=== PATIENT | female | born 1965 | race Caucasian/White ===

== ENCOUNTER 2022-04-20 16:40 | Outpatient (CLI) | payer OTHER, SELFPAY ==
--- OUTSIDE RECORDS SUMMARY | 2022-04-20 11:13 | XMS_ITS | Clinical Summary ---
:1965 Author Organization [facility] Address [address] [place] [address] Care Team Providers Name Role Phone Unavailable Primary Care Provider Unavailable Source Comments Patient records contain information from all sites at [facility]. For routine questions regarding patient records, call [phone] during business hours, M-F 8:00 AM - 5:00 PM Central Time. Record requests for emergency care only can be directed to [phone] at any time.[facility] Allergies Active Allergy Reactions Severity Noted Date Comments House Dust Mite Hives 09/06/2003 Medications Medication Sig Dispensed Refills Start Date End Date Status venlafaxine XR Take 1 capsule by 0 05/18/2019 Active (EFFEXOR-XR) 150 mg mouth daily. 24 hr capsule armodafinil Take 1 tablet by 0 05/30/2019 Active (NUVIGIL) 250 mg mouth daily. tablet cholecalciferol, Take 1,000 Units by 0 Active vitamin D3, (VITAMIN mouth daily. D3 ORAL) albuterol 90 Inhale 1-2 puffs. 0 09/10/2021 Active mcg/actuation inhaler benzonatate Take 200 mg by 0 09/14/2021 Ac tive (TESSALON) 200 mg mouth. capsule multivitamin tablet Take 1 tablet by 0 08/13/2021 Active mouth daily. gabapentin Take 1 tablet (600 90 tablet 2 02/10/2022 Active (NEURONTIN) 600 mg mg total) by mouth tablet 3 (three) times a day. Take with 300mg capsulesTID for a total of dose of 900mg TID gabapentin Take 1 capsule (300 90 capsule 2 02/10/2022 Active (NEURONTIN) 300 mg mg total) by mouth capsule 3 (three) times a day. 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 (Primary Dx ) 02/10/2022 Refill Neurological Surgery Dionte Garcia [place] d Change Request P.A.-C. 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 from Last 3 Months Immunizations Name Administration Dates Next Due DT, Pediatric 06/19/1987 H1N1 Inj 04/28/2009 Influenza TIV (IM) 03/27/2013, 05/04/2007 Influenza, Seasonal, Injectable 03/27/2013, 03/07/2009, 04/20 Td, (Adult) Unspecified 12/30/1997 Tdap 12/25/2010 influenza vaccine quad (FLUZONE/FLUARIX) 06/16/2016 (6 months and older)(PF) Family History Medical History Relation Name Comments Diabetes Father Heart attack Father Bone cancer Maternal Grandfather Prostate cancer Maternal Grandfather Diabetes Maternal Grandmother Diabetes Mother Heart disease Paternal Grandfather Breast cancer Paternal Grandmother Diabetes Sister Relation Name Status Comments Father Maternal Grandfather Maternal Grandmother Mother Paternal Grandfather Paternal Grandmother Sister Social History Tobacco Use Types Packs/Day Years Used Date Smoking Tobacco: Never Smokeless Tobacco: Never Alcohol Use Standard Drinks/Week Comments Not Currently 0 (1 standard drink = 0.6 oz pure alcoho l) Alcohol Habits Answer Date Recorded How often do you have a drink containing alcohol? Monthly or less 10/25/2021 How many drinks containing alcohol do you have on a 1 or 2 10/25/2021 typical day when you are drinking? How often do you have six or more drinks on one Never 10/25/2021 occasion? Social Isolation Answer Date Recorded In a typical week, how many times do you More than three rosy es a week 10/25/2021 talk on the phone with family, friends, or neighbors? How often do you get together with friends More than three t imes a week 10/25/2021 or relatives? How often do you attend rastafari or Never 2021 adventist services? Do you belong to any clubs or Yes 10/25/2021 organizations such as rastafari groups, unions, fraternal or athletic groups, or school groups? How often do you attend meetings of the More than 4 times pe r year 10/25/2021 clubs or organizations you belong to? Are you now , , , 10/25/2021 , never or living with a partner? Physical Activity Answer Date Recorded On average, how many days per week do you engage in moderate to 2 days 10/25/2021 strenuous exercise (like walking fast, running, jogging, dancing, swimming, biking, or other activities that cause a light or heavy sweat)? On average, how many minutes do you engage in exercise at th is 60 min 10/25/2021 level? Stress Answer Date Recorded Do you feel stress - tense, restless, nervous, or anxious, N ot at all 10/25/2021 or unable to sleep at night because your mind is troubled all the time - these days? Financial Resource Strain Answer Date Recorded How hard is it for you to pay for the very basics like Not h jessee at all 10/25/2021 food, housing, medical care, and heating? Intimate Partner Violence Answer Date Recorded Within the last year, have you been afraid of your partner o r No 10/25/2021 ex-partner? Within the last year, have you been humiliated or emotionall y No 10/25/2021 abused in other ways by your partner or ex-partner? Within the last year, have you been kicked, hit, slapped, or No 10/25/2021 otherwise physically hurt by your partner or ex-partner? Within the last year, have you been raped or forced to have any No 10/25/2021 kind of sexual activity by your partner or ex-partner? Food Insecurity Answer Date Recorded Within the past 12 months, you worried that your food would Never true 10/25/2021 run out before you got money to buy more. Within the past 12 months, the food you bought just didn't N ever true 10/25/2021 last and you didn't have money to get more. Transportation Needs Answer Date Recorded In the past 12 months, has lack of transportation kept you f rom No 10/25/2021 medical appointments or from getting medications? In the past 12 months, has lack of transportation kept you f rom No 10/25/2021 meetings, work, or getting things needed for daily living? Housing Stability Answer Date Recorded In the last 12 months, was there a time when you were not ab le No 10/25/2021 to pay the mortgage or rent on time? In the last 12 months, how many places have you lived? 1 10/25/2021 In the last 12 months, was there a time when you did not hav e a No 10/25/[address] or slept in a longterm (including now)? Education Answer Date Recorded What is the highest level of school Associate degree: academ [employer] program 10/25/2021 you have completed or the highest degree you have received? 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 [address] [place], [place] [address] (Wo rk) 05/12/2022 Appointment Radiology Jammie Roca P.A.-C., M.S. [address] [place], [place] [address] (Wo rk) 05/12/2022 Office Visit Neurological Surgery Sheila Gamble M.D. [address] [place], [place] [phone] (Wo rk) Health Maintenance Due Date Last Done Comments CT Colonography 1965 Cologuard 1965 Colonoscopy 1965 Colorectal Cancer Screening 1965 FIT 1965 HIV Screening 1965 Hepatitis B Vaccines (1 of 1965 3 - 3-dose series) Hepatitis C Screening 1965 Lipid (Cholesterol) 1965 Screening Mammogram 1965 COVID-19 Vaccine (#1) 02/27/1966 Zoster Vaccines (1 of 2) 08/28/2015 DTaP,Tdap,and Td Vaccines 12/25/2020 12/25/2010, 12/30/1997 , (4 - Td or Tdap) 06/19/1987 Depression Screening 06/20/2021 (Annual PHQ-2) Influenza Vaccine (#1) 2022 04/22/2020, 06/16/2016, 03/27/2013, Additional history exists Office Visit for Blood 05/19/2022 02/16/2022 Pressure Check / Re-check Fasting Glucose for 07/10/2022 07/10/2019 Diabetes Screening Pneumococcal vaccine (0-64 Aged Out No lo nger eligible years) based on patient 's age to complete this topic Medical Devices Implanted Type Area Forest Practices Field Coordinator Device Shelf Model / Identifier Expiration Serial / Lot Date Liz Meza Crn [id number] - [id number] - [id number] Bone or Anterior: Medtronic 02/15/2022 [id number] / Implanted: Qty: 1 on 08/10/2019 by Loulou Mariano M.D. at [facility] Tissue Spine [id number] / Cervical [id number] Description: C5/C6 Medtronic Zevo 3.5mm Variable Self-Tapping Screw Blue Hardware e .g. N/A: Spine Medtronic [id number] / Implanted: Qty: 6 on 08/10/2019 by Loulou Mariano M.D. at [facility] pins/screws/rods Cervical N/A / N/A Insurance Payer Benefit Plan / Subscriber ID Effective Dates Phone Addre ss Type Group MEDICA MEDICA [id number] 2018-Present [phone] [address] [id number] [place] [address] Advance Directives For more information, please contact: [phone] Latest Code Status on File Code Status Date Activated Date Inactivated Comments Full Code 08/10/2019 9:51 AM 08/11/2019 1:00 PM Question Answer Comments Full Code: Not Discussed Due to: Not medically appropriate
--- OUTSIDE RECORDS SUMMARY | 2022-04-20 11:13 | XMS_ITS | Encounter Summary ---
:1965 Author Organization [facility] Address [address] [place] [address] Care Team Providers Name Role Phone Unavailable Primary Care Provider Unavailable Reason for Visit Reason Comments Med Refill Encounter Details Date Type Department Care Team Description 02/08/2022 Refill Department of Neurological Marissa, Zacarias Gonzalez APRN, Med Refill Surgery in [place], [place] C.N.P., D.N.P. [address] [phone] [place] [address] (Wo rk) Social History Tobacco Use Types Packs/Day Years [...] or relatives? How often do you attend jehovah's witness or Never 2021 mandaen services? Do you belong to any clubs or Yes 10/25/2021 organizations such as jehovah's witness groups, unions, fraternal or athletic groups, or [...] minutes do you engage in exercise at is 60 min 10/25/2021 level? Stress Answer [...] place to sleep or slept in a residential (including now)? Education Answer Date Recorded What is the highest level of school Associate degree: academ [employer] program 10/25/2021 you have completed or the highest degree you have received? 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 - 02/08/2022 3:40 PM CDT Patient confirms taking 900mg TID. She is currently taking 1, 600mg tablet along with 1, 300mg capsule TID. She is in need of both the 600mg tabs and 300mg caps. Last refill 11/30 #90, 0 refills Last visit 10/27, next visit 02/16 documented in this encounter Plan of Treatment Upcoming Encounters Date Type Specialty Care Team Description 05/12/2022 Appointment Radiology Jammie Roca P.A.-C., M.S. [address] [place], [place] [address] (Wo marleni) 05/12/2022 Appointment Radiology Jammie Roca P.A.-C., M.S. [address] [place], [place] [address] (Wo marleni) 05/12/2022 Office Visit Neurological Surgery Sheila Gamble M.D. [address] [place] [phone] (Wo rk) documented as of this encounter Visit Diagnoses Not on filedocumented in this encounter
--- OUTSIDE RECORDS SUMMARY | 2022-04-20 11:13 | XMS_ITS | Encounter Summary ---
:1965 Author Organization [facility] Address [address] [place] [address] Care Team Providers Name Role Phone Unavailable Primary Care Provider Unavailable Reason for Referral Physical Therapy (Routine) - Authorized Specialty Diagnoses / Procedures Referred By Contact Refer red To Contact Diagnoses Radiculopathy Lumbar Jammie Roca P.A.-C., M.S. [address] [place] [phone] Referral ID Status Reason Start Expiration Visits Visits Date Date Requested Authorized [id number] Authorized Patient 02/16/2022 02/16/2023 1 1 Preference utpatient (Routine) - Authorized Specialty Diagnoses / Procedures Referred By Contact Refer red To Contact Neurological Surgery Jammie Roca [facility], M.S. [address] [place] [phone] Referral ID Status Reason Start Date Expiration Date Visits V isits Requested Authorized [id number] Authorized 02/16/2022 02/15/2025 [address] Gamble after mri and xrays utpatient (Routine) - Authorized Specialty Diagnoses / Procedures Referred By Contact Refer red To Contact Diagnoses Radiculopathy Lumbar Jammie Roca [facility] Region Procedures DX Lumbar Spine 4+ Views Almas, M.S. [address] [place] [phone] Referral ID Status Reason Start Date Expiration Date Visits V isits Requested Authorized [id number] Authorized 02/16/2022 02/16/2023 1 1 RI/CAT/PET Scan (Routine) - Authorized Specialty Diagnoses / Procedures Referred By Contact Refer red To Contact Radiology Diagnoses Radiculopathy Lumbar Jammie Roca [facility] Region Procedures MR Lumbar Spine without IV Contrast Almas, M.S. [address] [place] [phone] Referral ID Status Reason Start Date Expiration Date Visits V isits Requested Authorized [id number] Authorized 02/16/2022 02/16/2023 1 1 Reason for Visit Reason Comments Follow-up 3 month follow up, pain in l eft hip to foot and then moved to right leg. Outpatient (Routine) - Closed Specialty Diagnoses / Procedures Referred By Contact Refer red To Contact Neurological Surgery Loulou Gamble [facility] M.D. [address] [place] [phone] Referral ID Status Reason Start Date Expiration Date Visits Requ ested Visits Authorized [id number] Closed 10/27/2021 10/27/2022 1 1 Encounter Details Date Type Department Care Team Description 02/16/2022 Office Visit Department of Jammie Roca Radikika matteo Lumbar Neurological Surgery Almas Lanza, M.S. (Primary Dx) in [facility] [address] [facility] [address] [place] [address] [place], [place] [phone] (Work) [phone] Social History Tobacco Use Types Packs/Day Years [...] or relatives? How often do you attend yarsanism or Never 2021 mandaen services? Do you belong to any clubs or Yes 10/25/2021 organizations such as yarsanism groups, unions, fraternal or athletic groups, or [...] place to sleep or slept in a retirement (including now)? Education Answer Date Recorded What is the highest level of school Associate degree: [employer] program 10/25/2021 you have completed or the highest degree you have received? 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 - 02/16/2022 3:00 PM CDT Should you experience new or worsening pain, numbness, tingling, or weakness of the extremities, saddle anesthesia, or bowel/bladder incontinence, you are advised to seek emergency medical attention. Spine and Neurological Surgery Department Phone Numbers: During office hours of 8am to 5pm - Tuesday-Tuesday: [phone]. After hours /weekends: [phone]. documented in this encounter Progress Notes Jammie Roca P.A.-C., M.S. - 02/16/2022 3:00 PM CDT SUBJECTIVE CHIEF COMPLAINT / REASON FOR VISIT Minerva Ramesh is a 56 y.o. female who presents for evaluation of Follow-up (3 month follow up, pain in left hip to foot and then moved to right leg. ). HISTORY OF PRESENT ILLNESS Patient returns for follow up of lumbar radiculopathy. Recall she is status post an anterior cervical diskectomy and fusion for cervical myelopathy in 2019. She has more recently been followed by Dr. Gamble for lumbar radiculopathy for which she has undergone non operative measures with several targeted injections at the left L4 foramen as well as neuropathic pain medication. At their last visit in October, she had found some relief with gabapentin and they discussed titration to 900 mg TID. Upon return today, patient reports the increase in gabapentin has helped somewhat, however she continues to experience significant pain. 2-3/10 at its best, 10/10 at its worst. Remains in the same distribution most consistent with L3 vs L4 radiculopathy spreading down to the ankle. It is most significant in the anteromedial thigh. Pain is functionally limiting as she cannot spread her legs to sit on a bicycle, etc. She does state that she has found herself having to actively lift her left leg with her arms which is new for her. No new or worsening paresthesias. Denies bowel/bladder disturbances or saddle anesthesia. No significant right lower extremity issues. No neck or upper extremity concerns. She does have a chiropractor whom she has seen for many years and wonders if this may be an appropriate intervention. She remains hesitant to pursue major surgery at this time. The following portions of the patient's history were reviewed and updated as appropriate: allergies,current medications, family history, medical history, social history, surgical history, and problem list. Past Surgical History: Procedure Laterality Date SECTION DIAGNOSTIC LAPAROSCOPY FOOT SURGERY Right FUSION SPINE ANTERIOR CERVICAL AND DISCECTOMY N/A 08/10/2019 Procedure: FUSION SPINE ANTERIOR CERVICAL AND DISCECTOMY - C5-7; Surgeon: Loulou Gamble M.D.; Location: [facility] OR MOUTH BIOPSY N/A 04/02/2008 >Buccal mucosal biopsy. TONSILLECTOMY AND ADENOIDECTOMY VAGINAL HYSTERECTOMY with left oophorectomy. with laparoscopy too per pt REVIEW OF SYSTEMS: Neurological: Positive for numbness or shooting pain in hands, arms, legs, or feet. OBJECTIVE PHYSICAL EXAM GENERAL: Well-developed female in no acute distress. RESPIRATORY: Breathing unlabored. No respiratory distress. VASCULAR: All extremities warm to touch. No lower extremity edema. MUSCULOSKELETAL: + SLR on the left, - on the right. Negative MILAN/FADIR on the L NEURO: Mental Status: Alert and appropriately interactive to conversation. Motor/Sensory: Slight 4+/5 weakness L hip flexion/extension (pain limited) Very slight weakness 4+/5 L EHL Otherwise full and symmetric strength throughout all major muscle groups of the lower extremities Sensation intact throughout all lower extremity dermatomes Cerebellar: Ambulates well. No significant antalgia, weakness, imbalance. Performs heel walk, toe walk, tandem gait with minimal difficulty. Negative Romberg testing is negative. Reflexes, Clonus: Brisk UE reflexes at bilateral biceps, brachioradialis. 2+ bilateral triceps. 2+ and symmetric patella and achilles. Plantar response is mute. No abnormal ankle clonus or increased tone. DIAGNOSTIC Recall hip/pelvis xrays from March 2021 revealed no acute bilateral hip or pelvic osseous abnormality Recall EMG from October 2021 revealed no electrodiagnostic evidence of a left lumbosacral radiculopathy. This does not exclude the possibility of intermittent nerve root compression. We again reviewed prior lumbar MRI and xrays from January 2021. [address]. Gamble's prior report: MRI reveals no drastic difference compared to the 2020 MRI. There is some lateral recess stenosis and narrowing at the foramen at L4-5 but no major disc herniation. Lumbar x-ray show good alignment and no listhesis. ASSESSMENT / PLAN #1 Radiculopathy Lumbar Minerva Ramesh is a 56 y.o. female who presents for evaluation of Follow-up (3 month follow up, pain in left hip to foot and then moved to right leg). Patient has found some relief with uptitration of gabapentin although her pain continues to be quitebothersome and functionally limiting. Remains in the same distribution; most consistent with L3 vs L4 radiculopathy. No drastic focal deficits upon exam, although I do note slight weakness in the L LE - there may certainly be a pain-limitation component. We had a thorough discussion regarding options. In the setting of continued pain despite various conservative measures along with perhaps new onset weakness in the L LE, we made a collaborative decision to obtain updated lumbar MRI and xrays. Will review updated imaging with Dr. Gamble. In the meantime, patient remains hesitant to make any increases to her gabapentin. She would also like to hold off on an injection. We discussed setting her up with phsycial therapy; external referral sent. Patient will contact us should she need a new referral elsewhere. She will also plan to discuss with her chiropractor. I advised no significant manipulations or straining of the spine. We will see her back once the above is accomplished. Alarm signs and symptoms concerning for neurologic compromise warranting emergent medical evaluationwere reviewed in detail with the patient. Patient is encouraged to contact the Neurosurgery Department with any questions or concerns should they arise. Patients questions and concerns were addressed to their satisfaction and the patient voices comprehension of the current plan which was discussed in layman's terms at all points in conversation. Spine and Neurological Surgery Department Phone Numbers: During office hours of 8am to 5pm - Tuesday-Tuesday: [phone]. After hours /weekends: [phone]. Jammie Roca PA-C documented in this encounter Plan of Treatment Upcoming Encounters Date Type Specialty Care Team Description 05/12/2022 Appointment Radiology Jammie Roca P.A.-C., M.S. [address] [place], [place] [address] (Wo rk) 05/12/2022 Appointment Radiology Jammie Roca P.A.-C., M.S. [address] [place], [place] [address] (Wo rk) 05/12/2022 Office Visit Neurological Surgery Sheila Gamble M.D. [address] [place], [place] [phone] (Wo rk) Scheduled Orders Name Type Priority Associated Diagnoses Order S chedule MR Lumbar Spine Imaging RAD - Routine (most Radiculopathy Lumb ar Expected: without IV inpatients and all 2 Contrast outpatients) (Approximate), Expires: 05/19/2023 DX Lumbar Spine 4+ Imaging RAD - Routine (most Radiculopathy L umbar Expected: Views inpatients and all 2 outpatients) (Approximate), Expires: 05/19/2023 Scheduled Referrals Name Type Priority Associated Order Schedule Diagnoses Neurological Surgery Outpatient Referral Routine Expected: office visit (clinic) 2021, Expires: 05/19/2023 documented as of this encounter Visit Diagnoses Diagnosis Radiculopathy Lumbar - Primary documented in this encounter
--- OUTSIDE RECORDS SUMMARY | 2022-04-20 11:13 | XMS_ITS | Encounter Summary ---
:1965 Author Organization [facility] Address [address] [place] [address] Care Team Providers Name Role Phone Unavailable Primary Care Provider Unavailable Reason for Visit Reason Comments Med Change Request Encounter Details Date Type Department Care Team Description 02/10/2022 Refill Department of Neurological Dionte Garcia, Med Change Request Surgery in [place] [id number] [place] [address] [place] [address] [phone] Social History Tobacco Use Types Packs/Day Years [...] or relatives? How often do you attend zoroastrianism or Never 2021 church services? Do you belong to any clubs or Yes 10/25/2021 organizations such as zoroastrianism groups, unions, fraternal or athletic groups, or [...] place to sleep or slept in a fci (including now)? Education Answer Date Recorded What is the highest level of school Associate degree: academ program 10/25/2021 you have completed or the highest degree you have received? 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 [address] [place], [place] [address] (Karlie yepez) 05/12/2022 Appointment Radiology Jammie Roca, P.A.-C., M.S. [address] [place], [place] [address] (Karlie yepez) 05/12/2022 Office Visit Neurological Surgery Sheila Gamble M.D. [address] [place] [phone] (Karlie yepez) documented as of this encounter Visit Diagnoses Not on filedocumented in this encounter
--- OUTSIDE RECORDS SUMMARY | 2022-04-20 11:14 | XMS_ITS | Encounter Summary ---
:1965 Author Organization [facility] Address [address] [place] [address] Care Team Providers Name Role Phone Unavailable Primary Care Provider Unavailable Encounter Details Date Type Department Care Team Description 10/14/2021 Orders Only Department of Neurological Randi Richards, Surgery in [place], [place] P.A.-C. [address] [address] [place], [place] [phone] (Wo rk) Social History Tobacco Use Types [...] or relatives? How often do you attend muslim or Never 2021 zoroastrian services? Do you belong to any clubs or Yes 10/25/2021 organizations such as muslim groups, unions, fraternal or athletic groups, or [...] place to sleep or slept in a group home (including now)? Education Answer Date Recorded What is the highest level of school Associate degree: yehuda patterson, 01/29/2021 you have completed or the highest technical, or vocational p leonides degree you have received? 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 [facility] [place], [place] [address] (Karlie yepez) 05/12/2022 Appointment Radiology Jammie Roca, Ria.A.-C., M.S. [address] [place], [place] [address] (Karlei yepez) 05/12/2022 Office Visit Neurological Surgery Sheila Gamble M.D. [address] [place] [phone] (Karlie yepez) documented as of this encounter Visit Diagnoses Not on filedocumented in this encounter
--- OUTSIDE RECORDS SUMMARY | 2022-04-20 11:14 | XMS_ITS | Encounter Summary ---
:1965 Author Organization [facility] Address [address] [place] [id number] Care Team Providers Name Role Phone Unavailable Primary Care Provider Unavailable Reason for Visit Reason Comments Pre-visit Intake Encounter Details Date Type Department Care Team Description 10/05/2021 Clinical Communication Visit Review in Pr e-visit Intake [address] [address] Social History Tobacco Use Types Packs/Day Years [...] or relatives? How often do you attend episcopalian or Never 2021 restorationism services? Do you belong to any clubs or Yes 10/25/2021 organizations such as episcopalian groups, unions, fraternal or athletic groups, or [...] completed or the highest technical, or vocational mariza coyle degree you have received? 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 [address] [place] [address] (Wo rk) 05/12/2022 Appointment Radiology Jammie Roca, P.A.-C., M.S. [address] [place] [phone] (Wo rk) 05/12/2022 Office Visit Neurological Surgery Sheila Gamble M.D. [address] [place] [phone] (Wo rk) documented as of this encounter Visit Diagnoses Not on filedocumented in this encounter
--- OUTSIDE RECORDS SUMMARY | 2022-04-20 11:14 | XMS_ITS | Encounter Summary ---
:1965 Author Organization [facility] Address [address] [place] [address] Care Team Providers Name Role Phone Unavailable Primary Care Provider Unavailable Reason for Referral Outpatient (Routine) - Closed Specialty Diagnoses / Procedures Referred By Contact Refer red To Contact Radiology Diagnoses Radiculopathy Lumbar Randi Richards P.A.-C. [address] [place] [phone] Referral ID Status Reason Start Date Expiration Date Visits Requ ested Visits Authorized [id number] Closed 11/13/2019 11/12/2020 1 1 Reason for Visit Reason Comments Post Hospital Follow-up Outpatient (Routine) - Closed Specialty Diagnoses / Procedures Referred By Contact Refer red To Contact Neurological Surgery [facility] Z[facility], C.N.P., D.N.P., M.S.N. [address] [address] Referral ID Status Reason Start Date Expiration Date Visits Requ ested Visits Authorized [id number] Closed 08/11/2019 08/10/2020 1 1 Encounter Details Date Type Department Care Team Description 11/13/2019 Office Visit Department of Melissa Murrell P.A.-C., M.S. [address] [place] [phone] Radiculopathy Lumbar (Primary Dx); Neurological Surgery Randi Richards P.A.-C. [address] [place] [address] Fusion Cervical Spine Status Post; [place] Stenosis Spinal Cervical [address] [place] [phone] Social History Tobacco Use Types Packs/Day Years Used Date Smoking Tobacco: Never Smokeless Tobacco: Never Alcohol Use Standard Drinks/Week Comments Not Currently 1 (1 standard drink = 0.6 oz pure [...] or relatives? How often do you attend holiness or Never 2021 muslim services? Do you belong to any clubs or Yes 10/25/2021 organizations such as holiness groups, unions, fraternal or athletic groups, or [...] place to sleep or slept in a care home (including now)? Education Answer Date Recorded What is the highest level of school Associate degree: [employer] program 06/26/2019 you have completed or the highest degree you have received? 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 - 11/13/2019 9:45 AM CDT SUBJECTIVE CHIEF COMPLAINT / REASON FOR VISIT Minerva Ramesh is a 54 y.o. female who returns to clinic as a 13 week follow up status post ACDF at C5-C7 HISTORY OF PRESENT ILLNESS Minerva Ramesh is a 54 y.o. female who underwent the above described procedure as performed by Dr. Gamble on August 10, 2019. At this time, the patient tells me that their symptoms have improved. She has experienced resolution of nocturnal paresthesias. She describes improvement of strength. She did not experience any problems with wound healing. She is pleased with her progress. She has developed worsening issues of her lower extremities. She states that she had some right thigh issues when she first saw Dr. Gamble, but these have progressed to left>right thigh, daily throbbing pain. This wraps around her from her hip and goes across her thigh and into her groin. It has never gone below the knee. No loss of bowel or bladder habits. There was no significant event at the start of the pain. It has worsened since June. No falls or problems walking. Ice and Tylenol do not help it. The following portions of the patient's history were reviewed and updated as appropriate: allergies,current medications, medical history, social history, surgical history and problem list. Past Surgical History: Procedure Laterality Date ??? SECTION ??? DIAGNOSTIC LAPAROSCOPY ??? FOOT SURGERY Right ??? FUSION SPINE ANTERIOR CERVICAL AND DISCECTOMY N/A 08/10/2019 Procedure: FUSION SPINE ANTERIOR CERVICAL AND DISCECTOMY - C5-7; Surgeon: Loulou Gamble M.D.; Location: [facility] OR ??? MOUTH BIOPSY N/A 04/02/2008 >Buccal mucosal biopsy. ??? TONSILLECTOMY AND ADENOIDECTOMY ??? VAGINAL HYSTERECTOMY with left oophorectomy. with laparoscopy too per pt REVIEW OF SYSTEMS: Constitutional: Negative for fatigue, fever and loss of appetite. Genitourinary: Negative for incontinence. Musculoskeletal: Negative for back pain. Neurological: Positive for numbness or shooting pain in hands, arms, legs, or feet. Negative for loss of balance or tendency to fall easily and weakness in arms or legs. OBJECTIVE Blood pressure 110/62, pulse 68, temperature 36.9 ??C, temperature source Temporal, resp. rate 16. PHYSICAL EXAM GENERAL: The patient is a well-nourished, well-developed, female in no acute distress. SKIN: There is a well-healed surgical incision over the anterior neck that is without any signs of infection or drainage. VASCULAR: No swelling in the fingers or hands bilaterally. Radial and pedal pulses are symmetricallybilaterally. MUSCULOSKELETAL: Mild tenderness to palpation over the incision itself. NEURO: Cranial nerves II-XII are grossly intact. Sensation to light touch is grossly intact throughout the upper extremities. Strength is full throughout upper extremities. Gait, tandem, heel and toe walking are all within normal limits. DIAGNOSTICS EXAM: DX CERVICAL SPINE 2-3 VIEWS ?? COMPARISON: 08/11/2019. ?? FINDINGS: Previous soft tissue drain has been removed. Prevertebral soft tissues are unremarkable. The 7 cervical vertebrae are reasonably well visualized. Again noted is a anterior spinal fusion and discectomy from C5 to C7 in essentially anatomic alignment. There appears to be some interval narrowing of the fused disc spaces with sclerosis and healing. Remaining vertebrae are unremarkable and remaining disc levels are preserved. ?? IMPRESSION: Healing anterior spinal fusion and discectomy from C5 to C7. 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 I am pleased to report that the patient's symptoms have improved since the surgery and she is happy with this. She has continued to have progressive dysethesias in her legs. I will obtain an MRI of her lumbar spine at this time. She wishes to have it done at an outside facility. Once images are available, I cancall her with results and next steps. I have advised the patient to follow up 6 months from the date of surgery with updated x-rays of hercervical spine. I will hold off on ordering x-rays and follow up until a clear plan for her lumbar spine is arranged. I reviewed concerning signs and symptoms of severe spinal impingent and reasons to seek emergency treatment. She also had concerns about her bill and there is a code listed for tissue implant that her insurance claims is experimental and will not cover it. She will contact our office with the billing code to see if it is appropriate for the surgery that she had. We will assist with our billing department to resolve this concern. Spine and Neurological Surgery Department Phone Numbers: During office hours of 8am to 5pm - Tuesday-Tuesday: [phone]. After hours /weekends: [phone]. documented in this encounter Plan of Treatment Upcoming Encounters Date Type Specialty Care Team Description 05/12/2022 Appointment Radiology Jammie Roca P.A.-C., M.S. [address] [place] [address] (Karlie yepez) 05/12/2022 Appointment Radiology Jammie Roca P.A.-C., M.S. [address] [place] [address] (Karlie yepez) 05/12/2022 Office Visit Neurological Surgery Sheila Gamble M.D. [facility] [place], [place] [phone] (Wo marleni) documented as of this encounter Visit Diagnoses Diagnosis Radiculopathy Lumbar - Primary Fusion Cervical Spine Status Post Stenosis Spinal Cervical documented in this encounter
--- OUTSIDE RECORDS SUMMARY | 2022-04-20 11:14 | XMS_ITS | Encounter Summary ---
:1965 Author Organization [facility] Address [address] [place] [address] Care Team Providers Name Role Phone Unavailable Primary Care Provider Unavailable Reason for Referral Outpatient (Routine) - Closed Specialty Diagnoses / Procedures Referred By Contact Refer red To Contact Neurological Surgery [facility] [address] [place] [phone] Referral ID Status Reason Start Date Expiration Date Visits Requ ested Visits Authorized [id number] Closed 10/27/2021 10/27/2022 1 1 Reason for Visit Reason Comments Follow-up 04/09/21 [place] Lumbar Spine Tra nsforaminal Epidural Injection Left10/26/21 [facility] Outpatient (Routine) - Closed Specialty Diagnoses / Procedures Referred By Contact Refer red To Contact Neurological Surgery [facility] [address] [place] [phone] Referral ID Status Reason Start Date Expiration Date Visits Requ ested Visits Authorized [id number] Closed 04/01/2021 04/01/2022 1 1 Encounter Details Date Type Department Care Team Description 10/27/2021 Office Visit Department of Loulou Gamble Radiculopath y Lumbar Neurological Surgery Ngoc Jeff (Primary Dx) in [address] [phone] Social History Tobacco Use Types Packs/Day Years [...] or relatives? How often do you attend sikh or Never 2021 zoroastrianism services? Do you belong to any clubs or Yes 10/25/2021 organizations such as sikh groups, unions, fraternal or athletic groups, or [...] place to sleep or slept in a [place] (including now)? Education Answer Date Recorded What is the highest level of school Associate degree: academ [employer] program 10/25/2021 you have completed or the highest degree you have received? 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 Ramesh is status post an anterior cervical diskectomy and fusion for cervical myelopathy in 2020. She has no significant issues with her neck at this time. She has had lumbar radiculopathy for which she has undergone non operative measures with several targeted injections at the left L4 foramen aswell as neuropathic pain medication. She recently went from 900 mg the morning to 300 mg 3 times a day. She reports that she had significant relief with the 900 mg in the morning. We discussed a titration to 900 mg 3 times daily over the course of the next 2 weeks and we reviewed possible side effects. We also reviewed that she would need updated prescription earlier than her current prescription seco ndary to the titration. She denies any weakness and reports a continued L4 distribution of numbness and pain on the left-hand side and only anterior thigh on the right-hand side. At this time she would like to pursue with the gabapentin titration and hold on any injection which I agree with. We will see her back in 3 months. A total of 25 minutes was spent on this clinical visit, 20 minutes was spent in counseling and coordinating of cares. documented in this encounter Plan of Treatment Upcoming Encounters Date Type Specialty Care Team Description 05/12/2022 Appointment Radiology Jammie Roca P.A.-C., M.S. [address] [place] [phone] (Wo ) 05/12/2022 Appointment Radiology Jammie Roca P.A.-C., M.S. [address] [place], [place] [address] (Wo rk) 05/12/2022 Office Visit Neurological Surgery Sheila Gamble M.D. [address] [place] [phone] (Wo rk) Scheduled Referrals Name Type Priority Associated Order Schedule Diagnoses Neurological Surgery Outpatient Referral Routine Expected: office visit (clinic) 2021 (Approximate), Expires: 01/27/2023 documented as of this encounter Visit Diagnoses Diagnosis Radiculopathy Lumbar - Primary documented in this encounter
--- OUTSIDE RECORDS SUMMARY | 2022-04-20 11:14 | XMS_ITS | Encounter Summary ---
:1965 Author Organization [facility] Address [address] [place] [address] Care Team Providers Name Role Phone Unavailable Primary Care Provider Unavailable Reason for Referral Outpatient (Routine) - Closed Specialty Diagnoses / Procedures Referred By Contact Refer red To Contact Diagnoses Pain Back Zacarias Ann APRN, [facility] Region Procedures FL Lumbar Spine Transforaminal Epidural Injection Left MT INJ ANES FORAMEN EPI LUMB SNGL C.N.P., D.N.P. [address] [place] [address] Referral ID Status Reason Start Date Expiration Date Visits Requ ested Visits Authorized [id number] Closed 06/06/2020 06/06/2021 1 1 K SHAPER Reason for Visit Outpatient (Routine) - Closed Specialty Diagnoses / Procedures Referred By Contact Refer red To Contact Diagnoses Pain Back Zacarias Ann APRN, [facility] Region Procedures FL Lumbar Spine Transforaminal Epidural Injection Left MT INJ ANES FORAMEN EPI LUMB SNGL C.N.P., D.N.P. [address] [place] [address] Referral ID Status Reason Start Date Expiration Date Visits Requ ested Visits Authorized [id number] Closed 06/06/2020 06/06/2021 1 1 Encounter Details Date Type Department Care Team Description 06/17/2020 Hospital Encounter Department of Radiology, Zacarias Yo APRN, C.N.P., D.N.P. [address] [place] [address] Pain Back [facility], in Igor Mason M.D. [address] [place] [address] [place], [place] [address] [place] [address] Social History Tobacco Use Types Packs/Day Years [...] or relatives? How often do you attend buddhist or Never 2021 tenriism services? Do you belong to any clubs or Yes 10/25/2021 organizations such as buddhist groups, unions, fraternal or athletic groups, or [...] place to sleep or slept in a halfway (including now)? Education Answer Date Recorded What is the highest level of school Associate degree: [employer] program 06/26/2019 you have completed or the highest degree you have received? 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 venlafaxine XR Take 1 capsule by 0 05/18/2019 (EFFEXOR-XR) 150 mg 24 hr mouth daily. capsule acetaminophen (TYLENOL) Take 2 tablets 100 tablet 0 08/11/19 20 01/30/2021 500 mg tablet (1,000 mg total) by mouth every 8 (eight) hours. alendronate (FOSAMAX) 70 Take 70 mg by mouth 0 01/30/2021 mg tablet once a week. ALPRAZolam (XANAX) 0.5 mg 0 10/11/2019 01/30/2021 tablet ALPRAZolam (XANAX) 1 mg Take 1 mg by mouth 0 08/201901/30/2021 tablet at bedtime as needed. fluticasone propionate SPRAY 2 SPRAYS INTO 0 03/2101/30/2021 (FLONASE) 50 EACH NOSTRIL EVERY mcg/actuation nasal spray DAY DIRECTED loratadine (Claritin) 10 Take by mouth. 0 01/30/2021 mg tablet sertraline (ZOLOFT) 50 mg Take by mouth. 0 200601/30/2021 tablet topiramate (TOPAMAX) 50 Take 2 tablets by 0 06/1210/05/2021 mg tablet mouth 2 (two) times a day. venlafaxine XR Take 75 mg by mouth 0 05/03/2020 0 01/30/2021 (EFFEXOR-XR) 75 mg 24 hr daily. capsule documented as of this encounter Plan of Treatment Upcoming Encounters Date Type Specialty Care Team Description 05/12/2022 Appointment Jammie Richey, P.A.-C., M.S. [address] [place] [address] (Wo rk) 05/12/2022 Appointment Radiology Jammie Roca P.A.-C., M.S. [address] [place], [place] [address] (Karlie yepez) 05/12/2022 Office Visit Neurological Surgery Sheila Gamble M.D. [address] [place], [place] [phone] (Karlie yepez) documented as of this encounter Procedures Procedure Name Priority Date/Time Associated Comments Diagnosis FL LUMBAR SPINE RAD - Routine 06/17/2020 12:43 Pain Back Results for TRANSFORAMINAL (most inpatients PM STOCK SHAPER this proc edure EPIDURAL INJECTION and all are in th e LEFT outpatients) results section. documented in this encounter Results FL Lumbar Spine Transforaminal Epidural Injection Left (06/17/2020 12:43 PM STOCK SHAPER) Specimen (Source) Anatomical Collection Method Collection Time Re ceived Time Location / / Volume Laterality 06/17/2020 12:52 PM STOCK SHAPER Impressions [id number] - 06/17/2020 12:52 PM STOCK SHAPER Successful fluoroscopic guided left L4-5 transforaminal epidural steroid injection. Narrative [id number] - 06/17/2020 12:52 PM STOCK SHAPER EXAM: FL LUMBAR SPINE TRANSFORAMINAL EPIDURAL INJECTION LEFT PROCEDURE: Sterile; 1% lidocaine for loc al anesthesia. Location: Left L4-5 approached under flu oroscopic guidance Needle size: 20G Medication: ??Epidural, extravascular po sition was confirmed by an injection of a small amount of Omnipaque 300. Following this, injection of a mix of 10 mg of Dexamethasone and 1-3 mL of 2% Lidocaine was performed, and the needle then removed. Pain rating: Pre-procedure patient rated their pain as 7 out of 10 and post procedure patient rated their pain as 0 out of 10 Other: None Complications: None PREPROCEDURE: Patient seen, evaluated, a nd history reviewed. Discussed risks, benefits, and alternatives for procedure , and obtained informed consent. Risks including but not limited to bleeding, i nfection, neurovascular or structural injury, and headache including prolonged headaches possibly necessitating blood patch procedure were discussed. ??Patien t understands information and questions answered. Immediately prior to starting the procedure, in the presence of the assisting personnel, procedural pause wa s conducted to verify correct patient identity and verification of procedure t o be ??performed, and as applicable, correct side and site, correct patient p osition, availability of implants, special equipment, or special requiremen ts, and all image and specimen identification data. The roles and respo nsibilities of the care team members, resident, and fellows were discussed. Th e medication list was reviewed and there are no changes to current medications. P atient education provided by the care coding team lead. Ready to learn, no apparent learning barriers were identified. Post-procedure care explained; patient e xpressed understanding of the content. Procedure Note Igor Mason M.D. - 06/17/2020Form atting of this note might be different from the original. EXAM: FL LUMBAR SPINE TRANSFORAMINAL EPI DURAL INJECTION LEFT PROCEDURE: Sterile; 1% lidocaine for loc al anesthesia. Location: Left L4-5 approached under flu oroscopic guidance Needle size: 20G Medication: Epidural, extravascular posi tion was confirmed by an injection of a small amount of Omnipaque 300. Following this, injection of a mix of 10 mg of Dexamethasone and 1-3 mL of 2% Lidocaine was performed, and the needle then removed. Pain rating: Pre-procedure patient rated their pain as 7 out of 10 and post procedure patient rated their pain as 0 out of 10 Other: None Complications: None PREPROCEDURE: Patient seen, evaluated, a nd history reviewed. Discussed risks, benefits, and alternatives for procedure , and obtained informed consent. Risks including but not limited to bleeding, i nfection, neurovascular or structural injury, and headache including prolonged headaches possibly necessitating blood patch procedure were discussed. Patient understands information and questions answered. Immediately prior to starting the procedure, in the presence of the assisting personnel, procedural pause wa s conducted to verify correct patient identity and verification of procedure t o be performed, and as applicable, correct side and site, correct patient p osition, availability of implants, special equipment, or special requiremen ts, and all image and specimen identification data. The roles and respo nsibilities of the care team members, resident, and fellows were discussed. Th e medication list was reviewed and there are no changes to current medications. P atient education provided by the care coding team lead. Ready to learn, no apparent learning barriers were identified. Post-procedure care explained; patient e xpressed understanding of the content. IMPRESSION: Successful fluoroscopic guided left L4-5 transforaminal epidural steroid injection. Joe Zarate APRNNLoganPLogan, D.N.P. IMG FLUOROSCOPY MT OCEDURES Performing Organization Address City/State/ZIP Code Phon e Number [id number] NA documented in this encounter Visit Diagnoses Diagnosis Pain Back documented in this encounter Administered Medications Inactive Administered Medications - up to 3 most recent administrations Medication Order MAR Action Action Date Dose Rate Site dexAMETHasone injection 10 mg Given 06/17/2020 12:36 PM STOCK SHAPER 10 m g (DECADRON) 10 mg, injection, Once, On Tue06/17/20 at 1245, For 1 dose iohexoL 300 mg iodine/mL solution 10 mL Given 06/17/2020 12:35 P M STOCK SHAPER 3 mL (OMNIPAQUE) 10 mL, injection, Once in imaging, contrast, Starting on Tue06/17/20 at 1232, For 1 dose, If administered oral then dilute in 900 mL water lidocaine 10 mg/mL (1 %) injection 5 mL Given 06/17/2020 12:34 P M STOCK SHAPER 3 mL (XYLOCAINE) 5 mL, injection, Once, On Tue06/17/20 at 1245, For 1 dose documented in this encounter
--- OUTSIDE RECORDS SUMMARY | 2022-04-20 11:14 | XMS_ITS | Encounter Summary ---
:1965 Author Organization [facility] Address [address] [place] [address] Care Team Providers Name Role Phone Unavailable Primary Care Provider Unavailable Reason for Referral Outpatient (Routine) - Closed Specialty Diagnoses / Procedures Referred By Contact Refer red To Contact Diagnoses Radiculopathy Lumbar Loulou Gamble M.D. [facility] Procedures EMG [address] [place] [address] Referral ID Status Reason Start Date Expiration Date Visits Requ ested Visits Authorized [id number] Closed 04/01/2021 04/01/2022 1 1 Reason for Visit Outpatient (Routine) - Closed Specialty Diagnoses / Procedures Referred By Contact Refer red To Contact Diagnoses Radiculopathy Lumbar Loulou Gamble M.D. [facility] Procedures EMG [address] [place] [address] Referral ID Status Reason Start Date Expiration Date Visits Requ ested Visits Authorized [id number] Closed 04/01/2021 04/01/2022 1 1 Encounter Details Date Type Department Care Team Description 10/26/2021 Hospital Encounter Department of Loulou Gamble Radianila lopathstephania Lumbar Neurology in [place] [address] [facility] [address] [place], [place] [phone] (Work) [phone] Social History Tobacco Use Types Packs/Day Years [...] or relatives? How often do you attend rastafarian or Never 2021 samaritan services? Do you belong to any clubs or Yes 10/25/2021 organizations such as rastafarian groups, unions, fraternal or athletic groups, or [...] place to sleep or slept in a skilled nursing (including now)? Education Answer Date Recorded What is the highest level of school Associate degree: [employer] program 10/25/2021 you have completed or the highest degree you have received? 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 0 09/10/2021 mcg/actuation inhaler armodafinil (NUVIGIL) 250 Take 1 tablet by 0 05/20 mg tablet mouth daily. benzonatate (TESSALON) Take 200 mg by 0 2 200 mg capsule mouth. cholecalciferol, vitamin Take 1,000 Units by 0 D3, (VITAMIN D3 ORAL) mouth daily. multivitamin tablet Take 1 tablet by 0 08/13/2021 mouth daily. venlafaxine XR Take 1 capsule by 0 05/18/2019 (EFFEXOR-XR) 150 mg 24 hr mouth daily. capsule codeine-guaiFENesin Take 5 mL by mouth. 0 10/12/ 022 11/26/2021 (ROBITUSSIN-AC) 10-100 mg/5 mL liquid gabapentin (NEURONTIN) TAKE 1 CAPSULE BY 90 capsule 1 202111/26/2021 300 mg capsule MOUTH THREE TIMES A DAY documented as of this encounter Plan of Treatment Upcoming Encounters Date Type Specialty Care Team Description 05/12/2022 Appointment Radiology Jammie Roca P.A.-C., M.S. [address] [place], [place] [address] (Wo rk) 05/12/2022 Appointment Radiology Jammie Roca P.A.-C., M.S. [address] [place], [place] [address] (Wo rk) 05/12/2022 Office Visit Neurological Surgery Sheila Gamble M.D. [facility] [place], [place] [phone] (Wo rk) documented as of this encounter Procedures Procedure Name Priority Date/Time Associated Diagnosis Comme nts EMG Routine 10/26/2021 1:08 PM Radiculopathy Lumbar R esults for this CDT procedure are i n the results section . documented in this encounter Results EMG (10/26/2021 1:08 PM CDT) Specimen (Source) Anatomical Collection Method Collection Time Re ceived Time Location / / Volume Laterality 10/26/2021 1:15 PM CDT Narrative [facility] - 10/26/2021 2:48 PM CDT 26-Oct-2021 ? Electromyography ? Final Report Study Number: 1 EMG Marketing Analytics Manager: Domi Meneses 127 or [phone] Referred by: LOULOU GAMBLE () Referred for: LLE lumbar radic. Referral Code: ?022 RX: 001 SUMMARY: Prior to starting the procedure , the patient's identity was verified, pertinent available records were reviewed, the nature of the procedure was explained, the appropriate sites of the exam were confirmed directly with the pa tient, and a pre-procedure pause was performed for final verification of all of the above. ?? Left lower limb nerve conduction studies and needle EMG were normal. Incidentally noted was a left lateral accessory peroneal nerve (normal anatomic variant). ?? CLINICAL INTERPRETATION: Normal study. T here is no electrodiagnostic evidence of a left lumbosacral radiculopathy. This does not exclude the possibility of intermittent nerve root compression. ?? Hari Meneses (127 or [phone]) /[facility] NERVE CONDUCTIONS ??Record Rep ?? Normal ??Normal Distal Normal F-Wave F-Wave Temp Nerve Type Site Stim Side Amp Amp CV CV Lat Lat Lat Est (??C) Fibular Motor EDB ??L 3.0 (> 2.0) 49 (> 41) 5.6 (< 6.6) ?? 29.9 Tibial Motor AH ??L 17.3 (> 4.0) 48 (> 4 0) 5.8 (< 6.1) ?? 29.9 Sural Sensory Ankle ??L 14 (> 6.0) ??(> 40) 3.9 (< 4.5) ?? 29.8 NEEDLE EMG ??Ins Spont ??MUP ??Recruitment ??Durat ion ??Amplitude ??Phases ?? Muscle Side Act Fib Fasc Normal Activ Re duced Rapid Long Short High Low % Turns Tensor fasciae latae L NL 0 0 NL ? Vastus lateralis L NL 0 0 NL ? Vastus medialis L NL 0 0 NL ? Gastrocnemius (medial head) L NL 0 0 NL ? Tibialis anterior L NL 0 0 NL ? Adductor longus L NL 0 0 NL ? This interpretation has been electron ically signed: Denise Meneses MD at 10/26/2021 3:18:07 PM CDT Procedure Note Denise Meneses M.D. - 26-Oct-2021 Electromyography Final Repor t Study Number: 1 EMG Marketing Analytics Manager: Domi Meneses 127 or [phone] Referred by: LOULOU GAMBLE () Referred for: LLE lumbar radic. Referral Code: 022 RX: 001 SUMMARY: Prior to starting the procedure , the patient's identity was verified, pertinent available records were reviewed, the nature of the procedure was explained, the appropriate sites of the exam were confirmed directly with the pa tient, and a pre-procedure pause was performed for final verification of all of the above. Left lower limb nerve conduction studies and needle EMG were normal. Incidentally noted was a left lateral accessory peroneal nerve (normal anatomic variant). CLINICAL INTERPRETATION: Normal study. T here is no electrodiagnostic evidence of a left lumbosacral radiculopathy. This does not exclude the possibility of intermittent nerve root compression. Hari Mensees (127 or [phone]) /[facility] NERVE CONDUCTIONS Record Rep Normal Normal Distal Normal F-Wave F-Wave Temp Nerve Type Site Stim Side Amp Amp CV CV Lat Lat Lat Est (??C) Fibular Motor EDB L 3.0 (> 2.0) 49 (> 41 ) 5.6 (< 6.6) 29.9 Tibial Motor AH L 17.3 (> 4.0) 48 (> 40) 5.8 (< 6.1) 29.9 Sural Sensory Ankle L 14 (> 6.0) (> 40) 3.9 (< 4.5) 29.8 NEEDLE EMG Ins Spont MUP Recruitment Duration Ampl itude Phases Muscle Side Act Fib Fasc Normal Activ Re duced Rapid Long Short High Low % Turns Tensor fasciae latae L NL 0 0 NL Vastus lateralis L NL 0 0 NL Vastus medialis L NL 0 0 NL Gastrocnemius (medial head) L NL 0 0 NL Tibialis anterior L NL 0 0 NL Adductor longus L NL 0 0 NL This interpretation has been electron ically signed: Denise Meneses MD at 10/26/2021 3:18:07 PM CDT Loulou Gamble M.D. NEUROLOGY ORDERABLES Performing Organization Address City/State/ZIP Code Phon e Number [facility] documented in this encounter Visit Diagnoses Diagnosis Radiculopathy Lumbar documented in this encounter
--- OUTSIDE RECORDS SUMMARY | 2022-04-20 11:14 | XMS_ITS | Encounter Summary ---
:1965 Author Organization [facility] Address [address] [place] [address] Care Team Providers Name Role Phone Unavailable Primary Care Provider Unavailable Encounter Details Date Type Department Care Team Description 12/13/2019 Clinical Communication Department of Randi Richards Neurological Surgery in , [place] [address] [phone] Social History Tobacco Use Types Packs/Day Years [...] or relatives? How often do you attend shinto or Never 2021 druze services? Do you belong to any clubs or Yes 10/25/2021 organizations such as shinto groups, unions, fraternal or athletic groups, or [...] place to sleep or slept in a long term (including now)? Education Answer Date Recorded What is the highest level of school Associate degree: [employer] program 06/26/2019 you have completed or the highest degree you have received? 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 - 12/13/2019 7:18 PM CDT The patient was contacted and her lumbar MRI was reviewed. It was very reassuring that there is no significant central spinal cord stenosis. The L4-5 level off to the right is a little bit more pinchedthan the left. She continues to have low back pain daily. No symptoms of cauda equina. She went to 1 physical therapy session and felt that it made her more sore for 3 days following therapy. I recommended that she begin Aleve for 7 days prior to her physical therapy session next week. She may need to decreased the number of reps per exercise until she can better tolerate them. She will continue daily icing and using topical pain relievers as well. I will schedule an appointment to see her back at the end of December or beginning of January to monitor progress. Spine and Neurological Surgery Department Phone Numbers: During office hours of 8am to 5pm - Tuesday-Tuesday: [phone]. After hours /weekends: [phone]. documented in this encounter Plan of Treatment Upcoming Encounters Date Type Specialty Care Team Description 05/12/2022 Appointment Radiology Jammie Roca P.A.-C., M.S. [address] [place] [address] (Wo rk) 05/12/2022 Appointment Radiology Jammie Roca P.A.-C., M.S. [address] [place] [address] (Wo rk) 05/12/2022 Office Visit Neurological Surgery Sheila Gamble M.D. [address] [place] [phone] (Wo rk) documented as of this encounter Visit Diagnoses Not on filedocumented in this encounter
--- OUTSIDE RECORDS SUMMARY | 2022-04-20 11:14 | XMS_ITS | Encounter Summary ---
:1965 Author Organization [facility] Address [address] [place] [address] Care Team Providers Name Role Phone Unavailable Primary Care Provider Unavailable Reason for Visit Reason Comments Med Refill Gabapentin Encounter Details Date Type Department Care Team Description 08/28/2021 Clinical Department of Loulou Gamble Med Refill Communication Neurological Surgery [place] (Gabapentin) in [address] [place] [address] [phone] [address] (Work) [phone] Social History Tobacco Use Types Packs/Day Years [...] or relatives? How often do you attend bahai or Never 2021 uatsdin services? 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 Telephone Encounter - Edith Mast R.N. - 08/28/2021 9:52 AM STRUCTURAL RIGGER Spoke to patient this morning- She verified her dose as 300 mg 3 pills one time daily. Last visit was Dr. Gamble: 04/01 Injection: 04/09 Follow up to be scheduled for 08/2021. Scheduling: Please contact patient to schedule appointments. Refill has been provided. CTURAL RIGGER documented in this encounter Plan of Treatment Upcoming Encounters Date Type Specialty Care Team Description 05/12/2022 Appointment Radiology Jammie Roca P.A.-C., M.S. [address] [place], [place] [address] (Wo rk) 05/12/2022 Appointment Radiology Jammie Roca P.A.-C., M.S. [address] [place], [place] [address] (Wo rk) 05/12/2022 Office Visit Neurological Surgery Sheila Gamble M.D. [address] [place], [place] [phone] (Wo rk) documented as of this encounter Visit Diagnoses Not on filedocumented in this encounter
--- OUTSIDE RECORDS SUMMARY | 2022-04-20 11:14 | XMS_ITS | Encounter Summary ---
:1965 Author Organization [facility] Address [address] [place] [address] Care Team Providers Name Role Phone Unavailable Primary Care Provider Unavailable Reason for Visit Reason Comments Med Change Request Encounter Details Date Type Department Care Team Description 11/30/2021 Refill Department of Neurological Melissa Murrell , Med Change Request Surgery in [place], [place], M.S . [address] [phone] [phone] (Wo rk) Social History Tobacco Use Types [...] or relatives? How often do you attend amish or Never 2021 rastafari services? Do you belong to any clubs or Yes 10/25/2021 organizations such as amish groups, unions, fraternal or athletic groups, or [...] the highest level of school Associate degree: [employer] program 10/25/2021 you have completed or the highest degree you have received? 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 - 11/30/2021 3:22 PM CDT Received a refill request for gabapentin. Patient reports she is currently taking 900mg of gabapentinTID. Per the patient and her pharmacy, her insurances will only cover up to 3 tablets of gabapentin per day. I have provided the patient with a prescription of gabapentin 600mg TID and gabapentin 300mgTID. Patient will take both of the prescriptions for a total of 900mg of gabapentin TID. I have again reviewed the medication regimen and discussed the side effects with the patient. If these would occur, he will stop taking the medication and seek prompt medical attention.The patient verbalizes understanding and feels comfortable with this plan moving forward. All of his questions and concerns have been answered to his satisfaction. Zacarias Ann APRN, Katarina.N.Ria., D.N.P. documented in this encounter Plan of Treatment Upcoming Encounters Date Type Specialty Care Team Description 05/12/2022 Appointment Radiology Jammie Roca P.Eli.-Katarina., M.S. [facility] [place], [place] [address] (Wo rk) 05/12/2022 Appointment Radiology Jammie Roca P.A.-C., M.S. [address] [place] [address] (Wo rk) 05/12/2022 Office Visit Neurological Surgery Sheila Gamble M.D. [address] [place] [phone] (Wo rk) documented as of this encounter Visit Diagnoses Not on filedocumented in this encounter
--- OUTSIDE RECORDS SUMMARY | 2022-04-20 11:14 | XMS_ITS | Encounter Summary ---
:1965 Author Organization [facility] Address [address] [place] [address] Care Team Providers Name Role Phone Unavailable Primary Care Provider Unavailable Reason for Referral Outpatient (Routine) - Closed Specialty Diagnoses / Procedures Referred By Contact Refer red To Contact Diagnoses Radiculopathy Lumbar Loulou Gamble M.D. [place] [facility] Procedures [facility] [address] [place] [address] Referral ID Status Reason Start Date Expiration Date Visits Requ ested Visits Authorized [id number] Closed 04/01/2021 04/01/2022 1 1 Outpatient (Routine) - Closed Specialty Diagnoses / Procedures Referred By Contact Refer red To Contact Neurological Surgery Loulou Gamble [facility] M.D. [address] [place] [address] Referral ID Status Reason Start Date Expiration Date Visits Requ ested Visits Authorized [id number] Closed 04/01/2021 04/01/2022 1 1 Outpatient (Routine) - Closed Specialty Diagnoses / Procedures Referred By Contact Refer red To Contact Diagnoses Radiculopathy Lumbar Loulou Gamble M.D. [facility] Procedures [place] Lumbar Spine Transforaminal Epidural Injection Left NE INJ ANES FORAMEN EPI LUMB [facility] [address] [place] [address] Referral ID Status Reason Start Date Expiration Date Visits Requ ested Visits Authorized [id number] Closed 04/01/2021 06/19/2021 1 1 Reason for Visit Reason Comments Follow-up Discuss updated MRI and plan moving forward, Hx 08/10/2019 ACDF Outpatient (Routine) - Closed Specialty Diagnoses / Procedures Referred By Contact Refer red To Contact Neurological Surgery Loulou Gamble [facility] M.D. [address] [place] [phone] Referral ID Status Reason Start Date Expiration Date Visits Requ ested Visits Authorized [id number] Closed 01/30/2021 01/30/2022 1 1 Encounter Details Date Type Department Care Team Description 04/01/2021 Office Visit Department of Loulou Gamble Radiculopath y Lumbar Neurological Surgery [place] (Primary Dx) in [address] [phone] Social History Tobacco Use Types Packs/Day Years [...] do you attend rastafari or Never 2021 baptism services? 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 - 04/01/2021 1:00 PM CDT CHIEF COMPLAINT / REASON FOR VISIT Minerva Ramesh is a 55 y.o. female who presents for evaluation of Follow-up (Discuss updated MRI and plan moving forward, Hx 08/10/2019 ACDF). HISTORY OF PRESENT ILLNESS Ms. Ramesh returns for follow-up she reports that she has had some progression of her left leg pain that interferes with day-to-day life. Recall she is status post anterior cervical diskectomy and fusion performed in July and has had no active neck issues at this time. She reports the pain wraps around the buttock and lateral thigh to her medial thigh and can go down to her knee. She reports whenit is very severe it can go to the anterior medial rios. She reports back today after updating an MRI. Past Surgical History: Procedure Laterality Date ??? SECTION ??? DIAGNOSTIC LAPAROSCOPY ??? FOOT SURGERY Right ??? FUSION SPINE ANTERIOR CERVICAL AND DISCECTOMY N/A 08/10/2019 Procedure: FUSION SPINE ANTERIOR CERVICAL AND DISCECTOMY - C5-7; Surgeon: Loulou Gamble M.D.; Location: [facility] OR ??? MOUTH BIOPSY N/A 04/02/2008 >Buccal mucosal biopsy. ??? TONSILLECTOMY AND ADENOIDECTOMY ??? VAGINAL HYSTERECTOMY with left oophorectomy. with laparoscopy too per pt REVIEW OF SYSTEMS: Skin: Positive for change in mole or skin spot. Musculoskeletal: Positive for back pain. Neurological: Positive for numbness or shooting pain in hands, arms, legs, or feet and headaches. The following systems were negative: Constitutional, Eyes, ENT, CV, Respiratory, GI, , Hematologic, Psych OBJECTIVE PHYSICAL EXAM Neurological Exam Patient is awake alert appropriately conversant, positive left-sided straight leg raise, negative MILAN maneuver. Good lower extremity myotome strength grossly. DIAGNOSTICS I reviewed the lumbar MRI thus performed recently. There is no drastic difference compared to the 2020 MRI. There is some lateral recess stenosis and narrowing at the foramen at L4-5 but no major disc herniation. Lumbar x-ray show good alignment and no listhesis. 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 Unfortunately the lumbar MRI does not show us any new disc herniation that I could correlate directly with her likely L4 radiculopathy. At this time without a definitive surgical target I would recommend an EMG to assess for an acute L4 radiculopathy as well as proceeding with a targeted transforaminal epidural steroid injection at the left-sided L4-5. Recall she underwent an injection in May of 2020 which she had transient relief with. I would like to see her back after the EMG and injection to further assess and discuss need for a focused foraminotomy approach. Questions and concerns addressed. A total of 20 minutes was spent on this clinical visit, 15 minutes was spent in counseling and coordinating of cares. documented in this encounter Plan of Treatment Upcoming Encounters Date Type Specialty Care Team Description 05/12/2022 Appointment Radiology Jammie Roca P.A.-C., M.S. [facility] [place], [place] [address] (Wo rk) 05/12/2022 Appointment Radiology Jammie Roca P.A.-C., M.S. [facility] [place], [place] [address] (Wo rk) 05/12/2022 Office Visit Neurological Surgery Sheila Gamble M.D. [address] [place] [phone] (Wo rk) Scheduled Referrals Name Type Priority Associated Order Schedule Diagnoses Neurological Surgery Outpatient Referral Routine Expected: office visit (clinic) 2021 (Approximate), Expires: 04/01/2024 documented as of this encounter Results EMG (10/26/2021 1:08 PM CDT) Specimen (Source) Anatomical Collection Method Collection Time Re ceived Time Location / / Volume Laterality 10/26/2021 1:15 PM CDT Narrative [facility] - 10/26/2021 2:48 PM CDT 26-Oct-2021 ? Electromyography ? Final Report Study Number: 1 EMG Vocational Rehabilitation Counselor: Domi Meneses 127 or [phone] Referred by: LOULOU GAMBLE () Referred for: [...] root compression. ?? Hari Meneses (127 or [phone]) /G NERVE CONDUCTIONS ??Record Rep ?? Normal ??Normal [...] Final Repor t Study Number: 1 EMG Vocational Rehabilitation Counselor: Domi Meneses 127 or [phone] Referred by: LOULOU GAMBLE () Referred for: [...] possibility of intermittent nerve root compression. Hari Meneses (127 or [phone]) /[facility] NERVE CONDUCTIONS Record Rep Normal Normal [...] City/State/ZIP Code Phon e Number [facility] [place] LUMBAR SPINE TRANSFORAMINAL EPIDURAL INJECTION LEFT (04/09/2021 1:12 PM CDT) Specimen (Source) Anatomical Location Collection Method / Collectio n Time Received Time / Laterality Volume Narrative Gildardo Banegas D.O. - 04/09/2021 1:12 PM CDT Gildardo Banegas D.O. ? 04/09/2021 ??1:13 PM [place] Lumbar Spine Transforaminal Epidural Injection Left Date/Time: 04/09/2021 1:12 PM Performed by: Gildardo Banegas D.O. Authorized by: Loulou Gamble M.D. PROCEDURE SUMMARY Site: lumbar Lumbar: transforaminal epidural injectio n Transforaminal epidural injection: Left L4 Needle or RF cannula: Spinal Needle size: 22 G Needle length: 5 in Flow: peripheral and central Patient position: prone IMAGING Fluoroscopic guidance: Yes (Images Saved to patient Chart) ?? INJECTED MEDICATIONS Total volume of injectate (mL): 2 Total steroid in injectate (mg): Dexamet hasone 10 mg 4 mL lidocaine 10 mg/mL (1 %) 1 mL lidocaine 20 mg/mL 10 mg dexAMETHasone 10 mg/mL 1 mL iohexoL 300 mg iodine/mL PROCEDURE DETAILS ?? Transforaminal epidural injection - lumb ar: After identifying the appropriate pedicle fluoroscopically wit h an oblique view. A spinal needle was then advanced under fluoroscopic vince dance to the posterior aspect of the neural foramen. Appropriate foramina l depth was determined with a lateral fluoroscopic view, and AP visual ization confirmed needle positioning at approximately the 6 o'santiago ck position relative to the pedicle. After negative aspiration, cont rast was injected using live fluoroscopy and digital subtraction jonathan ography, confirming appropriate transforaminal spread without evidence o f intravascular or intrathecal uptake. A local anesthetic test dose con sisting of 1 mL of 2% lidocaine was injected through the needle. ??After an appropriate period of observation, a directed neurological exa m was performed which revealed no new neurologic deficits. Next, the injec thomas was injected slowly and incrementally into the epidural space. ? ?Following the injection the needle was withdrawn flushed with lidocaine as it was fully extracted. The patient tolerated the procedure well and there were no apparent complications. After appropriate observa tion, the patient was dismissed in good condition under their own power. ? CONSENT Consent obtained: written UNIVERSAL PROTOCOL All relevant documentation and testing w ere reviewed and available. All required blood products, implants, devic es and or special equipment were made available as applicable. Pre-proced ure verification was conducted and the correct site was marked if required. A fire risk assessment was done as applicable. The procedural time-out w as conducted prior to performing the procedure and confirmed in a procedu ral pause. PRE-PROCEDURE DETAILS Procedure purpose: ??Therapeutic Appropriate hand hygiene, gown, cap, mas k, protective eyewear, sterile gloves, skin preparation, sterile drape, and strict aseptic technique were utilized as applicable for the procedure : yes ?? Site preparation: ??Chlorhexidine SEDATION / ANESTHESIA Anesthesia method: local infiltration an d moderate sedation Local infiltrate type: see MAR for dose, lidocaine I completed the presedation assessment f orm and supervised the sedation. Planned sedation level achieved: yes ?? Present during sedation (intra-service t rayna). A trained independent observer (e.g. RN) assisted with monitor ing the patient's level of consciousness and physiological status t hroughout the procedure (see nursing documentation). ATTESTATION STATEMENT The teaching physician rule is not appli cable. OPERATIVE NOTE INFORMATION Estimated blood loss: 0 ml Loulou OJEDA FLUOROSCOPY PROCEDURES documented in this encounter Visit Diagnoses Diagnosis Radiculopathy Lumbar - Primary Radiculopathy Lumbar Radiculopathy Lumbar documented in this encounter
--- OUTSIDE RECORDS SUMMARY | 2022-04-20 11:14 | XMS_ITS | Encounter Summary ---
:1965 Author Organization [facility] Address [address] [place] [address] Care Team Providers Name Role Phone Unavailable Primary Care Provider Unavailable Reason for Visit Reason Comments Med Refill Encounter Details Date Type Department Care Team Description 10/12/2021 Refill Department of Neurological Dionte Garcia P.A.-C. Med Refill Surgery in [place], [place] [address] [facility] [address] [place] [address] [place] [address] [phone] Social History Tobacco Use Types Packs/Day Years [...] or relatives? How often do you attend christianity or Never 2021 jain services? Do you belong to any clubs or Yes 10/25/2021 organizations such as christianity groups, unions, fraternal or athletic groups, or [...] place to sleep or slept in a correction (including now)? Education Answer Date Recorded What is the highest level of school Associate degree: yehuda patterson, 01/29/2021 you have completed or the highest technical, or vocational p leonides degree you have received? 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 - 10/15/2021 4:36 PM CDT Contacted patient regarding her gabapentin prescription. Patient reports she is taking three 300mg tablets of gabapentin in the morning without and side effects or difficulty. I have discussed in detail with the patient and reviewed her gabapentin prescription and advised patient to take 300mg of gabapentin three times daily. I have reviewed the medication regimen in detail and discussed the side effects with the patient. If these would occur, she will stop taking the medication and seek prompt medical attention.The patient verbalizes understanding and feels comfortable with this plan moving forward. All of her questions and concerns have been answered to her satisfaction. Zacarias Ann APRN, Katarina.N.Minerva, D.N.P. Telephone Encounter - Edith Mast R.N. - 10/12/2021 11:24 AM CDT Spoke to patient today. She verified that she does use Gabapentin 100 mg three tabs every am. She last saw visit Dr. Gamble on 04/19/2021. She will return to clinic on 10/27/2021 with Tye. documented in this encounter Plan of Treatment Upcoming Encounters Date Type Specialty Care Team Description 05/12/2022 Appointment Radiology Jammie Roca P.A.-C., M.S. [address] [place] [address] (Karlie yepez) 05/12/2022 Appointment Radiology Jammie Roca P.A.-C., M.S. [facility] [place], [place] [address] (Karlie yepez) 05/12/2022 Office Visit Neurological Surgery Sheila Gamble M.D. [address] [place] [phone] (Karlie yepez) documented as of this encounter Visit Diagnoses Not on filedocumented in this encounter
--- OUTSIDE RECORDS SUMMARY | 2022-04-20 11:14 | XMS_ITS | Encounter Summary ---
:1965 Author Organization [facility] Address [address] [place] [address] Care Team Providers Name Role Phone Unavailable Primary Care Provider Unavailable Encounter Details Date Type Department Care Team Description 12/19/2020 Clinical Communication Department of Loulou Gamble Neurological Surgery in [place] [address] [phone] Social History Tobacco Use Types Packs/Day Years [...] or relatives? How often do you attend lutheran or Never 2021 orthodoxy services? Do you belong to any clubs or Yes 10/25/2021 organizations such as lutheran groups, unions, fraternal or athletic groups, or [...] place to sleep or slept in a fdc (including now)? Education Answer Date Recorded What is the highest level of school Associate degree: [employer] program 06/26/2019 you have completed or the highest degree you have received? 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 - 12/19/2020 1:11 PM CDT Sounds good- I added some lumbar xrays- thank you! Telephone Encounter - Griffin Heredia - 12/19/2020 10:03 AM CDT Patient called and was looking for an appointment with Dr. Gamble to discuss some pain she has been experiencing. Patient previously had a C5-7 ACDF on 08/10/[address] Gamble. The last time the patient was seenwas 07/08/2020 with Zacarias Ann and an FL injection was completed by the patient on 06/17/2020. Patient was set up on January 30, for an hour long appointment with Dr. Gamble, cervical x-rays prior. Is there any other imaging needed prior to the appointment? Please let scheduling know with anythingelse. Thank you. documented in this encounter Plan of Treatment Upcoming Encounters Date Type Specialty Care Team Description 05/12/2022 Appointment Radiology Jammie Roca P.A.-Katarina., M.S. [address] [place] [address] (Wo rk) 05/12/2022 Appointment Radiology Jammie Roca P.A.-C., M.S. [address] [place], [place] [address] (Karlie yepez) 05/12/2022 Office Visit Neurological Surgery Sheila Gamble M.D. [address] [place], [place] [phone] (Karlie yepez) documented as of this encounter Results DX Lumbar Spine 4+ Views (01/30/2021 9:40 AM CDT) Anatomical Region Laterality Modality Lumbar Spine, Musculoskeletal RST LOS, Neuroradiology N/A Digital Radiography ARZ LOS, Muskuloskeletal FLA LOS Specimen (Source) Anatomical Collection Method Collection Time Re ceived Time Location / / Volume Laterality 01/30/2021 9:48 AM CDT Impressions 01/30/2021 9:49 AM CDT Mild facet joint degeneration only, L4-5 and L5-S1 levels as above. Narrative 01/30/2021 9:49 AM CDT EXAM: DX LUMBAR SPINE 4+ VIEWS COMPARISON: None FINDINGS: There are no acute fractures. The vertebral bodies and intervertebral disc spaces are well-maintained. There a re mild sclerotic degenerative changes of the facet joints at the L4-5 and L5-S 1 levels. There is no instability on flexion and extension lateral views. The pedicles are normal. There is a mild dextroscoliosis of the mid lumbar spine. There are no abnormal paraspinal soft tissue masses. Procedure Note Ishan Walter M.D. - 01/30/2021Format ting of this note might be different from the original. EXAM: DX LUMBAR SPINE 4+ VIEWS COMPARISON: None FINDINGS: There are no acute fractures. The vertebral bodies and intervertebral disc spaces are well-maintained. There a re mild sclerotic degenerative changes of the facet joints at the L4-5 and L5-S 1 levels. There is no instability on flexion and extension lateral views. The pedicles are normal. There is a mild dextroscoliosis of the mid lumbar spine. There are no abnormal paraspinal soft tissue masses. IMPRESSION: Mild facet joint degeneration only, L4-5 and L5-S1 levels as above. Loulou Gamble M.D. IMG DIAGNOSTIC IMAGING PROCE DURES documented in this encounter Visit Diagnoses Diagnosis Pain Back - Primary Fusion Cervical Spine Status Post Pain Back documented in this encounter
--- OUTSIDE RECORDS SUMMARY | 2022-04-20 11:14 | XMS_ITS | Encounter Summary ---
:1965 Author Organization [facility] Address [address] [place] [address] Care Team Providers Name Role Phone Unavailable Primary Care Provider Unavailable Encounter Details Date Type Department Care Team Description 12/01/2021 Orders Only Pharmacy Prior Auth Melissa Franz [phone] Social History Tobacco Use Types Packs/Day Years [...] or relatives? How often do you attend advent or Never 2021 presybeterian services? Do you belong to any clubs or Yes 10/25/2021 organizations such as advent groups, unions, fraternal or athletic groups, or [...] place to sleep or slept in a snf (including now)? Education Answer Date Recorded What is the highest level of school Associate degree: [employer] program 10/25/2021 you have completed or the highest degree you have received? 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 [facility] [place], [place] [address] (Karlie yepez) 05/12/2022 Appointment Radiology Jammie Roca P.A.-Katarina., M.S. [address] [place] [phone] (Karlie yepez) 05/12/2022 Office Visit Neurological Surgery Sheila Gamble M.D. [address] [place], [place] [phone] (Karlie yepez) documented as of this encounter Visit Diagnoses Not on filedocumented in this encounter
--- OUTSIDE RECORDS SUMMARY | 2022-04-20 11:14 | XMS_ITS | Encounter Summary ---
:1965 Author Organization [facility] Address [address] [place] [address] Care Team Providers Name Role Phone Unavailable Primary Care Provider Unavailable Reason for Referral Outpatient (Routine) - Closed Specialty Diagnoses / Procedures Referred By Contact Refer red To Contact Neurological [facility] ZURDO C.N.PLogan, D.N.P. [facility] [place] [address] Referral ID Status Reason Start Date Expiration Date Visits Requ ested Visits Authorized [id number] Closed 07/16/2020 07/16/2021 1 1 ICAL STAFF EDUCATOR Reason for Visit Outpatient (Routine) - Closed Specialty Diagnoses / Procedures Referred By Contact Refer red To Contact Zacarias Ann APRN, C.NPantera, [facility] D.N.P. [address] [place] [phone] Referral ID Status Reason Start Date Expiration Date Visits Requ ested Visits Authorized [id number] Closed 06/06/2020 06/06/2021 1 1 Encounter Details Date Type Department Care Team Description 07/08/2020 Virtual Visit Department of Zacarias Ann, [place] rvical Spine Neurological Surgery in [place] RENNER.N.[place], [facility] ([place], [place] D.N.P. Dx) [address] [facility] [address] [place] [address] [place], [place] [phone] Social History Tobacco Use Types Packs/Day Years [...] or relatives? How often do you attend adventism or Never 2021 quaker services? Do you belong to any clubs or Yes 10/25/2021 organizations such as adventism groups, unions, fraternal or athletic groups, or [...] place to sleep or slept in a [facility] (including now)? Education Answer Date Recorded What is the highest level of school Associate degree: [employer] program 06/26/2019 you have completed or the highest degree you have received? Sex Assigned at Date Recorded Female 07/14/2019 9:59 AM CLINICAL STAFF EDUCATOR documented as of this encounter Progress Notes Zacarias Ann, ZURDO, C.N.P., D.N.P. - 07/08/2020 8:45 AM CST SUBJECTIVE THIS IS A NON F2F TELEPHONE VISIT DUE TO COVID-19 PRECAUTIONS. PATIENT VERBALLY AGREES WITH REMOTE COMMUNICATION AT THIS TIME. CHIEF COMPLAINT / REASON FOR VISIT Follow-up for back and left leg pain after injection. Patient is also status post C-5-6 Anterior Cervical Discectomy and Fusion by Dr. Gamble on 08/10/2019 HISTORY OF PRESENT ILLNESS Minerva Ramesh is a 54 y.o. female who presents to the neurosurgery clinic via telephone visit for follow up of back and leg pain. Patient reports she had a left transforaminal epidural injection on06/17/2020. Since the injection, she has noticed an improvement in her left leg pain. Prior to the injection she reports she had daily low back pain that radiates to her left leg and wraps around the inner aspect of the thigh. The pain seems to be worse in the afternoon as the day progresses. Since the injection on 06/17/2020 the severity of the pain has decreased significantly and the left leg pain now occurs about 2-3 times weekly. She is not currently taking any pain medications. Denies any feveror chills.??Denies any numbness, tingling, or weakness.??Denies any problems with bowel or bladder habits or saddle anesthesia. Denies any recent trauma or falls. The following portions of the patient's history [...] - C5-7; Surgeon: Loulou Gamble M.D.; Location: [facility] OR ??? MOUTH BIOPSY N/A 04/02/2008 >Buccal mucosal biopsy. ??? TONSILLECTOMY AND ADENOIDECTOMY ??? VAGINAL HYSTERECTOMY with left oophorectomy. with laparoscopy too per pt OBJECTIVE There were no vitals taken for this visit. PHYSICAL EXAM There were no vitals taken for this visit. No vitals available as this is a telephone visit. Unable to perform physical examination. General: The patient converses without difficulty and asks several pertinent questions in regards toher plan of care. She is pleasant, calm, and cooperative during conversation. Speech is appropriate and fund of knowledge is adequate. ASSESSMENT / PLAN Plan: #1 Radiculopathy Lumbar #2 Fusion Cervical Spine Status Post Ms. Ramesh is a pleasant 54 year old female. Patient presents to the neurosurgery clinic for follow up of back and leg pain. Patient had a left transforaminal epidural injection on 06/17/2020. Since the injection, she has noticed a significant improvement in her left leg pain. In addition, patient is status post C-5-6 Anterior Cervical Discectomy and Fusion by Dr. Gamble on 08/10/2019. I have ordered a follow up appointment with Dr Gamble in 4 weeks to continue to monitor the patients progress. In addition, at this time we will obtain cervical xray's prior to the visit to evaluate the stability of the hardware. I have advised the patient to go to the emergency room should??she??develop any??alarming symptoms which I have reviewed with her that include but are not limited to??pain, paresthesias or weakness in the extremities, or any disturbance of normal bowel or bladder habits. Patient advised to follow up at any time via telephone or secure patient portal with any concerns or questions in the interim.??Thepatient verbalizes understanding and feels comfortable with this plan moving forward.??All of her??questions and concerns have been answered to her??satisfaction.? Zacarias Ann APRN, C.N.P., D.N.P. ?? Spine and Neurological Surgery Department Phone Numbers: During office hours of 8am to 5pm - Tuesday-Tuesday: [phone]. After hours /weekends: [phone]. ? A total of 14??minutes was spent on the telephone ICAL STAFF EDUCATOR documented in this encounter Plan of Treatment Upcoming Encounters Date Type Specialty Care Team Description 05/12/2022 Appointment Radiology Jammie Roca PAnalisa-Katarina., M.S. [address] [place] [address] (Wo ) 05/12/2022 Appointment Radiology Jammie Roca P.A.-C., M.S. [address] [place], [place] [address] (Wo rk) 05/12/2022 Office Visit Neurological Surgery Sheila Gamble M.D. [address] [place], [place] [phone] (Wo rk) Scheduled Referrals Name Type Priority Associated Order Schedule Diagnoses Neurological Surgery Outpatient Referral Routine Expected: office visit (clinic) 2020 (Approximate), Expires: 07/08/2023 documented as of this encounter Results DX Cervical Spine 2-3 Views (01/30/2021 9:40 AM CDT) Anatomical Region Laterality Modality Cervical Spine, Musculoskeletal RST LOS, N/A Digital Radiography Neuroradiology ARZ LOS, Muskuloskeletal FLA LOS Specimen (Source) Anatomical Collection Method Collection Time Re ceived Time Location / / Volume Laterality 01/30/2021 9:52 AM CDT Impressions 01/30/2021 9:55 AM CDT Stable ACDF changes from C5-C7. Hardware is intact without evidence of failure. Narrative 01/30/2021 9:55 AM CDT EXAM: DX CERVICAL SPINE 2-3 VIEWS COMPARISON: Radiograph 11/13/2019 FINDINGS: AP and lateral views of the ce rvical spine. Stable ACDF changes C5-C7. Hardware appears intact without evidence of complications. No acute osseous abnormality. Straightening of the normal lumbar lordosis. No prevertebral soft tissue swelling. Minimal disc space narr owing in the proximal cervical spine. Visualized lung apices are clear. Procedure Note Arnoldo Garcia D.O. - 01/30/2021 EXAM: DX CERVICAL SPINE 2-3 VIEWS COMPARISON: Radiograph 11/13/2019 FINDINGS: AP and lateral views of the ce rvical spine. Stable ACDF changes C5-C7. Hardware appears intact without evidence of complications. No acute osseous abnormality. Straightening of the normal lumbar lordosis. No prevertebral soft tissue swelling. Minimal disc space narr owing in the proximal cervical spine. Visualized lung apices are clear. IMPRESSION: Stable ACDF changes from C5-C7. Hardware is intact without evidence of failure. Zacarias Ann APRN, C.N.P., D.N.P. IMG DIAGNOSTIC JERRELL GING PROCEDURES documented in this encounter Visit Diagnoses Diagnosis Fusion Cervical Spine Status Post - Prim salinas Fusion Cervical Spine Status Post Pain Back documented in this encounter
--- OUTSIDE RECORDS SUMMARY | 2022-04-20 11:14 | XMS_ITS | Encounter Summary ---
:1965 Author Organization [facility] Address [address] [place] [address] Care Team Providers Name Role Phone Unavailable Primary Care Provider Unavailable Reason for Referral Outpatient (Routine) - Closed Specialty Diagnoses / Procedures Referred By Contact Refer red To Contact Neurological Surgery Loulou Gamble [facility] M.D. [address] [place] [address] Referral ID Status Reason Start Date Expiration Date Visits Requ ested Visits Authorized [id number] Closed 01/30/2021 01/30/2022 1 1 Outpatient (Routine) - Closed Specialty Diagnoses / Procedures Referred By Contact Refer red To Contact Diagnoses Radiculopathy Lumbar Loulou Gamble M.D. [address] [place] [phone] Referral ID Status Reason Start Date Expiration Visits Visits Date Requested Authorized [id number] Closed Patient 01/30/2021 01/30/2022 1 1 Preference Reason for Visit Reason Comments Follow-up C5-7 ACDF 08/10/2019 - f/u to discuss pain Outpatient (Routine) - Closed Specialty Diagnoses / Procedures Referred By Contact Refer red To Contact Neurological Surgery [facility]arias [facility] Lacy CARDIOLOGY NURSE PRACTITIONER, C.N.P., D.N.P. [address] [place] [address] Referral ID Status Reason Start Date Expiration Date Visits Requ ested Visits Authorized [id number] Closed 07/16/2020 07/16/2021 1 1 Encounter Details Date Type Department Care Team Description 01/30/2021 Office Visit Department of Loulou Gamble Radiculopath y Lumbar Neurological Surgery [place] Jeff (Primary Dx) in [place] [id number] [place] [address] [place] [phone] Social History Tobacco Use Types Packs/Day Years [...] or relatives? How often do you attend mandaeism or Never 2021 hinduism services? Do you belong to any clubs or Yes 10/25/2021 organizations such as mandaeism groups, unions, fraternal or athletic groups, or [...] place to sleep or slept in a custodial (including now)? Education Answer Date Recorded What is the highest level of school Associate degree: [employer], 01/29/2021 you have completed or the highest technical, or vocational p leonides degree you have received? Sex Assigned at Date Recorded Female 07/14/2019 9:59 AM AP OPERATOR documented as of this encounter Last Filed Vital Signs Vital Sign Reading Time Taken Comments Blood Pressure 127/83 01/30/2021 10:03 AM CDT Pulse 80 01/30/2021 10:03 AM CDT Temperature - - Respiratory Rate - - Oxygen Saturation - - Inhaled Oxygen Concentration - - Weight 72 kg (158 lb 11.7 oz) 01/30/2021 10:03 AM CDT Height 160 cm (5' 2.99) 01/30/2021 10:03 AM CDT Body Mass Index 28.13 01/30/2021 10:03 AM CDT documented in this encounter Progress Notes Loulou Gamble M.D. - 01/30/2021 10:30 AM CDT CHIEF COMPLAINT / REASON FOR VISIT Minerva Ramesh is a 55 y.o. female who presents for evaluation of Follow-up (C5-7 ACDF 08/10/2019 - f/u to discuss pain ). HISTORY OF PRESENT ILLNESS Ms. Ramesh returns today for evaluation of severe leg pain. She has significant radiculopathy that is progressive and reports that had some improvement with gabapentin but has ran out of pressure prescription. She returns today for further consideration. The pain is in the left L5 distribution. Past Surgical History: Procedure Laterality Date ??? SECTION ??? DIAGNOSTIC LAPAROSCOPY ??? FOOT SURGERY Right ??? FUSION SPINE ANTERIOR CERVICAL AND DISCECTOMY N/A 08/10/2019 Procedure: FUSION SPINE ANTERIOR CERVICAL AND DISCECTOMY - C5-7; Surgeon: Loulou Gamble M.D.; Location: [facility] OR ??? MOUTH BIOPSY N/A 04/02/2008 >Buccal mucosal biopsy. ??? TONSILLECTOMY AND ADENOIDECTOMY ??? VAGINAL HYSTERECTOMY with left oophorectomy. with laparoscopy too per pt REVIEW OF SYSTEMS: Musculoskeletal: Positive for back pain. Neurological: Positive for numbness or shooting pain in hands, arms, legs, or feet. The following systems were negative: Constitutional, Skin, Eyes, ENT, CV, Respiratory, GI, , Hematologic, Psych OBJECTIVE PHYSICAL EXAM Neurological Exam Patient has no cornelius weakness with dorsiflexion and plantar flexion as an antalgic gait favoring theleft leg. DIAGNOSTICS MRI shows minimal foraminal stenosis L4-5 and L5-S1, this lumbar MRI from November 2019 Lumbar x-ray show some degenerative disc disease that listhesis Cervical x-rays show stable alignment with healing of anterior fusion. 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 We also issued a Medrol Dosepak and gabapentin in regards to temporizing her pain. Once in MRIs available she will have it sent for my review and we will discuss the next steps. Questions concerns addressed. A total of 25 minutes was spent on this clinical visit, 20 minutes was spent in counseling and coordinating of cares. documented in this encounter Plan of Treatment Upcoming Encounters Date Type Specialty Care Team Description 05/12/2022 Appointment Radiology Jammie Roca P.A.-C., M.S. [facility] [place], [place] [address] (Karlie yepez) 05/12/2022 Appointment Radiology Jammie Roca P.A.-C., M.S. [address] [place], [place] [address] (Karlie yepez) 05/12/2022 Office Visit Neurological Surgery Sheila Gamble M.D. [address] [place], [place] [phone] (Karlie yepez) Scheduled Referrals Name Type Priority Associated Order Schedule Diagnoses Neurological Surgery Outpatient Referral Routine Expected: office visit (clinic) 2020 (Approximate), Expires: 01/31/2024 documented as of this encounter Visit Diagnoses Diagnosis Radiculopathy Lumbar - Primary documented in this encounter
--- OUTSIDE RECORDS SUMMARY | 2022-04-20 11:14 | XMS_ITS | Encounter Summary ---
:1965 Author Organization [facility] Address [address] [place] [address] Care Team Providers Name Role Phone Unavailable Primary Care Provider Unavailable Reason for Referral Outpatient (Routine) - Closed Specialty Diagnoses / Procedures Referred By Contact Refer red To Contact Zacarias Ann APRN, C.N.PLogan, [facility] D.N.P. [address] [place] [address] Referral ID Status Reason Start Date Expiration Date Visits Requ ested Visits Authorized [id number] Closed 06/06/2020 06/06/2021 1 1 utpatient (Routine) - Closed Specialty Diagnoses / Procedures Referred By Contact Refer red To Contact Diagnoses Pain Back Zacarias Ann APRN, [facility] Region Procedures [place] Lumbar Spine Transforaminal Epidural Injection Left [place] INJ ANES FORAMEN EPI LUMB SNGL C.N.P., D.N.P. [address] [place] [address] Referral ID Status Reason Start Date Expiration Date Visits Requ ested Visits Authorized [id number] Closed 06/06/2020 06/06/2021 1 1 DAMAGE TRAINEE Reason for Visit Reason Comments Back Pain low back Outpatient (Routine) - Closed Specialty Diagnoses / Procedures Referred By Contact Refer red To Contact Neurological Surgery Denise Bates, [facility] Joe RENNERNPantera, Andrae.N.P. [address] [place] [address] Referral ID Status Reason Start Date Expiration Date Visits Requ ested Visits Authorized [id number] Closed 05/31/2020 05/31/2021 1 1 Encounter Details Date Type Department Care Team Description 06/06/2020 Office Visit Department of Zacarias Ann, Pain Back (Primary Dx) Neurological Surgery [place] D.N.P. [address] [address] [place], [place] [phone] Social History Tobacco Use Types Packs/Day [...] or relatives? How often do you attend oriental orthodox or Never 2021 shinto services? Do you belong to any clubs or Yes 10/25/2021 organizations such as oriental orthodox groups, unions, fraternal or athletic groups, or [...] place to sleep or slept in a half-way (including now)? Education Answer Date Recorded What is the highest level of school Associate degree: academ [employer] program 06/26/2019 you have completed or the highest degree you have received? Sex Assigned at Date Recorded Female 07/14/2019 9:59 AM AUTO DAMAGE TRAINEE documented as of this encounter Last Filed Vital Signs Vital Sign Reading Time Taken Comments Blood Pressure 138/70 06/06/2020 10:13 AM AUTO DAMAGE TRAINEE Pulse 78 06/06/2020 10:13 AM AUTO DAMAGE TRAINEE Temperature 36.7 ??C (98 ??F) 06/06/2020 10:13 AM AUTO DAMAGE TRAINEE Respiratory Rate - - Oxygen Saturation - - Inhaled Oxygen Concentration - - Weight 68 kg (150 lb) 06/06/2020 10:13 AM AUTO DAMAGE TRAINEE Height 160 cm (5' 3) 06/06/2020 10:13 AM AUTO DAMAGE TRAINEE Body Mass Index 26.57 06/06/2020 10:13 AM AUTO DAMAGE TRAINEE documented in this encounter Progress Notes Zacarias Ann, ZURDO, C.N.P., D.N.P. - 06/06/2020 10:15 AM CST SUBJECTIVE CHIEF COMPLAINT / REASON FOR VISIT Follow-up for back and leg pain. Patient is also status post C-5-6 Anterior Cervical Discectomy and Fusion by Dr. Gamble on 08/10/2019 HISTORY OF PRESENT ILLNESS Minerva Ramesh is a 54 y.o. female who presents to the neurosurgery clinic for back and leg pain.Patient reports the pain starts in her lower back and radiates to her left leg and wraps around the thigh and extends down to the knee. The pain seems to be worse in the afternoon as the day progresses. No alleviating factors identified. She has tried chiropractic therapy with minimal relief. Is currently taking tylenol and ibuprofen with minimal relief. Applying heat to the back and left leg helps alleviate the pain. Denies any fever, chills, weakness in the extremities. Denies any numbness or tingling. Denies any problems with bowel or bladder habits or saddle anesthesia. Denies any recent traumaor falls. Did not experience any problems with wound healing. Overall, the patient is very pleased with the results of the surgery at this point. The following portions of the patient's history were reviewed and updated as appropriate: allergies,current medications, and problem list. Past Surgical History: Procedure Laterality Date ??? SECTION ??? DIAGNOSTIC LAPAROSCOPY ??? FOOT SURGERY Right ??? FUSION SPINE ANTERIOR CERVICAL AND DISCECTOMY N/A 08/10/2019 Procedure: FUSION SPINE ANTERIOR CERVICAL AND DISCECTOMY - C5-7; Surgeon: Loulou Gamble M.D.; Location: [facility] OR ??? MOUTH BIOPSY N/A 04/02/2008 >Buccal mucosal biopsy. ??? TONSILLECTOMY AND ADENOIDECTOMY ??? VAGINAL HYSTERECTOMY with left oophorectomy. with laparoscopy too per pt OBJECTIVE There were no vitals taken for this visit. PHYSICAL EXAM GENERAL: The patient is well-nourished, well-developed, and in no acute distress. RESPIRATORY: Breathing Unlabored VASCULAR: Radial and pedal pulses are palpable and symmetric bilaterally. Capillary refill is brisk in the fingertips bilaterally. SKIN: There is a well-healed surgical incision at the anterior neck that is without any signs of infection or drainage. MUSCULOSKELETAL: Neck has good range of motion without any pain to provocation. Negative Lhermitte sign. Negative Spurling sign. Good passive and active range of motion of the upper and lower extremities. No significant tenderness to palpation of the lumbar spine. Lumbar range of motion is acceptable and without any significant pain. Straight leg raise is negative bilaterally. The left sacroiliac joint slightly tender to palpitation. Right sacroiliac joint and greater trochanters were nontender to palpitation. MENTAL STATUS: The patient is alert and oriented to person, place, time, and situation. Patient is appropriately interactive with a normal and appropriate affect. NEURO: Shoulder shrug is strong and symmetrical bilaterally. Full strength throughout all major muscle groups of the upper and lower extremities. Sensation to light touch is intact throughout the upperand lower extremities. Proprioception is intact in the large toe bilaterally. Reflexes are symmetric bilaterally at the biceps, brachioradialis, patella, and Achilles. Gonzalez's sign negative. No abnormal ankle clonus. Plantar response is downgoing bilaterally. Gait is normal, non-antalgic and non-spastic. Able to walk on toes and heels without difficulty. Able to tandem walk. ASSESSMENT / PLAN Plan: #1 Radiculopathy Lumbar #2 Fusion Cervical Spine Status Post Ms. Ramesh is a pleasant 54 year old female. Patient presents to the neurosurgery clinic for back and leg pain. Patient is also status post C-5-6 Anterior Cervical Discectomy and Fusion by Dr. Gamble on 08/10/2019 and she has progressed well from the procedure and is very happy with the results of her s urgery. Patient reports the pain starts in her lower back and radiates to her left leg and wraps around the thigh and extends down to the knee. The pain seems to be worse in the afternoon as the day progresses. I have encouraged back, core, and lower extremity strengthening exercises and stretches. Patient has been provided several home exercises to do and I have encouraged Physical Therapy if she does not see results from these. I have advised that she practice healthy lifting habits and good body mechanics. I have ordered a left L4/5 transforaminal epidural injection to help alleviate the pain. I have advised the patient to go to the emergency room should she develop any alarming symptoms which I have reviewed with her that include but are not limited to pain, paresthesias or weakness in theextremities, or any disturbance of normal bowel or bladder habits. I have advised the patient to follow up and have ordered a phone visit after she has the left L4/5 transforaminal epidural injection to continue to monitor her progress. Patient advised to follow up at any time via telephone or secure patient portal with any concerns or questions in the interim. The patient verbalizes understanding and feels comfortable with this plan moving forward. All of her questions and concerns have been answered to her satisfaction. Zacarias Ann APRN, C.N.P., D.N.P. Spine and Neurological Surgery Department Phone Numbers: During office hours of 8am to 5pm - Tuesday-Tuesday: [phone]. After hours /weekends: [phone]. DAMAGE TRAINEE documented in this encounter Plan of Treatment Upcoming Encounters Date Type Specialty Care Team Description 05/12/2022 Appointment Radiology Jammie Roca P.A.-C., M.S. [address] [place], [place] [address] (Wo rk) 05/12/2022 Appointment Radiology Jammie Roca P.A.-C., M.S. [address] [place], [place] [address] (Wo rk) 05/12/2022 Office Visit Neurological Surgery Sheila Gamble M.D. [address] [place], [place] [phone] (Karlie rk) Scheduled Referrals Name Type Priority Associated Diagnoses Order S chedule NonF2F phone Outpatient Referral Routine 1 Occurr ences visit starting 2019 until 3 documented as of this encounter Results FL Lumbar Spine Transforaminal Epidural Injection Left (06/17/2020 12:43 PM AUTO DAMAGE TRAINEE) Specimen (Source) Anatomical Collection Method Collection Time Re ceived Time Location / / Volume Laterality 06/17/2020 12:52 PM AUTO DAMAGE TRAINEE Impressions [id number] - 06/17/2020 12:52 PM AUTO DAMAGE TRAINEE Successful fluoroscopic guided left L4-5 transforaminal epidural steroid injection. Narrative [id number] - 06/17/2020 12:52 PM AUTO DAMAGE TRAINEE EXAM: FL LUMBAR SPINE TRANSFORAMINAL EPIDURAL INJECTION [...] P atient education provided by the care steam tank operator. Ready to learn, no apparent learning barriers [...] P atient education provided by the care steam tank operator. Ready to learn, no apparent learning barriers were identified. Post-procedure care explained; patient e xpressed understanding of the content. IMPRESSION: Successful fluoroscopic guided left L4-5 transforaminal epidural steroid injection. Zacarias Ann APRN, C.N.P., D.N.P. IMG FLUOROSCOPY [place] OCEDURES Performing Organization Address City/State/ZIP Code Phon e Number [id number] NA documented in this encounter Visit Diagnoses Diagnosis Pain Back - Primary Pain Back documented in this encounter
--- OUTSIDE RECORDS SUMMARY | 2022-04-20 11:14 | XMS_ITS | Encounter Summary ---
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 , D.N.P. [address] [phone] (Wo rk) Social History Tobacco Use Types [...] or relatives? How often do you attend restorationist or Never 2021 adventist services? Do you belong to any clubs or Yes 10/25/2021 organizations such as restorationist groups, unions, fraternal or athletic groups, or [...] place to sleep or slept in a alf (including now)? Education Answer Date Recorded What is the highest level of school Associate degree: academ [employer] program 10/25/2021 you have completed or the highest degree you have received? 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 [address] [place] [address] (Karlie yepez) 05/12/2022 Appointment Radiology Jammie Roca, Ria.A.-C., M.S. [address] [place] [address] (Karlie yepez) 05/12/2022 Office Visit Neurological Surgery Sheila Gamble M.D. [address] [place] [phone] (Karlie yepez) documented as of this encounter Visit Diagnoses Not on filedocumented in this encounter
--- OUTSIDE RECORDS SUMMARY | 2022-04-20 11:14 | XMS_ITS | Encounter Summary ---
:1965 Author Organization [facility] Address [address] [place] [address] Care Team Providers Name Role Phone Unavailable Primary Care Provider Unavailable Reason for Visit Reason Comments injection teaching Encounter Details Date Type Department Care Team Description 04/01/2021 Clinical Department of Loulou Gamble Neurological Surgery [place] in [address] [phone] (Work) [phone] Social History Tobacco Use Types Packs/Day Years [...] do you attend advent or Never 2021 hindu services? 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 documented as of this encounter Miscellaneous Notes Telephone Encounter - Leela Harden - 04/01/2021 2:49 PM CDT Date and Time: 04/01/21 2:50 PM CDT Patient interaction was: in person Education Materials were: printed and given to patient Injection type: Transforaminal lumbar injection Patient on blood thinners: no Patient taking anti-inflammatory meds: no Patient needs to hold the above meds: No INR before procedure: No Patient advised of need for boat driver after procedure: Yes documented in this encounter Plan of Treatment Upcoming Encounters Date Type Specialty Care Team Description 05/12/2022 Appointment Radiology Jammie Roca P.A.-C., M.S. [address] [place], [place] [address] (Wo rk) 05/12/2022 Appointment Radiology Jammie Roca P.A.-C., M.S. [address] [place], [place] [address] (Wo rk) 05/12/2022 Office Visit Neurological Surgery Sheila Gamble M.D. [address] [place] [phone] (Wo rk) documented as of this encounter Visit Diagnoses Not on filedocumented in this encounter
--- OUTSIDE RECORDS SUMMARY | 2022-04-20 11:14 | XMS_ITS | Encounter Summary ---
:1965 Author Organization [facility] Address [address] [place] [address] Care Team Providers Name Role Phone Unavailable Primary Care Provider Unavailable Encounter Details Date Type Department Care Team Description 04/01/2021 Hospital Encounter Department of Loulou Gamblecu lopathy Lum[facility], in [address] [place], [place] [address] [place], [place] [phone] [address] (Work) [phone] Social History Tobacco Use Types Packs/Day Years [...] or relatives? How often do you attend druze or Never 2021 judaism services? Do you belong to any clubs or Yes 10/25/2021 organizations such as druze groups, unions, fraternal or athletic groups, or [...] place to sleep or slept in a nursing home (including now)? Education Answer Date Recorded What is the highest level of school Associate degree: yehuda patterson, 01/29/2021 you have completed or the highest technical, or vocational p leonides degree you have received? 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 cholecalciferol, vitamin Take 1,000 Units by 0 D3, (VITAMIN D3 ORAL) mouth daily. venlafaxine XR Take 1 capsule by 0 05/18/2019 (EFFEXOR-XR) 150 mg 24 mouth daily. hr capsule gabapentin (NEURONTIN) Take 1 capsule (300 90 capsule 5 01/1808/28/2021 300 mg capsule mg total) by mouth 3 (three) times a day. topiramate (TOPAMAX) 50 Take 2 tablets by 0 06/1210/05/2021 mg tablet mouth 2 (two) times a day. documented as of this encounter Plan of Treatment Upcoming Encounters Date Type Specialty Care Team Description 05/12/2022 Appointment Radiology Jammie Roca P.A.-C., M.S. [address] [place], [place] [address] (Karlie yepez) 05/12/2022 Appointment Radiology Jammie Roca P.A.-C., M.S. [address] [place], [place] [address] (Karlie yepez) 05/12/2022 Office Visit Neurological Surgery Sheila Gamble M.D. [address] [place], [place] [phone] (Wo ) documented as of this encounter Procedures Procedure Name Priority Date/Time Associated Diagnosis Comme nts DX HIPS AND RAD - Routine 04/01/2021 2:07 Radiculopathy Lumbar Res ults for this PELVIS BILATERAL (most inpatients PM CDT procedu re are in MINIMUM 5 VIEWS and all the results outpatients) section. documented in this encounter Results DX Hips and Pelvis Bilateral 5+ Views (04/01/2021 2:07 PM CDT) Anatomical Region Laterality Modality Lower Extremity, Pelvis, Hip, Musculoskeletal RST LOS, Bilat eral Digital Radiography Musculoskeletal ARZ LOS, Muskuloskeletal FLA LOS Specimen (Source) Anatomical Collection Method Collection Time Re ceived Time Location / / Volume Laterality 04/01/2021 2:09 PM CDT Impressions 04/01/2021 2:09 PM CDT No acute bilateral hip or pelvic osseous abnormality Narrative 04/01/2021 2:09 PM CDT EXAM: DX HIPS AND PELVIS BILATERAL 5+ VIEWS COMPARISON: None FINDINGS: There is no acute bilateral hi p or pelvic osseous abnormality. Bone mineralization is within normal limits. The visualized joint spaces are preserved. Procedure Note Igor Mason M.D. - 04/01/2021Form atting of this note might be different from the original. EXAM: DX HIPS AND PELVIS BILATERAL 5+ EWS COMPARISON: None FINDINGS: There is no acute bilateral hi p or pelvic osseous abnormality. Bone mineralization is within normal limits. The visualized joint spaces are preserved. IMPRESSION: No acute bilateral hip or pelvic osseous abnormality Loulou Gamble M.D. IMG DIAGNOSTIC IMAGING [place] documented in this encounter Visit Diagnoses Diagnosis Radiculopathy Lumbar documented in this encounter
--- OUTSIDE RECORDS SUMMARY | 2022-04-20 11:14 | XMS_ITS | Encounter Summary ---
:1965 Author Organization [facility] Address [address] [place] [address] Care Team Providers Name Role Phone Unavailable Primary Care Provider Unavailable Reason for Referral Outpatient (Routine) - Closed Specialty Diagnoses / Procedures Referred By Contact Refer red To Contact Diagnoses Radiculopathy Lumbar Loulou Gamble M.D. [facility] Region Procedures FL Lumbar Spine Transforaminal Epidural Injection Left SC INJ ANES FORAMEN EPI LUMB SNGL [address] [place] [address] Referral ID Status Reason Start Date Expiration Date Visits Requ ested Visits Authorized [id number] Closed 04/01/2021 06/19/2021 1 1 Reason for Visit Outpatient (Routine) - Closed Specialty Diagnoses / Procedures Referred By Contact Refer red To Contact Diagnoses Radiculopathy Lumbar Loulou Gamble M.D. [facility] Region Procedures FL Lumbar Spine Transforaminal Epidural Injection Left SC INJ ANES FORAMEN EPI LUMB SNGL [address] [place] [address] Referral ID Status Reason Start Date Expiration Date Visits Requ ested Visits Authorized [id number] Closed 04/01/2021 06/19/2021 1 1 Encounter Details Date Type Department Care Team Description 04/09/2021 Hospital Encounter Department of Pain Me pham Gamble M.D. [address] [place] [address] Radiculopathy Lumbar Medicine in Gildardo Banegas D.O. [address] [place] [address] [place], [place] [address] [place] [address] Social History Tobacco Use Types Packs/Day Years [...] do you attend shinto or Never 2021 temple services? Do you belong to any clubs [...] or the highest technical, or vocational p peterram degree you have received? 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 - 04/09/2021 1:30 PM CDT Images from the original note were not included. Patient Education Spinal Injections: Epidural, Facet Joint, Sacroiliac Joint, and Nerve Root If you have questions after reading this information, call the health care provider who ordered yourinjections. What Is the Spinal Cord? Your spinal cord is a long bundle of nerves that runs through a tunnel in your spine. The tunnel is called the spinal canal. Your spinal canal runs from the bottom of your skull to your tailbone. The spinal cord ends just below the level of your lowest rib. Below that, the spinal canal holds a collection of individual nerves. Those nerves hang off of your spinal cord like strings of spaghetti. Your spinal cord and the nerves that come off it have three outer layers to protect them. The layersare called membranes. The tough, outside layer is called the dura mater or dura membrane. Sitting just outside the spinal cord, but still inside the spinal canal, is the epidural space. In addition to ???space,?? that areaholds a thin layer of fat. See Figure 1. The epidural space gives your cord room to move as you move. Parts of your spine Your spine is made up of 33 bones called vertebrae. Nine vertebrae are fused together to form your tailbone, in your lower back. Twenty-four vertebrae can move on their own. They are hinged together by three joints: the disc in front of the spinal canal and the two pairs of joints behind the canal. One pair of joints faces upward, and the other pair faces downward. See Figure 2. Together, these joints act a lot like the hinges on a door. They allow your vertebrae to move when you move -- while they keep your spinal column lined up, or aligned, as it should be. Why Get a Spinal Injection? Injections are done to identify areas in your back that cause you pain, to relieve pain or for both reasons. Your health care provider decides where to do the injections. This decision is based in part on yourreport of your pain. X-rays are used to guide the injections. Common injection sites Facet joints Because these joints rub together when you move, the lower back and buttocks are common sites for pain. See Figure 3. Epidural space This space is just outside your spinal cord. This injection is commonly done for pain in the arms and legs, as well as the back. It also is done during childbirth. See Figure 3. Nerve roots Nerve roots are bundles of nerve fibers that come out from your spinal cord. They join to form nerves. Your brain and body use nerves to carry messages back and forth, including pain messages. A problem with a nerve root often causes pain in the arms or legs. Nerve root blocks, also called selective nerve root blocks, are commonly done to find the location of the pain. See Figure 3. Sacroiliac joint The sacroiliac joint is a large joint in your lower back and buttocks area. The lower back and buttocks are common sites for pain. See Figure 4. What Should You Do Before the Procedure? ?? Plan to have someone drive you home. You should not drive for the rest of the day. If you do not have a taxi truck driver, your appointment may need to be rescheduled. ?? Plan to have someone else care for any children or adults who rely on you for care. You may not be able to move around as well as you normally would for the rest of the day after the procedure. ?? Eat and drink as usual on the appointment day, unless you have been told otherwise. ?? Tell your health care provider whether you: ? Have had problems with cortisone or corticosteroid injections in the past. ? Have had an injection done somewhere other than here. If yes, tell your care provider when that happened. ? Are or think you may be . ? Have diabetes. ? Take blood-thinning medications. (See blood-thinning medication information.) ? Are allergic to iodine, latex or local anesthetics. ? Are taking an antibiotic for an infection. ? Have had a temperature of 100.4 degrees Fahrenheit (38 degrees Celsius) or higher in the last two weeks. ? Have an infection. You cannot have the injection if you have signs of infection or if you are taking antibiotics. Signs of infection may include: ?? Temperature of 100.4 degrees Fahrenheit (38 degrees Celsius) or higher. ?? Chills and aches. ?? New or worsening cough. ?? A burning sensation when urinating. If you have signs of infection, contact the health care provider who ordered the injection. Ask to schedule your appointment on another date. If you take blood-thinning medication Before your procedure, your blood-thinning medication routine may need to be changed. Talk with yourhealth care provider who manages these medications as soon as you can. Because blood-thinning medications affect clotting and bleeding, both the health care provider who manages these medications and the provider doing your procedure will need to decide if your medications need to change. If you are not sure whether you take medications that affect blood- thinning, contact your health care provider orpharmacist. What Usually Happens During the Appointment? Several health care providers are in the room during this procedure. If you have any questions during the procedure, feel free to ask. You first change into a gown and use the restroom. Next, a member of your health care team helps youlie on your stomach. Monitors may be placed on you to record your blood pressure, heart rate and theamount of oxygen in your blood. You stay awake during the procedure. The area to be injected is cleaned with alcohol or an iodine solution. Next, your health care provider gives you the injections. The injected fluid is a mix of two medications. 1. The first medication numbs the injection area. This medication is called a local anesthetic. It is given to lower the amount of pain you feel during the procedure and right after it. This medicationusually wears off within two to eight hours. 2. The second medication is the reason for your spinal injection. This medication is called a corticosteroid. It reduces swelling, also called inflammation, in the area. Note: This corticosteroid is not the kind of steroid that builds muscles. You may feel some discomfort or pain during the injections. If you feel a lot of pain, tell your health care provider. He or she may give you more local anesthetic. The injection procedure itself usually takes about 15 minutes. However, you should allow up to two hours for your appointment. It takes time to get you ready for the procedure. And you need to wait in the area for a while until you feel ready to leave. What Do You Need to Know After the Procedure? You may stay in the area and rest quietly until you feel well enough to leave. For some people, thisis 10 minutes. For other people, it may be longer. Every person responds in a different way to this procedure. You may have the following conditions, which may begin within an hour of the injection and last up to four hours: ?? Numbness, tingling or weakness in your arms, legs or both. ?? Difficulty urinating or leaking urine. ?? Dizziness or light-headedness caused by a drop in blood pressure. If these conditions persist longer than four hours, contact your health care team. Your risk for falling is high In addition to your usual leg numbness or weakness, the medications injected today may make you unsteady on your feet. It can be easy to fall and hurt yourself when your legs feel numb, weak or unsteady. You may feel this way for a few hours after the injections. A fall could cause you to break a boneor cause serious injury to your back. Do what you can to avoid falling. ?? After the injection, do not try to change your clothes without the help of a nurse. ?? Be careful when you step on and off curbs, climb stairs and walk. Have someone help you until youfeel better able to do these actions alone. ?? Have someone remove any clutter and rugs from your floors, especially in the walkways. ?? Wear shoes with low heels until you can walk steady again. Discomfort or pain After the local anesthetic wears off, your usual pain may return for a few days until you feel the anti-inflammatory effect of the corticosteroid. It may be about two weeks after the injection before you feel the greatest pain relief. You may have pain relief for a short period of time, a few weeks, a few months, or longer. For some people, these injections do not lower pain. Spine pain often is hard to sort out. Some people need more than one injection to find the source of the pain or to get relief from the pain. For the first 24 hours: ?? You may have a mild headache. ?? The injected area may be numb and the site may be sore. ? Use covered ice packs to help with any discomfort or pain you feel. Do not leave an ice pack on for more than 20 minutes at a time. ? Do not put heat on the injected area. Heat may make you feel worse and may reduce the relief you could get from the injection. During the first three to seven days: ?? The corticosteroid medication should begin to lower your pain. It is possible for the pain to feel worse before it begins to feel better. ?? Rest the injection area and use pain medication as needed. Note: Some common pain relievers can thin your blood. This may not be good for some people. Ask your health care provider what you should take for pain. ?? You may get a bruise at the injection site. Activity You must limit your activities for a while after this injection. For the rest of the day: ?? Do not drive. ?? Do not do any difficult or strenuous physical activities. ?? Do not provide care for anyone who depends on your help. For the first 7 to 10 days: ?? You may do mild activities. Ask your health care provider what you may try to do. If you feel like your pain may be returning: ?? Reduce your activity and do less for a few days. Slowly work back to doing more activity again. Bathing For the first 48 hours: ?? You may shower. But do not soak the injection site in water for a long time. This means do not swim, take a bath or use hot tubs. Common side effects For a few days after your injection you may: ?? Have ???hot flashes?? and a red, flushed look on your face. ?? Feel very alert or ???revved up?? and sleep less. ?? Have both positive and negative moods (mood swings). If you have diabetes Your blood glucose may rise for a few days after your injection. Check your blood glucose more often to make sure it does not stay high. If your blood glucose does not return to your usual range after a few days, tell your primary health care provider. If you have questions about your blood glucose, call the health care provider who manages your diabetes. Illness not related to injection If you become ill, have an injury or need surgery after your injections, tell your health care provider you had an injection of corticosteroid. When Should You Get Medical Care? Problems related to injections do not happen very often. Call your health care provider if you have: ?? Dizziness. ?? A lot more back pain. ?? Increased pain that goes down your leg or arm. ?? Headache. ?? Signs of an infection: ? A temperature of 100.4 degrees Fahrenheit (38 degrees Celsius) or higher. ? An injection site that becomes red, swollen, tender, or warm. ? Fluid that drains from the injection site. ? An odor from the injection site. Go to the nearest emergency room if you have: ?? A lot of bleeding. This is bleeding that won???t stop: ? After you try to stop it with a tissue or gauze. ? After you put ice on the area for 10 minutes. ?? Weakness or numbness. This is weakness or numbness that is constant and worse than you had right after the injection. This is not the same as the weakness or numbness you had for a few hours after the injection. ?? Severe headache. This is a headache that you feel only when you stand or sit upright, not when you lie down. ?? Allergic reaction. Signs of allergic reaction include: ? Rash. ? Swelling in your throat. ? Difficulty with swallowing. ? Difficulty with breathing. This material is for your education and information only. This content does not replace medical advice, diagnosis or treatment. New medical research may change this information. If you have questions about a medical condition, always talk with your health care provider. ? 2017 [facility] ([facility]). All rights reserved. [id number] documented in this encounter Medications at Time of Discharge [...] a day. documented as of this encounter Procedure Notes Gildardo Banegas D.O. - 04/09/2021 1:30 PM CDTAssociated Order(s): FL Lumbar Spine Transforaminal Epidural Injection Left Pre-Procedure Diagnose(s): Radiculopathy Lumbar Post-Procedure Diagnose(s): Radiculopathy Lumbar FL Lumbar Spine Transforaminal Epidural Injection Left Date/Time: 04/09/2021 1:12 PM Performed by: Gildardo Banegas D.O. Authorized by: Loulou Gamble M.D. PROCEDURE SUMMARY Site: lumbar Lumbar: transforaminal epidural injection Transforaminal epidural injection: Left L4 Needle or RF cannula: Spinal Needle size: 22 G Needle length: 5 in Flow: peripheral and central Patient position: prone IMAGING Fluoroscopic guidance: Yes (Images Saved to patient Chart) INJECTED MEDICATIONS Total volume of injectate (mL): 2 Total steroid in injectate (mg): Dexamethasone 10 mg 4 mL lidocaine 10 mg/mL (1 %) 1 mL lidocaine 20 mg/mL 10 mg dexAMETHasone 10 mg/mL 1 mL iohexoL 300 mg iodine/mL PROCEDURE DETAILS Transforaminal epidural injection - lumbar: After identifying the appropriate pedicle fluoroscopically with an oblique view. A spinal needle was then advanced under fluoroscopic guidance to the posterior aspect of the neural foramen. Appropriate foraminal depth was determined with a lateral fluoroscopic view, and AP visualization confirmed needle positioning at approximately the 6 o'clock position relative to the pedicle. After negative aspiration, contrast was injected using live fluoroscopy and digital subtraction angiography, confirming appropriate transforaminal spread without evidence of intravascular or intrathecal uptake. A local anesthetic test dose consisting of 1 mL of 2% lidocaine was injected through the needle. After an appropriate period of observation, a directed neurological exam was performed which revealed no new neurologic deficits. Next, the injectate was injected slowly and incrementally into the epidural space. Following the injection the needle was withdrawn flushed with lidocaine as it was fully extracted. The patient tolerated the procedure well and there were no apparent complications. After appropriate observation, the patient was dismissed in good condition under their own power. CONSENT Consent obtained: written UNIVERSAL PROTOCOL All relevant documentation and testing were reviewed and available. All required blood products, implants, devices and or special equipment were made available as applicable. Pre-procedure verificationwas conducted and the correct site was marked if required. A fire risk assessment was done as applicable. The procedural time-out was conducted prior to performing the procedure and confirmed in a procedural pause. PRE-PROCEDURE DETAILS Procedure purpose: Therapeutic Appropriate hand hygiene, gown, cap, mask, protective eyewear, sterile gloves, skin preparation, sterile drape, and strict aseptic technique were utilized as applicable for the procedure: yes Site preparation: Chlorhexidine SEDATION / ANESTHESIA Anesthesia method: local infiltration and moderate sedation Local infiltrate type: see MAR for dose, lidocaine I completed the presedation assessment form and supervised the sedation. Planned sedation level achieved: yes Present during sedation (intra-service time). A trained independent observer (e.g. RN) assisted withmonitoring the patient's level of consciousness and physiological status throughout the procedure (see nursing documentation). ATTESTATION STATEMENT The teaching physician rule is not applicable. OPERATIVE NOTE INFORMATION Estimated blood loss: 0 ml documented in this encounter Plan of Treatment Upcoming Encounters Date Type Specialty Care Team Description 05/12/2022 Appointment Radiology Jammie Roca P.A.-C., M.S. [address] [place] [address] (Karlie yepez) 05/12/2022 Appointment Radiology Jammie Roca P.A.-C., M.S. [address] [place], [place] [address] (Karlie yepez) 05/12/2022 Office Visit Neurological Surgery Sheila Gamble M.D. [address] [place] [phone] (Wo rk) documented as of this encounter Procedures Procedure Name Priority Date/Time Associated Comments Diagnosis FL LUMBAR SPINE RAD - Routine 04/09/2021 1:12 Radiculopathy Results for TRANSFORAMINAL (most inpatients PM CDT Lumbar this proc edure EPIDURAL INJECTION and all are in th e LEFT outpatients) results section. documented in this encounter Results FL LUMBAR SPINE TRANSFORAMINAL EPIDURAL INJECTION LEFT [...] Diagnosis Radiculopathy Lumbar documented in this encounter Administered Medications Inactive Administered Medications - up to 3 most recent administrations Medication Order MAR Action Action Date Dose Rate Site dexAMETHasone injection 10 mg Given 04/09/2021 1:12 PM CDT 10 mg (DECADRON) 10 mg, injection, One-Time Injection, Starting on Kimmy 04/09/21 at 1312, For 1 dose iohexoL 300 mg iodine/mL solution 1 mL Given 04/09/2021 1:12 PM CDT 1 mL (OMNIPAQUE) 1 mL, injection, One-Time Injection, Starting on Kimmy 04/09/21 at 1312, For 1 dose lidocaine 10 mg/mL (1 %) injection 4 mL Given 04/09/2021 1:12 PM CDT 4 mL (XYLOCAINE) 4 mL, injection, One-Time Injection, Starting on Kimmy 04/09/21 at 1312, For 1 dose lidocaine 20 mg/mL injection 1 mL (XYLOC LISHA) Given 04/09/2021 1:12 PM CDT 1 mL 1 mL, injection, One-Time Injection, Starting on Kimmy 04/09/21 at 1312, For 1 dose documented in this encounter
--- OUTSIDE RECORDS SUMMARY | 2022-04-20 11:14 | XMS_ITS | Encounter Summary ---
:1965 Author Organization [facility] Address [address] [place] [address] Care Team Providers Name Role Phone Unavailable Primary Care Provider Unavailable Encounter Details Date Type Department Care Team Description 04/11/2021 Orders Only Department of Neurological Loulou Mariano M.D. Surgery in [address] [address] [place] [address] [place] [address] [phone] Social History Tobacco Use Types Packs/Day Years [...] or relatives? How often do you attend zoroastrian or Never 2021 catholic services? 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 [address] [place], [place] [address] (Karlie yepez) 05/12/2022 Appointment Radiology Jammie Roca, P.A.-C., M.S. [address] [place], [place] [address] (Karlie yepez) 05/12/2022 Office Visit Neurological Surgery Sheila Gamble M.D. [address] [place] [phone] (Karlie yepez) documented as of this encounter Visit Diagnoses Not on filedocumented in this encounter
--- OUTSIDE RECORDS SUMMARY | 2022-04-20 11:14 | XMS_ITS | Encounter Summary ---
:1965 Author Organization [facility] Address [address] [place] [address] Care Team Providers Name Role Phone Unavailable Primary Care Provider Unavailable Reason for Visit Physical Therapy (Routine) - Closed Specialty Diagnoses / Procedures Referred By Contact Refer red To Contact Diagnoses Stenosis Spinal Cervical Fusion Cervical Spine Status Post Loulou Gamble M.[facility] Procedures PT Evaluate and treat [address] [place] [address] Referral ID Status Reason Start Date Expiration Date Visits Requ ested Visits Authorized [id number] Closed 09/12/2019 09/11/2020 1 1 Encounter Details Date Type Department Care Team Description 11/26/2019 Comprehensive Visit Department of Physical Loulou Mariano M.D. [address] [place] [phone] Stenosis Spinal Cervical; Medicine and Jessica Finley, PGregoria, D.P.T. [address] [place] [phone] Fusion Cervical Spine Status Post Rehabilitation in [place], [place] [address] [place] [phone] Social History Tobacco Use Types Packs/Day Years [...] do you attend buddhist or Never 2021 worship services? Do you belong to any clubs [...] place to sleep or slept in a prison (including now)? Education Answer Date Recorded What is the highest level of school Associate degree: [employer] program 06/26/2019 you have completed or the highest degree you have received? 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 - 11/26/2019 2:00 PM CDT Consults [facility] Cervical Initial Evaluation Patient Name: Minerva Ramesh Date of Evaluation: 11/26/2019 Referring Provider: Loulou Gamble M.D. [address] [place] [address] Rehab Diagnosis: 1. Stenosis Spinal Cervical 2. Fusion Cervical Spine Status Post Reason for Referral: Onset Date: 09/12/19 Insurance: Payor: MEDICA / Plan: MEDICA / Product Type: PPO / Total Visit Count: 1 Visit Count since last G-Codes: 1 PERTINENT MEDICAL / SURGICAL HISTORY: Past Medical History: Diagnosis Date ??? Apnea Sleep Obstructive 11/09/2017 ??? Coronary Artery Disease (Unspecified) 04/30/2016 Detected on screening test performed by insurance [facility], stress test performed 2015 negative ??? 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 Dysphonia 03/19/2009 potentially related to vocal cord damage, scheduled for ENT evaluation on 07/10/2019 ??? Edema 05/24/2013 ??? Headache 09/08/2017 ??? 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 SECTION ??? DIAGNOSTIC LAPAROSCOPY ??? FOOT SURGERY Right ??? FUSION SPINE ANTERIOR CERVICAL AND DISCECTOMY N/A 08/10/2019 Procedure: FUSION SPINE ANTERIOR CERVICAL AND DISCECTOMY - C5-7; Surgeon: Loulou Gamble M.D.; Location: [facility] OR ??? MOUTH BIOPSY N/A 04/02/2008 >Buccal mucosal biopsy. ??? TONSILLECTOMY AND ADENOIDECTOMY ??? VAGINAL HYSTERECTOMY with left oophorectomy. with laparoscopy too per pt Precautions/Restrictions: S/p ACDF 08/10/2019 Contact monitoring: PPE used during therapy: Therapist was wearing the following PPE throughout entire session: surgicalmask and eye protection Patient was wearing a mask during therapy session: yes Additional Staff Present During Session: None SUBJECTIVE: Patient is a pleasant 54 y.o. female presenting to Physical Therapy for decreased cervical strength.Patient is s/p ACDF completed 08/10/2019. Patient states she is doing well following surgery. She is very happy with her results and has not had any UE symptoms since. She is hoping to learn different ex ercises to maximize her outcome following surgery. She states she had a lot of headaches prior to surgery. They resolved immediately following but unfortunately have started back the last 3-4 weeks. She describes the symptoms like a ring around her head. She states they occur daily. Denies phonophobia or photophobia. She is also wondering if there are exercises she could do for her low back since she has been havingmore pain. She notices discomfort on the anterior aspect of her L thigh into her medial knee (possibly L3-5 dermatome distribution). She states she thinks activity makes it worse, is unable to determine what specifically helps. I feel like I need a girdle. Overall she reports her status is improving. Pt wakes up 0x/night due to pain. Currently not taking any medication pain relief. Patient has required no assist with ADLs and IADLs. 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 Patient is limited in participation of recreational activities of motorcycling, yardwork, riding bike, walking. Pain: Location: Low back - belt line bilaterally (no pain in cervical spine - 0/10) Pain at best: 2/10 Pain at worst: 5/10 Aggravating Factors: Motorcycling Relieving Factors: Unknown - does not have much pain in neck at this time. Previous Treatments: Surgery Prior Level of Function: Independent with functional, occupational, recreational activities - is limited recreationally at this time due to decreased cervical strength Patient's goal for Physical Therapy: Decrease pain, increase strength Falls Risk: No falls in past 12 months, no fear of falling Red Flags: (???+?? indicates positive finding, ???-???indicates negative finding) Red Flag +/- Comments Trauma - Hx of cancer - Fevers/chills/night sweats - Unexplained weight loss - Recent infection - Immunosuppression - Rest/night pain - Dizziness - Diplopia - Drop attacks - Dysphagia - Dysarthria - Nystagmus - Nausea - OBJECTIVE: Posture: Forward head, rounded shoulders Gross shoulder ROM: WFL bilaterally Cervical AROM: Movement Loss (norms) ROM (WFL or degree measurement) Comments (deviations, pain, centralization, peripheralization) Flexion (45) 36 Extension (45) 49 Right Side Bend (45) 45 Left Side Bend (45) 38 Stiff Right Rotation (60) 54 Left Rotation (60) 63 Standard testing positions unless otherwise noted. Allison: ranges are reported in active range of motion unless noted as AA = active assisted or P = passive range of motion, * denotes pain. If left blank,assume not tested. Cervical Strength: Motion Pain Deep Neck Flexor Endurance (time in sec) 6 seconds Flexion 5/5 Extension 5/5 Right Pain Left Pain Side Bend 5/5 5/5 Rotation 5/5 5/5 Shoulder Girdle Elevation 5/5 5/5 Middle Trapezius 5/5 5/5 Rhomboids 5/5 5/5 Lower Trapezius 5/5 5/5 Standard testing positions unless otherwise noted, * denotes pain. If left blank, assume not tested Upper Extremity Strength (0-5 scale) Motion Right Left Comments: Abduction (C5) 5/5 5/5 Elbow Flexion (C5,6) 5/5 5/5 Elbow Extension (C7) 5/5 5/5 Wrist Extension (C6) 5/5 5/5 Wrist Flexion (C7) 5/5 5/5 Thumb Extension (C8) 5/5 5/5 Little Finger Adduction (T1) 5/5 5/5 Fluid Dynamicist Strength Symmetrical Symmetrical Standard testing positions unless otherwise noted, * denotes pain. If left blank, assume not tested Sensation: (indicate Bilaterally (B); Left (L); Right ?? in table) Location Normal Decreased Absent Hyper Deltoid(C5) B Distal Thumb (C6) B Distal Middle Finger (C7) B Distal 5th Finger (C8) B Medial Forearm (T1) B Special Tests: (???+?? indicates positive finding, ???-??? indicates negative finding) +/- Test Comments: - Upper Limb Tension Test (Median nn bias) - Foraminal Compression Test (Spurling) - Alar Ligament - Transverse Ligament - Vertebrobasilar Testing - Cervical Distraction Segmental Mobility Testing: Hyper Hypo Pain? Description/Location: Involved Segment(s) Upper Cervical Spine Mobility (C0-2) NA Segmental Mobility Testing (C2-T4) Prone NA Segmental Mobility Testing (T5-T12) Prone NA Palpation: Moderate hypertonicity throughout bilateral upper traps, levator scaps, SCMs, and suboccipitals with several active trigger points in SCM and suboccipitals Outcome Measures: Not obtained this session Interventions Provided 11/26/2019: - Evaluation completed. The patient was educated regarding evaluative findings, diagnosis, prognosis, potential risks and benefits of rehabilitation interventions. A collaborative effort was used to establish goals and plan of care, which was agreed upon by patient. The patient was informed of the right to make decisions regarding their care, including refusal of examination, treatment, or selection of therapy services from another provider if desired. The treatment plan may be progressed or modified based upon the patient's response to treatment. - Initiation of therapeutic exercise, self care/home management, and manual therapy. - Time spent on education regarding importance of posture for improved cervical mechanics and function with patient acknowledging. Demonstration regarding postural improvement was provided. Facilitation of improvement in upright posture with verbal and tactile cues with patient able to achieve midline position without any increase in pain and improvement in reports of tension. - Discussed benefits of heat to decrease tension - pt to trial and continue if beneficial - Discussed performing shoulder checks throughout the day as pt tends to resort to shoulder hike compensation - Discussed and practiced different sleeping positions to decrease strain on low back as pt has experienced increased low back pain lately. - Initiation of HEP below Manual therapy: - Seated and supine STM to B upper traps, levator scaps, and SCM to decrease pain and hypertonicity - Supine suboccipital release 2x30 seconds to decrease pain Home Exercise Program: 11/26/2019: Access Code: [email or web address] URL: [email or web address] Date: 11/26/2019 Prepared by: Jessica Finley Program Notes - Focus on posture! - Perform shoulder checks throughout the day - Avoid compensating with shoulder shrugs Exercises Supine Chin Tuck - 15 reps - 2 sets - 5 seconds hold - 5x weekly Seated Scapular Retraction - 15 reps - 2 sets - 3 seconds hold - 5x weekly Standing Row with Anchored Resistance - 15 reps - 2 sets - 5x weekly Sternocleidomastoid Stretch - 30 seconds hold Supine Suboccipital Release with Tennis Balls Supine Bridge - 15 reps - 2 sets - 5x weekly Supine Transversus Abdominis Bracing - Hands on Stomach - 15 reps - 2 sets - 3 seconds hold - 5x weekly Supine Lower Trunk Rotation Treatment Response: Patient tolerated evaluation well. She did require min-mod verbal and tactile cues to avoid upper trap compensation, especially during scapular retraction exercises. Her headache was relieved with STM to suboccipitals and SCMs, did educate on self massage and suboccipital release - encouraged pt to utilize to decrease tension. Discussed appropriate progressions for all exercises, encouraged patient to focus on quality versus quantity and to ensure she does not utilize shoulder hike compensation which she was agreeable to. Did also incorporate low back/core exercises as pt has had increased low back pain lately and was curious how she could decrease this with exercise. Patient very motivated which will likely contribute to her progress. No adverse response to evaluation. Answered all of her questions to the best of my ability and to her satisfaction. Plan for Next Session: Progress HEP for both cervical and low back - s/p ACDF 07/2019, would like exercises to maximize outcome ASSESSMENT: Minerva Ramesh is a 54 y.o. female referred to Physical Therapy for decreased cervical strength. Currently, patient presents with impairments including moderate hypertonicity throughout bilateral upper traps, levator scaps, SCMs, and suboccipitals with several active trigger points in SCM and suboccipitals, forward head posture, impaired strength and coordination of deep neck flexors, and decreased core strength resulting in the following functional deficits: decreased activity tolerance and difficulties performing recreational activities due to limited strength. Comorbidities: See PMH above Personal Factors: None Patient currently displays a stable clinical presentation. Due to these factors, clinical decision making is considered of low complexity. These functional limitations and problem list require the specialized knowledge and skill of a therapist to meet expected outcomes. Patient has good potential to meet the expected outcomes in a reasonable period of time. Therapeutic interventions will include therapeutic exercise, therapeutic activities, neuro reeducation, manual therapy, self care/home management, aquatic therapy, electrical stimulation, vasopneumatic pump and ice/heat. Patient is in agreement with plan of care. Thank you for this referral. GOALS: 1. Patient will demonstrate improvement in posture with no verbal cues required to correct forward/rounded shoulder or forward head positioning in order to improve cervical joint mechanics and decreaserisk of pain at rest and with activity within 12 weeks. 2. Patient will be able achieve 20 seconds during deep neck flexor endurance test to demonstrate improved strength and coordination of the deep neck flexors within 12 weeks. 3. Patient will demonstrate the ability to complete home exercise program independently and without cues for technique in order to promote improvement in functional and recreational mobility in 12 weeks. PLAN: Frequency/Duration: 1x/week every other week for 12 weeks - 6 visits Plan of Care End Date: PT Next Certification Date: 02/18/20 Skilled training and instruction for the following interventions: Manual therapy to improve motion and reduce pain. Therapeutic exercise to improve strength and rangeof motion. Therapeutic Activity to improve functional performance with dynamic tasks. Neuromuscular re-education to address balance, posture, proprioception, and motor control. Modalities as needed. By co-signing this note, the provider certifies the therapy being provided to this patient is reasonable and necessary for the diagnosis or treatment of this patient. Time Spent with Patient PT Evaluation (min): 20 min Therapeutic Exercise (min): 15 min Manual Therapy (min): 10 min Home Management Training (min): 5 min Time Calculation Total Timed Units (min): 30 min Total Treatment Time (min): 50 min Electronically signed by: Jessica Finley P.T., [email or web address] 11/26/19 3:28 PM CDT documented in this encounter Plan of Treatment Upcoming Encounters Date Type Specialty Care Team Description 05/12/2022 Appointment Radiology Jammie Roca P.A.-C., M.S. [address] [place] [address] (Wo rk) 05/12/2022 Appointment Radiology Jammie Roca P.A.-Katarina., M.S. [address] [place] [address] (Wo rk) 05/12/2022 Office Visit Neurological Surgery Sheila Gamble M.D. [address] [place] [phone] (Wo rk) documented as of this encounter Visit Diagnoses Diagnosis Stenosis Spinal Cervical Fusion Cervical Spine Status Post documented in this encounter
--- OUTSIDE RECORDS SUMMARY | 2022-04-20 11:14 | XMS_ITS | Encounter Summary ---
:1965 Author Organization [facility] Address [address] [place] [address] Care Team Providers Name Role Phone Unavailable Primary Care Provider Unavailable Encounter Details Date Type Department Care Team Description 01/30/2021 Hospital Encounter Department of Reigel, Zacarias Fusion Cervical Spine Status Post; Radiology, [facility] Back [facility] in C.N.P., D.N.P. [address] [phone] Social History Tobacco Use Types Packs/Day Years [...] or relatives? How often do you attend gnosticism or Never 2021 christianity services? Do you belong to any clubs or Yes 10/25/2021 organizations such as gnosticism groups, unions, fraternal or athletic groups, or school groups? 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 venlafaxine XR (EFFEXOR-XR) Take 1 capsule 0 04/21 150 mg 24 hr capsule by mouth daily. gabapentin (NEURONTIN) 300 Take 1 capsule 90 capsule 5 01/3008/28/2021 mg capsule (300 mg total) by mouth 3 (three) times a day. methylPREDNISolone (MEDROL Follow package 21 tablet 0 01/3004/01/2021 DOSEPAK) 4 mg tablet directions. topiramate (TOPAMAX) 50 mg Take 2 tablets 0 06/1210/05/2021 tablet by mouth 2 (two) times a day. documented as of this encounter Plan of Treatment Upcoming Encounters Date Type Specialty Care Team Description 05/12/2022 Appointment Radiology Jammie Roca, Ishaan., M.S. [address] [place], [place] [address] (Wo rk) 05/12/2022 Appointment Radiology Jammie Roca P.A.-C., M.S. [address] [place], [place] [address] (Wo rk) 05/12/2022 Office Visit Neurological Surgery Sheila Gamble M.D. [address] [place], [place] [phone] (Wo rk) documented as of this encounter Procedures Procedure Name Priority Date/Time Associated Comments Diagnosis DX LUMBAR SPINE RAD - Routine 01/30/2021 9:40 Pain Back Results for this 4+ VIEWS (most inpatients AM CDT procedure a re in and all the results outpatients) section. DX CERVICAL SPINE RAD - Routine 01/30/2021 9:40 Fusion Cervical Res ults for this 2-3 VIEWS (most inpatients AM CDT Spine Status Post proced ure are in and all the results outpatients) section. documented in this encounter Results DX Lumbar Spine 4+ [...] Loulou Gamble M.D. IMG DIAGNOSTIC IMAGING PROCE MAE DX Cervical Spine 2-3 Views (01/30/2021 9:40 [...] lung apices are clear. Procedure Note Arnoldo aGrcia D.Zac - 01/30/2021 EXAM: DX CERVICAL SPINE 2-3 [...] Diagnoses Diagnosis Fusion Cervical Spine Status Post Pain Back documented in this encounter
--- OUTSIDE RECORDS SUMMARY | 2022-04-20 11:14 | XMS_ITS | Encounter Summary ---
:1965 Author Organization [facility] Address [address] [place] [address] Care Team Providers Name Role Phone Unavailable Primary Care Provider Unavailable Reason for Visit Reason Comments Med Refill Encounter Details Date Type Department Care Team Description 2021 Refill Department of Neurological Loulou Mariano M.D. Med Refill Surgery in [place], [place] [facility] [facility] [address] [place] [address] [place] [address] [phone] Social History Tobacco Use Types Packs/Day Years [...] or relatives? How often do you attend jainism or Never 2021 restorationism services? 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 - 08/28/2021 2:57 PM TRAFFIC OPERATIONS MANAGER We have refilled the request with a different refill quantity. Momo Garcia P.A.-C. FIC OPERATIONS MANAGER documented in this encounter Plan of Treatment Upcoming Encounters Date Type Specialty Care Team Description 05/12/2022 Appointment Radiology Jammie Roca P.A.-C., M.S. [address] [place], [place] [address] (Karlie yepez) 05/12/2022 Appointment Radiology Jammie Roca P.A.-C., M.S. [address] [place], [place] [address] (Karlie yepez) 05/12/2022 Office Visit Neurological Surgery Sheila Gamble M.D. [address] [place], [place] [phone] (Karlie yepez) documented as of this encounter Visit Diagnoses Not on filedocumented in this encounter
--- OUTSIDE RECORDS SUMMARY | 2022-04-20 11:15 | XMS_ITS | Encounter Summary ---
:1965 Author Organization [facility] Address [address] [place] [address] Care Team Providers Name Role Phone Unavailable Primary Care Provider Unavailable Reason for Referral Physical Therapy (Routine) - Closed Specialty Diagnoses / Procedures Referred By Contact Refer red To Contact Diagnoses Stenosis Spinal Cervical Fusion Cervical Spine Status Post Loulou Gamble M.D. [facility] Procedures PT Evaluate and treat [address] [place] [address] Referral ID Status Reason Start Date Expiration Date Visits Requ ested Visits Authorized [id number] Closed 09/12/2019 09/11/2020 1 1 Encounter Details Date Type Department Care Team Description 09/12/2019 Clinical Communication Department of Loulou Gamble Neurological Surgery in [place] [id number] [facility] [address] [place] [phone] Social History Tobacco Use Types Packs/Day Years [...] do you attend zoroastrianism or Never 2021 spiritism services? Do you belong to any clubs or Yes 10/25/2021 organizations such as zoroastrianism groups, unions, fraIdibon or athletic groups, or school groups? How [...] the highest level of school Associate degree: [employer] program 06/26/2019 you have completed or the highest degree you have received? 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 - 09/12/2019 10:01 AM CDT In the setting of the COVID-19 pandemic and the recent decision by the [facility] to defer all elective outpatient visits for eight weeks, I gave the patient a call to discuss delaying their appointment that is currently scheduled for September 18. Mrs. Ramesh is status post C5-7 ACDF performed on 08/10/19. Mrs. Ramesh expressed her understanding. She reports that her incision is healed well, her shoulder pain has completely resolved, and her hand function and sensation are improved compared to before surgery. She is overall very pleased with her result and has no significant concerns at this time. She is interested in pursuing physical therapy to work on posture and other exercises she can continue at home. She understands this will likely be delayed until Clinics open up again for elective therapies. We reviewed signs and symptoms that would merit reporting back to the office via phone or patient portal verses emergent evaluation. I reviewed that we would contact the patient regarding new visit dates when these become available. I also discussed that I will be on maternity leave and I would have them follow up with a member of my team for reassessment. The patient expressed their understanding, questions and concerns were addressed. I reiterated that in the event of new concerns, signs or symptoms, I would encourage them to contact our office and we can discuss at that time. documented in this encounter Plan of Treatment Upcoming Encounters Date Type Specialty Care Team Description 05/12/2022 Appointment Radiology Jammie Roca P.A.-C., M.S. [address] [place] [address] (Wo rk) 05/12/2022 Appointment Radiology Jammie Roca P.A.-C., M.S. [address] [place] [address] (Wo rk) 05/12/2022 Office Visit Neurological Surgery Sheila Gamble M.D. [address] [place] [phone] (Wo rk) documented as of this encounter Visit Diagnoses Diagnosis Stenosis Spinal Cervical - Primary Fusion Cervical Spine Status Post documented in this encounter
--- OUTSIDE RECORDS SUMMARY | 2022-04-20 11:15 | XMS_ITS | Encounter Summary ---
:1965 Author Organization [facility] Address [address] [place] [address] Care Team Providers Name Role Phone Unavailable Primary Care Provider Unavailable Encounter Details Date Type Department Care Team Description 07/05/2008 Ancillary Procedure Department of Dermatology Social History Tobacco Use Types Packs/Day Years Used Date Smoking Tobacco: Never Assessed Alcohol Habits Answer Date Recorded How often [...] do you attend zoroastrianism or Never 2021 anabaptist services? Do you belong to any clubs [...] or slept in a correction (including now)? 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 [address] [place], [place] [address] (Wo rk) 05/12/2022 Appointment Radiology Jammie Roca P.A.-C., M.S. [address] [place], [place] [address] (Wo rk) 05/12/2022 Office Visit Neurological Surgery Sheila Gamble M.D. [address] [place], [place] [phone] (Wo rk) documented as of this encounter Procedures Procedure Name Priority Date/Time Associated Comments Diagnosis DERMATOLOGY IMAGE Routine 07/05/2008 12:00 Result s for this EXAM AM VISUAL MERCHANDISING MANAGER procedure are i n the results section. documented in this encounter Results 513 Mouth-Dermatology Image Exam (07/05/2008 12:00 AM VISUAL MERCHANDISING MANAGER) Specimen (Source) Anatomical Location Collection Method / Collectio n Time Received Time / Laterality Volume Narrative [facility] - 08/23/2019 10:30 PM VISUAL MERCHANDISING MANAGER This order has been created and auto-finalized to support the import of images acquired without order. The clini nellie documentation to support these images can be found on the encounter rebekah t produced images. Provider Not In System IMG NON RAD IMAGING PROCEDUR ES Performing Organization Address City/State/ZIP Code Phon e Number IIMS IIMS NA documented in this encounter Visit Diagnoses Not on filedocumented in this encounter
--- OUTSIDE RECORDS SUMMARY | 2022-04-20 11:15 | XMS_ITS | Encounter Summary ---
:1965 Author Organization [facility] Address [address] [place] [address] Care Team Providers Name Role Phone Unavailable Primary Care Provider Unavailable Encounter Details Date Type Department Care Team Description 07/10/2019 Ancillary Procedure Department of Otorhinolaryngology Social History Tobacco Use Types Packs/Day Years [...] or relatives? How often do you attend taoism or Never 2021 cheondoism services? Do you belong to any clubs or Yes 10/25/2021 organizations such as taoism groups, unions, fraternal or athletic groups, or [...] place to sleep or slept in a chcf (including now)? Education Answer Date Recorded What is the highest level of school Associate degree: academ [employer] program 06/26/2019 you have completed or the highest degree you have received? 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 [address] [place], [place] [address] (Wo rk) 05/12/2022 Appointment Radiology Jammie Roca P.A.-C., M.S. [address] [place], [place] [address] (Wo rk) 05/12/2022 Office Visit Neurological Surgery Sheila Gamble M.D. [address] [place], [place] [phone] (Wo rk) documented as of this encounter Procedures Procedure Name Priority Date/Time Associated Comments Diagnosis OTORHINOLARYNGOLOGY IMAGE Routine 07/10/2019 10:25 Results for this EXAM AM SUPERVISING EDITOR NEWS REEL procedure are i n the results section. documented in this encounter Results Non-Radiology Image-Otorhinolaryngology Image Exam (07/10/2019 10:25 AM SUPERVISING EDITOR NEWS REEL) Specimen (Source) Anatomical Collection Method Collection Time Re ceived Time Location / / Volume Laterality 07/10/2019 10:21 AM SUPERVISING EDITOR NEWS REEL Narrative [facility] - 07/10/2019 10:54 AM SUPERVISING EDITOR NEWS REEL This order has been created and auto-finalized [...]
--- OUTSIDE RECORDS SUMMARY | 2022-04-20 11:15 | XMS_ITS | Encounter Summary ---
:1965 Author Organization [facility] Address [address] [place] [address] Care Team Providers Name Role Phone Unavailable Primary Care Provider Unavailable Reason for Referral Outpatient (Routine) - Closed Specialty Diagnoses / Procedures Referred By Contact Refer red To Contact Neurological Surgery Shi Mijares [facility] ZURDO C.N.P., D.N.P., M.S.N. [address] [place] [address] Referral ID Status Reason Start Date Expiration Date Visits Requ ested Visits Authorized [id number] Closed 08/11/2019 08/10/2020 1 1 CONTROL MECHANIC Outpatient (Routine) - Closed Specialty Diagnoses / Procedures Referred By Contact Refer red To Contact Neurological Surgery Shi Mijares [facility] ZURDO, C.N.P., D.N.P., M.S.N. 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 Fusion Cervical Spine Status Post; Hospital, Second [facility] [facility] Cyst Pituitary (HCC) Floor [place], [place] [address] [facility] [address] [place], [place] [phone] [address] (Work) [phone] Social History Tobacco Use Types Packs/Day Years [...] or relatives? How often do you attend anabaptism or Never 2021 tenriism services? Do you belong to any clubs or Yes 10/25/2021 organizations such as anabaptism groups, unions, fraternal or athletic groups, or [...] the highest level of school Associate degree: [employer] program 06/26/2019 you have completed or the highest degree you have received? Sex Assigned at Date Recorded Female 07/14/2019 9:59 AM FIRE CONTROL MECHANIC documented as of this encounter Last Filed Vital Signs Vital Sign Reading Time Taken Comments Blood Pressure 148/89 08/11/2019 6:15 AM FIRE CONTROL MECHANIC Pulse 86 08/11/2019 6:15 AM FIRE CONTROL MECHANIC Temperature 36.9 ??C (98.4 ??F) 08/11/2019 6:15 AM FIRE CONTROL MECHANIC Respiratory Rate 15 08/11/2019 6:15 AM FIRE CONTROL MECHANIC Oxygen Saturation 97% 08/11/2019 6:15 AM FIRE CONTROL MECHANIC Inhaled Oxygen Concentration - - Weight 68.9 kg (151 lb 14.4 oz) 08/10/2019 9:20 AM FIRE CONTROL MECHANIC Height 157.5 cm (5' 2) 08/10/2019 9:20 AM FIRE CONTROL MECHANIC Body Mass Index 27.78 08/10/2019 9:20 AM FIRE CONTROL MECHANIC documented in this encounter Medications at Time of Discharge Medication Sig Dispensed Refills Start Date End Date armodafinil (NUVIGIL) Take 1 tablet by 0 05/30/20 19 250 mg tablet mouth daily. venlafaxine XR Take 1 capsule by 0 05/18/2019 (EFFEXOR-XR) 150 mg 24 mouth daily. hr capsule topiramate (TOPAMAX) 50 Take 2 tablets by 0 06/1210/05/2021 mg tablet mouth 2 (two) times a day. acetaminophen (TYLENOL) Take 2 tablets 100 tablet 0 08/11/19 20 01/30/2021 500 mg tablet (1,000 mg total) by mouth every 8 (eight) hours. alendronate (FOSAMAX) 70 Take 70 mg by mouth 0 01/30/2021 mg tablet once a week. methocarbamoL (ROBAXIN) Take 1 tablet (750 90 tablet 0 07/2208/27/2019 750 mg tablet mg total) by mouth 4 (four) times a day as needed for muscle spasms. modafiniL (Provigil) 200 Take by mouth. 0 006 11/13/2019 mg tablet oxyCODONE (ROXICODONE) 5 Take 1-2 tablets 84 tablet 0 08/1108/27/2019 mg immediate release (5-10 mg total) by tabletIndications: mouth every 4 (four) Prolonged Acute hours as needed for Pain/Traumatic Injury mild pain or score 1-3 of 10 Indication: Prolonged Acute Pain/Traumatic Injury. polyethylene glycol Take 1 packet (17 g 527 g 0 020 11/13/2019 (MIRALAX) 17 gram powder total) by mouth packet daily as needed for constipation. Dissolve each 17 g dose in 240 mLs (8 ounces) of beverage. sertraline (ZOLOFT) 50 Take by mouth. 0 7 01/30/2021 mg tablet documented as of this encounter Nursing Notes Nahomy Jarvis R.N. - 08/11/2019 10:54 AM CST INPATIENT DISCHARGE SUMMARY Discharge Provider: No att. providers found Admission Date: 08/10/2019 Discharge Date: 08/11/2019 DISCHARGE DISPOSITION Home/Self Care CONDITION AT DISCHARGE stable TREATMENTS Wound care DEVICES/EQUIPMENT [facility] PROFESSIONAL SKILLED SERVICES None MODE OF DISCHARGE Wheelchair TRANSPORTATION Private Vehicle ACCOMPANIED BY MANAGER PARTY, daughter All belongings sent home with patient. Tabatha Sinclair RReece - 08/11/2019 6:51 AM CST Shift Goals: Clinical Goals for the Shift: Pain control, rest, neuros Identify possible barriers to meeting goals/advancing plan of care: pain End of Shift Summary: Patient rested well throughout night. Reported pain that's being tolerated with scheduled and PRN medications. Neuros remain intact. Continuous IVFs. X-rays obtained this am. Daughter remains at bedside. Heather Khalil RReece - 08/10/2019 9:31 PM CST Shift Goals: Pain control. Identify possible barriers to meeting goals/advancing plan of care: None End of Shift Summary: Pt reports pain at 3-5/10; pain control this shift with PRN oxycodone 10 mg. Pt rested well in bed through the shift. Ambulates to the bathroom with 1-2 G/W. Dressing remains clean, dry and intact. No new complaints. CONTROL MECHANIC Oumou Bedolla R.N. - 08/10/2019 6:57 PM CST Shift Goals: Pain management. Stable vitals. Tolerate diet. Identify possible barriers to meeting goals/advancing plan of care: none End of Shift Summary: Patient returned from PACU this evening. She states little incisional pain, but moderate bilateral shoulder pain. She states that this is not new for her. Scheduled tylenol administered and discussed different PRN pain medications. VSS, however BP slightly elevated. Will continueto monitor. She tolerated her clear liquid well. Fluids infusing. Ambulating with 1-2 and gaitbelt with some slight unsteadiness. She has voided since coats removal. CONTROL MECHANIC documented in this encounter OR Notes Op Note - Loulou Gamble M.D. - 08/10/2019 1:45 PM CST FULL OP NOTE Procedure: ?? 1. C5-6 and C6-7 diskectomy 2. C5-6 and C6-7 insertion of interbody allograft to with Cornerstone 3. Anterior instrumentation C5, C6, C7 with Medtronic Zevo 4. Use of the intraoperative microscope 5. Electrophysiologic monitoring 6. Fluoroscopy use Surgeon(s) and Role: * Loulou Gamble M.D. - Primary * Denise Bates APRN, C.N.P., D.N.P. - [place] Anesthesia Type General Pre-operative Diagnosis Stenosis Spinal Cervical Post-operative Diagnosis Stenosis Spinal Cervical Findings As expected. Complications None Description of Procedure The patient is a 53-year-old who presented with upper extremity complaints and balance complaints who was found on cervical MRI to have to significant levels of disc degeneration with cord compression.Reviewed with the patient given her progressive radiculopathy, and lb concerns and recommend surgical intervention. We discussed a 2 level anterior cervical diskectomy and fusion. She consented to proceed. Patient was brought back to the operating room and placed under general endotracheal anesthesia. Celis-Wells tongs were placed and she was positioned supine on the [facility] table with care to padall pressure points. The Celis-Wells tongs were connected to 15 lb of traction and a couple of towels were placed between her scapula to optimize extension for disc exposure. The area was prepped anddraped in usual sterile fashion. A localizing film confirmed the skin crease chosen for the incisionwas approximately C5. Local anesthetic was injected after procedural pause. The skin was incised sharply and monopolar cautery was used to dissect through the subcutaneous fat in the platysma. The medial border sternocleidomastoid was identified and a sub platysmal plane was created superior to inferior. The omohyoid was identified and the handheld Cloward retractors were then used to expose down to the pre vertebral fascia. Another x-ray confirmed the 5-6 disc space and [place] pins were placed in C5 and C6. The distractor was put in place and distraction was introduced. We then brought in the intraoperative microscope after exposing the C5-6 body disc space and C6 body to begin the diskectomy. The disc space was incised with 15 blade scalpel. A pituitary punch was used to remove large disc fragments and then the Codman curettes were used to complete the diskectomy. Match stick bur was used to drill down the endplates and the posterior osteophytes to expose the underlying disc. The diskectomy was complete and the PLL severed. Underlying dura appeared decompressed into the lateral recesses. Then sized a 7 mm graft and inserted this. The C5 [place] pin was then removed and placed in C7. The distractor was then put in place and distraction introduced. The C6-7 disc was removed in a similar fashion. The posterior osteophytes at the superior endplate of C7 in the inferior endplate of C5 were more significant than the level above. This was reflective of the MRI findings. With adequate drillingI was able to resect these osteophytes and complete the diskectomy using the Codman curettes. The PLL was successfully divided, decompressing the dura. The venous blush was seen bilaterally indicating a dequate lateral decompression. I then sized a 7 mm graft placed in the 6-7 space. The intraoperativemicroscope was removed. A 39 mm plate was then secured with 3.5 x 13 mm self-tapping screws at C5, C6, and C7. Copious irrigation was used and final x-rays were obtained and were satisfactory. Hemostasis was satisfactory no spinal fluid was seen and the wound was inspected. I had no concerns. A drain was tunneled to a distal exit site and Surgicel was placed bilaterally on the longus coli. I then closed in estephania omic layers with tools for the move platysma, 3 0 for the subcutaneous layer and 4 Monocryl for the skin followed by a Prineo dressing with dermabond. A Macon J hard cervical collar was put in place secondary to concerns for bone density. The instrumentation was secure, though her cancellous bone was slightly soft by tactile interpretation. The patient awoke in good condition and was transferred successfully to the postanesthesia care unit. Specimens None Drains Closed/Suction Drain 1 Right;Anterior Neck Accordion 10 Fr. (Active) 08/10/19 1525 Neck Placed by External Staff?: Placed by: DR. GAMBLE Tube Number: 1 Orientation: Right;Anterior Drain Tube Type: Accordion Size (Fr): 10 Fr. Size (mm): Size (In): Drain [place] Size (mL): 400 mL Number of Sutures Placed: 1 Removal Reason: Indwelling Urinary Catheter Double-lumen;Non-latex 16 Fr. (Active) 08/10/19 1319 Placed by: Franny Hagen RN Placed by External Staff?: Hand Hygiene Performed Prior to Insertion: Yes Sterile technique followed?: Yes Catheter Type: Double-lumen;Non-latex Tube Size (Fr.): 16 Fr. Catheter Balloon Size: 5 mL Urine Returned: Yes Removal Reason: Estimated Blood Loss None Implants Implant Name Type Inv. Item Serial No. Lead Injection Mold Technician Lot No. LRB No. Used Action WAX BN NBLBL 2.5GR - [facility] - [id number] Hardware e.g. pins/screws/rods WAX BN NBLBL 2.5GR NA Surgical Specialties [id number] Anterior 1 Implanted GRFT ANCELMO CANC CRN [id number] - [id number] - [id number] Bone or Tissue GRFT ANCELMO CANC CRN [id number] ACE*COMMtronic NA Anterior 1 Implanted GRFT ANCELMO CANC CRN [id number] - [id number] - [id number] Bone or Tissue [facility] [id number] Medtronic [id number] Anterior 1 Implanted 39MM 2 LEVEL PLATE, MEDTRONIC ZEVO Hardware e.g. pins/screws/rods N/A Medtronic N/A N/A 1 Implanted MEDTRONIC ZEVO 3.5MM VARIABLE SELF-TAPPING SCREW BLUE Hardware e.g. pins/screws/rods N/A Medtronic N/A N/A 6 Implanted Intra-op Medications Date/Time Order Dose Route Action Action by 08/10/2019 1331 ceFAZolin in dextrose (iso-os) IVPB 2 g (ANCEF) 2 g intravenous Given Andrae Caballero 08/10/2019 1351 bacitracin zinc 500 unit/gram ointment packet 2 packet topical Given Chantel Gamble 08/10/2019 1334 lidocaine-EPINEPHrine 1 %-1:100,000 injection (XYLOCAINE W/EPI) 10 mL Given Chantel Gamble 08/10/2019 1351 thrombin (bovine) topical solution (THROMBIN-JMI) 1 vial topical Given Chantel Gamble 08/10/2019 1352 NaCl 0.9% bacteriostatic 0.9 % injection 10 mL Given Chantel Gamble 08/10/2019 1353 bacitracin 50,000 Units in NaCl 0.9 % 1,000 mL irrigation 1,000 mL irrigation GivenMuChantel patino M.D. CONTROL MECHANIC Brief Op Note - Loulou Gamble M.D. - 08/10/2019 1:45 PM CST BRIEF OP NOTE Procedure(s): FUSION SPINE ANTERIOR CERVICAL AND DISCECTOMY - C5-7 Surgeon(s) and Role: * Loulou Gamble M.D. - Primary * Denise Bates APRN, C.N.P., D.N.P. - [place] An advanced practice provider assisted me during the procedure to enhance efficiency in order to optimize patient outcome; primarily via minimizing operative time and blood loss. Anesthesia Type General Pre-operative Diagnosis Stenosis Spinal Cervical Post-operative Diagnosis Stenosis Spinal Cervical Findings As expected. Complications None Specimens None Drains Closed/Suction Drain 1 Right;Anterior Neck Accordion 10 Fr. (Active) 08/10/19 1525 Neck Placed by External Staff?: Placed by: DR. GAMBLE Tube Number: 1 Orientation: Right;Anterior Drain Tube Type: Accordion Size (Fr): 10 Fr. Size (mm): Size (In): Drain [place] Size (mL): 400 mL Number of Sutures Placed: 1 Removal Reason: Indwelling Urinary Catheter Double-lumen;Non-latex 16 Fr. (Active) 08/10/19 1319 Placed by: Franny Hagen RN Placed by External Staff?: Hand Hygiene Performed Prior to Insertion: Yes Sterile technique followed?: Yes Catheter Type: Double-lumen;Non-latex Tube Size (Fr.): 16 Fr. Catheter Balloon Size: 5 mL Urine Returned: Yes Removal Reason: Estimated Blood Loss None Implants Implant Name Type Inv. Item Serial No. Lead Injection Mold Technician Lot No. LRB No. Used Action WAX BN NBLBL 2.5GR - SNA - [id number] Hardware e.g. pins/screws/rods WAX BN NBLBL 2.5GR NA Surgical Specialties [id number] Anterior 1 Implanted GRFT ANCELMO CANC CRN [id number] - [id number] - [id number] Bone or Tissue GRFT ANCELMO CANC CRN [id number] Medtronic NA Anterior 1 Implanted GRFT ANCELMO CANC CRN [id number] - [id number] - [id number] Bone or Tissue GRFT ANCELMO CANC CRN [id number] Medtronic [id number] Anterior 1 Implanted 39MM 2 LEVEL PLATE, MEDTRONIC ZEVO Hardware e.g. pins/screws/rods N/A Medtronic N/A N/A 1 Implanted MEDTRONIC ZEVO 3.5MM VARIABLE SELF-TAPPING SCREW BLUE Hardware e.g. pins/screws/rods N/A Medtronic N/A N/A 6 Implanted Loulou Gamble M.D. CONTROL MECHANIC documented in this encounter Miscellaneous Notes Hospital Course - Shi Mijares APRN, C.N.P. - 08/11/2019 8:56 AM FIRE CONTROL MECHANIC The patient underwent Fusion Cervical Spine Status Post for cervical stenosis and cord compression on the date of admission. She tolerated the procedure(s) well. She returned to the PACU then to the neurosurgical floor postoperatively. She was awake alert and moving all extremities, and complained of incisional discomfort. Her complete hospital course was uneventful. On the date of discharge she was ambulating without assistance. She was tolerating an oral diet with no nausea or vomiting, and her pain was well controlledwith oral pain medications. She was moving all extremities with strong and equal strength no new numbness tingling or weakness was noted. Her incision was clean dry and intact open to air and sealed with glue. There were no signs and symptoms of infection. She was voiding without difficulty and had flatus. Her vital signs remained stable. Postoperative x-ray showed normal postoperative changes from the above-described procedure(s). She thus met criteria to discharge Home No current facility-administered medications on file prior to encounter. Current Outpatient Medications on File Prior to Encounter Medication Sig Dispense Refill ??? armodafinil (NUVIGIL) 250 mg tablet Take 1 tablet by mouth daily. ??? topiramate (TOPAMAX) 50 mg tablet Take 2 tablets by mouth 2 (two) times a day. ??? venlafaxine XR (EFFEXOR-XR) 150 mg 24 hr capsule Take 1 capsule by mouth daily. ??? alendronate (FOSAMAX) 70 mg tablet Take 70 mg by mouth once a week. No Known Allergies PDMP reviewed, prescription (or refill) is appropriate at this time. I have reviewed any potential high risk features and have no concerns. I have furthermore reviewed and completed physical exam performed within the past 90 days in deemed the patient an appropriate candidate for opiate therapy. The brad lei has been educated on the risks and benefits of opioid therapy and been given opportunity to ask questions. CONTROL MECHANIC documented in this encounter Plan of Treatment Upcoming Encounters Date Type Specialty Care Team Description 05/12/2022 Appointment Jammie Richey P.A.-C., M.S. [address] [place] [address] (Wo rk) 05/12/2022 Appointment Radiology Jammie Roca P.A.-C., M.S. [address] [place], [place] [address] (Wo rk) 05/12/2022 Office Visit Neurological Surgery Sheila Gamble M.D. [address] [place], [place] [phone] (Wo rk) Scheduled Referrals Name Type Priority Associated Order Schedule Diagnoses Neurological Surgery Outpatient Referral Routine Expected: office visit (clinic) 2019, Expires: 08/11/2022 Neurological Surgery Outpatient Referral Routine Expected: office visit (clinic) 2019 (Approximate), Expires: 08/11/2022 documented as of this encounter Procedures Procedure Name Priority Date/Time Associated Comments Diagnosis DX CERVICAL SPINE RAD - Routine 08/11/2019 6:37 Result s for this 2-3 VIEWS (most inpatients AM FIRE CONTROL MECHANIC procedure a re in and all the results outpatients) section. ADULT OXYGEN Routine 08/10/2019 5:29 THERAPY PM FIRE CONTROL MECHANIC ADULT OXYGEN Routine 08/10/2019 5:29 THERAPY PM FIRE CONTROL MECHANIC FL FLUORO LESS RAD - Routine 08/10/2019 3:32 Results f or this THAN 1 HOUR (most inpatients PM FIRE CONTROL MECHANIC procedure a re in and all the results outpatients) section. FUSION SPINE 08/10/2019 1:03 Stenosis Spinal ANTERIOR CERVICAL PM FIRE CONTROL MECHANIC Cervical AND DISCECTOMY Case Notes HUMBERTO (11'S) / DONIS (#4 CA LL) Special Needs R/S update sent 07/03/2019 VINH Raman updated on time change 07/13/2001 CJKR/s 1.27.20 [employer] notified OCTAVIO documented in this encounter Results DX Cervical Spine 2-3 Views (11/13/2019 8:40 AM CDT) Anatomical Region Laterality Modality Cervical Spine, Musculoskeletal RST LOS, N/A Digital Radiography Neuroradiology ARZ LOS, Muskuloskeletal FLA LOS Specimen (Source) Anatomical Collection Method Collection Time Re ceived Time Location / / Volume Laterality 11/13/2019 9:18 AM CDT Impressions 11/13/2019 9:20 AM CDT Healing anterior spinal fusion and disce ctomy from C5 to C7. Narrative 11/13/2019 9:20 AM CDT EXAM: DX CERVICAL SPINE 2-3 VIEWS COMPARISON: 08/11/2019. FINDINGS: Previous soft tissue drain has been removed. Prevertebral soft tissues are unremarkable. The 7 cervical vertebr ae are reasonably well visualized. Again noted is a anterior spinal fusion and di scectomy from C5 to C7 in essentially anatomic alignment. There appears to be some interval narrowing of the fused disc spaces with sclerosis and healing. Remaining vertebrae are unremarkable and remaining disc levels are preserved. Procedure Note John Oviedo Jr., M.D. - 2019 EXAM: DX CERVICAL SPINE 2-3 VIEWS COMPARISON: 08/11/2019. FINDINGS: Previous soft tissue drain has been removed. Prevertebral soft tissues are unremarkable. The 7 cervical vertebr ae are reasonably well visualized. Again noted is a anterior spinal fusion and di scectomy from C5 to C7 in essentially anatomic alignment. There appears to be some interval narrowing of the fused disc spaces with sclerosis and healing. Remaining vertebrae are unremarkable and remaining disc levels are preserved. IMPRESSION: Healing anterior spinal fusion and disce ctomy from C5 to C7. Shi Mijares APRN, C.N.P., D.N.P., M.S.N. IMG DIAGN OSTIC IMAGING PROCEDURES DX Cervical Spine 2-3 Views (08/11/2019 6:37 AM FIRE CONTROL MECHANIC) Anatomical Region Laterality Modality Cervical Spine, Musculoskeletal RST LOS, N/A Digital Radiography Neuroradiology ARZ LOS, Muskuloskeletal FLA LOS Specimen (Source) Anatomical Collection Method Collection Time Re ceived Time Location / / Volume Laterality 08/11/2019 7:41 AM FIRE CONTROL MECHANIC Impressions 08/11/2019 7:42 AM FIRE CONTROL MECHANIC Status post anterior fixation/discectomy/intervertebral fusion, C5-C7 vertebra. Narrative 08/11/2019 7:42 AM FIRE CONTROL MECHANIC EXAM: DX CERVICAL SPINE 2-3 VIEWS COMPARISON: 06/26/2019 FINDINGS: Newly identified is an anterio r fixation plate and screws as well as discectomy/intervertebral fixation, C5-C 7 vertebra. There are no fractures and there is no evidence of hardware failure . There is a soft tissue drain in the surrounding region and mild edema within the prevertebral soft tissues, felt to be postoperative in nature. Procedure Note Ishan Walter M.D. - 08/11/2019Format ting of this note might be different from the original. EXAM: DX CERVICAL SPINE 2-3 VIEWS COMPARISON: 06/26/2019 FINDINGS: Newly identified is an anterio r fixation plate and screws as well as discectomy/intervertebral fixation, C5-C 7 vertebra. There are no fractures and there is no evidence of hardware failure . There is a soft tissue drain in the surrounding region and mild edema within the prevertebral soft tissues, felt to be postoperative in nature. IMPRESSION: Status post anterior fixation/discectomy /intervertebral fusion, C5-C7 vertebra. Denies Bates APRN C.N.P., D.N.P. IMG DIAGNOSTIC I MAGING PROCEDURES FL Fluoro Less Than 1 Hour (08/10/2019 3:32 PM FIRE CONTROL MECHANIC) Specimen (Source) Anatomical Location Collection Method / Collectio n Time Received Time / Laterality Volume Narrative [id number] [facility] - 08/10/2019 3:33 PM FIRE CONTROL MECHANIC This exam does not require a radiologist review or interpretation. Please refer to the patient's medical record on this date for clinical details. Loulou OJEDA FLUOROSCOPY PROCEDURES Performing Organization Address City/State/ZIP Code Phon e Number [phone] [facility] documented in this encounter Visit Diagnoses Diagnosis Fusion Cervical Spine Status Post - [place] Stenosis Spinal Cervical Fusion Cervical Spine Status Post Cyst Pituitary (HCC) Stenosis Spinal Cervical Stenosis Spinal Cervical Fusion Cervical Spine Status Post Cyst Pituitary (HCC) documented in this encounter Admitting Diagnoses Diagnosis Stenosis Spinal Cervical documented in this encounter Administered Medications Inactive Administered Medications - up to 3 most recent administrations Medication Order MAR Action Action Date Dose Rate Site acetaminophen tablet 1,000 mg Given 08/10/2019 10:44 AM FIRE CONTROL MECHANIC 1,00 0 mg (TYLENOL) 1,000 mg, oral, Once, On Tue08/10/19 at 1030, For 1 dose, Pre-Op acetaminophen tablet 1,000 mg (TYLENOL) Given 08/11/2019 5:50 AM FIRE CONTROL MECHANIC 1,000 mg 1,000 mg, oral, Every 8 hours scheduled, First dose on Tue08/10/19 at 1900 Given 08/10/2019 7:09 PM FIRE CONTROL MECHANIC 1,000 mg benzocaine-menthoL 15-3.6 mg per lozenge 1 Given 08/11 5:51 AM FIRE CONTROL MECHANIC 1 lozenge lozenge (CEPACOL) 1 lozenge, oral, As needed, sore throat, throat irritation, Starting on Tue08/10/19 at 1728 Given 08/11/2019 12:24 AM FIRE CONTROL MECHANIC 1 lozenge ceFAZolin in dextrose (iso-os) IVPB 2 New Bag 08/11/2019 5:51 AM FIRE CONTROL MECHANIC 2 g 200 mL/hr g (ANCEF) 2 g, intravenous, at 200 mL/hr, Administer over 30 Minutes, Every 8 hours scheduled, First dose on Tue08/10/19 at 2100, Start within 8 hours of last IV dose, continue while drain is in. premix bag, Drug Monitoring Program: Pharmacist to adjust medication dosing based on indication and drug clearance factors., Indications: Prophylaxis, surgical New Bag 08/10/2019 8:34 PM FIRE CONTROL MECHANIC 2 g 200 mL/hr celecoxib capsule 400 mg (CeleBREX) Given 08/10/2019 10:44 AM FIRE CONTROL MECHANIC 400 mg 400 mg, oral, Once, On Tue08/10/19 at 1030, For 1 dose, Pre-Op lactated ringers Rate/Dose Change 08/10/2019 3:44 PM FIRE CONTROL MECHANIC 700 mL/hr 100 mL/hr, intravenous, Continuous, Starting on Tue08/10/19 at 1030, Pre-Op Rate/Dose Verify 08/10/2019 1:03 PM FIRE CONTROL MECHANIC 100 mL/hr New Bag 08/10/2019 10:44 AM FIRE CONTROL MECHANIC 100 mL/hr 100 mL/hr NaCl 0.9% infusion Rate/Dose Verify 08/10/2019 9:57 PM FIRE CONTROL MECHANIC 80 mL/hr 80 mL/hr 80 mL/hr, intravenous, Continuous, Starting on Tue08/10/19 at 1730, Discontinue IV fluids once patient is tolerating oral intake of greater than 500 mL New Bag 08/10/2019 6:33 PM FIRE CONTROL MECHANIC 80 mL/hr 80 mL/hr oxyCODONE IR tablet 10 mg (ROXICODONE) Given 08/11/2019 9:03 AM FIRE CONTROL MECHANIC 10 mg 10 mg, oral, Every 4 hours PRN, moderate pain or score 4-6 of 10, severe pain or score 7-10 of 10, or for pain greater than comfort goal, Starting on Tue08/10/19 at 1728 Given 08/11/2019 4:30 AM FIRE CONTROL MECHANIC 10 mg Given 08/11/2019 12:23 AM FIRE CONTROL MECHANIC [address] tablet 40 mg (PROTONIX) Given 08/11/2019 5:51 AM FIRE CONTROL MECHANIC 40 mg 40 mg, oral, Daily before breakfast, First dose on 08/11/19 at 0700, Swallow whole. Do NOT crush, chew, or split tablet. sennosides-docusate sodium 8.6-50 mg per Given 08/10/2019 8:34 P M FIRE CONTROL MECHANIC 1 tablet tablet 1 tablet (SENOKOT-S) 1 tablet, oral, Daily at bedtime, First dose on Tue08/10/19 at 2100, For constipation. Hold for diarrhea. topiramate tablet 100 mg (TOPAMAX) Given 08/11/2019 9:02 AM FIRE CONTROL MECHANIC 100 mg 100 mg, oral, 2 times daily, First dose on Tue08/10/19 at 2100 Given 08/10/2019 8:34 PM FIRE CONTROL MECHANIC 100 mg venlafaxine XR 24 hr capsule 150 mg Given 08/11/2019 9:02 AM FIRE CONTROL MECHANIC 150 mg (EFFEXOR-XR) 150 mg, oral, Daily, First dose on 08/11/19 at 0900, Swallow whole. Do NOT crush, chew or open capsule. documented in this encounter Active and Recently Administered Medications Times are shown in FIRE CONTROL MECHANIC. Scheduled Medication Order 08/09/2019 08/10/2019 08/11/2019 acetaminophen tablet 1,000 mg (TYLENOL) (COMPLETED) 1044 (Given - Provider: Sheldon Ly RReece) 1,000 mg, oral, Once, On Tue08/10/19 at 1030, For 1 dose, Pre-Op acetaminophen tablet 1,000 mg (TYLENOL) 1909 (Given - Provider: Oumou Bedolla R.N.) 0550 (Given - Provider: Tabatha Sorensen RLoganNLogan) 1,000 mg, oral, Every 8 hours scheduled, First dose on Tue at 1900 armodafiniL tablet 250 mg (NUVIGIL) 0900 (Due) 250 mg, oral, Daily, First dose on 08/11/19 at 0900 ceFAZolin in dextrose (iso-os) IVPB 2 g (ANCEF) (COMPLETED) 1331 (Given - Provider: Frankie Caballero APRN, SLOT FLOOR SUPERVISOR) 2 g (rounded from 1.7375 g = 25 mg/kg ? 69.5 kg), intravenous, at 200 mL/hr, Administer over 30 Minutes, Once, On Tue08/10/19 at 1000, For 1 dose, Intra-Op, Preoperatively within 1 hour prior to surgic al incision premix bag, Drug Monitoring Program: Pharmacist to adjust medication dosing based on indication and drug clearance factors., Indications: Prophylaxis, surgical ceFAZolin in dextrose (iso-os) IVPB 2 g (ANCEF) (CANCELED) 2033 (New Bag - Provider: Heather Graham RLoganN.) 550 (New Bag - Provider: Tabatha drummond, R.N.) 2 g, intravenous, at 200 mL/hr, Administ er over 30 Minutes, Every 8 hours scheduled, First dose on Tue08/10/19 at 2100, Start within 8 hours of last IV dose, continue while drain is in. premix bag, Drug Monitoring Program: Pharmacist to adjus t medication dosing based on indication and drug clearance factors., Indications: Prophylaxis, surgical celecoxib capsule 400 mg (CeleBREX) (COMPLETED) 1043 (Given - Provider: Sheldon Ly RLoganN.) 400 mg, oral, Once, On Tue08/10/19 at 1030, For 1 dose, Pre-Op pantoprazole DR tablet 40 mg (PROTONIX) 550 (Given - Provider: Tabatha Sorensen R.NLogan) 40 mg, oral, Daily before breakfast, Fir st dose on Tue08/11/19 at 0700, Swallow whole. Do NOT crush, chew, or split tablet. sennosides-docusate sodium 8.6-50 mg per tablet 1 tablet (SE NOKOT-S) 2033 (Given - Provider: Heather Graham R.N.) 1 tablet, oral, Daily at bedtime, First dose on Tue08/10/19 at 2100, For constipation. Hold for diarrhea. topiramate tablet 100 mg (TOPAMAX) 2033 (Given - Provider: Heather Graham R.N.) 901 (Given - Provider: Nahomy Jarvis R LoganN.) 100 mg, oral, 2 times daily, First dose on Tue08/10/19 at 2100 venlafaxine XR 24 hr capsule 150 mg (EFFEXOR-XR) 02 (Given - Provider: Nahomy Jarvis, R.N.) 150 mg, oral, Daily, First dose on Tue at 0900, Swallow whole. Do NOT crush, chew or open capsule. Continuous Medication Order 08/09/2019 08/10/2019 08/11/2019 lactated ringers (CANCELED) 1044 (New Ba g - Provider: Sheldon Ly RLoganN.)1303 (Rate/Dose Verify - Provider: Frankie Caballero, SIX SIGMA PROJECT MANAGER, SLOT FLOOR SUPERVISOR)1544 (Rate/Dose Change - Provider: Belia Browning SIX SIGMA PROJECT MANAGER, SLOT FLOOR SUPERVISOR) 100 mL/hr, intravenous, Continuous, Starting on Tue08/10/19 at 1 030, Pre-Op NaCl 0.9% infusion 1833 (New Bag - Prov ider: Oumou Bedolla R.NLogan)2157 (Rate/Dose Verify - Provider: Heather Graham RReece) 0653 (Stopped - Provider: Tabatha Sorensen R.N.) 80 mL/hr, intravenous, Continuous, Start ing on Tue08/10/19 at 1730, Discontinue IV fluids once patient is tolerating oral intake of greater than 500 mL PRN Medication Order 08/09/2019 08/10/2019 08/11/2019 bacitracin 50,000 Units in NaCl 0.9 % 1,000 mL irrigation (C ANCELED) 1353 (Given - Provider: Loulou Gamble M.D.) As needed, Starting on Tue08/10/19 at 1353, Intra-Op bacitracin zinc 500 unit/gram ointment packet (CANCELED) 1351 (Given - Provider: Loulou Gamble M.D. - Comment: applied to Vimal madsen prior to insertion) As needed, Starting on Tue08/10/19 at 1351, Intra-Op benzocaine-menthoL 15-3.6 mg per lozenge 1 lozenge (CEPACOL) 0024 (Given - Provider: Tabatha Sorensen, R.N.)0551 (Given - Provider: Tabatha Sorensen, R.N.) 1 lozenge, oral, As needed, sore throat, throat irritation, Starting on Tue08/10/19 at 1728 bisacodyL suppository 10 mg (DULCOLAX) 10 mg, rectal, Daily PRN, constipation, Starting Tue08/10/19 at 1728, Ordered sequence of administration: polyethylene glycol, then bisacodyl until BM achieved. calcium carbonate chewable tablet 400 mg of calcium (TUMS) 400 mg of calcium, oral, Every 4 hours P RN, heartburn, indigestion, Starting Tue08/10/19 at 1728, Doses listed are in mg of elemental calcium. Take with food. 500 mg calcium carbonate contains 200 mg of elemental calcium. HYDROmorphone injection 0.2 mg (DILAUDID) 0.2 mg, intravenous, Every 2 hour PRN, s evere pain or score 7-10 of 10, Starting Tue08/10/19 at 1728, For breakthrough pain unrelieved 30 minutes after PRN pain medication is used. May administer IV kesha n medication concurrently with PRN oral medication if pain is greater than or equal to 7 in order to provide immediate relief. lidocaine-EPINEPHrine 1 %-1:100,000 injection (XYLOCAINE W/E PI) (CANCELED) 1334 (Given - Provider: Loulou Gamble M.D.) As needed, Starting on Tue08/10/19 at 1334, Intra-Op methocarbamoL tablet 750 mg (ROBAXIN) 750 mg, oral, 4 times daily PRN, muscle spasms, Starting 07/22 at 1728 NaCl 0.9% bacteriostatic 0.9 % injection (CANCELED) 1352 (Given - Provider: Loulou Gamble M.D. - Comment: used to reconstitute Bacitracin 50,000 units for antibiotic irrigation) As needed, Starting on Tue08/10/19 at 1352, Intra-Op naloxone injection 0.2 mg (NARCAN) 0.2 mg, intravenous, As needed, respirat ory depression, Starting Tue08/10/19 at 1728, For respiratory rate less than 8 breaths per minute or RASS score of -3, - 4, -5. Apply oxygen to keep oxygen saturations greater than 90% and notify service. ondansetron (PF) injection 4 mg (ZOFRAN) 4 mg, intravenous, Every 6 hours PRN, na usea, vomiting, Starting Tue08/10/19 at 1728, For 48 hours, Reassess for nausea or vomiting after at least 10 minutes. If nausea or vomiting persists administer n ext ordered antiemetic medications (orde r for antiemetic medication administration ondansetron then haloperidol then promethazine). oxyCODONE IR tablet 10 mg (ROXICODONE) 2 034 (Given - Provider: Heather Graham R.N.) 0023 (Given - Provider: Tabatha Sorensen, R.N.)0430 (Given - Provider: Tabatha Sorensen, R.N.)0903 (Given - Provider: Nahomy Jarvis R.N.) 10 mg, oral, Every 4 hours PRN, moderate pain or score 4-6 of 10, severe pain or score 7-10 of 10, or for pain greater than comfort goal, Starting on Tue08/10/19 at 1728 oxyCODONE IR tablet 5 mg (ROXICODONE) 5 mg, oral, Every 4 hours PRN, mild pain or score 1-3 of 10, Starting Tue08/10/19 at 1728 polyethylene glycol powder packet 17 g (MIRALAX) 17 g, oral, Daily PRN, constipation, Sta rting Tue08/10/19 at 1728, Ordered sequence of administration: polyethylene glycol, then bisacodyl until BM achieved. Avoid mixing with starch-based thickened liquids. promethazine injection 6.25 mg (PHENERGAN) 6.25 mg, intravenous, Every 6 hours PRN, nausea, vomiting, Starting Tue08/10/19 at 1728, For 48 hours, RASS must be -2 or higher to administer. Reassess for nausea/vomiting after at least 10 minutes. If nausea or vomiting persists administer next ordered antiemetic medications (order for antiemetic medication administration ondansetron then haloperidol then promethazine). thrombin (bovine) topical solution (THROMBIN-I) (CANCELED) 1351 (Given - Provider: Loulou Gamble M.D.) As needed, Starting on Tue08/10/19 at 1351, Intra-Op documented in this encounter
--- OUTSIDE RECORDS SUMMARY | 2022-04-20 11:15 | XMS_ITS | Encounter Summary ---
:1965 Author Organization [facility] Address [address] [place] [address] Care Team Providers Name Role Phone Unavailable Primary Care Provider Unavailable Encounter Details Date Type Department Care Team Description 07/03/2019 Clinical Communication Department of Loulou Gamble Neurological Surgery in [place] [address] [phone] Social History Tobacco Use Types Packs/Day Years Used Date Smoking Tobacco: Never Smokeless Tobacco: Never Alcohol Use Standard Drinks/Week Comments Yes 1 (1 standard drink = 0.6 oz [...] or relatives? How often do you attend pentecostalism or Never 2021 baptism services? Do you belong to any clubs or Yes 10/25/2021 organizations such as pentecostalism groups, unions, fraternal or athletic groups, or [...] the highest level of school Associate degree: [employer] program 06/26/2019 you have completed or the highest degree you have received? Sex Assigned at Date Recorded Female 07/14/2019 9:59 AM SHIFT SUPERVISOR FILM PROCESSING documented as of this encounter Miscellaneous Notes Telephone Encounter - Heather Armenta L.P.N. - 07/03/2019 9:06 AM CST Patient left message wondering if she could possibly move her surgery up to sooner than, 08/09/19? T SUPERVISOR FILM PROCESSING documented in this encounter Plan of Treatment Upcoming Encounters Date Type Specialty Care Team Description 05/12/2022 Appointment Radiology Jammie Roca, Ria.A.-C., M.S. [address] [place] [address] (Karlie yepez) 05/12/2022 Appointment Radiology Jammie Roca P.A.-C., M.S. [address] [place], [place] [address] (Karlie yepez) 05/12/2022 Office Visit Neurological Surgery Sheila Gamble M.D. [address] [place], [place] [phone] (Wo marleni) documented as of this encounter Visit Diagnoses Not on filedocumented in this encounter
--- OUTSIDE RECORDS SUMMARY | 2022-04-20 11:15 | XMS_ITS | Encounter Summary ---
:1965 Author Organization [facility] Address [address] [place] [address] Care Team Providers Name Role Phone Unavailable Primary Care Provider Unavailable Encounter Details Date Type Department Care Team Description 07/15/2019 Clinical Communication Department of Bi Alamo Neurological Surgery [place] [facility] a [address] [facility] [address] [place] [address] [place] [address] [phone] Social History Tobacco Use Types Packs/Day Years [...] or relatives? How often do you attend sabianism or Never 2021 faith services? Do you belong to any clubs or Yes 10/25/2021 organizations such as sabianism groups, unions, fraternal or athletic groups, or [...] place to sleep or slept in a usp (including now)? Education Answer Date Recorded What is the highest level of school Associate degree: [employer] program 06/26/2019 you have completed or the highest degree you have received? Sex Assigned at Date Recorded Female 07/14/2019 9:59 AM CAR TRACER documented as of this encounter Miscellaneous Notes Telephone Encounter - Bi Alamo M.D. - 07/15/2019 11:18 AM CAR TRACER Telephone call to Mrs. Ramesh. Unfortunately Dr. Gamble will be unable to perform surgery tomorrow. I discussed with the patient that we will try and reschedule within the next 1-2 weeks based on her availability as well as Dr. Gamble's recovery. All questions were answered TRACER documented in this encounter Plan of Treatment Upcoming Encounters Date Type Specialty Care Team Description 05/12/2022 Appointment Radiology Jammie Roca P.A.-Katarina., M.S. [address] [place], [place] [address] (Karlie yepez) 05/12/2022 Appointment Radiology Jammie Roca P.A.-C., M.S. [address] [place], [place] [address] (Karlie yepez) 05/12/2022 Office Visit Neurological Surgery Sheila Gamble M.D. [address] [place], [place] [phone] (Karlie yepez) documented as of this encounter Visit Diagnoses Not on filedocumented in this encounter
--- OUTSIDE RECORDS SUMMARY | 2022-04-20 11:15 | XMS_ITS | Encounter Summary ---
:1965 Author Organization [facility] Address [address] [place] [address] Care Team Providers Name Role Phone Unavailable Primary Care Provider Unavailable Encounter Details Date Type Department Care Team Description 05/08/2019 Clinical Communication Department of Loulou Gamble Neurological Surgery in [place] [address] [phone] Social History Tobacco Use Types Packs/Day Years [...] or relatives? How often do you attend yarsani or Never 2021 mandaen services? Do you belong to any clubs or Yes 10/25/2021 organizations such as yarsani groups, unions, fraternal or athletic groups, or [...] or slept in a fci (including now)? Sex Assigned at Date Recorded Female 07/14/2019 9:59 AM BIOMEDICAL SPECIALIST documented as of this encounter Miscellaneous Notes Addendum Note - Loulou Gamble M.D. - 05/26/2019 2:37 PM BIOMEDICAL SPECIALIST Addended by: LOULOU GAMBLE on: 05/26/2019 02:37 PM Modules accepted: Orders EDICAL SPECIALIST Telephone Encounter - Loulou Gamble M.D. - 05/26/2019 2:35 PM CST Cat 2- with me as requested- cervical myelopathy, xrays ordered- 0800 or noon okay or call day ok EDICAL SPECIALIST Telephone Encounter - Heather Armenta L.P.N. - 05/18/2019 9:[address] Gamble, patient is self referral for neck pain. MRI cervical online from 05/05/19 available for viewing. Please review and advise. Thank you. EDICAL SPECIALIST Telephone Encounter - Heather Armenta L.P.N. - 05/08/2019 9:55 AM CST Patient called office requesting appointment with Dr Gamble. Asked her to have MRI and records sent to us. Will watch for. EDICAL SPECIALIST documented in this encounter Plan of Treatment Upcoming Encounters Date Type Specialty Care Team Description 05/12/2022 Appointment Radiology Jammie Roca P.A.-C., M.S. [address] [place] [address] (Wo rk) 05/12/2022 Appointment Radiology Jammie Roca P.A.-C., M.S. [facility] [place], [place] [address] (Wo rk) 05/12/2022 Office Visit Neurological Surgery Sheila Gamble M.D. [address] [place] [phone] (Wo rk) documented as of this encounter Visit Diagnoses Diagnosis Stenosis Spinal Cervical - Primary documented in this encounter
--- OUTSIDE RECORDS SUMMARY | 2022-04-20 11:15 | XMS_ITS | Encounter Summary ---
:1965 Author Organization [facility] Address [address] [place] [address] Care Team Providers Name Role Phone Unavailable Primary Care Provider Unavailable Encounter Details Date Type Department Care Team Description 11/13/2019 Hospital Encounter Department of Shi Mijares is Spinal Cervical; Radiology, [facility], ZURDO, C.N.P., Vannessa drummond Cervical Spine Status Post; Hospital, in D.N.P., M.S.N. Cyst Pituitary (HCC) [address] [place], [place] [phone] Social History Tobacco Use Types Packs/Day [...] do you attend restorationist or Never 2021 gnosticist services? Do you belong to any clubs or Yes 10/25/2021 organizations such as restorationist groups, unions, fraternal or athletic groups, or school groups? How often do you attend meetings of the More than 4 times r year 10/25/2021 clubs or organizations you [...] the highest level of school Associate degree: [employer] program 06/26/2019 you have completed or the highest degree you have received? 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 0 01/30/2021 mg tablet sertraline (ZOLOFT) 50 mg Take by mouth. 0 200601/30/2021 tablet topiramate (TOPAMAX) 50 Take 2 tablets by 0 06/1210/05/2021 mg tablet mouth 2 (two) times a day. documented as of this encounter Plan of Treatment Upcoming Encounters Date Type Specialty Care Team Description 05/12/2022 Appointment Radiology Jammie Roac P.A.-C., M.S. [address] [place], [place] [address] (Wo rk) 05/12/2022 Appointment Radiology Jammie Roca P.A.-C., M.S. [address] [place], [place] [address] (Wo rk) 05/12/2022 Office Visit Neurological Surgery Sheila Gamble M.D. [address] [place], [place] [phone] (Wo rk) documented as of this encounter Procedures Procedure Name Priority Date/Time Associated Comments Diagnosis DX CERVICAL SPINE RAD - Routine 11/13/2019 8:40 Stenosis Spinal Res ults for this 2-3 VIEWS (most inpatients AM CDT Cervical procedure are in and all Fusion Cervical the results outpatients) Spine Status Pos t section. Cyst Pituitary (HCC) documented in this encounter Results DX Cervical [...] D.N.P., M.S.N. IMG DIAGN OSTIC IMAGING PROCEDURES documented in this encounter Visit Diagnoses Diagnosis Stenosis Spinal Cervical Fusion Cervical Spine Status Post Cyst Pituitary (HCC) documented in this encounter
--- OUTSIDE RECORDS SUMMARY | 2022-04-20 11:15 | XMS_ITS | Encounter Summary ---
:1965 Author Organization [facility] Address [address] [place] [address] Care Team Providers Name Role Phone Unavailable Primary Care Provider Unavailable Reason for Visit Reason Comments Post-op incision check Outpatient (Routine) - Closed Specialty Diagnoses / Procedures Referred By Contact Refer red To Contact [facility], C.N.P., D.N.P., M.S.N. [address] [address] Referral ID Status Reason Start Date Expiration Date Visits Requ ested Visits Authorized [id number] Closed 08/11/2019 08/10/2020 1 1 Encounter Details Date Type Department Care Team Description 08/23/2019 Nurse Only Department of Shi Mijares APRN C.N.P., D.N.P., M.S.N. [address] [phone] Post-op (incision Neurological Surgery in [place] Malcolm RReece [address] [place] [phone] check) [address] [phone] Social History Tobacco Use Types Packs/Day [...] or relatives? How often do you attend methodist or Never 2021 rastafarian services? Do you belong to any clubs or Yes 10/25/2021 organizations such as methodist groups, unions, fraternal or athletic groups, or [...] the highest level of school Associate degree: [employer] program 06/26/2019 you have completed or the highest degree you have received? 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 - 08/23/2019 2:30 PM CST Minerva Ramesh is seen today, 08/23/2019, under the direction of Dr. Alvarez. SUBJECTIVE: Minerva is a 53 y.o. female who underwent a ACDF C5-[address] Hayward. Please refer to this Op Note for further specifics. She presents today for a postoperative RN visit, incision check and staple/suture removal. Minerva denies any swelling, redness, or drainage at or from the incision site since surgery. She also denies temperature, chills, headaches, or problems with her bowels or bladder. Minerva reports continued pain at today???s visit she rates 10/10. She denies any numbness of her upper extremities. She reports noting a 0% improvement in her preoperative symptoms, due to constant right arm/shoulder pain, since having surgery. She describes as constant aching pain from posterior shoulder to wrist. Conferred with DONI and recommended that she applies heat and can have a massage from her therapist, as long as she is aware of recent surgery. Instructed her to call the neurosurgery nurse if no improvement by next week. Minerva reports that she is walking. She has not returned to driving at this time. She denies any problems with her sleep or appetite. She is employed and plans to remain off work until she is cleared by Neurosurgery. OBJECTIVE: Incision: The Cervical incision is clean, dry, and intact with Prineo dressing intact, which was removed. Wound edges are well approximated. There is no odor or drainage noted, redness from dressing irritation noted. There is minimal swelling noted with no tenderness upon palpation. The incision is left open to air. Minerva instructed to observe incision for any signs of infection or swelling; she verbalized understanding. Examination: There were no vitals taken for this visit. PLAN: 1. Continue a 8-pound lifting restriction with no pushing, pulling, bending, twisting, jarring or repetitive-type activities. 2. No soaking in hot tubs, whirlpools, swimming pools, or bathtubs for 4-8 more weeks. 3. May shower normally. 4. Call with fever, chills, increased pain, incisional redness, swelling, tenderness, or if drainagewould be present. 5. Do not put any lotions, creams, or ointments on the incision. 6. Continue walking daily. Slowly increase your distance as able and alternate positions every 30 to60 minutes, and as needed. 7. No driving while continuing to take pain medication. 8. Follow up in 4 weeks. 9. Advised to contact the Neurosurgery Department with any further questions or concerns. PROJECT MANAGER documented in this encounter Plan of Treatment Upcoming Encounters Date Type Specialty Care Team Description 05/12/2022 Appointment Radiology Jammie Roca, Debra.-Katarina., M.S. [address] [place], [place] [address] (Wo rk) 05/12/2022 Appointment Radiology Jammie Roca P.A.-C., M.S. [address] [place] [address] (Wo rk) 05/12/2022 Office Visit Neurological Surgery Sheila Gamble M.D. [address] [place] [phone] (Wo rk) documented as of this encounter Visit Diagnoses Not on filedocumented in this encounter
--- OUTSIDE RECORDS SUMMARY | 2022-04-20 11:15 | XMS_ITS | Encounter Summary ---
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 [place] [address] [address] [facility] [address] [place] [address] (Wo rk) Social History Tobacco Use [...] or relatives? How often do you attend yazidi or Never 2021 roman catholic services? Do you belong to any clubs or Yes 10/25/2021 organizations such as yazidi groups, unions, fraternal or athletic groups, or [...] place to sleep or slept in a senior care (including now)? Education Answer Date Recorded What is the highest level of school Associate degree: [employer] program 06/26/2019 you have completed or the highest degree you have received? Sex Assigned at Date Recorded Female 07/14/2019 9:59 AM ALUMINUM BOAT ASSEMBLY SUPERVISOR documented as of this encounter Last Filed Vital Signs Vital Sign Reading Time Taken Comments Blood Pressure 123/80 08/10/2019 9:20 AM ALUMINUM BOAT ASSEMBLY SUPERVISOR Pulse 81 08/10/2019 9:20 AM ALUMINUM BOAT ASSEMBLY SUPERVISOR Temperature 36.7 ??C (98.1 ??F) 08/10/2019 9:20 AM ALUMINUM BOAT ASSEMBLY SUPERVISOR Respiratory Rate 16 08/10/2019 9:20 AM ALUMINUM BOAT ASSEMBLY SUPERVISOR Oxygen Saturation 99% 08/10/2019 9:20 AM ALUMINUM BOAT ASSEMBLY SUPERVISOR Inhaled Oxygen Concentration - - Weight 68.9 kg (151 lb 14.4 oz) 08/10/2019 9:20 AM ALUMINUM BOAT ASSEMBLY SUPERVISOR Height 157.5 cm (5' 2) 08/10/2019 9:20 AM ALUMINUM BOAT ASSEMBLY SUPERVISOR Body Mass Index 27.78 08/10/2019 9:20 AM ALUMINUM BOAT ASSEMBLY SUPERVISOR documented in this encounter Medications at Time [...] AT DISCHARGE stable TREATMENTS Wound care DEVICES/EQUIPMENT Ho-Chunk J collar PROFESSIONAL SKILLED SERVICES None MODE OF DISCHARGE Wheelchair TRANSPORTATION Private Vehicle ACCOMPANIED BY OIL HEAT TECHNICIAN, daughter All belongings sent home with patient. INUM BOAT ASSEMBLY SUPERVISOR Tabatha Sorensen R.N. - 08/11/2019 6:51 AM CST Shift Goals: Clinical Goals for the Shift: Pain control, rest, neuros Identify possible barriers to meeting goals/advancing plan of care: pain End of Shift Summary: Patient rested well throughout night. Reported pain that's being tolerated with scheduled and PRN medications. Neuros remain intact. Continuous IVFs. X-rays obtained this am. Daughter remains at bedside. INUM BOAT ASSEMBLY SUPERVISOR Heather Graham R.N. - 08/10/2019 9:31 PM CST Shift Goals: Pain control. Identify possible barriers to meeting goals/advancing plan of care: None End of Shift Summary: Pt reports pain at 3-5/10; pain control this shift with PRN oxycodone 10 mg. Pt rested well in bed through the shift. Ambulates to the bathroom with 1-2 G/W. Dressing remains clean, dry and intact. No new complaints. INUM BOAT ASSEMBLY SUPERVISOR Oumou Bedolla R.N. - 08/10/2019 6:57 PM [...] unsteadiness. She has voided since coats removal. INUM BOAT ASSEMBLY SUPERVISOR documented in this encounter OR Notes Op [...] * Denise Bates APRN, C.N.P., D.N.P. - Road Hogger Operator Anesthesia Type General Pre-operative Diagnosis Stenosis Spinal [...] and she was positioned supine on the [facility] table with care to padall pressure points. [...] x-ray confirmed the 5-6 disc space and Winston pins were placed in C5 and C6. [...] mm graft and inserted this. The C5 Winston pin was then removed and placed in [...] by a Prineo dressing with dermabond. A Ho-Chunk J hard cervical collar was put in [...] 10 Fr. Size (mm): Size (In): Drain Gunbarrel Size (mL): 400 mL Number of Sutures [...] Implant Name Type Inv. Item Serial No. Interior Block Wirer Lot No. LRB No. Used Action WAX BN NBLBL 2.5GR - SNA - [id number] Hardware e.g. pins/screws/rods WAX BN NBLBL 2.5GR NA Surgical Specialties [id number] Anterior 1 Implanted GRFT ANCELMO CANC CRN [id number] - [id number] - [id number] Bone or Tissue GRFT ANCELMO CANC CRN [id number] Medtronic NA Anterior 1 Implanted GRFT ANCELMO CANC CRN [id number] - [id number] - [id number] Bone or Tissue GRFT ANCELMO CANC CRN [id number] Medtronic [id number] Anterior 1 Implanted 39MM 2 LEVEL PLATE, [...] unit/gram ointment packet 2 packet topical Given Chatnel Gamble 08/10/2019 1334 lidocaine-EPINEPHrine 1 %-1:100,000 injection (XYLOCAINE W/EPI) 10 mL Given Chantel Gamble 08/10/2019 1351 thrombin (bovine) topical solution (THROMBIN-JMI) 1 vial topical Given Chantel Gamble 08/10/2019 1352 NaCl 0.9% bacteriostatic 0.9 % injection 10 mL Given Chantel Gamble 08/10/2019 1353 bacitracin 50,000 Units in NaCl 0.9 % 1,000 mL irrigation 1,000 mL irrigation GivenMurphy, M Loulou Gamble, M.D. INUM BOAT ASSEMBLY SUPERVISOR Brief Op Note - Loulou Gamble M.D. - 08/10/2019 1:45 PM CST BRIEF OP NOTE Procedure(s): FUSION SPINE ANTERIOR CERVICAL AND DISCECTOMY - C5-7 Surgeon(s) and Role: * Loulou Gamble M.D. - Primary * Denise Bates APRN, C.N.P., D.N.P. - Road Hogger Operator An advanced practice provider assisted me during [...] 10 Fr. Size (mm): Size (In): Drain Gunbarrel Size (mL): 400 mL Number of Sutures [...] Implant Name Type Inv. Item Serial No. Interior Block Wirer Lot No. LRB No. Used Action WAX BN NBLBL 2.5GR - [facility] - [id number] Hardware e.g. pins/screws/rods WAX BN NBLBL 2.5GR NA Surgical Specialties [id number] Anterior 1 Implanted GRFT ANCELMO CANC CRN [id number] - [id number] - [id number] Bone or Tissue GRFT ANCELMO CANC CRN [id number] Medtronic NA Anterior 1 Implanted GRFT ANCELMO CANC CRN [id number] - [id number] - [id number] Bone or Tissue GRFT ANCELMO [facility] CRN [id number] Medtronic [id number] Anterior 1 Implanted 39MM 2 LEVEL PLATE, MEDTRONIC ZEVO Hardware e.g. pins/screws/rods N/A Medtronic N/A N/A 1 Implanted MEDTRONIC ZEVO 3.5MM VARIABLE SELF-TAPPING SCREW BLUE Hardware e.g. pins/screws/rods N/A Medtronic N/A N/A 6 Implanted Loulou Gamble M.D. INUM BOAT ASSEMBLY SUPERVISOR documented in this encounter Miscellaneous Notes Hospital Course - Dyllan Shi C, ZURDO, C.N.P. - 08/11/2019 8:56 AM ALUMINUM BOAT ASSEMBLY SUPERVISOR The patient underwent Fusion Cervical Spine Status [...] an appropriate candidate for opiate therapy. The pa do has been educated on the risks and benefits of opioid therapy and been given opportunity to ask questions. INUM BOAT ASSEMBLY SUPERVISOR documented in this encounter Plan of Treatment Upcoming Encounters Date Type Specialty Care Team Description 05/12/2022 Appointment Radiology Jammie Roca P.A.-C., M.S. [address] [place] [address] [phone] (Wo rk) 05/12/2022 Appointment Radiology Jammie Roca P.A.-Katarina., M.S. [address] [place] [address] [phone] (Wo rk) 05/12/2022 Office Visit Neurological Surgery Sheila Gamble M.D. [address] [place], [place] [phone] (Wo rk) Scheduled Referrals [...] for this 2-3 VIEWS (most inpatients AM ALUMINUM BOAT ASSEMBLY SUPERVISOR procedure a re in and all the results outpatients) section. ADULT OXYGEN Routine 08/10/2019 5:29 THERAPY PM ALUMINUM BOAT ASSEMBLY SUPERVISOR ADULT OXYGEN Routine 08/10/2019 5:29 THERAPY PM ALUMINUM BOAT ASSEMBLY SUPERVISOR FL FLUORO LESS RAD - Routine 08/10/2019 3:32 Results f or this THAN 1 HOUR (most inpatients PM ALUMINUM BOAT ASSEMBLY SUPERVISOR procedure a re in and all the results outpatients) section. FUSION SPINE 08/10/2019 1:03 Stenosis Spinal ANTERIOR CERVICAL PM ALUMINUM BOAT ASSEMBLY SUPERVISOR Cervical AND DISCECTOMY Case Notes HUMBERTO (11'S) / DONIS (#4 CA LL) Special Needs R/S update sent 07/03/2019 VINH Raman updated on time change 07/13/2001 CJKR/s 1.27.20 medtronic notified CJK documented in this encounter Results DX Cervical [...] Cervical Spine 2-3 Views (08/11/2019 6:37 AM ALUMINUM BOAT ASSEMBLY SUPERVISOR) Anatomical Region Laterality Modality Cervical Spine, Musculoskeletal RST LOS, N/A Digital Radiography Neuroradiology ARZ LOS, Muskuloskeletal FLA LOS Specimen (Source) Anatomical Collection Method Collection Time Re ceived Time Location / / Volume Laterality 08/11/2019 7:41 AM ALUMINUM BOAT ASSEMBLY SUPERVISOR Impressions 08/11/2019 7:42 AM ALUMINUM BOAT ASSEMBLY SUPERVISOR Status post anterior fixation/discectomy/intervertebral fusion, C5-C7 vertebra. Narrative 08/11/2019 7:42 AM ALUMINUM BOAT ASSEMBLY SUPERVISOR EXAM: DX CERVICAL SPINE 2-3 VIEWS COMPARISON: [...] post anterior fixation/discectomy /intervertebral fusion, C5-C7 vertebra. Denise Bates APRN, C.N.P., D.N.P. IMG DIAGNOSTIC I MAGING PROCEDURES FL Fluoro Less Than 1 Hour (08/10/2019 3:32 PM ALUMINUM BOAT ASSEMBLY SUPERVISOR) Specimen (Source) Anatomical Location Collection Method / Collectio n Time Received Time / Laterality Volume Narrative 9000 LOS SWMN - 08/10/2019 3:33 PM ALUMINUM BOAT ASSEMBLY SUPERVISOR This exam does not require a radiologist review or interpretation. Please refer to the patient's medical record on this date for clinical details. Loulou OJEDA FLUOROSCOPY PROCEDURES Performing Organization Address City/State/ZIP Code Phon e Number 9000 LOS SWMN documented in this encounter Visit Diagnoses Diagnosis Fusion Cervical Spine Status Post - Prim [place] Stenosis Spinal Cervical Cyst Pituitary (HCC) Stenosis Spinal Cervical Stenosis Spinal Cervical Stenosis Spinal Cervical Fusion Cervical Spine Status Post Cyst Pituitary (HCC) documented in this encounter Admitting Diagnoses Diagnosis Stenosis Spinal Cervical documented in this encounter Administered Medications Inactive Administered Medications - up to 3 most recent administrations Medication Order MAR Action Action Date Dose Rate Site acetaminophen tablet 1,000 mg Given 08/10/2019 10:44 AM ALUMINUM BOAT ASSEMBLY SUPERVISOR 1,00 0 mg (TYLENOL) 1,000 mg, oral, Once, On Tue08/10/19 at 1030, For 1 dose, Pre-Op acetaminophen tablet 1,000 mg (TYLENOL) Given 08/11/2019 5:50 AM ALUMINUM BOAT ASSEMBLY SUPERVISOR 1,000 mg 1,000 mg, oral, Every 8 hours scheduled, First dose on Tue08/10/19 at 1900 Given 08/10/2019 7:09 PM ALUMINUM BOAT ASSEMBLY SUPERVISOR 1,000 mg bacitracin 50,000 Units in NaCl 0.9 % 1,000 Given 07/22 1:53 PM ALUMINUM BOAT ASSEMBLY SUPERVISOR 1,000 mL mL irrigation As needed, Starting on Tue08/10/19 at 1353, Intra-Op bacitracin zinc 500 unit/gram ointment Given 08/10/2019 1:51 PM ALUMINUM BOAT ASSEMBLY SUPERVISOR 2 packets Scalp packet As needed, Starting on Tue08/10/19 at 1351, Intra-Op benzocaine-menthoL 15-3.6 mg per lozenge 1 Given 08/11 5:51 AM ALUMINUM BOAT ASSEMBLY SUPERVISOR 1 lozenge lozenge (CEPACOL) 1 lozenge, oral, As needed, sore throat, throat irritation, Starting on Tue08/10/19 at 1728 Given 08/11/2019 12:24 AM ALUMINUM BOAT ASSEMBLY SUPERVISOR 1 lozenge ceFAZolin in dextrose (iso-os) IVPB 2 New Bag 08/11/2019 5:51 AM ALUMINUM BOAT ASSEMBLY SUPERVISOR 2 g 200 mL/hr g (ANCEF) 2 [...] Prophylaxis, surgical New Bag 08/10/2019 8:34 PM ALUMINUM BOAT ASSEMBLY SUPERVISOR 2 g 200 mL/hr celecoxib capsule 400 mg (CeleBREX) Given 08/10/2019 10:44 AM ALUMINUM BOAT ASSEMBLY SUPERVISOR 400 mg 400 mg, oral, Once, On Tue08/10/19 at 1030, For 1 dose, Pre-Op lactated ringers Rate/Dose Change 08/10/2019 3:44 PM ALUMINUM BOAT ASSEMBLY SUPERVISOR 700 mL/hr 100 mL/hr, intravenous, Continuous, Starting on Tue08/10/19 at 1030, Pre-Op Rate/Dose Verify 08/10/2019 1:03 PM ALUMINUM BOAT ASSEMBLY SUPERVISOR 100 mL/hr New Bag 08/10/2019 10:44 AM ALUMINUM BOAT ASSEMBLY SUPERVISOR 100 mL/hr 100 mL/hr lidocaine-EPINEPHrine 1 %-1:100,000 injection Given 1:34 PM ALUMINUM BOAT ASSEMBLY SUPERVISOR 10 mL (XYLOCAINE W/EPI) As needed, Starting on Tue08/10/19 at 1334, Intra-Op NaCl 0.9% bacteriostatic 0.9 % injection Given 08/10/2019 1:52 PM ALUMINUM BOAT ASSEMBLY SUPERVISOR 10 mL As needed, Starting on Tue08/10/19 at 1352, Intra-Op NaCl 0.9% infusion Rate/Dose Verify 08/10/2019 9:57 PM ALUMINUM BOAT ASSEMBLY SUPERVISOR 80 mL/hr 80 mL/hr 80 mL/hr, intravenous, Continuous, Starting on Tue08/10/19 at 1730, Discontinue IV fluids once patient is tolerating oral intake of greater than 500 mL New Bag 08/10/2019 6:33 PM ALUMINUM BOAT ASSEMBLY SUPERVISOR 80 mL/hr 80 mL/hr oxyCODONE IR tablet 10 mg (ROXICODONE) Given 08/11/2019 9:03 AM ALUMINUM BOAT ASSEMBLY SUPERVISOR 10 mg 10 mg, oral, Every 4 hours PRN, moderate pain or score 4-6 of 10, severe pain or score 7-10 of 10, or for pain greater than comfort goal, Starting on Tue08/10/19 at 1728 Given 08/11/2019 4:30 AM ALUMINUM BOAT ASSEMBLY SUPERVISOR 10 mg Given 08/11/2019 12:23 AM ALUMINUM BOAT ASSEMBLY SUPERVISOR [address] tablet 40 mg (PROTONIX) Given 08/11/2019 5:51 AM ALUMINUM BOAT ASSEMBLY SUPERVISOR 40 mg 40 mg, oral, Daily before breakfast, First dose on Tue08/11/19 at 0700, Swallow whole. Do NOT crush, chew, or split tablet. sennosides-docusate sodium 8.6-50 mg per Given 08/10/2019 8:34 P M ALUMINUM BOAT ASSEMBLY SUPERVISOR 1 tablet tablet 1 tablet (SENOKOT-S) 1 tablet, oral, Daily at bedtime, First dose on Tue08/10/19 at 2100, For constipation. Hold for diarrhea. thrombin (bovine) topical solution Given 08/10/2019 1:51 PM ALUMINUM BOAT ASSEMBLY SUPERVISOR 1 vial (THROMBIN-JMI) As needed, Starting on Tue08/10/19 at 1351, Intra-Op topiramate tablet 100 mg (TOPAMAX) Given 08/11/2019 9:02 AM ALUMINUM BOAT ASSEMBLY SUPERVISOR 100 mg 100 mg, oral, 2 times daily, First dose on Tue08/10/19 at 2100 Given 08/10/2019 8:34 PM ALUMINUM BOAT ASSEMBLY SUPERVISOR 100 mg venlafaxine XR 24 hr capsule 150 mg Given 08/11/2019 9:02 AM ALUMINUM BOAT ASSEMBLY SUPERVISOR 150 mg (EFFEXOR-XR) 150 mg, oral, Daily, First dose on 08/11/19 at 0900, Swallow whole. Do NOT crush, chew or open capsule. documented in this encounter Active and Recently Administered Medications Times are shown in ALUMINUM BOAT ASSEMBLY SUPERVISOR. Scheduled Medication Order 08/09/2019 08/10/2019 08/11/2019 acetaminophen tablet 1,000 mg (TYLENOL) (COMPLETED) 1044 (Given - Provider: Sheldon Ly RLoganN.) 1,000 mg, oral, Once, On Tue08/10/19 at 1030, For 1 dose, Pre-Op acetaminophen tablet 1,000 mg (TYLENOL) 1909 (Given - Provider: Oumou Bedolla R.N.) 0550 (Given - Provider: Tabatha Sorensen RLoganN.) 1,000 mg, oral, Every 8 hours scheduled, First dose on Tue at 1900 armodafiniL tablet 250 mg (NUVIGIL) 0900 (Due) 250 mg, oral, Daily, First dose on 08/11/19 at 0900 ceFAZolin in dextrose (iso-os) IVPB 2 g (ANCEF) (COMPLETED) 1331 (Given - Provider: Frankie Caballero APRN, LAMP SHADE ASSEMBLER) 2 g (rounded from 1.7375 g = [...] 2033 (New Bag - Provider: Heather Graham R.N.) 05 (New Bag - Provider: Tabatha drummond, R.N.) [...] (COMPLETED) 1043 (Given - Provider: Sheldon Ly RLoganNLogan) 400 mg, oral, Once, On Tue08/10/19 at 1030, For 1 dose, Pre-Op pantoprazole DR tablet 40 mg (PROTONIX) 550 (Given - Provider: Tabatha Sorensen R.NLogan) 40 mg, oral, Daily before breakfast, Fir st dose on 08/11/19 at 0700, Swallow whole. Do NOT crush, chew, or split tablet. sennosides-docusate sodium 8.6-50 mg per tablet 1 tablet (SE NOKOT-S) 2033 (Given - Provider: Heather Graham RLoganN.) 1 tablet, oral, Daily at bedtime, First dose on Tue08/10/19 at 2100, For constipation. Hold for diarrhea. topiramate tablet 100 mg (TOPAMAX) 2033 (Given - Provider: Heather Graham R.N.) 901 (Given - Provider: Nahomy Jarvis R .NLogan) 100 mg, oral, 2 times daily, First dose on Tue08/10/19 at 2100 venlafaxine XR 24 hr capsule 150 mg (EFFEXOR-XR) 901 (Given - Provider: Nahomy Jarvis R.N.) 150 mg, oral, Daily, First dose on Sat at 0900, Swallow whole. Do NOT crush, chew or open capsule. Continuous Medication Order 08/09/2019 08/10/2019 08/11/2019 lactated ringers (CANCELED) 1044 (New Ba g - Provider: Sheldon Ly RLoganNLogan)1303 (Rate/Dose Verify - Provider: Frankie Caballero APRN, LAMP SHADE ASSEMBLER)1544 (Rate/Dose Change - Provider: Belia Browning APRN, LAMP SHADE ASSEMBLER) 100 mL/hr, intravenous, Continuous, Starting on Tue08/10/19 at 1 030, Pre-Op NaCl 0.9% infusion 1833 (New Bag - Prov ider: Oumou Bedolla R.N.)2157 (Rate/Dose Verify - Provider: Heather Graham RLoganNLogan) 0653 (Stopped - Provider: Tabatha Sorensen R.N.) [...] Loulou Gamble M.D. - Comment: [facility] prior to insertion) As needed, Starting on [...] (ROXICODONE) 2 034 (Given - Provider: Heather Graham, R.N.) 0023 (Given - Provider: Tabatha Sorensen, [...] haloperidol then promethazine). thrombin (bovine) topical solution (THROMBIN-JMI) (CANCELED) 1351 (Given - Provider: Loulou Gamble M.D.) As needed, Starting on Tue08/10/19 at 1351, Intra-Op documented in this encounter
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
--- OUTSIDE RECORDS SUMMARY | 2022-04-20 11:15 | XMS_ITS | Encounter Summary ---
:1965 Author Organization [facility] Address [address] [place] [address] Care Team Providers Name Role Phone Unavailable Primary Care Provider Unavailable Encounter Details Date Type Department Care Team Description 07/16/2019 Clinical Communication Department of Loulou Gamble Neurological Surgery in [place] [address] [phone] Social History Tobacco Use Types Packs/Day Years [...] or relatives? How often do you attend mormonism or Never 2021 orthodox services? Do you belong to any clubs or Yes 10/25/2021 organizations such as mormonism groups, unions, fraternal or athletic groups, or [...] place to sleep or slept in a detention (including now)? Education Answer Date Recorded What is the highest level of school Associate degree: [employer] program 06/26/2019 you have completed or the highest degree you have received? Sex Assigned at Date Recorded Female 07/14/2019 9:59 AM TREATMENT PLANT OPERATOR documented as of this encounter Miscellaneous Notes Telephone Encounter - Leela Harden - 07/16/2019 1:26 PM CST Spoke with Jennifer Martini, and gave her all the information. TMENT PLANT OPERATOR Telephone Encounter - Leela Harden - 07/16/2019 9:49 AM CST ----- Message from Jennifer Martini sent at 07/13/2019 4:59 PM TREATMENT PLANT OPERATOR ----- Regarding: surgery scheduled on 07/16/19 Contact: This patients case is still not approved or denied it is pending medical review. The following pieces of information are still missing and cant the prior auth team does not have access to this information. Per [facility] they need the following information which can be called in and must be called in before noon. They need very specific information as to the type of allograft.Noting they consider BMP investigational. Stating donor allograft is not acceptable. They also require the ADRIANNA/NDI score. Documentation of either Neck Disability Index (NDI) scores or Oswestry Disability Index (ADRIANNA) scoresdemonstrating one of the followin. Completion of a minimum of six weeks conservative management documenting one of the following: a. An increase on the disability index (DI) scores documenting progression of pain/disability indicating a DI score of at least moderate disability (i.e., NDI score of at least 15; ADRIANNA score of at least 40%). b. Continued DI score indicating at least moderate disability (i.e., NDI score of at least 15; ADRIANNA score of at least 40%). 2. For individuals unable to complete a minimum of six weeks conservative management, documentation of all of the following is required: a. Continued DI score indicating at least moderate disability (i.e., NDI score of at least 15; ADRIANNA score of at least 40%) following course of conservative management b. Inability to perform routine activities of daily living, as defined in G, above. 3. If an individual has not had conservative medical management, documentation within one month of prior authorization request all the following is required: a. DI score indicating at least moderate disability (i.e., NDI score of at least 15; ADRIANNA score of atleast 40%). b. Inability to perform routine activities of daily living, as defined in H, above. NOTE: An NDI and ADRIANNA questionnaire with scoring and interpretation directions are found in Appendix 2 and 3, below. J. Documentation indicates an FDA approved bone graft or fusion material is being used, as applicable. NOTE: [employer] considers any of the following to be standard graft material: (1) autograft (i.e., bonefrom individual) or cadaver-derived bone allograft or (2) demineralized bone matrices (DBMs). See Appendix 4, Demineralized Bone Matrix (DBM) Products, following, for available DBMs and FDA approved uses. NOTE: [employer] considers (1) recombinant human bone morphogenic protein-2 (rhBMP- 2)/InFUSE??? Bone Graft/LT-CAGE??? for cervical spine indications, (2) OsteoAmp??? allogenic morphgenic protein (3) autologous blood-derive biologics (e.g., platelet-rich plasma, autologous conditioned serum, autologous whole blood), (4) stem cell therapy (e.g. AlloStem??, Cellentra??? VCBM, Osteocel?? Plus, Lucia?? Evolution???), and (5) synthetic ceramic-based and bioactive glass bone substitutes/fillers investigativeand therefore not covered. Please call with this information to the noted phone# [phone] and provide this needed information. I have called the patient and she is aware of the current situation. TMENT PLANT OPERATOR documented in this encounter Plan of Treatment Upcoming Encounters Date Type Specialty Care Team Description 05/12/2022 Appointment Radiology Jammie Roca P.A.-C., M.S. [address] [place] [address] (Karlie yepez) 05/12/2022 Appointment Radiology Jammie Roca P.A.-C., M.S. [address] [place] [address] (Karlie yepez) 05/12/2022 Office Visit Neurological Surgery Sheila Gamble M.D. [address] [place] [phone] (Karlie yepez) documented as of this encounter Visit Diagnoses Not on filedocumented in this encounter
--- OUTSIDE RECORDS SUMMARY | 2022-04-20 11:15 | XMS_ITS | Encounter Summary ---
:1965 Author Organization [facility] Address [address] [place] [address] Care Team Providers Name Role Phone Unavailable Primary Care Provider Unavailable Reason for Referral Outpatient (Routine) - Closed Specialty Diagnoses / Procedures Referred By Contact Refer red To Contact Otorhinolaryngology Diagnoses Stenosis Spinal Cervical Loulou Gamble [facility] BHUPENDRA House M.D. [address] [place] [phone] Referral ID Status Reason Start Date Expiration Date Visits V isits Requested Authorized [id number] Closed Specialty 06/26/2019 06/25/2020 1 1 Services Required Scheduling Instructions Prior to surgery on Aug 09 2019 HOME SALES CONSULTANT Reason for Visit Reason Comments Consult Ref self, cervical myelopath y, right arm numbness and tingling and pain. Appointment Request (Routine) - Closed Specialty Diagnoses / Procedures Referred By Contact Refer red To Contact Neurological Surgery Referral ID Status Reason Start Date Expiration Date Visits Requ ested Visits Authorized [id number] Closed 05/28/2019 05/27/2020 1 1 Encounter Details Date Type Department Care Team Description 06/26/2019 Comprehensive Visit Department of Loulou Gamble Spinal Neurological Surgery [facility]ervical ([place] in [place] [address] [place] [address]) [address] [place] [phone] Social History Tobacco Use Types Packs/Day [...] or relatives? How often do you attend jew or Never 2021 oriental orthodox services? Do you belong to any clubs or Yes 10/25/2021 organizations such as jew groups, unions, fraternal or athletic groups, or [...] the highest level of school Associate degree: [employer] program 06/26/2019 you have completed or the highest degree you have received? Sex Assigned at Date Recorded Female 07/14/2019 9:59 AM IN HOME SALES CONSULTANT documented as of this encounter Last Filed Vital Signs Vital Sign Reading Time Taken Comments Blood Pressure 108/64 06/26/2019 9:02 AM IN HOME SALES CONSULTANT Pulse 72 06/26/2019 9:02 AM IN HOME SALES CONSULTANT Temperature - - Respiratory Rate - - Oxygen Saturation - - Inhaled Oxygen Concentration - - Weight 69.5 kg (153 lb 3.5 oz) 06/26/2019 9:02 AM IN HOME SALES CONSULTANT Height 161 cm (5' 3.39) 06/26/2019 9:02 AM IN HOME SALES CONSULTANT Body Mass Index 26.81 06/26/2019 9:02 AM IN HOME SALES CONSULTANT documented in this encounter Consult Notes Loulou Gamble M.D. - 06/26/2019 9:00 AM CST SUBJECTIVE Ms. Ramesh is a 53-year-old patient has a self-referral for concerns of cervical disc disease. She is the mother of a previous patient of mine. She reports that in the summer of 2018 she began to have some right shoulder discomfort. This progressed and she sought evaluation and treatment with a chiropractor. She noted progression of the pain with time and was recommended to undergo massage. The massage therapy actually made the pain worse with left paraspinal massage eliciting right arm spasms. She has trialed gabapentin up to 1800 mg per day without significant relief. She reports there is numbness in aching in the right shoulder down the right arm into the hand, including all digits. She reportsthat it is a constant numb feeling with an intermittent painful feeling. She also has noted numbnessin aching in the right shoulder into the right arm, but nothing inferior to the elbow. This started approximately a couple weeks ago. She also has noted some right thigh pain. She denies any difficultywith balance or falls denies any arm weakness. Her daughter reports that she has noted she has typing differently recently. She also has noted increase in headache since the MRI. These are different than her prior headaches. CHIEF COMPLAINT / REASON FOR VISIT Minerva Ramesh is a 53 y.o. female who presents for evaluation of Consult (Ref self, cervical myelopathy, right arm numbness and tingling and pain. ). HISTORY OF PRESENT ILLNESS Ms. Ramesh is a 53-year-old with past medical history significant for traumatic brain injury suffered in 2016 from a fall and headaches who reports for further evaluation of cervical disc disease. As detailed above, her chiropractor recommended some imaging after she had persistent symptoms concerning for radiculopathy. With results of the MRI the patient self referred to our clinic for further evaluation and management. In regards to the TBI, she had undergone therapy for significant amount oftime and has not had any active treatment. She is on Topamax for headaches but reports that the headache she has recently are different than her usual headaches. She is interested in surgical evaluation and treatment. Past Surgical History: Procedure Laterality Date ??? OTHER CONVERTED SHX (SEE COMMENT) N/A 04/02/2008 >Buccal mucosal biopsy. REVIEW OF SYSTEMS: Musculoskeletal: Positive for back pain. Neurological: Positive for numbness or shooting pain in hands, arms, legs, or feet. Negative for loss of balance or tendency to fall easily. OBJECTIVE PHYSICAL EXAM Neurological Exam Patient is awake and alert appropriately conversant, she has a normal gait and can toe-walk and heel-walk and tandem walk without difficulty. She is hyperreflexic with patellars Achilles positive crossed adductors bilaterally, biceps, triceps. She has a positive finger jerk on the right more than the left. She has good focal upper extremity myotome strength. With axial loading she does have reproducepain in the right side. No clonus, mute toes to plantar stimulation. DIAGNOSTICS X-rays of the cervical spine showed degenerative disease at C5-6 and 6-7. Normal alignment no spondylolisthesis in flexion and extension. MRI shows significant disc disease at C5-6 with cord flattening and C6-7. C4-5 has a centrally protrusion but there's still CSF signal circumferentially. No T2 signal seen within the cord. ASSESSMENT / PLAN #1 Stenosis Spinal Cervical #2 Coronary Artery Disease (Unspecified) Plan: I reviewed with the patient and her daughter the imaging and correlation with her examination and clinical presentation. She has cervical radiculopathy with early signs of myelopathy secondary to cervical stenosis from degenerative disc disease. I discussed with her the conservative and surgical options for cervical stenosis. We reviewed that given her presentation and progression of symptoms as wellas the imaging findings, I think consideration of a C5 through 7 anterior cervical diskectomy and fusion is reasonable. I reviewed with the patient the risks, benefits, and alternatives to surgery. We then reviewed the informed consent, detailing the anticipated 1 day hospital stay and the major risks. Risks reviewed included the following: infection, bleeding, cerebrospinal fluid leak, neurologic injury, pseudoarthrosis, need for revision surgery, and perioperative morbidity. We also discussed swallowing difficultiesas well as hoarse voice. We discussed that in the absence of surgery progression of symptoms could be expected. We also discussed that with the early disc changes at C4-5 is possible in next decade or 2 that she would need a further intervention if this disc further degenerate. We discussed the reasoning for priortizing in the symptomatic and diseased levels. We discussed some possible surgical dates and the patient will call back when she would like to proceed. Questions and concerns were addressed. A total of 45 minutes was spent on this clinical visit, 40 minutes was spent in counseling and coordinating of cares. HOME SALES CONSULTANT documented in this encounter Miscellaneous Notes Addendum Note - Dipti Dunlap - 06/26/2019 9:00 AM IN HOME SALES CONSULTANT Addended by: DIPTI DUNLAP on: 06/26/2019 10:38 AM Modules accepted: Orders HOME SALES CONSULTANT Addendum Note - Dipti Dunlap - 06/26/2019 9:00 AM IN HOME SALES CONSULTANT Addended by: DIPTI DUNLAP on: 06/26/2019 10:51 AM Modules accepted: Orders HOME SALES CONSULTANT documented in this encounter Plan of Treatment Upcoming Encounters Date Type Specialty Care Team Description 05/12/2022 Appointment Radiology Jammie Roca P.A.-C., M.S. [address] [place] [phone] (Karlie yepez) 05/12/2022 Appointment Radiology Jammie Roca P.A.-C., M.S. [address] [place] [phone] (Karlie yepez) 05/12/2022 Office Visit Neurological Surgery Sheila Gamble M.D. [address] [place] [phone] (Karlie yepez) Scheduled Referrals Name Type Priority Associated Order Schedule Diagnoses [facility] Otorhinolaryngology - Outpatient Routine Stenosis Spina l Expected: General consult (clinic) Referral Cervical 12/2019 (Approximate), Expires: 06/26/2022 documented as of this encounter Procedures Procedure Name Priority Date/Time Associated Diagnosis Comme nts MRSA/STAPHYLOCOCCUS Routine 06/26/2019 10:41 AM Stenosis Spina l Results for this AUREUS, NASAL, BY IN HOME SALES CONSULTANT Cervical procedure are in PCR the results section. documented in this encounter Results MRSA/Staphylococcus aureus, Nasal, by PCR (06/26/2019 10:41 AM IN HOME SALES CONSULTANT) [facility] Method Time Signature MRSA, PCR Negative Negative 06/26/2019 MKTO 12:11 PM IN HOME SALES CONSULTANT Staphylococcus Negative Negative 06/26/2019 [facility] aureus, PCR 12:11 PM IN HOME SALES CONSULTANT Specimen Anatomical Collection Method Collection Time Receive d Time (Source) Location / / Volume Laterality Swab (Nares) 06/26/2019 10:41 06/26/2019 AM IN HOME SALES CONSULTANT 10:57 AM IN HOME SALES CONSULTANT Loulou Gamble M.D. LAB MICROBIOLOGY - GENERAL O RDERABLES Performing Organization Address City/State/ZIP Code Phon e Number [facility]- [address] [place] [id number] [place] [address] [address] documented in this encounter Visit Diagnoses Diagnosis Stenosis Spinal Cervical - Primary documented in this encounter
--- OUTSIDE RECORDS SUMMARY | 2022-04-20 11:15 | XMS_ITS | Encounter Summary ---
:1965 Author Organization [facility] Address [address] [place] [address] Care Team Providers Name Role Phone Unavailable Primary Care Provider Unavailable Reason for Referral Outpatient (Routine) - Closed Specialty Diagnoses / Procedures Referred By Contact Refer red To Contact Diagnoses Stenosis Spinal Cervical Dysphonia Anand Mcfadden M.D. [facility] Procedures Laryngoscopy [address] [place] [address] Referral ID Status Reason Start Date Expiration Date Visits Requ ested Visits Authorized [id number] Closed 07/12/2019 07/11/2020 1 1 CRUSHER Reason for Visit Reason Comments New Patient vocal cord check, prior to s urgery. she has noticed when she is talking she loss or her voice cuts o ut a little bit. it happens often she thinks, she states they will move he r vocal cords over. [place] they told her that she had vocal cord damage. no issues swallowing or choking. Outpatient (Routine) - Closed Specialty Diagnoses / Procedures Referred By Contact Refer red To Contact Otorhinolaryngology Diagnoses Stenosis Spinal Cervical Loulou Gamble [facility] Lacy Grossman [address] [place] [phone] Referral ID Status Reason Start Date Expiration Date Visits V isits Requested Authorized [id number] Closed Specialty 06/26/2019 06/25/2020 1 1 Services Required Encounter Details Date Type Department Care Team Description 07/10/2019 Comprehensive Visit Department of Aidan Mcfadden (Primary Dx); Otorhinolaryngology in [place] Stenosis Spinal Cervical [place], [place] [address] [place] [address] [facility] [phone] [place] [address] Social History Tobacco Use Types Packs/Day Years [...] do you attend yazidi or Never 2021 voodoo services? Do you belong to any clubs [...] place to sleep or slept in a long-term (including now)? Education Answer Date Recorded What is the highest level of school Associate degree: [employer] program 06/26/2019 you have completed or the highest degree you have received? Sex Assigned at Date Recorded Female 07/14/2019 9:59 AM BONE CRUSHER documented as of this encounter Last Filed Vital Signs Vital Sign Reading Time Taken Comments Blood Pressure 128/78 07/10/2019 10:30 AM BONE CRUSHER Pulse 84 07/10/2019 10:30 AM BONE CRUSHER Temperature 36.9 ??C (98.4 ??F) 07/10/2019 10:30 AM BONE CRUSHER Respiratory Rate - - Oxygen Saturation - - Inhaled Oxygen Concentration - - Weight 69.1 kg (152 lb 5.4 oz) 07/10/2019 10:30 AM BONE CRUSHER Height - - Body Mass Index 27.33 07/10/2019 9:06 AM BONE CRUSHER documented in this encounter Consult Notes Anand Mcfadden M.D. - 07/10/2019 11:00 AM CSTAssociated Order(s): Laryngoscopy SUBJECTIVE CHIEF COMPLAINT / REASON FOR VISIT Vocal cord check HISTORY OF PRESENT ILLNESS Minerva Ramesh is a 53 y.o. female who presents for the above at the request of Loulou Gamble M.D.. Neuro surgery is planning an anterior approach spinal surgery. They've requested that we check her vocal cords. Specifically she has a history of some vocal cord abnormalities in the past. A review of her chart reveals that in 2007 in 2008 she was seen by ENT in [place]. At that time she had multiple episodes of fungal laryngitis for which he underwent treatment. She states that this was a result of antibiotic overuse for dental infections. During her repeated flexible laryngoscopy, ENT also noted some false vocal cord tension. None of the previous notes indicate any kind of vocal cord immobility. She denies any hoarseness. She does report that on occasion her voice will strangulated but this is not bothersome to her. MEDICAL HISTORY Patient Active Problem List Diagnosis ??? Coronary Artery Disease (Unspecified) ??? Stenosis Spinal Cervical ??? Apnea Sleep Obstructive ??? Cyst Pituitary (HCC) ??? Dysphonia ??? Headache ??? Narcolepsy Without Cataplexy FAMILY HISTORY Family History Problem Relation Age of Onset ??? Diabetes Mother ??? Diabetes Father ??? Heart attack Father ??? Diabetes Sister ??? Diabetes Maternal Grandmother ??? Prostate cancer Maternal Grandfather ??? Bone cancer Maternal Grandfather ??? Breast cancer Paternal Grandmother ??? Heart disease Paternal Grandfather SOCIAL HISTORY Social History Tobacco Use ??? Smoking status: Never Smoker ??? Smokeless tobacco: Never Used Substance Use Topics ??? Alcohol use: Not Currently Alcohol/week: 1.0 standard drinks Types: 1 Shots of liquor per week ??? Drug use: Never CURRENT MEDICATIONS Current Outpatient Medications: ??? armodafinil (NUVIGIL) 250 mg tablet, Take 1 tablet by mouth daily., Disp: , Rfl: ??? topiramate (TOPAMAX) 50 mg tablet, Take 2 tablets by mouth 2 (two) times a day., Disp: , Rfl: ??? venlafaxine XR (EFFEXOR-XR) 150 mg 24 hr capsule, Take 1 capsule by mouth daily., Disp: , Rfl: ALLERGIES/CONTRAINDICATIONS No Known Allergies REVIEW OF SYSTEMS As per HPI, all other systems were negative. OBJECTIVE VITAL SIGNS Vitals: 07/10/19 1030 BP: 128/78 BP Location: Right arm Patient Position: Sitting Cuff Size: Regular Pulse: 84 Temp: 36.9 ??C TempSrc: Temporal Weight: 69.1 kg PHYSICAL EXAMINATION General: Alert and oriented. No acute distress. Appearance: Well-nourished. Behavior: Appropriate, communicative. HEENT: A comprehensive head and neck examination is performed, the findings were as follows: Head and Face: Normocephalic, atraumatic with no diagnostic facies. Face symmetrical. No weakness. Skin: No scars, lesions on the scalp, face, or neck. Eyes: EOMI. Conjunctivae are clear without injection. Ears: External ears normal. Canals patent. TMs with normal landmarks. Nose: External nose normal. Anterior rhinoscopy shows normal mucosa, septum and inferior turbinates. Neck: Symmetrically soft and supple. No masses, adenopathy. Trachea midline. Thyroid: No thyromegaly. Oral Cavity/Oropharynx: No lesions or masses of the lips, gingiva, buccal mucosa, hard and soft palate, uvula, floor of mouth or oral tongue, tongue base, tonsillar fossae. Neuro/Psychiatric: Alert and oriented x 3. Affect normal. Good voice quality. CN II-XII grossly intact. DIAGNOSTICS IMAGING: N/A Laryngoscopy Date/Time: 07/10/2019 10:17 AM Performed by: Anand Mcfadden M.D. Authorized by: Anand Mcfadden M.D. PROCEDURE DETAILS Instrument: flexible fiberoptic laryngoscope Oropharynx Posterior pharyngeal wall: normal Vallecula: normal Base of tongue: normal Epiglottis: normal Hypopharynx Right hypopharynx: normal Left hypopharynx: normal Larynx Right false vocal cords: normal Left false vocal cords: normal Right true vocal cords: normal Left true vocal cords: normal Posterior glottis: normal Subglottis: normal CONSENT Consent obtained: verbal PRE-PROCEDURE DETAILS Indications: sino-nasal symptoms Appropriate hand hygiene, gown, cap, mask, protective eyewear, sterile gloves, skin preparation, sterile drape, and strict aseptic technique were utilized as applicable for the procedure.: yes SEDATION / ANESTHESIA Anesthesia method: none ASSESSMENT / PLAN Minerva Ramesh is a 53 y.o. female female who is scheduled for an upcoming anterior approach spine surgery. Flexible laryngoscopy was performed today to evaluate her vocal cords. Both vocal cords have good mobility bilaterally on abduction and adduction. There is no evidence of any lesions or infections. 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 The natural course of this was reviewed with her and I discussed referral to speech therapy. Given the in frequency of her symptoms she is not interested in pursuing this. From an ENT standpoint there are no contraindications to her upcoming spine surgery given the full movement of her vocal cords. She will follow-up with ENT as needed. CRUSHER documented in this encounter Plan of Treatment Upcoming Encounters Date Type Specialty Care Team Description 05/12/2022 Appointment Radiology Jammie Roca P.A.-C., M.S. [address] [place], [place] [address] (Karlie yepez) 05/12/2022 Appointment Radiology Jammie Roca P.A.-C., M.S. [address] [place], [place] [address] (Karlie yepez) 05/12/2022 Office Visit Neurological Surgery Sheila Gamble M.D. [address] [place], [place] [phone] (Wo rk) documented as of this encounter Procedures Procedure Name Priority Date/Time Associated Diagnosis Comme nts LARYNGOSCOPY Routine 07/10/2019 11:00 AM Stenosis Spinal Resul ts for this BONE CRUSHER Cervical procedure are in the Dysphonia results section . documented in this encounter Results Laryngoscopy (07/10/2019 11:00 AM BONE CRUSHER) Narrative Anand Mcfadden M.D. - 07/10/2019 11: 00 AM BONE CRUSHER Anand Mcfadden M.D. ? 07/12/2019 10:25 AM Laryngoscopy Date/Time: 07/10/2019 10:17 AM Performed by: Anand Mcfadden M.D. Authorized by: Anand Mcfadden M.D. PROCEDURE DETAILS Instrument: flexible fiberoptic laryngos cope ?? Oropharynx Posterior pharyngeal wall: normal ?? Vallecula: normal Base of tongue: normal Epiglottis: normal Hypopharynx Right hypopharynx: normal Left hypopharynx: normal Larynx Right false vocal cords: normal Left false vocal cords: normal Right true vocal cords: normal Left true vocal cords: normal Posterior glottis: normal Subglottis: normal CONSENT Consent obtained: verbal PRE-PROCEDURE DETAILS Indications: sino-nasal symptoms ?? Appropriate hand hygiene, gown, cap, mas k, protective eyewear, sterile gloves, skin preparation, sterile drape, and strict aseptic technique were utilized as applicable for the procedure .: yes ?? SEDATION / ANESTHESIA Anesthesia method: none Anand Mcfadden M.D. ENT ORDERABLES documented in this encounter Visit Diagnoses Diagnosis Dysphonia - Primary Stenosis Spinal Cervical documented in this encounter
--- OUTSIDE RECORDS SUMMARY | 2022-04-20 11:15 | XMS_ITS | Encounter Summary ---
:1965 Author Organization [facility] Address [address] [place] [address] Care Team Providers Name Role Phone Unavailable Primary Care Provider Unavailable Reason for Referral Outpatient (Routine) - Closed Specialty Diagnoses / Procedures Referred By Contact Refer red To Contact Diagnoses [facility] 12 Lead BRICK WHEELER, C.N.P. [address] [place] [address] Referral ID Status Reason Start Date Expiration Date Visits Requ ested Visits Authorized [id number] Closed 07/10/2019 07/09/2020 1 1 EMS SOFTWARE MANAGER Reason for Visit Outpatient (Routine) - Closed Specialty Diagnoses / Procedures Referred By Contact Refer red To Contact Diagnoses Preanesthetic Medical Exam Francine Hughes [facility] Procedures ECG 12 Lead BRICK WHEELER, C.N.P. [address] [place] [address] Referral ID Status Reason Start Date Expiration Date Visits Requ ested Visits Authorized [id number] Closed 07/10/2019 07/09/2020 1 1 Encounter Details Date Type Department Care Team Description 07/10/2019 Hospital Encounter Department of Loulou Gamble is Spinal Cervical; Laboratory Alejandra Jeff. Preanesthetic Medical Exam Medicine, Specialty [address] [facility], in [facility] [phone] [place] [address] [place], [place] (Work) [phone] Social History Tobacco Use Types Packs/Day [...] or relatives? How often do you attend sabianist or Never 2021 islam services? Do you belong to any clubs or Yes 10/25/2021 organizations such as sabianist groups, unions, fraternal or athletic groups, or [...] the highest level of school Associate degree: [employer] program 06/26/2019 you have completed or the highest degree you have received? Sex Assigned at Date Recorded Female 07/14/2019 9:59 AM SYSTEMS SOFTWARE MANAGER documented as of this encounter Medications at Time of Discharge Medication Sig Dispensed Refills Start Date End Date armodafinil (NUVIGIL) Take 1 tablet by 0 05/30/20 19 250 mg tablet mouth daily. venlafaxine XR Take 1 capsule by 0 05/18/2019 (EFFEXOR-XR) 150 mg 24 mouth daily. hr capsule acetaminophen (TYLENOL) Take 2 tablets 100 [...] by mouth. 0 7 01/30/2021 mg tablet topiramate (TOPAMAX) 50 Take 2 tablets by 0 06/1210/05/2021 mg tablet mouth 2 (two) times a day. documented as of this encounter Plan of Treatment Upcoming Encounters Date Type Specialty Care Team Description 05/12/2022 Appointment Radiology Jammie Roca P.A.-C., M.S. [address] [place], [place] [address] (Karlie yepez) 05/12/2022 Appointment Radiology Jammie Roca P.A.-C., M.S. [address] [place], [place] [address] (Wo rk) 05/12/2022 Office Visit Neurological Surgery Sheila Gamble M.D. [facility] [place] [phone] (Wo rk) documented as of this encounter Procedures Procedure Name Priority Date/Time Associated Diagnosis Comme nts ECG Routine 07/10/2019 10:00 Preanesthetic Medical Re sults for this AM SYSTEMS SOFTWARE MANAGER Exam procedure are i n the results section. TESTING LOCATION Routine 07/10/2019 9:51 AM Resul ts for this SYSTEMS SOFTWARE MANAGER procedure are i n the results section. HEMOGLOBIN, B Routine 07/10/2019 9:51 AM Preanesthetic Medical Results for this SYSTEMS SOFTWARE MANAGER Exam procedure are i n the results section. TYPE AND SCREEN Routine 07/10/2019 9:51 AM Stenosis Spinal Res ults for this SYSTEMS SOFTWARE MANAGER Cervical procedure are i n the results section. BASIC METABOLIC Routine 07/10/2019 9:51 AM Preanesthetic Medic al Results for this PANEL, S/P SYSTEMS SOFTWARE MANAGER Exam procedure are i n the results section. documented in this encounter Results ECG 12 Lead (07/10/2019 10:00 AM SYSTEMS SOFTWARE MANAGER) P athologist Signature Ventricular Rate 74 BPM MUSE ECG/Min PA Interval 158 ms MUSE QRSD Interval 82 ms MUSE QT Interval 384 ms MUSE QTC Interval 426 ms MUSE P Eastman -8 degrees MUSE R Eastman 39 degrees MUSE T Wave Eastman 36 degrees MUSE Specimen Anatomical Collection Method Collection Time Receive d Time (Source) Location / / Volume Laterality 07/10/2019 10:00 07/10/2019 AM SYSTEMS SOFTWARE MANAGER 10:02 AM SYSTEMS SOFTWARE MANAGER Impressions MUSE - 07/10/2019 10:02 AM SYSTEMS SOFTWARE MANAGER Normal sinus rhythm Normal ECG No previous ECGs available Reviewed by HARRY Zhu Narrative This result has an attachment that is no t available. Procedure Note Elias Woods M.B.B.S. - 020 IMPRESSION: Normal sinus rhythm Normal ECG No previous ECGs available Reviewed by HARRY Zhu Francine Hughes APRN, C.N.P. ECG ORDERABLES Performing Organization Address City/State/ZIP Code Phon e Number MUSE MUSE NA Testing Location (07/10/2019 9:51 AM SYSTEMS SOFTWARE MANAGER) athologist Signature Testing [facility] DEFAULT 07/10/2019 [facility] Location 10:06 AM SYSTEMS SOFTWARE MANAGER Specimen Anatomical Collection Method Collection Time Receive d Time (Source) Location / / Volume Laterality Blood 07/10/2019 9:51 AM 0 SYSTEMS SOFTWARE MANAGER 10:06 AM SYSTEMS SOFTWARE MANAGER Loulou Gamble M.D. LAB BLOOD BANK TEST ORDERABL ES Performing Organization Address City/State/ZIP Code Phon e Number [facility]- [address] [place] [address] [facility] [place] [address] System in [place] [address] [place] [address] Hemoglobin (07/10/2019 9:51 AM SYSTEMS SOFTWARE MANAGER) athologist Signature Hemoglobin 13.2 11.6 - 15.0 07/10/2019 [facility] g/dL 10:10 AM SYSTEMS SOFTWARE MANAGER Specimen Anatomical Collection Method Collection Time Receive d Time (Source) Location / / Volume Laterality Blood (Blood, 07/10/2019 9:51 AM 07/10/19 20 Venous) SYSTEMS SOFTWARE MANAGER 10:06 AM SYSTEMS SOFTWARE MANAGER Katarina Momin APRN.[facility] LAB BLOOD ADD-ON Performing Organization Address City/State/ZIP Code Phon e Number [facility]- [address] [place] [phone] [place] [address] [address] Basic Metabolic Panel (07/10/2019 9:51 AM SYSTEMS SOFTWARE MANAGER) athologist Signature Potassium, S 4.1 3.6 - 5.2 07/10/2019 [facility] mmol/L 10:43 AM SYSTEMS SOFTWARE MANAGER Sodium, S 140 135 - 145 07/10/2019 [facility] mmol/L 10:43 AM SYSTEMS SOFTWARE MANAGER Chloride, S 105 98 - 107 07/10/2019 [facility] mmol/L 10:43 AM SYSTEMS SOFTWARE MANAGER Bicarbonate, S 25 22 - 29 07/10/2019 [facility] mmol/L 10:43 AM SYSTEMS SOFTWARE MANAGER Anion Gap 10 7 - 15 07/10/2019 [facility] 10:43 AM SYSTEMS SOFTWARE MANAGER BUN (Blood Urea 12 6 - 21 07/10/2019 [facility] Nitrogen), S mg/dL 10:43 AM SYSTEMS SOFTWARE MANAGER Creatinine 0.71 0.59 - 07/10/2019 [facility] 1.04 mg/dL 10:43 AM SYSTEMS SOFTWARE MANAGER eGFR-Non >90 >=60 07/10/2019 [facility] Black/ mL/min/BSA 10:43 AM SYSTEMS SOFTWARE MANAGER Stateless Comment: ----ADDITIONAL INFORMATION---- Estimated GFR calculated using the 2009 CKD_EPI creatinine equation. eGFR-Black/ >90 >=60 mL/min/BSA 2019 10:43 AM SYSTEMS SOFTWARE MANAGER [facility] Comment: ----ADDITIONAL INFORMATION---- Estimated GFR calculated using the 2009 CKD_EPI creatinine equation. Calcium, Total, S 9.7 8.6 - 10.0 mg/dL 07/10/2019 10:4 3 AM SYSTEMS SOFTWARE MANAGER [facility] Glucose, S 93 70 - 140 mg/dL 07/10/2019 10:43 AM SYSTEMS SOFTWARE MANAGER [facility] Specimen Anatomical Collection Method Collection Time Receive d Time (Source) Location / / Volume Laterality Blood (Blood, 07/10/2019 9:51 AM 07/10/19 Venous) SYSTEMS SOFTWARE MANAGER 10:06 AM SYSTEMS SOFTWARE MANAGER Joe Momin APRNNPantera LAB BLOOD ADD-ON Performing Organization Address City/State/ZIP Code Phon e Number [address] [address] System [address] Type and Screen (with reflex Antibody ID) (07/10/2019 9:51 AM SYSTEMS SOFTWARE MANAGER) [facility] gist Method Time Signature ABO Group O 07/10/2019 [facility] 11:25 AM SYSTEMS SOFTWARE MANAGER Rh Type POS 07/10/2019 [facility] 11:25 AM SYSTEMS SOFTWARE MANAGER Antibody Screen NEG 07/10/2019 [facility] 11:25 AM SYSTEMS SOFTWARE MANAGER Type & Screen 09/07/2019 07/10/2019 [facility] Expiration 23:59 11:25 AM SYSTEMS SOFTWARE MANAGER ELXM Eligible Y 07/10/2019 [facility] 11:25 AM SYSTEMS SOFTWARE MANAGER Specimen Anatomical Collection Method Collection Time Receive d Time (Source) Location / / Volume Laterality Blood (Blood, 07/10/2019 9:51 AM 07/10/19 Venous) SYSTEMS SOFTWARE MANAGER 10:06 AM SYSTEMS SOFTWARE MANAGER Narrative [facility] - 07/10/2019 11:25 AM SYSTEMS SOFTWARE MANAGER Specimen Information: Specimen ID: [id number] Specimen Type: Blood Specimen Collection Start Date: 07/10/19 ??9:51 AM Specimen Received Date: 07/10/2019 10:06 AM Specimen ID: [id number] Specimen Type: Blood Specimen Collection Start Date: 07/10/19 ??9:46 AM Specimen Received Date: 07/10/2019 ??9:4 6 AM Loulou Gamble M.D. LAB BLOOD BANK TEST ORDERABL ES Performing Organization Address City/State/ZIP Code Phon e Number [facility]- [address] [place] [address] [place] [address] [address] documented in this encounter Visit Diagnoses Diagnosis Stenosis Spinal Cervical Preanesthetic Medical Exam documented in this encounter
--- OUTSIDE RECORDS SUMMARY | 2022-04-20 11:15 | XMS_ITS | Encounter Summary ---
:1965 Author Organization [facility] Address [address] [place] [address] Care Team Providers Name Role Phone Unavailable Primary Care Provider Unavailable Reason for Visit Reason Onset Date Comments Communication 2019 Encounter Details Date Type Department Care Team Description 2019 Clinical Communication Department of Loulou Gamble mmunication Neurological Surgery Ngoc Jeff in [address] [phone] Social History Tobacco Use Types Packs/Day Years [...] do you attend zoroastrian or Never 2021 sabianist services? Do you belong to any clubs [...] the highest level of school Associate degree: [employer] program 06/26/2019 you have completed or the highest degree you have received? 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 Thank You. Telephone Encounter - Shannon Hahn - 2019 11:39 AM CDT Please do not reply to sender,emails are not monitored. Thank you. If you need a prescription refill please call your pharmacy. Please allow 3 business days for processing. Expert RN: N/A (Med Refill Only) Call Center Template: ??? May we leave a message for you on this phone? yes What can I help you with today? Patient sent message via portal a couple minutes ago, would like a call back today regarding the message. Thank you. ??? If Medication Refill: o What is the name and strength of the medication? o What do you use the medication for? o How many pills do you have left? o What pharmacy do you use (include location)? I will send this information to the appropriate staff member who will look into your concern. Is there anything else I can help you with today? Thank you for calling [facility]. documented in this encounter Plan of Treatment Upcoming Encounters Date Type Specialty Care Team Description 05/12/2022 Appointment Radiology Jammie Roca P.A.-C., M.S. [address] [place] [address] (Wo rk) 05/12/2022 Appointment Radiology Jammie Roca P.A.-C., M.S. [address] [place] [address] (Wo rk) 05/12/2022 Office Visit Neurological Surgery Sheila Gamble M.D. [address] [place] [phone] (Wo rk) documented as of this encounter Visit Diagnoses Not on filedocumented in this encounter
--- OUTSIDE RECORDS SUMMARY | 2022-04-20 11:15 | XMS_ITS | Encounter Summary ---
:1965 Author Organization [facility] Address [address] [place] [address] Care Team Providers Name Role Phone Unavailable Primary Care Provider Unavailable Encounter Details Date Type Department Care Team Description 06/26/2019 Hospital Encounter Department of Loulou Gamble is Spinal Radiology, [place] Ngoc Jeff [facility], in [address] [place], [place] [phone] [place], [place] [phone] [address] (Work) [phone] Social History Tobacco Use Types Packs/Day Years [...] or relatives? How often do you attend moravian or Never 2021 yazidism services? Do you belong to any clubs or Yes 10/25/2021 organizations such as moravian groups, unions, fraternal or athletic groups, or [...] the highest level of school Associate degree: [employer] program 06/26/2019 you have completed or the highest degree you have received? Sex Assigned at Date Recorded Female 07/14/2019 9:59 AM COLUMNIST/COMMENTATOR documented as of this encounter Medications at [...] Appointment Radiology Jammie Roca P.A.-C., M.S. [address] [place], [place] [address] (Wo rk) 05/12/2022 Appointment Radiology Jammie Roca P.A.-C., M.S. [address] [place], [place] [address] (Karlie rk) 05/12/2022 Office Visit Neurological Surgery Sheila Gamble M.D. [address] [place], [place] [phone] (Karlie rk) documented as of this encounter Procedures Procedure Name Priority Date/Time Associated Comments Diagnosis DX CERVICAL SPINE RAD - Routine 06/26/2019 8:08 Stenosis Spinal Res ults for this 4-5 VIEWS (most inpatients AM COLUMNIST/COMMENTATOR Cervical procedure a re in and all the results outpatients) section. documented in this encounter Results DX Cervical Spine 4-5 Views (06/26/2019 8:08 AM COLUMNIST/COMMENTATOR) Anatomical Region Laterality Modality Cervical Spine, Musculoskeletal RST LOS, N/A Digital Radiography Neuroradiology ARZ LOS, Muskuloskeletal FLA LOS Specimen (Source) Anatomical Collection Method Collection Time Re ceived Time Location / / Volume Laterality 06/26/2019 8:54 AM COLUMNIST/COMMENTATOR Impressions 06/26/2019 8:55 AM COLUMNIST/COMMENTATOR Moderate degenerative disc disease, C6-7 level, with no acute findings. Narrative 06/26/2019 8:55 AM COLUMNIST/COMMENTATOR EXAM: DX CERVICAL SPINE 4-5 VIEWS COMPARISON: None FINDINGS: There is straightening of the normal cervical lordosis. Moderate degenerative disc changes at the C6-7 le shruti include narrowing of the intervertebral disc space and minimal os teophyte formation. There is no instability on flexion and extension lat eral views. The prevertebral soft tissues are normal. Procedure Note Ishan Walter M.D. - 06/26/2019Format ting of this note might be different from the original. EXAM: DX CERVICAL SPINE 4-5 VIEWS COMPARISON: None FINDINGS: There is straightening of the normal cervical lordosis. Moderate degenerative disc changes at the C6-7 le shruti include narrowing of the intervertebral disc space and minimal os teophyte formation. There is no instability on flexion and extension lat eral views. The prevertebral soft tissues are normal. IMPRESSION: Moderate degenerative disc disease, C6-7 level, with no acute findings. Loulou Gamble M.D. IMG DIAGNOSTIC IMAGING PROCE MAE documented in this encounter Visit Diagnoses Diagnosis Stenosis Spinal Cervical documented in this encounter
--- OUTSIDE RECORDS SUMMARY | 2022-04-20 11:15 | XMS_ITS | Encounter Summary ---
:1965 Author Organization [facility] Address [address] [place] [address] Care Team Providers Name Role Phone Unavailable Primary Care Provider Unavailable Reason for Visit Auth/Cert Specialty Diagnoses / Procedures Referred By Contact Refer red To Contact Diagnoses Stenosis Spinal Cervical Stenosis Spinal Cervical [M48.02] Procedures [place] ARTHRDSIS ANTR BOD CRV BEL C2 [place] ARTHRDSIS ANTR CRV BEL C2 ADD [place] INSTRUM ANTR 2-3 VERT SEGMS FUSION SPINE ANTERIOR CERVICAL AND DISCECTOMY - C5-7 and all indicated levels Referral ID Status Reason Start Date Expiration Date Visits Requ ested Visits Authorized [id number] 1 1 Encounter Details Date Type Department Care Team Description 08/10/2019 Anesthesia Event [facility] OR Eddie Christine M.D. [address] [facility] Krystian Esposito, D.OLogan [address] [place] [address] [place] [phone] Anesthesia Record Procedure Summary Procedure Name Responsible Anesthesia Start Anesthesia Stop Anesthesiologist Time Time FUSION SPINE Eddie Christine M.D. 08/10/19 1303 08/10/19 16 08 ANTERIOR CERVICAL AND DISCECTOMY - C5-7 (Spine Cervical) Events Date Time Event Comment 08/10/2019 1020 1303 In Room 1303 An Start Machine/Equipmen t Checked Infection Precautions Foll owed Procedure/Site Verified NPO Sta tus Verified Supine Standard ASA Mon itors Applied 1308 An Induction 1311 An Intubation 1313 Turnover to Proceduralist 1345 Proc Start 1557 Turnover to ANE Staff 1557 Proc Fin 1559 Airway Removal Criteria Met 1559 Extubation/Airway Removed Extuba roro without diff, maint adeq airway / SaO2 > 90%, MA Ex4, NAD, VSS, suctioned, 6L SM 1602 an stop data 1603 Out of Room 1608 An End I completed my h andoff to the receiving staff during [facility] we 1. Identified the patient 2. Ident ified the responsible provider 3. Revi ewed the pertinent medical history 4. Discussed the surgical course 5. Review ed intra-op anesthesia management and i ssues during anesthesia 6. Set expectati ons for post-procedure period 7. Allowe d opportunity for questions and ac knowledgement of understanding. Name Total midazolam 1 mg/mL injection 2 mg fentanyl injection 50 mcg/mL 250 mcg lidocaine 2% (mg) injection 30 mg propofol 10 mg/mL 130 mg rocuronium 10 mg/mL injection 50 mg ePHEDrine PF 5 mg/mL syringe injection 10 mg ondansetron 4 mg/2 mL injection 4 mg ceFAZolin in dextrose (iso-os) IVPB 2 g (ANCEF) 2 g dexamethasone 10 mg/mL injection 10 mg ketamine 10 mg/mL injection 40 mg propofol 10 mg/mL infusion 473.69 mg HYDROmorphone 1 mg/mL injection 0.4 mg Lactated Ringers Free Drip 300 mL lactated ringers 0 mL Agents No agents on file. Blood No blood administrations on file. Lines, Drains, and Airways Type Details Placement Removal Closed/Suction 08/10/19; 1525; 1; Right, 08/10/19 1525 by Drain Anterior; Neck; Accordion; 10 Fr.; Everett, 1 Stephenie Jovel R.N. Peripheral IV Placement Date: 08/10/19; Catheter 08/10/19 0000 by 08/11/19 1045 by Size: 20 G; Orientation: Anterior, Simona Tony Leah M, Lower, Right; Location: Forearm; Chaim Mercado R.N. Removal Date: 08/11/19; Removal Time: 104; Removal Reason: Patient discharged Peripheral IV Placement Date: 08/10/19; 08/10/19 0959 by 08/11 1045 by Placement Time: 958; Catheter Koth, Sheldon W, D ushaw, Nahomy M, Size: 18 G; Orientation: Right; R.N. R.N. Location: Wrist; Site Prep: Chlorhexidine (Preferred); Technique: Anatomical landmarks; Removal Date: 08/11/19; Removal Time: 1045; Removal Reason: Patient discharged ETT Placement Date: 08/10/19; 08/10/19 1311 by 08/10 1559 by Placement Time: 1311 (created via Miguel A Caballero Cari procedure documentation); Mask M, DAIRY CHEMIST, SENIOR DATA WAREHOUSE ARCHITECT J , DAIRY CHEMIST, SENIOR DATA WAREHOUSE ARCHITECT Ventilation: Easy mask; Type: Standard ETT; Single Lumen Tube Size: 7 mm; Cuffed: Yes; Blade Size: Traore 2; Location: Oral; Removal Date: 08/10/19; Removal Time: 1559 Indwelling Urinary Placement Date: 08/10/19; 08/10/19 1319 by 1557 by Catheter Placement Time: 1319; Inserted by: Franny Hagen Christensen, Lisa Iverson RN; Type: Dmitry Jovel R.N. Double-lumen, Non-latex; Size: 16 Fr.; Balloon Size: 5 mL; Urine Returned: Yes; Removal Date: 08/10/19; Removal Time: 1557; Removal Reason: Per order (RETIRED) Incision 08/10/19; 1551; Neck; Anterior; 08/10/19 1551 by 03/10/21 1418 by PRESLEY Everett [facility] CERVICAL COLLAR; 03/10/21 Dmitry Lyons, Scheduling (Removed by background completion Automated Batch utility); 1418 (Removed by Job background completion utility) documented in this encounter Social History Tobacco Use Types Packs/Day Years [...] or relatives? How often do you attend congregational or Never 2021 restorationism services? Do you belong to any clubs or Yes 10/25/2021 organizations such as congregational groups, unions, fraternal or athletic groups, or [...] the highest level of school Associate degree: [employer] program 06/26/2019 you have completed or the highest degree you have received? Sex Assigned at Date Recorded Female 07/14/2019 9:59 AM LOADING DOCK HELPER documented as of this encounter OR Notes Anesthesia Postprocedure Evaluation - Eddie Christine M.D. - 08/10/2019 4:24 PM CST Patient: Minerva Ramesh Procedure Summary Date: 08/10/19 Room / Location: [address] Anesthesia Start: 1303 Anesthesia Stop: 1608 Procedure: FUSION SPINE ANTERIOR CERVICAL AND DISCECTOMY - C5-7 (N/A Spine Cervical) Diagnosis: Stenosis Spinal Cervical (Stenosis Spinal Cervical [M48.02]) Provider: Loulou Gamble M.D. Responsible Provider: Eddie Christine M.D. Anesthesia Type: general ASA Status: 2 Anesthesia Type: general Last vitals Vitals Value Taken Time BP 162/81 08/10/2019 4:20 PM Temp Pulse 89 08/10/2019 4:24 PM Resp 18 08/10/2019 4:05 PM SpO2 99 % 08/10/2019 4:24 PM Vitals shown include unvalidated device data. Please reference Vitals flowsheet for most recent vital signs. Anesthesia Post Evaluation Patient Disposition: general care unit Cardiovascular status: hemodynamics (HR & BP) acceptable Respiratory status: patent airway with spontaneous effort Temperature: normothermic Oxygen requirements: room air Level of consciousness: awake Pain score: pain adequately controlled and/or at baseline Post Op nausea/vomiting: none Hydration status: euvolemic ING DOCK HELPER Anesthesia Procedure Notes - Frankie Caballero APRN, CRNA - 08/10/2019 1:38 PM CSTAssociated Order(s): Airway Airway Date/Time: 08/10/2019 1:11 PM Performed by: Frankie Caballero APRN, CRNA Authorized by: Edide Christine M.D. Patient location during procedure: OR / Procedure Area PROCEDURE DETAILS: Mask difficulty assessment: easy mask Final airway type: direct laryngoscopy, intubation Laryngeal Manipulation: no Final airway difficulty of direct laryngoscopy (DL): 0-easy Final best view of glottic structures - Cormack/Lehane Score: grade 2A ETT location: oral Adult blade type: Traore 2 Adult tube size: 7 Adult ETT distance at teeth/gum: 22 Oral tube type: standard ETT Cuffed: yes Number of attempt to successful placement: 1 Airway confirmation: bilateral breath sounds, positive ETCO2 and bilateral chest rise Other previous techniques attempted: none PRE PROCEDURE DETAILS: Pre evaluation for airway management: procedure Urgency: elective Preop assessment of probable difficulty: no difficulty anticipated Preoxygenation: bag valve mask SEDATION / ANESTHESIA Anesthesia method: anesthesia POST PROCEDURE DETAILS: Procedure outcome: successful ING DOCK HELPER Anesthesia Preprocedure Evaluation - Eddie Christine M.D. - 08/10/2019 10:18 AM CST Preprocedure Anesthesia & H&P Assessment Procedure Summary Date/Time: 08/10/19 1100 Procedure: FUSION SPINE ANTERIOR CERVICAL AND DISCECTOMY - C5-7 and all indicated levels (N/A SpineCervical) Diagnosis: Stenosis Spinal Cervical [M48.02] Pre-op diagnosis: Stenosis Spinal Cervical [M48.02] Location: [address] Provider: Loulou Gamble M.D. Pertinent components of the patient's history including current problem list, medical history, surgical history, family history, social history, medications and allergies were reviewed. Present illnessand pre-op diagnosis were confirmed. The planned surgery / procedure was verified with the patient /legal guardian. 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 Questions answered. She agrees. Patient seen and allergies reviewed, anesthesia plan and risks discussed directly with patient /legal guardian or through an fabrication specialist. The use of blood products not discussed Approval to Proceed: approved for anesthesia ING DOCK HELPER documented in this encounter Plan of Treatment Upcoming Encounters Date Type Specialty Care Team Description 05/12/2022 Appointment Radiology Jammie Roca P.A.-C., M.S. [address] [place] [address] (Karlie yepez) 05/12/2022 Appointment Radiology Jammie Roca P.A.-C., M.S. [address] [place], [place] [address] (Karlie yepez) 05/12/2022 Office Visit Neurological Surgery Sheila Gamble M.D. [facility] [place], [place] [phone] (Karlie yepez) documented as of this encounter Procedures Procedure Name Priority Date/Time Associated Comments Diagnosis LDA ANE ENDOTRACHEAL Routine 08/10/2019 1:38 PM R esults for this AIRWAY LOADING DOCK HELPER procedure are i n the results section. documented in this encounter Results LDA ANE ENDOTRACHEAL AIRWAY (08/10/2019 1:38 PM LOADING DOCK HELPER) Narrative Frankie Caballero APRN, CRNA - 08/10/19 20 1:38 PM LOADING DOCK HELPER Frankie Caballero APRN, CRNA ? 08/10/2019 ??1:39 PM Airway Date/Time: 08/10/2019 1:11 PM Performed by: Frankie Caballero APRN, C RNA Authorized by: Eddie Christine M.D. Patient location during procedure: OR / Procedure Area PROCEDURE DETAILS: Mask difficulty assessment: easy mask Final airway type: direct laryngoscopy, intubation Laryngeal Manipulation: no ?? Final airway difficulty of direct laryng oscopy (DL): 0-easy Final best view of glottic structures - Cormack/Lehane Score: grade 2A ETT location: oral Adult blade type: Traore 2 Adult tube size: 7 Adult ETT distance at teeth/gum: 22 Oral tube type: standard ETT Cuffed: yes Number of attempt to successful placemen t: 1 Airway confirmation: bilateral breath so unds, positive ETCO2 and bilateral chest rise Other previous techniques attempted: non e PRE PROCEDURE DETAILS: Pre evaluation for airway management: pr ocedure Urgency: elective Preop assessment of probable difficulty: no difficulty anticipated Preoxygenation: bag valve mask SEDATION / ANESTHESIA Anesthesia method: anesthesia POST PROCEDURE DETAILS: ? Procedure outcome: successful ?? Eddie Christine M.D. ANESTHESIA ORDERABLES documented in this encounter Visit Diagnoses Not on filedocumented in this encounter Administered Medications Inactive Administered Medications - up to 3 most recent administrations Medication Order MAR Action Action Date Dose Rate Site ceFAZolin in dextrose (iso-os) IVPB Given 08/10/2019 1:31 PM LOADING DOCK HELPER 2 g 2 g (ANCEF) 2 g (rounded from 1.7375 g = 25 mg/kg ? 69.5 kg), intravenous, at 200 mL/hr, Administer over 30 Minutes, Once, On Tue08/10/19 at 1000, For 1 dose, Intra-Op, Preoperatively within 1 hour prior to surgical incision premix bag, Drug Monitoring Program: Pharmacist to adjust medication dosing based on indication and drug clearance factors., Indications: Prophylaxis, surgical dexamethasone injection (DECADRON) Given 08/10/2019 1:38 PM LOADING DOCK HELPER 10 mg As needed, Starting on Tue08/10/19 at 1338, Anesthesia Intra-op ePHEDrine (PF) injection Given 08/10/2019 2:40 PM LOADING DOCK HELPER 10 mg intravenous, As needed, Starting on Tue08/10/19 at 1440, Anesthesia Intra-op fentaNYL injection (SUBLIMAZE) Given 08/10/2019 1:49 PM LOADING DOCK HELPER 100 mcg intravenous, As needed, Starting on Tue08/10/19 at 1308, Anesthesia Intra-op Given 08/10/2019 1:42 PM LOADING DOCK HELPER 50 mcg Given 08/10/2019 1:08 PM LOADING DOCK HELPER 100 mcg HYDROmorphone injection (DILAUDID) Given 08/10/2019 2:58 PM LOADING DOCK HELPER 0.2 mg As needed, Starting on Tue08/10/19 at 1429, Anesthesia Intra-op Given 08/10/2019 2:29 PM LOADING DOCK HELPER 0.2 mg ketamine injection (KETALAR) Given 08/10/2019 2:51 PM LOADING DOCK HELPER 10 mg As needed, Starting on Tue08/10/19 at 1349, Anesthesia Intra-op Given 08/10/2019 1:49 PM LOADING DOCK HELPER 10 mg Given 08/10/2019 1:08 PM LOADING DOCK HELPER 20 mg lactated ringers Rate/Dose Change 08/10/2019 3:44 PM LOADING DOCK HELPER 700 mL/hr 100 mL/hr, intravenous, Continuous, Starting on Tue08/10/19 at 1030, Pre-Op Rate/Dose Verify 08/10/2019 1:03 PM LOADING DOCK HELPER 100 mL/hr New Bag 08/10/2019 10:44 AM LOADING DOCK HELPER 100 mL/hr 100 mL/hr lactated ringers New Bag 08/10/2019 1:17 PM LOADING DOCK HELPER intravenous, Continuous Infusion: Per Instructions PRN, Starting on Tue08/10/19 at 1317, Anesthesia Intra-op lidocaine (PF) (cardiac) injection Given 08/10/2019 1:08 PM LOADING DOCK HELPER 30 mg intravenous, As needed, Starting on Tue08/10/19 at 1308, Anesthesia Intra-op midazolam (PF) injection (VERSED) Given 08/10/2019 1:02 PM LOADING DOCK HELPER 2 mg intravenous, As needed, Starting on Tue08/10/19 at 1302, Anesthesia Intra-op ondansetron (PF) injection (ZOFRAN) Given 08/10/2019 3:50 PM LOADING DOCK HELPER 4 mg intravenous, As needed, Starting on Tue08/10/19 at 1550, Anesthesia Intra-op propofol 10 mg/mL infusion Rate/Dose 08/10/2019 3:25 25 mcg/kg/min 1 0.3 mL/hr (DIPRIVAN) Change PM LOADING DOCK HELPER Continuous Infusion: Per Instructions PRN, Starting on Tue08/10/19 at 1320, Anesthesia Intra-op New Bag 08/10/2019 1:20 PM LOADING DOCK HELPER 50 mcg/kg/min 20.7 mL/hr propofoL injection (DIPRIVAN) Given 08/10/2019 1:49 PM LOADING DOCK HELPER 50 mg intravenous, As needed, Starting on Tue08/10/19 at 1308, Anesthesia Intra-op Given 08/10/2019 1:08 PM LOADING DOCK HELPER 80 mg rocuronium injection (ZEMURON) Given 08/10/2019 1:08 PM LOADING DOCK HELPER 50 mg intravenous, As needed, Starting on Tue08/10/19 at 1308, Anesthesia Intra-op documented in this encounter
--- OUTSIDE RECORDS SUMMARY | 2022-04-20 11:16 | XMS_ITS | Clinical Summary ---
:1965 Author Organization [facility] [place] [address] Care Team Providers Name Role Phone Alysia Oneill Primary Care Provider Allergies Active Allergy Reactions Severity Noted Date Comments Dust Mites Hives 09/06/2003 Triamterene-Hydrochlorothiazid Hives 04/27/2013 Medications Medication Sig Dispensed Refills Start Date End Date Status Armodafinil (NUVIGIL) Take by mouth. 0 12/25/2010 Active 250 mg Tab venlafaxine (EFFEXOR Take 150 mg by 0 06/12/2021 Active XR) 150 mg mouth once daily Extended-Release with a meal. capsule gabapentin (NEURONTIN) Take 300 mg by 0 01/30/2021 Active 300 mg capsule mouth 3 times daily. cholecalciferol Take 1 Capsule 0 08/13/2021 Active (Vitamin D) 1,000 unit (1,000 units) by capsule mouth once daily. multivitamin (MVI) Take 1 Tablet by 0 08/13/2021 Active tablet mouth once daily. benzonatate (TESSALON) Take 1 Capsule 21 Capsule 0 09/14/2021 Active 200 mg (200 mg) by capsuleIndications: mouth 3 times Cough daily if needed for Cough. rx codeine-guaFENesin, Take 5 mL by 120 mL 0 10/12/2021 Active 10-100 mg/5 ml, mouth every 4 (ROBITUSSIN AC) liquid hours if needed (ED DC MED)Indications: (cough). Cough albuterol HFA (PRO-AIR; INHALE 1-2 PUFFS 18 g 1 2 Active VENTOLIN; PROVENTIL) 90 BY MOUTH EVERY 4 mcg/actuation HOURS IF NEEDED inhalerIndications: FOR SHORTNESS OF Cough BREATH OR WHEEZING 1ST CHOICE Active Problems Problem Noted Date Arthrodesis status 08/11/2019 Spinal stenosis of cervical region 06/26/2019 Overview: Formatting of this note might be differe nt from the original. Added automatically from request for ephraim gonzalez [id number] Primary snoring 03/05/2019 Primary narcolepsy without cataplexy 11/09/2017 TBI (traumatic brain injury) 09/28/2016 Arteriosclerosis of coronary artery 04/30/2016 Acute bronchitis 06/28/2015 Menopause present 05/24/2013 Fluid retention 05/24/2013 Cyst of pituitary gland 03/26/2008 Depressive disorder, not elsewhere classified 01/08/20 08 Excessive or frequent menstruation 05/31/2007 Other and unspecified ovarian cyst 05/31/2007 Dysmenorrhea 05/31/2007 Allergic rhinitis 11/07/2003 Overview: Formatting of this note might be differe nt from the original. Problem list name updated by automated p rocess. Provider to review Encounters Date Type Specialty Care Team Description 04/14/2022 Lab Requisition Etta Bruce PA-C from Last 3 Months Immunizations Name Administration Dates Next Due Influenza, IIV3 (Age >=3 years) 03/27/2013, 05/19/2007 Tdap 12/25/2010 Family History Medical History Relation Name Comments Other Daughter ITP Heart Disease Father Other Maternal Aunt x2 COPD Cancer-prostate Maternal Grandfather bone also Diabetes Maternal Grandmother Heart Disease Maternal Grandmother Hyperlipidemia Maternal Grandmother Diabetes Mother Heart Disease Mother Hyperlipidemia Mother Other Mother COPD Thyroid Disease Mother Heart Disease Paternal Grandfather Stroke Paternal Grandfather Cancer-breast Paternal Grandmother Diabetes Sister Hyperlipidemia Sister Hypertension Sister Cancer-ovarian No Family History Relation Name Status Comments Daughter Alive Father Alive Half-Brother 1 Alive Half-Brother 2 Alive Half-Brother 3 Alive Maternal Aunt x2 Maternal Grandfather Maternal Grandmother Mother Alive Paternal Grandfather Paternal Grandmother Sister Alive Son Alive Social History Tobacco Use Types Packs/Day Years Used Date Never Smoker Smokeless Tobacco: Never Used Tobacco Cessation: Counseling Given: Yes Alcohol Use Standard Drinks/Week Comments Yes 0 (1 standard drink = 0.6 oz pure alcoho l) rare-- 5 drinks per year Alcohol Habits Answer Date Recorded How often do you have a drink containing Not asked alcohol? How many drinks containing alcohol do you have Not asked on a typical day when you are drinking? How often do you have six or more drinks on Not asked one occasion? Comment: rare-- 5 drinks per year 01/06/2017 Sex Assigned at Date Recorded Not on file Obstetrics History Para Term AB IAB SAB Ectopic Multiple Living Live Births 5 2 2 0 1 0 1 0 0 2 2 Date Outcome GA Total Labor/2nd/3rd Weight Sex Delivery Anes PTL Veronika A 1 A5 Name Clin Labor SAB Term Term 09/22 40w F Vag Francheska 0d ng 08/21 40w M 0d ng Last Filed Vital Signs Vital Sign Reading Time Taken Comments Blood Pressure 120/84 10/12/2021 9:59 AM CDT Pulse 81 10/12/2021 9:59 AM CDT Temperature 36.7 ??C (98.1 ??F) 10/12/2021 9:59 AM CDT Respiratory Rate 16 06/28/2015 2:15 PM WAREHOUSE ORDER PICKER Oxygen Saturation 97% 10/12/2021 9:59 AM CDT Inhaled Oxygen Concentration - - Weight 73.8 kg (162 lb 11.2 oz) 10/12/2021 9:59 AM CDT Height 160 cm (5' 2.99) 09/14/2021 3:39 PM CDT Body Mass Index 28.83 09/14/2021 3:39 PM CDT Plan of Treatment Health Maintenance Due Date Last Done Comments COVID-19 vaccine series (#1) 02/27/1966 Hepatitis C screening for age 0308/28/1983 18-79 Colonoscopy through age 75 2010 Zoster (shingles) series for age 0308/28/2015 50+ (1 of 2) Mammogram for age 45-75 06/10/2017 06/10/2016 (Completed ou [facility]), 06/10/2015, 06/04/2014, Additional history exists Depression screening for age 12+ 01/06/2018 01/06/2017 Tetanus booster 12/25/2020 12/25/2010, 12/25/2010 Lipids for age 45-75 01/06/2022 01/06/2017 (Completed outsi de of [facility]), 01/01/2011, 12/25/2010 Influenza for age 50-64 02/18/2022 03/27/2013, 05/19/2007 BMI (ht and wt on same day) for 09/14/2022 09/14/2021, 07/22, age 18+ 01/06/2017, Additional history exists Tdap Completed 12/25/2010 Procedures Procedure Name Priority Date/Time Associated Diagnosis Comme nts LAB TRACKING EVENT Routine 04/13/2022 3:30 PM CDT HPV THIN PREP Routine 04/13/2022 3:30 PM Results for this CDT procedure are i n the results section. from Last 3 Months Results LAB TRACKING EVENT (04/13/2022 3:30 PM CDT) Specimen Anatomical Collection Method Collection Time Receive d Time (Source) Location / / Volume Laterality Other (Other) Client Collect / 04/13/2022 3:30 PM 03/21 6:51 Unknown CDT PM CDT September Janis [facility] LAB BILL ONLY Performing Organization Address City/State/ZIP Code Phon e Number [facility] [address] [place] [address] LAB[facility]ATORY[facility] 2000 LABORATORY HPV HIGH RISK (04/13/2022 3:30 PM CDT) Analysis Performed At Patho logist Time Signature TYPE 16 Negative Negative 04/16/2022 [facility] 1:56 PM CDT [facility] TYPE 18 Negative Negative 04/16/2022 [facility] 1:56 PM CDT [facility] OTHER HIGH Negative Negative 04/16/2022 [facility] RISK TYPES 1:56 PM CDT [facility] Specimen Anatomical Collection Method Collection Time Receive d Time (Source) Location / / Volume Laterality Other (Cervical) 04/13/2022 3:30 PM 04/15 9:33 CDT AM CDT Narrative [facility] - 04/16/2022 1:56 PM CDT HPV types 16, 18, 31, 33, 35, 39, 45, 51, 52, 56, 58, 59, 66 and 68 DNA were undetectable or below the pre-set threshold. Methodology: Nina Riley 4800 HPV Test September Janis [facility] Performing Organization Address City/State/ZIP Code Phon e Number [facility] [address] [place] [address] LAB[facility]ATORY[facility] 2000 LABORATORY from Last 3 Months Insurance Payer Benefit Plan / Subscriber ID Effective Dates Phone Addre ss Type Group MEDICA MEDICA CHOICE [id number] 2021-Present [address] [address] [place] [address] (Work) [id number] Care Teams Teacher Education Director Relationship Specialty Start Date End Date Alysia Oneill DO PCP - General Family Practice 10/12/21 [address] [place] [address]
[2022-04-20 13:49] LABS: Cholesterol* 224 mg/dL (90-199); Glucose* 93 mg/dL (60-115); HDL Cholesterol* 50 mg/dL (>=50); LDL Cholesterol Calculated 131 mg/dL (<100); Triglycerides* 215 mg/dL (40-149)
== END 2022-04-20 16:41 | disposition home or self-care (01) ==
PROVIDERS: Visit Provider Physician Assistant
DX: Z13.6 Encounter for screening for cardiovascular disorders (principal); Z13.1 Encounter for screening for diabetes mellitus
CPT/HCPCS: 80061; 82947

== ENCOUNTER 2022-04-22 15:14 | Outpatient (CLI) | payer OTHER, SELFPAY ==
--- OUTSIDE RECORDS SUMMARY | 2022-04-22 15:23 | XMS_ITS | Encounter Summary ---
:1965 Author Organization [facility] Address [address] [place] [address] Care Team Providers Name Role Phone Unavailable Primary Care Provider Unavailable Reason for Visit Reason Comments Med Refill Encounter Details Date Type Department Care Team Description 2021 Refill Department of Neurological Loulou Mariano M.D. Med Refill Surgery in [place], [place] [address] [facility] [address] [place] [address] [place] [address] [phone] Social History Tobacco Use Types Packs/Day Years [...] many times do you More than three roys es a week 10/25/2021 talk on the phone with family, friends, or neighbors? How often do you get together with friends More than three t imes a week 10/25/2021 or relatives? How often do you attend advent or Never 2021 worship services? Do you [...] at Date Recorded Female 07/14/2019 9:59 AM SEWAGE PLANT SUPERVISOR documented as of this encounter Miscellaneous Notes Telephone Encounter - Dionte Garcia P.A.-C. - 08/28/2021 2:57 PM SEWAGE PLANT SUPERVISOR We have refilled the request with a different refill quantity. Momo Garcia P.A.-C. GE PLANT SUPERVISOR documented in this encounter Plan of Treatment Upcoming Encounters Date Type Specialty Care Team Description 05/12/2022 Appointment Radiology Jammie Roca P.A.-C., M.S. [address] [place], [place] [address] (Karlie yepez) 05/12/2022 Appointment Radiology Jammie Roca P.A.-C., M.S. [address] [place], [place] [address] (Karlie yepez) 05/12/2022 Office Visit Neurological Surgery Sheila Gamble M.D. [address] [place], [place] [phone] (Karlie yepez) documented as of this encounter Visit Diagnoses Not on filedocumented in this encounter
--- OUTSIDE RECORDS SUMMARY | 2022-04-22 15:23 | XMS_ITS | Encounter Summary ---
:[address] [facility] Address [address] [place] [address] Care Team Providers Name Role Phone Unavailable Primary Care Provider Unavailable Reason for Visit Reason Comments injection teaching Encounter Details Date Type Department Care Team Description 04/01/2021 Clinical Department of Loulou Gamble Neurological Surgery Ngoc Jeff in [address] [phone] (Work) [phone] Social History Tobacco Use Types Packs/Day Years [...] or relatives? How often do you attend episcopal or Never 2021 sabianism services? 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 [address] [place], [place] [address] (Wo rk) 05/12/2022 Appointment Radiology Jammie Roca P.A.-C., M.S. [address] [place], [place] [address] (Wo rk) 05/12/2022 Office Visit Neurological Surgery Sheila Gamble M.D. [address] [place] [address] [phone] (Wo rk) documented as of this encounter Visit Diagnoses Not on filedocumented in this encounter
--- OUTSIDE RECORDS SUMMARY | 2022-04-22 15:23 | XMS_ITS | Encounter Summary ---
:1965 Author Organization [facility] Address [address] [place] [address] Care Team Providers Name Role Phone Unavailable Primary Care Provider Unavailable Reason for Visit Reason Comments Med Refill Gabapentin Encounter Details Date Type Department Care Team Description 08/28/2021 Clinical Department of Loulou Gamble Med Refill Communication Neurological Surgery Ngoc Jeff (Gabapentin) in [address] [place] [address] [phone] [address] (Work) [phone] Social History Tobacco Use Types Packs/Day Years [...] do you attend episcopal or Never 2021 pentecostalism services? 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 Telephone Encounter - Edith Mast R.N. - 08/28/2021 9:52 AM PLANISHING PRESS OPERATOR Spoke to patient this morning- She verified her dose as 300 mg 3 pills one time daily. Last visit was Dr. Gamble: 04/01 Injection: 04/09 Follow up to be scheduled for 08/2021. Scheduling: Please contact patient to schedule appointments. Refill has been provided. ISHING PRESS OPERATOR documented in this encounter Plan of Treatment Upcoming Encounters Date Type Specialty Care Team Description 05/12/2022 Appointment Radiology Jammie Roca P.A.-C., M.S. [address] [place], [place] [address] (Wo rk) 05/12/2022 Appointment Radiology Jammie Roca P.A.-C., M.S. [address] [place], [place] [address] (Wo rk) 05/12/2022 Office Visit Neurological Surgery Sheila Gamble M.D. [address] [place], [place] [phone] (Wo rk) documented as of this encounter Visit Diagnoses Not on filedocumented in this encounter
--- OUTSIDE RECORDS SUMMARY | 2022-04-22 15:23 | XMS_ITS | Encounter Summary ---
:[address] [facility] Address [address] [place] [address] Care Team Providers Name Role Phone Unavailable Primary Care Provider Unavailable Reason for Referral Outpatient (Routine) - Closed Specialty Diagnoses / Procedures Referred By Contact Refer red To Contact Diagnoses Radiculopathy Lumbar Loulou Gamble M.D. [facility] Procedures EMG [address] [place] [address] Referral ID Status Reason Start Date Expiration Date Visits Requ ested Visits Authorized [id number] Closed 04/01/2021 04/01/2022 1 1 Reason for Visit Outpatient (Routine) - Closed Specialty Diagnoses / Procedures Referred By Contact Refer red To Contact Diagnoses Radiculopathy Lumbar Loulou Gamble M.D. [facility] Procedures EMG [address] [place] [address] Referral ID Status Reason Start Date Expiration Date Visits Requ ested Visits Authorized [id number] Closed 04/01/2021 04/01/2022 1 1 Encounter Details Date Type Department Care Team Description 10/26/2021 Hospital Encounter Department of Loulou Gamble Radianila lopathstephania Lumbar Neurology in [place] [address] [facility] [address] [place], [place] [phone] [address] (Work) [phone] Social History Tobacco Use Types Packs/Day Years [...] or relatives? How often do you attend judaism or Never 2021 nondenominational services? Do you belong to any clubs or Yes 10/25/2021 organizations such as judaism groups, unions, fraternal or athletic groups, or [...] place to sleep or slept in a intermediate (including now)? Education Answer Date Recorded What is the highest level of school Associate degree: [employer] program 10/25/2021 you have completed or the highest degree you have received? 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 [address] [place], [place] [address] (Wo rk) 05/12/2022 Appointment Radiology Jammie Roca P.A.-C., M.S. [address] [place], [place] [address] (Wo rk) 05/12/2022 Office Visit Neurological Surgery Sheila Gamble M.D. [facility]5 [place], [place] [phone] (Wo rk) documented as [...] ? Final Report Study Number: 1 EMG Certified Low Vision Therapist: Domi Meneses 127 or [phone] Referred by: LOULOU GAMBLE () Referred for: [...] root compression. ?? Hari Meneses (127 or [phone]) /[facility] ??Record Rep ?? Normal [...] Final Repor t Study Number: 1 EMG Certified Low Vision Therapist: Domi Meneses 127 or [phone] Referred by: LOULOU GAMBLE () Referred for: [...] nerve root compression. Hari Meneses (127 or [phone]) /[facility] Record Rep Normal Normal [...]
--- OUTSIDE RECORDS SUMMARY | 2022-04-22 15:23 | XMS_ITS | Encounter Summary ---
:1965 Author Organization [facility] Address [address] [place] [address] Care Team Providers Name Role Phone Unavailable Primary Care Provider Unavailable Encounter Details Date Type Department Care Team Description 10/14/2021 Orders Only Department of Neurological Randi iRchards, Surgery in [place], [place] P.A.-C. [address] [address] [place], [place] [phone] (Wo rk) Social History Tobacco Use [...] or relatives? How often do you attend hindu or Never 2021 roman catholic services? 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 [facility]5 [place], [place] [address] (Karlie yepez) 05/12/2022 Appointment Radiology Jammie Roca, Ria.A.-C., M.S. [address] [place], [place] [address] (Karlie yepez) 05/12/2022 Office Visit Neurological Surgery Sheila Gamble M.D. [address] [place] [phone] (Karlie yepez) documented as of this encounter Visit Diagnoses Not on filedocumented in this encounter
--- OUTSIDE RECORDS SUMMARY | 2022-04-22 15:23 | XMS_ITS | Encounter Summary ---
:1965 Author Organization [facility] Address [address] [place] [address] Care Team Providers Name Role Phone Unavailable Primary Care Provider Unavailable Reason for Referral Outpatient (Routine) - Closed Specialty Diagnoses / Procedures Referred By Contact Refer red To Contact Diagnoses Radiculopathy Lumbar Loulou Gamble M.D. [facility] Region Procedures FL Lumbar Spine Transforaminal Epidural Injection Left [place] INJ ANES FORAMEN EPI LUMB SNGL [address] [place] [address] Referral ID Status Reason Start Date Expiration Date Visits Requ ested Visits Authorized [id number] Closed 04/01/2021 06/19/2021 1 1 Reason for Visit Outpatient (Routine) - Closed Specialty Diagnoses / Procedures Referred By Contact Refer red To Contact Diagnoses Radiculopathy Lumbar Loulou Gamble M.D. [facility] Region Procedures FL Lumbar Spine Transforaminal Epidural Injection Left [place] INJ ANES FORAMEN EPI LUMB SNGL [address] [place] [address] Referral ID Status Reason Start Date Expiration Date Visits Requ ested Visits Authorized [id number] Closed 04/01/2021 06/19/2021 1 1 Encounter Details Date Type Department Care Team Description 04/09/2021 Hospital Encounter Department of Pain Me pham Gamble M.D. [address] [place] [address] Radiculopathy Lumbar Medicine in Gildardo Banegas D.O. [address] [place] [address] [place], [place] [address] [place] [address] Social History Tobacco Use Types [...] do you attend mandaeism or Never 2021 druze services? 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 If you do not have a water truck driver, your appointment may need to [...] with your health care provider. ? 2017 [facility] ([facility]). All rights reserved. [id number] documented in this encounter Medications at Time [...] 05/12/2022 Appointment Radiology Jammie Roca P.A.-C., M.S. [address] [place] [address] (Karlie yepez) 05/12/2022 Appointment Radiology Jammie Roca P.A.-C., M.S. [address] [place], [place] [address] (Karlie yepez) 05/12/2022 Office Visit Neurological Surgery Sheila Gamble M.D. [address] [place] [phone] (Wo rk) documented as of [...]
--- OUTSIDE RECORDS SUMMARY | 2022-04-22 15:23 | XMS_ITS | Encounter Summary ---
:1965 Author Organization [facility] Address [address] [place] [address] Care Team Providers Name Role Phone Unavailable Primary Care Provider Unavailable Encounter Details Date Type Department Care Team Description 12/01/2021 Orders Only Pharmacy Prior Auth Melissa Franz [phone] Social History Tobacco Use Types Packs/Day Years [...] do you attend hindu or Never 2021 anabaptism services? 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 [facility]5 [place], [place] [address] (Karlie yepez) 05/12/2022 Appointment Radiology Jammie Roca P.A.-Katarina., M.S. [address] [place] [address] (Karlie yepez) 05/12/2022 Office Visit Neurological Surgery Sheila Gamble M.D. [address] [place], [place] [phone] (Karlie yepez) documented as of this encounter Visit Diagnoses Not on filedocumented in this encounter
--- OUTSIDE RECORDS SUMMARY | 2022-04-22 15:23 | XMS_ITS | Encounter Summary ---
:1965 Author Organization [facility] Address [address] [place] [address] Care Team Providers Name Role Phone Unavailable Primary Care Provider Unavailable Reason for Visit Reason Comments Med Refill Encounter Details Date Type Department Care Team Description 02/08/2022 Refill Department of Neurological Marissa, Zacarias Gonzalez APRN, Med Refill Surgery in [place], [place] C.N.P., D.N.P. [address] [address] [place] [address] (Wo rk) Social History Tobacco Use Types [...] or relatives? How often do you attend caodaism or Never 2021 shinto services? Do you belong to any clubs or Yes 10/25/2021 organizations such as caodaism groups, unions, fraternal or athletic groups, or [...] highest level of school Associate degree: academ [employer] program 10/25/2021 you have completed or the highest degree you have received? 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 [address] [place], [place] [address] (Wo marleni) 05/12/2022 Appointment Radiology Jammie Roca P.A.-C., M.S. [address] [place], [place] [address] (Wo marleni) 05/12/2022 Office Visit Neurological Surgery Sheila Gamble M.D. [address] [place] [phone] (Wo rk) documented as of this encounter Visit Diagnoses Not on filedocumented in this encounter
--- OUTSIDE RECORDS SUMMARY | 2022-04-22 15:23 | XMS_ITS | Encounter Summary ---
:[address] [facility] Address [address] [place] [address] Care Team Providers Name Role Phone Unavailable Primary Care Provider Unavailable Reason for Visit Reason Comments Pre-visit Intake Encounter Details Date Type Department Care Team Description 10/05/2021 Clinical Communication Visit Review in Pr e-visit Intake [address] [address] Social History Tobacco Use Types [...] do you attend rastafari or Never 2021 faith services? 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 [address] [place] [address] (Wo rk) 05/12/2022 Appointment Radiology Jammie Roca, P.A.-C., M.S. [address] [place] [address] (Wo rk) 05/12/2022 Office Visit Neurological Surgery Sheila Gamble M.D. [address] [place] [phone] (Wo rk) documented as of this encounter Visit Diagnoses Not on filedocumented in this encounter
--- OUTSIDE RECORDS SUMMARY | 2022-04-22 15:23 | XMS_ITS | Encounter Summary ---
:[address] [facility] Address [address] [place] [address] Care Team Providers Name Role Phone Unavailable Primary Care Provider Unavailable Reason for Referral Physical Therapy (Routine) - Authorized Specialty Diagnoses / Procedures Referred By Contact Refer red To Contact Diagnoses Radiculopathy Lumbar Jammie Roca P.A.-C., M.S. [address] [place] [address] Referral ID Status Reason Start Expiration Visits Visits Date Date Requested Authorized [id number] Authorized Patient 02/16/2022 02/16/2023 1 1 Preference utpatient (Routine) - Authorized Specialty Diagnoses / Procedures Referred By Contact Refer red To Contact Neurological Surgery Jammie Roca [facility] Almas, M.S. [address] [place] [address] Referral ID Status Reason Start Date Expiration Date Visits V isits Requested Authorized [id number] Authorized 02/16/2022 02/15/2025 [address] Gamble after mri and xrays utpatient (Routine) - Authorized Specialty Diagnoses / Procedures Referred By Contact Refer red To Contact Diagnoses Radiculopathy Lumbar Jammie Roca [facility] Region Procedures DX Lumbar Spine 4+ Views Almas, M.S. [address] [place] [address] Referral ID Status Reason Start Date Expiration Date Visits V isits Requested Authorized [id number] Authorized 02/16/2022 02/16/2023 1 1 RI/CAT/PET Scan (Routine) - Authorized Specialty Diagnoses / Procedures Referred By Contact Refer red To Contact Radiology Diagnoses Radiculopathy Lumbar Jammie Roca [facility] Region Procedures MR Lumbar Spine without IV Contrast Almas, M.S. [address] [place] [address] Referral ID Status Reason Start Date Expiration Date Visits V isits Requested Authorized [id number] Authorized 02/16/2022 02/16/2023 1 1 Reason for Visit Reason Comments Follow-up 3 month follow up, pain in l eft hip to foot and then moved to right leg. Outpatient (Routine) - Closed Specialty Diagnoses / Procedures Referred By Contact Refer red To Contact Neurological Surgery Loulou Gabmle [facility] Region M.D. [address] [place] [phone] Referral ID Status Reason Start Date Expiration Date Visits Requ ested Visits Authorized [id number] Closed 10/27/2021 10/27/2022 1 1 Encounter Details Date Type Department Care Team Description 02/16/2022 Office Visit Department of Jammie Roca Radikika matteo Lumbar Neurological Surgery Almas Lanza, M.S. (Primary Dx) in [facility] 1025 [facility] 1025 [place] [address] [place], [place] [phone] [address] (Work) [phone] Social History Tobacco Use Types Packs/Day Years [...] or relatives? How often do you attend orthodox or Never 2021 gnosticism services? Do you belong to any clubs or Yes 10/25/2021 organizations such as orthodox groups, unions, fraternal or athletic groups, [...] the highest level of school Associate degree: [employer] program 10/25/2021 you have completed or the highest degree you have received? 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 After hours /weekends: [phone]. documented in this encounter Progress Notes Jammie [...] - C5-7; Surgeon: Loulou Gamble M.D.; Location: [facility] OR MOUTH BIOPSY N/A 04/02/2008 >Buccal [...] hours of 8am to 5pm - Tuesday-Tuesday: [phone]. After hours /weekends: [phone]. Jammie Roca PA-C documented in this encounter Plan of Treatment Upcoming Encounters Date Type Specialty Care Team Description 05/12/2022 Appointment Radiology Jammie Roca P.A.-C., M.S. [address] [place], [place] [address] (Wo rk) 05/12/2022 Appointment Radiology Jammie Roca P.A.-C., M.S. [address] [place], [place] [address] (Wo rk) 05/12/2022 Office Visit Neurological Surgery Sheila Gamble M.D. [address] [place], [place] [phone] (Wo rk) Scheduled Orders Name Type Priority [...]
--- OUTSIDE RECORDS SUMMARY | 2022-04-22 15:23 | XMS_ITS | Encounter Summary ---
:1965 Author Organization [facility] Address [address] [place] [address] Care Team Providers Name Role Phone Unavailable Primary Care Provider Unavailable Reason for Visit Reason Comments Med Change Request Encounter Details Date Type Department Care Team Description 11/25/2021 Refill Department of Neurological Zacarias Ann, Med Change Request Surgery in [place], LOGISTICS AND PLANNING MANAGER, C.N.P. , D.N.P. [address] [phone] (Wo rk) Social History Tobacco Use Types [...] or relatives? How often do you attend samaritan or Never 2021 rastafarian services? 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 [address] [place] [address] (Karlie yepez) 05/12/2022 Appointment Radiology Jammie Roca, Ria.A.-C., M.S. [address] [place] [address] (Karlie yepez) 05/12/2022 Office Visit Neurological Surgery Sheila Gamble M.D. [address] [place] [phone] (Karlie yepez) documented as of this encounter Visit Diagnoses Not on filedocumented in this encounter
--- OUTSIDE RECORDS SUMMARY | 2022-04-22 15:23 | XMS_ITS | Encounter Summary ---
:1965 Author Organization [facility] Address [address] [place] [address] Care Team Providers Name Role Phone Unavailable Primary Care Provider Unavailable Reason for Referral Outpatient (Routine) - Closed Specialty Diagnoses / Procedures Referred By Contact Refer red To Contact Neurological [facility] [address] [place] [phone] Referral ID Status Reason Start Date Expiration Date Visits Requ ested Visits Authorized [id number] Closed 10/27/2021 10/27/2022 1 1 Reason for Visit Reason Comments Follow-up 04/09/21 [place] Lumbar Spine Tra nsforaminal Epidural Injection Left10/26/21 EMG Outpatient (Routine) - Closed Specialty Diagnoses / Procedures Referred By Contact Refer red To Contact Neurological Surgery [facility] [address] [place] [phone] Referral ID Status Reason Start Date Expiration Date Visits Requ ested Visits Authorized [id number] Closed 04/01/2021 04/01/2022 1 1 Encounter Details Date Type Department Care Team Description 10/27/2021 Office Visit Department of Loulou Gamble Radiculopath y Lumbar Neurological Surgery Ngoc Jeff (Primary Dx) in [address] [address] [phone] Social History Tobacco Use Types Packs/Day Years [...] or relatives? How often do you attend latter-day or Never 2021 worship services? Do you belong to any clubs or Yes 10/25/2021 organizations such as latter-day groups, unions, fraternal or athletic groups, or [...] highest level of school Associate degree: academ [employer] program 10/25/2021 you have completed or the highest degree you have received? 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 [address] [place] [address] (Wo ) 05/12/2022 Appointment Radiology Jammie Roca P.A.-C., M.S. [address] [place], [place] [address] (Wo rk) 05/12/2022 Office Visit Neurological Surgery Sheila Gamble M.D. [address] [place] [phone] (Wo rk) Scheduled Referrals Name Type Priority Associated Order Schedule Diagnoses Neurological Surgery Outpatient Referral Routine Expected: office visit (clinic) 2021 (Approximate), Expires: 01/27/2023 documented as of this encounter Visit Diagnoses Diagnosis Radiculopathy Lumbar - Primary documented in this encounter
--- OUTSIDE RECORDS SUMMARY | 2022-04-22 15:23 | XMS_ITS | Encounter Summary ---
:1965 Author Organization [facility] Address [address] [place] [address] Care Team Providers Name Role Phone Unavailable Primary Care Provider Unavailable Reason for Visit Reason Comments Med Change Request Encounter Details Date Type Department Care Team Description 02/10/2022 Refill Department of Neurological Dionte Garcia, Med Change Request Surgery in [place] [address] [place] [address] [place] [address] [phone] Social History Tobacco Use Types Packs/Day Years [...] or relatives? How often do you attend mormon or Never 2021 restorationism services? 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 [address] [place], [place] [address] (Karlie yepez) 05/12/2022 Appointment Radiology Jammie Roca, P.A.-C., M.S. [address] [place], [place] [address] (Karlie yepez) 05/12/2022 Office Visit Neurological Surgery Sheila Gamble M.D. [address] [place] [phone] (Karlie yepez) documented as of this encounter Visit Diagnoses Not on filedocumented in this encounter
--- OUTSIDE RECORDS SUMMARY | 2022-04-22 15:23 | XMS_ITS | Encounter Summary ---
:1965 Author Organization [facility] Address [address] [place] [address] Care Team Providers Name Role Phone Unavailable Primary Care Provider Unavailable Reason for Visit Reason Comments Med Change Request Encounter Details Date Type Department Care Team Description 11/30/2021 Refill Department of Neurological Melissa Murrell , Med Change Request Surgery in [place], [place], M.S . [address] [phone] (Wo rk) Social History Tobacco Use Types [...] or relatives? How often do you attend restoration or Never 2021 christian services? Do you belong to any clubs or Yes 10/25/2021 organizations such as restoration groups, unions, fraternal or athletic groups, or [...] the highest level of school Associate degree: [employer] program 10/25/2021 you have completed or the highest degree you have received? 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 [facility]5 [place], [place] 607 (Wo rk) 05/12/2022 Appointment Radiology Jammie Roca P.A.-C., M.S. [address] [place] [address] 56[address] (Wo rk) 05/12/2022 Office Visit Neurological Surgery Sheila Gamble M.D. [address] [place] [phone] (Wo rk) documented as of this encounter Visit Diagnoses Not on filedocumented in this encounter
--- OUTSIDE RECORDS SUMMARY | 2022-04-22 15:23 | XMS_ITS | Encounter Summary ---
:1965 Author Organization [facility] Address [address] [place] [address] Care Team Providers Name Role Phone Unavailable Primary Care Provider Unavailable Reason for Visit Reason Comments Med Refill Encounter Details Date Type Department Care Team Description 10/12/2021 Refill Department of Neurological Dionte Garcia P.A.-C. Med Refill Surgery in [place], [place] 1025 [facility] 1025 [place] [address] [place] [address] [phone] Social History Tobacco Use Types Packs/Day Years [...] or relatives? How often do you attend taoist or Never 2021 religion services? Do you belong to any clubs or Yes 10/25/2021 organizations such as taoist groups, unions, fraternal or athletic groups, or [...] to sleep or slept in a senior living (including now)? Education Answer Date Recorded What is the highest level of school Associate degree: yehuda patterson, 01/29/2021 you have completed or the highest technical, or vocational p leonides degree you have received? Sex Assigned at Date Recorded Female 07/14/2019 9:59 AM SUPERVISOR METAL CANS documented as of this encounter Miscellaneous Notes [...] 05/12/2022 Appointment Radiology Jammie Roca P.A.-C., M.S. [address] [place] [address] (Karlie yepez) 05/12/2022 Appointment Radiology Jammie Roca P.A.-C., M.S. [facility] [place], [place] 5[address] (Karlie yepez) 05/12/2022 Office Visit Neurological Surgery Sheila Gamble M.D. [address] [place] [phone] (Karlie yepez) documented as of this encounter Visit Diagnoses Not on filedocumented in this encounter
--- OUTSIDE RECORDS SUMMARY | 2022-04-22 15:23 | XMS_ITS | Clinical Summary ---
:1965 Author Organization [facility] Address [address] [place] [address] Care Team Providers Name Role Phone Unavailable Primary Care Provider Unavailable Source Comments Patient records contain information from all sites at [facility]. For routine questions regarding patient records, call [phone] during business hours, M-F 8:00 AM - 5:00 PM Central Time. Record requests for emergency care only can be directed to [phone] at any time.[facility] Allergies Active Allergy Reactions Severity Noted Date [...] Added automatically from request for ephraim gonzalez [id number] Apnea Sleep Obstructive 11/09/2017 Narcolepsy Without Cataplexy [...] ) 02/10/2022 Refill Neurological Surgery Dionte Garcia Md d Change Request P.A.-C. 02/08/2022 Refill Neurological Surgery Zacarias Ann, Med Refill DEPUTY CLERK, C.N.P., D.N.P. from Last 3 Months Immunizations [...] or relatives? How often do you attend hoahaoism or Never 2021 restorationism services? Do you belong to any clubs or Yes 10/25/2021 organizations such as hoahaoism groups, unions, fraternal or athletic groups, or [...] highest level of school Associate degree: academ [employer] program 10/25/2021 you have completed or the highest degree you have received? Sex Assigned at Date Recorded Female 07/14/2019 9:59 AM CONTACT LENS FLASHING PUNCHER Last Filed Vital Signs Vital Sign Reading [...] Appointment Radiology Jammie Roca P.A.-C., M.S. 1025 [place], [place] 5600 (Wo rk) 05/12/2022 Appointment Radiology Jammie Roca P.A.-C., M.S. 1025 [place], [place] 5600 (Wo rk) 05/12/2022 Office Visit Neurological Surgery Sheila Gamble M.D. 1025 [place], [place] [phone] (Wo rk) Health Maintenance Due Date [...] this topic Medical Devices Implanted Type Area Nitro Man Device Shelf Model / Identifier Expiration Serial / Lot Date Liz Meza Crn [id number] - [id number] - [id number] Bone or Anterior: Medtronic 02/15/2022 [id number] / Implanted: Qty: 1 on 08/10/2019 by Loulou Mariano M.D. at [facility] Tissue Spine [id number] / Cervical [id number] Description: C5/C6 Medtronic Zevo 3.5mm Variable Self-Tapping Screw Blue Hardware e .g. N/A: Spine Medtronic [id number] / Implanted: Qty: 6 on 08/10/2019 by Loulou Mariano M.D. at [facility] pins/screws/rods Cervical N/A / N/A Insurance Payer Benefit Plan / Subscriber ID Effective Dates Phone Addre ss Type Group MEDICA MEDICA [id number] 2018-Present [phone] [address] [address] [place] [address] Advance Directives For more information, please contact: [phone] Latest Code Status on File Code Status Date Activated Date Inactivated Comments Full Code 08/10/2019 9:51 AM 08/11/2019 1:00 PM Question Answer Comments Full Code: Not Discussed Due to: Not medically appropriate
--- OUTSIDE RECORDS SUMMARY | 2022-04-22 15:23 | XMS_ITS | Encounter Summary ---
:1965 Author Organization [facility] Address [address] [place] [address] Care Team Providers Name Role Phone Unavailable Primary Care Provider Unavailable Encounter Details Date Type Department Care Team Description 04/11/2021 Orders Only Department of Neurological Loulou Mariano M.D. Surgery in [address] [phone] [place] [address] [place] [address] [phone] Social History Tobacco Use Types Packs/Day Years [...] you attend jehovah's witness or Never 2021 anabaptist services? 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 1025 [place], [place] 5600 (Karlie yepez) 05/12/2022 Appointment Radiology Jammie Roca, P.A.-C., M.S. 1025 [place], [place] 3[address] (Karlie yepez) 05/12/2022 Office Visit Neurological Surgery Sheila Gamble M.D. [address] [place] [phone] (Karlie yepez) documented as of this encounter Visit Diagnoses Not on filedocumented in this encounter
--- OUTSIDE RECORDS SUMMARY | 2022-04-22 15:24 | XMS_ITS | Encounter Summary ---
:1965 Author Organization [facility] Address [address] [place] [address] Care Team Providers Name Role Phone Unavailable Primary Care Provider Unavailable Reason for Referral Outpatient (Routine) - Closed Specialty Diagnoses / Procedures Referred By Contact Refer red To Contact Radiology Diagnoses Radiculopathy Lumbar Randi Richards P.A.-C. [address] [place] [phone] Referral ID Status Reason Start Date Expiration Date Visits Requ ested Visits Authorized [id number] Closed 11/13/2019 11/12/2020 1 1 Reason for Visit Reason Comments Post Hospital Follow-up Outpatient (Routine) - Closed Specialty Diagnoses / Procedures Referred By Contact Refer red To Contact Neurological [facility] ZURDO, C.N.P., D.N.P., M.S.N. [address] [address] Referral ID Status Reason Start Date Expiration Date Visits Requ ested Visits Authorized [id number] Closed 08/11/2019 08/10/2020 1 1 Encounter Details Date Type Department Care Team Description 11/13/2019 Office Visit Department of Melissa Murrell P.A.-C., M.S. [address] [place] [phone] Radiculopathy Lumbar (Primary Dx); Neurological Surgery Randi Richards P.A.-C. 1025 [place] [address] Fusion Cervical Spine Status Post; [place] Stenosis Spinal Cervical 1025 [place] [address] Social History Tobacco Use Types Packs/Day [...] or relatives? How often do you attend roman catholic or Never 2021 denominational services? Do you belong to any clubs or Yes 10/25/2021 organizations such as roman catholic groups, unions, fraternal or athletic groups, or [...] the highest level of school Associate degree: [employer] program 06/26/2019 you have completed or the highest degree you have received? Sex Assigned at Date Recorded Female 07/14/2019 9:59 AM HOSPITAL NURSE LIAISON documented as of this encounter Last Filed [...] - C5-7; Surgeon: Loulou Gamble M.D.; Location: [facility] OR ??? MOUTH BIOPSY N/A [...] hours of 8am to 5pm - Tuesday-Tuesday: [phone]. After hours /weekends: [phone]. documented in this encounter Plan of Treatment Upcoming Encounters Date Type Specialty Care Team Description 05/12/2022 Appointment Radiology Jammie Roca P.A.-C., M.S. [address] [place] [address] (Karlie yepez) 05/12/2022 Appointment Radiology Jammie Roca P.A.-C., M.S. [address] [place] [address] (Karlie yepez) 05/12/2022 Office Visit Neurological Surgery Sheila Gamble M.D. 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
--- OUTSIDE RECORDS SUMMARY | 2022-04-22 15:24 | XMS_ITS | Encounter Summary ---
:1965 Author Organization [facility] Address [address] [place] [address] Care Team Providers Name Role Phone Unavailable Primary Care Provider Unavailable Reason for Referral Outpatient (Routine) - Closed Specialty Diagnoses / Procedures Referred By Contact Refer red To Contact Neurological Surgery [facility] ZURDO C.N.PLogan, D.N.P. [facility] [place] [address] Referral ID Status Reason Start Date Expiration Date Visits Requ ested Visits Authorized [id number] Closed 07/16/2020 07/16/2021 1 1 TH SYSTEMS ANALYST Reason for Visit Outpatient (Routine) - Closed Specialty Diagnoses / Procedures Referred By Contact Refer red To Contact Zacarias Ann APRN, C.NPantera, [facility] D.N.P. [address] [place] [phone] Referral ID Status Reason Start Date Expiration Date Visits Requ ested Visits Authorized [id number] Closed 06/06/2020 06/06/2021 1 1 Encounter Details Date Type Department Care Team Description 07/08/2020 Virtual Visit Department of Zacarias Ann, Little Ce rvical Spine Neurological Surgery in [place] RENNER.N.[place], [facility] ([place], [place] D.N.P. Dx) 1025 [facility] 1025 [place] [address] [place], [place] [phone] Social History Tobacco Use Types Packs/Day [...] do you attend yazidi or Never 2021 anabaptism services? Do you [...] the highest level of school Associate degree: [employer] program 06/26/2019 you have completed or the highest degree you have received? Sex Assigned at Date Recorded Female 07/14/2019 9:59 AM HEALTH SYSTEMS ANALYST documented as of this encounter Progress Notes [...] - C5-7; Surgeon: Loulou Gamble M.D.; Location: [facility] OR ??? MOUTH BIOPSY N/A 04/02/2008 >Buccal [...] hours of 8am to 5pm - Tuesday-Tuesday: [phone]. After hours /weekends: [phone]. ? A total of 14??minutes was spent on the telephone TH SYSTEMS ANALYST documented in this encounter Plan of Treatment Upcoming Encounters Date Type Specialty Care Team Description 05/12/2022 Appointment Radiology Jammie Roca PAnalisa-Katarina., M.S. [address] [place] [address] (Wo ) 05/12/2022 Appointment Radiology Jammie Roca P.A.-C., M.S. 1025 [place], [place] 5600 (Wo rk) 05/12/2022 Office Visit Neurological Surgery Sheila Gamble M.D. 1025 [place], [place] [phone] (Wo rk) Scheduled Referrals [...]
--- OUTSIDE RECORDS SUMMARY | 2022-04-22 15:24 | XMS_ITS | Encounter Summary ---
:1965 Author Organization [facility] Address [address] [place] [address] Care Team Providers Name Role Phone Unavailable Primary Care Provider Unavailable Reason for Referral Outpatient (Routine) - Closed Specialty Diagnoses / Procedures Referred By Contact Refer red To Contact Zacarias Ann APRN, C.N.PLogan, [facility] D.N.P. 1025 [place] [address] Referral ID Status Reason Start Date Expiration Date Visits Requ ested Visits Authorized [id number] Closed 06/06/2020 06/06/2021 1 1 utpatient (Routine) - Closed Specialty Diagnoses / Procedures Referred By Contact Refer red To Contact Diagnoses Pain Back Zacarias Ann APRN, [facility] Region Procedures FL Lumbar Spine Transforaminal Epidural Injection Left [place] INJ ANES FORAMEN EPI LUMB SNGL C.N.P., D.N.P. 1025 [place] [address] Referral ID Status Reason Start Date Expiration Date Visits Requ ested Visits Authorized [id number] Closed 06/06/2020 06/06/2021 1 1 NCIAL SYSTEMS DIRECTOR Reason for Visit Reason Comments Back Pain low back Outpatient (Routine) - Closed Specialty Diagnoses / Procedures Referred By Contact Refer red To Contact Neurological Surgery Denise Bates, [facility] Joe RENNERNPantera, Andrae.N.P. 10[address] [place] [address] Referral ID Status Reason Start Date Expiration Date Visits Requ ested Visits Authorized [id number] Closed 05/31/2020 05/31/2021 1 1 Encounter Details Date Type Department Care Team Description 06/06/2020 Office Visit Department of Zacarias Ann, Pain Back (Primary Dx) Neurological Surgery in [place] RADIOGRAP[place], [place] D.N.P. [address] [address] [place], [place] [phone] Social History Tobacco Use Types Packs/Day [...] or relatives? How often do you attend pentecostal or Never 2021 sikh services? Do you belong to any clubs or Yes 10/25/2021 organizations such as pentecostal groups, unions, fraternal or athletic groups, or [...] highest level of school Associate degree: academ [employer] program 06/26/2019 you have completed or the highest degree you have received? Sex Assigned at Date Recorded Female 07/14/2019 9:59 AM FINANCIAL SYSTEMS DIRECTOR documented as of this encounter Last Filed Vital Signs Vital Sign Reading Time Taken Comments Blood Pressure 138/70 06/06/2020 10:13 AM FINANCIAL SYSTEMS DIRECTOR Pulse 78 06/06/2020 10:13 AM FINANCIAL SYSTEMS DIRECTOR Temperature 36.7 ??C (98 ??F) 06/06/2020 10:13 AM FINANCIAL SYSTEMS DIRECTOR Respiratory Rate - - Oxygen Saturation - - Inhaled Oxygen Concentration - - Weight 68 kg (150 lb) 06/06/2020 10:13 AM FINANCIAL SYSTEMS DIRECTOR Height 160 cm (5' 3) 06/06/2020 10:13 AM FINANCIAL SYSTEMS DIRECTOR Body Mass Index 26.57 06/06/2020 10:13 AM FINANCIAL SYSTEMS DIRECTOR documented in this encounter Progress Notes Zacairas Ann, ZURDO, C.N.P., D.N.P. - 06/06/2020 10:15 [...] - C5-7; Surgeon: Loulou Gamble M.D.; Location: [facility] OR ??? MOUTH BIOPSY N/A 04/02/2008 [...] hours of 8am to 5pm - Tuesday-Tuesday: [phone]. After hours /weekends: [phone]. NCIAL SYSTEMS DIRECTOR documented in this encounter Plan of Treatment Upcoming Encounters Date Type Specialty Care Team Description 05/12/2022 Appointment Radiology Jammie Roca P.A.-C., M.S. 1025 [place], [place] [address] (Wo rk) 05/12/2022 Appointment Radiology Jammie Roca P.A.-C., M.S. 1025 [place], [place] 56[address] (Wo rk) 05/12/2022 Office Visit Neurological Surgery Sheila Gamble M.D. 10[address] [place], [place] [phone] (Karlie rk) Scheduled Referrals Name Type Priority Associated Diagnoses Order S chedule NonF2F phone Outpatient Referral Routine 1 Occurr ences visit starting 2019 until 3 documented as of this encounter Results FL Lumbar Spine Transforaminal Epidural Injection Left (06/17/2020 12:43 PM FINANCIAL SYSTEMS DIRECTOR) Specimen (Source) Anatomical Collection Method Collection Time Re ceived Time Location / / Volume Laterality 06/17/2020 12:52 PM FINANCIAL SYSTEMS DIRECTOR Impressions [id number] - 06/17/2020 12:52 PM FINANCIAL SYSTEMS DIRECTOR Successful fluoroscopic guided left L4-5 transforaminal epidural steroid injection. Narrative [id number] - 06/17/2020 12:52 PM FINANCIAL SYSTEMS DIRECTOR EXAM: FL LUMBAR SPINE TRANSFORAMINAL EPIDURAL INJECTION [...] P atient education provided by the care assembler steam and gas turbine. Ready to learn, no apparent learning barriers [...] P atient education provided by the care assembler steam and gas turbine. Ready to learn, no apparent learning barriers were identified. Post-procedure care explained; patient e xpressed understanding of the content. IMPRESSION: Successful fluoroscopic guided left L4-5 transforaminal epidural steroid injection. Zacarias Ann APRN, C.N.P., D.N.P. IMG FLUOROSCOPY W[place] OCEDURES Performing Organization Address City/State/ZIP Code Phon e Number [id number] NA documented in this encounter Visit Diagnoses Diagnosis Pain Back - Primary Pain Back documented in this encounter
--- OUTSIDE RECORDS SUMMARY | 2022-04-22 15:24 | XMS_ITS | Encounter Summary ---
:1965 Author Organization [facility] Address [address] [place] [address] Care Team Providers Name Role Phone Unavailable Primary Care Provider Unavailable Reason for Referral Outpatient (Routine) - Closed Specialty Diagnoses / Procedures Referred By Contact Refer red To Contact Diagnoses Radiculopathy Lumbar Loulou Gamble M.D. [place] [facility] Procedures [facility] 1025 [place] [address] Referral ID Status Reason Start Date Expiration Date Visits Requ ested Visits Authorized [id number] Closed 04/01/2021 04/01/2022 1 1 Outpatient (Routine) - Closed Specialty Diagnoses / Procedures Referred By Contact Refer red To Contact Neurological Surgery Loulou Gamble [facility] M.D. 10[address] [place] [address] Referral ID Status Reason Start Date Expiration Date Visits Requ ested Visits Authorized [id number] Closed 04/01/2021 04/01/2022 1 1 Outpatient (Routine) - Closed Specialty Diagnoses / Procedures Referred By Contact Refer red To Contact Diagnoses Radiculopathy Lumbar Loulou Gamble M.D. [facility] Region Procedures FL Lumbar Spine Transforaminal Epidural Injection Left [place] INJ ANES FORAMEN EPI LUMB SNGL 1025 [place] [address] Referral ID Status Reason Start Date Expiration Date Visits Requ ested Visits Authorized [id number] Closed 04/01/2021 06/19/2021 1 1 Reason for Visit Reason Comments Follow-up Discuss updated MRI and plan moving forward, Hx 08/10/2019 ACDF Outpatient (Routine) - Closed Specialty Diagnoses / Procedures Referred By Contact Refer red To Contact Neurological Surgery Loulou Gamble [facility] M.D. [address] [place] [phone] Referral ID Status Reason Start Date Expiration Date Visits Requ ested Visits Authorized [id number] Closed 01/30/2021 01/30/2022 1 1 Encounter Details Date Type Department Care Team Description 04/01/2021 Office Visit Department of Loulou Gamble Radiculopath y Lumbar Neurological Surgery Ngoc Jeff (Primary Dx) in [address] [phone] Social History Tobacco Use Types Packs/Day Years [...] or relatives? How often do you attend yazidism or Never 2021 yarsanism services? Do you belong to any clubs or Yes 10/25/2021 organizations such as yazidism groups, unions, fraternal or athletic groups, or [...] at Date Recorded Female 07/14/2019 9:59 AM DIRECTOR STUDENT UNION documented as of this encounter Last Filed [...] Surgeon: Loulou Gamble M.D.; Location: [facility] OR ??? MOUTH BIOPSY N/A 04/02/2008 [...] 05/12/2022 Appointment Radiology Jammie Roca P.A.-C., M.S. [facility]5 [place], [place] [address] (Wo rk) 05/12/2022 Appointment Radiology Jammie Roca P.A.-C., M.S. [facility]5 [place], [place] [address] (Wo rk) 05/12/2022 Office Visit Neurological Surgery Sheila Gamble M.D. [address] [place] [phone] (Wo rk) Scheduled Referrals Name [...] ? Final Report Study Number: 1 EMG Machine Sweeper Brush Maker: Domi Meneses [id number] or [id number] Referred by: LOULOU GAMBLE () Referred for: [...] root compression. ?? Hari Meneses (127 or [phone]) /G NERVE CONDUCTIONS ??Record Rep ?? Normal [...] Final Repor t Study Number: 1 EMG Machine Sweeper Brush Maker: Domi Meneses 127 or [id number] Referred by: LOULOU GAMBLE () Referred for: [...] nerve root compression. Hari Meneses (127 or [phone]) /[facility] NERVE CONDUCTIONS Record Rep Normal Normal [...]
--- OUTSIDE RECORDS SUMMARY | 2022-04-22 15:24 | XMS_ITS | Encounter Summary ---
:1965 Author Organization [facility] Address [address] [place] [address] Care Team Providers Name Role Phone Unavailable Primary Care Provider Unavailable Reason for Referral Outpatient (Routine) - Closed Specialty Diagnoses / Procedures Referred By Contact Refer red To Contact Neurological Surgery Loulou Gamble [facility] M.D. [address] [place] [address] Referral ID Status Reason Start Date Expiration Date Visits Requ ested Visits Authorized [id number] Closed 01/30/2021 01/30/2022 1 1 Outpatient (Routine) - Closed Specialty Diagnoses / Procedures Referred By Contact Refer red To Contact Diagnoses Radiculopathy Lumbar Loulou Gamble M.D. [address] [place] [address] Referral ID Status Reason Start Date Expiration Visits Visits Date Requested Authorized [id number] Closed Patient 01/30/2021 01/30/2022 1 1 Preference Reason for Visit Reason Comments Follow-up C5-7 ACDF 08/10/2019 - f/u to discuss pain Outpatient (Routine) - Closed Specialty Diagnoses / Procedures Referred By Contact Refer red To Contact Neurological Surgery [facility] Lacy HOME SERVICE TECHNICIAN, C.N.P., D.N.P. [address] [place] [address] Referral ID Status Reason Start Date Expiration Date Visits Requ ested Visits Authorized [id number] Closed 07/16/2020 07/16/2021 1 1 Encounter Details Date Type Department Care Team Description 01/30/2021 Office Visit Department of Loulou Gamble Radiculopath y Lumbar Neurological Surgery Ngoc Jeff (Primary Dx) in [place] [id number] [place] [address] [place] [phone] Social History Tobacco Use Types Packs/Day Years [...] do you attend taoist or Never 2021 mosque services? 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 MOUTH BIOPSY N/A 04/02/2008 [...] 05/12/2022 Appointment Radiology Jammie Roca P.A.-C., M.S. [facility]5 [place], [place] [address] (Karlie yepez) 05/12/2022 Appointment Radiology Jammie Roca P.A.-C., M.S. 10[address] [place], [place] [address] (Karlie yepez) 05/12/2022 Office Visit Neurological Surgery Sheila Gamble M.D. [address] [place], [place] [phone] (Karlie yepez) Scheduled Referrals Name Type Priority Associated Order Schedule Diagnoses Neurological Surgery Outpatient Referral Routine Expected: office visit (clinic) 2020 (Approximate), Expires: 01/31/2024 documented as of this encounter Visit Diagnoses Diagnosis Radiculopathy Lumbar - Primary documented in this encounter
--- OUTSIDE RECORDS SUMMARY | 2022-04-22 15:24 | XMS_ITS | Encounter Summary ---
:1965 Author Organization [facility] Address [address] [place] [address] Care Team Providers Name Role Phone Unavailable Primary Care Provider Unavailable Encounter Details Date Type Department Care Team Description 11/13/2019 Hospital Encounter Department of Shi Mijares is Spinal Cervical; Radiology, [facility], ZURDO, C.N.P., Vannessa drummond Cervical Spine Status Post; Hospital, in D.N.P., M.S.N. Cyst Pituitary (HCC) [address] [place], [place] [phone] Social History Tobacco Use Types Packs/Day [...] or relatives? How often do you attend anglican or Never 2021 baptism services? Do you belong to any clubs or Yes 10/25/2021 organizations such as anglican groups, unions, fraternal or athletic groups, or [...] the highest level of school Associate degree: [employer] program 06/26/2019 you have completed or the highest degree you have received? Sex Assigned at Date Recorded Female 07/14/2019 9:59 AM BI TRI OPERATOR documented as of this encounter Medications [...] Appointment Radiology Jammie Roca P.A.-C., M.S. [address] [place], [place] [address] (Wo rk) 05/12/2022 Appointment Radiology Jammie Roca P.A.-C., M.S. [address] [place], [place] [address] (Wo rk) 05/12/2022 Office Visit Neurological Surgery Sheila Gamble M.D. [address] [place], [place] [phone] (Wo rk) documented as [...]
--- OUTSIDE RECORDS SUMMARY | 2022-04-22 15:24 | XMS_ITS | Encounter Summary ---
:1965 Author Organization [facility] Address [address] [place] [address] Care Team Providers Name Role Phone Unavailable Primary Care Provider Unavailable Encounter Details Date Type Department Care Team Description 12/19/2020 Clinical Communication Department of Loulou Gamble Neurological Surgery in [place] [address] [phone] Social History Tobacco Use Types Packs/Day Years [...] do you attend zoroastrianism or Never 2021 christianity services? Do you [...] the highest level of school Associate degree: [employer] program 06/26/2019 you have completed or the highest degree you have received? Sex Assigned at Date Recorded Female 07/14/2019 9:59 AM REGIONAL MAINTENANCE MANAGER documented as of this encounter Miscellaneous [...] 05/12/2022 Appointment Radiology Jammie Roca P.A.-Katarina., M.S. [address] [place] [address] (Wo rk) 05/12/2022 Appointment Radiology Jammie Roca P.A.-C., M.S. [address] [place], [place] [address] (Karlie yepez) 05/12/2022 Office Visit Neurological Surgery Sheila Gamble M.D. [address] [place], [place] [phone] (Karlie yepez) documented as [...]
--- OUTSIDE RECORDS SUMMARY | 2022-04-22 15:24 | XMS_ITS | Encounter Summary ---
:1965 Author [facility] Address [address] [place] [address] Care Team Providers Name Role Phone Unavailable Primary Care Provider Unavailable Encounter Details Date Type Department Care Team Description 01/30/2021 Hospital Encounter Department of Reigel, Zacarias Fusion Cervical Spine Status Post; Radiology, [facility], in C.N.P., D.N.P. [address] [phone] Social History Tobacco Use Types Packs/Day Years [...] do you attend zoroastrian or Never 2021 samaritan services? Do you belong to any clubs or Yes 10/25/2021 organizations such as zoroastrian groups, unions, fraternal or athletic groups, or school groups? 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 [address] [place], [place] [address] (Wo rk) 05/12/2022 Appointment Radiology Jammie Roca P.A.-C., M.S. [address] [place], [place] [address] (Wo rk) 05/12/2022 Office Visit Neurological Surgery Sheila Gamble M.D. [address] [place], [place] [phone] (Wo rk) documented as [...] apices are clear. Procedure Note Arnoldo Garcia D.Zac - 01/30/2021 EXAM: DX CERVICAL SPINE [...]
--- OUTSIDE RECORDS SUMMARY | 2022-04-22 15:24 | XMS_ITS | Encounter Summary ---
:1965 Author Organization [facility] Address [address] [place] [address] Care Team Providers Name Role Phone Unavailable Primary Care Provider Unavailable Encounter Details Date Type Department Care Team Description 04/01/2021 Hospital Encounter Department of Loulou Gamblecu lopathy [facility], [facility], in [address] [place], [place] [address] [place], [place] [phone] [address] (Work) [phone] Social History Tobacco Use Types Packs/Day Years [...] do you attend jainism or Never 2021 orthodox services? 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 [address] [place], [place] [address] (Karlie yepez) 05/12/2022 Appointment Radiology Jammie Roca P.A.-C., M.S. [address] [place], [place] [address] (Karlie yepez) 05/12/2022 Office Visit Neurological Surgery Sheila Gamble M.D. [address] [place], [place] [phone] (Wo ) documented as [...]
--- OUTSIDE RECORDS SUMMARY | 2022-04-22 15:24 | XMS_ITS | Encounter Summary ---
:1965 Author Organization [facility] Address [address] [place] [address] Care Team Providers Name Role Phone Unavailable Primary Care Provider Unavailable Reason for Referral Outpatient (Routine) - Closed Specialty Diagnoses / Procedures Referred By Contact Refer red To Contact Diagnoses Pain Back Zacarias Ann APRN, [facility] Region Procedures FL Lumbar Spine Transforaminal Epidural Injection Left ND INJ ANES FORAMEN EPI LUMB SNGL C.N.P., D.N.P. [address] [place] [address] Referral ID Status Reason Start Date Expiration Date Visits Requ ested Visits Authorized [id number] Closed 06/06/2020 06/06/2021 1 1 L POURER Reason for Visit Outpatient (Routine) - Closed Specialty Diagnoses / Procedures Referred By Contact Refer red To Contact Diagnoses Pain Back Zacarias Ann APRN, [facility] Region Procedures FL Lumbar Spine Transforaminal Epidural Injection Left ND INJ ANES FORAMEN EPI LUMB SNGL C.N.P., D.N.P. [address] [place] [address] Referral ID Status Reason Start Date Expiration Date Visits Requ ested Visits Authorized [id number] Closed 06/06/2020 06/06/2021 1 1 Encounter Details Date Type Department Care Team Description 06/17/2020 Hospital Encounter Department of Radiology, Zacarias Yo APRN, C.N.P., D.N.P. [address] [place] [address] Pain Back [facility], in Igor Mason M.D. [address] [place] [address] [place], [place] [address] [place] [phone] Social History Tobacco Use Types Packs/Day [...] you attend roman catholic or Never 2021 hoahaoism services? Do you belong to any clubs [...] place to sleep or slept in a jail (including now)? Education Answer Date Recorded What is the highest level of school Associate degree: [employer] program 06/26/2019 you have completed or the highest degree you have received? 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 [address] [place] [address] (Wo rk) 05/12/2022 Appointment Radiology Jammie Roca P.A.-C., M.S. [address] [place], [place] [address] (Karlie yepez) 05/12/2022 Office Visit Neurological Surgery Sheila Gamble M.D. [address] [place], [place] [phone] (Karlie yepez) documented as of this encounter Procedures Procedure Name Priority Date/Time Associated Comments Diagnosis FL LUMBAR SPINE RAD - Routine 06/17/2020 12:43 Pain Back Results for TRANSFORAMINAL (most inpatients PM METAL POURER this proc edure EPIDURAL INJECTION and all are in th e LEFT outpatients) results section. documented in this encounter Results FL Lumbar Spine Transforaminal Epidural Injection Left (06/17/2020 12:43 PM METAL POURER) Specimen (Source) Anatomical Collection Method Collection Time Re ceived Time Location / / Volume Laterality 06/17/2020 12:52 PM METAL POURER Impressions [id number] - 06/17/2020 12:52 PM METAL POURER Successful fluoroscopic guided left L4-5 transforaminal epidural steroid injection. Narrative [id number] - 06/17/2020 12:52 PM METAL POURER EXAM: FL LUMBAR SPINE TRANSFORAMINAL EPIDURAL INJECTION [...] P atient education provided by the care engineering team supervisor. Ready to learn, no apparent learning barriers [...] P atient education provided by the care engineering team supervisor. Ready to learn, no apparent learning barriers were identified. Post-procedure care explained; patient e xpressed understanding of the content. IMPRESSION: Successful fluoroscopic guided left L4-5 transforaminal epidural steroid injection. Joe Zarate APRNNLoganPLogan, D.N.P. IMG FLUOROSCOPY ND OCEDURES Performing Organization Address City/State/ZIP Code Phon e Number [id number] NA documented in this encounter Visit Diagnoses Diagnosis Pain Back documented in this encounter Administered Medications Inactive Administered Medications - up to 3 most recent administrations Medication Order MAR Action Action Date Dose Rate Site dexAMETHasone injection 10 mg Given 06/17/2020 12:36 PM METAL POURER 10 m g (DECADRON) 10 mg, injection, Once, On Tue06/17/20 at 1245, For 1 dose iohexoL 300 mg iodine/mL solution 10 mL Given 06/17/2020 12:35 P M METAL POURER 3 mL (OMNIPAQUE) 10 mL, injection, Once in imaging, contrast, Starting on Tue06/17/20 at 1232, For 1 dose, If administered oral then dilute in 900 mL water lidocaine 10 mg/mL (1 %) injection 5 mL Given 06/17/2020 12:34 P M METAL POURER 3 mL (XYLOCAINE) 5 mL, injection, Once, On Tue06/17/20 at 1245, For 1 dose documented in this encounter
--- OUTSIDE RECORDS SUMMARY | 2022-04-22 15:24 | XMS_ITS | Encounter Summary ---
:1965 Author Organization [facility] Address [address] [place] [address] Care Team Providers Name Role Phone Unavailable Primary Care Provider Unavailable Encounter Details Date Type Department Care Team Description 12/13/2019 Clinical Communication Department of Randi Richards Neurological Surgery in , P.A.- [address] [address] [phone] Social History Tobacco Use Types Packs/Day Years [...] do you attend adventism or Never 2021 spiritism services? Do you [...] the highest level of school Associate degree: [employer] program 06/26/2019 you have completed or the highest degree you have received? 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 After hours /weekends: [phone]. documented in this encounter Plan of Treatment Upcoming Encounters Date Type Specialty Care Team Description 05/12/2022 Appointment Radiology Jammie Roca P.A.-C., M.S. [address] [place] [address] (Wo rk) 05/12/2022 Appointment Radiology Jammie Roca P.A.-C., M.S. [address] [place] [address] (Wo rk) 05/12/2022 Office Visit Neurological Surgery Sheila Gamble M.D. [address] [place] [phone] (Wo rk) documented as of this encounter Visit Diagnoses Not on filedocumented in this encounter
--- OUTSIDE RECORDS SUMMARY | 2022-04-22 15:24 | XMS_ITS | Encounter Summary ---
:1965 Author Organization [facility] Address [address] [place] [address] Care Team Providers Name Role Phone Unavailable Primary Care Provider Unavailable Reason for Visit Physical Therapy (Routine) - Closed Specialty Diagnoses / Procedures Referred By Contact Refer red To Contact Diagnoses Stenosis Spinal Cervical Fusion Cervical Spine Status Post Loulou Gamble [facility] Procedures PT Evaluate and treat [address] [place] [address] Referral ID Status Reason Start Date Expiration Date Visits Requ ested Visits Authorized [id number] Closed 09/12/2019 09/11/2020 1 1 Encounter Details Date Type Department Care Team Description 11/26/2019 Comprehensive Visit Department of Physical Loulou Mariano M.D. [address] [place] [phone] Stenosis Spinal Cervical; Medicine and Jessica Finley, PGregoria, D.P.T. [address] [place] [phone] Fusion Cervical Spine Status Post Rehabilitation in [place], [place] [address] [place] [address] Social History Tobacco Use Types Packs/Day [...] or relatives? How often do you attend scientology or Never 2021 jewish services? Do you belong to any clubs or Yes 10/25/2021 organizations such as scientology groups, unions, fraternal or athletic groups, or [...] place to sleep or slept in a assisted (including now)? Education Answer Date Recorded What is the highest level of school Associate degree: [employer] program 06/26/2019 you have completed or the highest degree you have received? 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 - 11/26/2019 2:00 PM CDT Consults [facility] Cervical Initial Evaluation Patient Name: Minerva Ramesh Date of Evaluation: 11/26/2019 Referring Provider: Loulou Gamble M.D. [address] [place] [address] Rehab Diagnosis: 1. Stenosis Spinal Cervical 2. [...] Detected on screening test performed by insurance [employer], stress test performed 2015 negative ??? Cyst [...] - C5-7; Surgeon: Loulou Gamble M.D.; Location: [facility] OR ??? 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 Patient is limited in participation of recreational [...] 5/5 Little Finger Adduction (T1) 5/5 5/5 Remedial Teacher Strength Symmetrical Symmetrical Standard testing positions unless [...] pain Home Exercise Program: 11/26/2019: Access Code: [email or web address] URL: [email or web address] Date: 11/26/2019 Prepared by: Jessica Finley Program [...] Appointment Radiology Jammie Roca P.A.-C., M.S. [address] [place] [address] (Wo rk) 05/12/2022 Appointment Radiology Jammie Roca P.A.-Katarina., M.S. [address] [place] [address] (Wo rk) 05/12/2022 Office Visit Neurological Surgery Sheila Gamble M.D. [address] [place] [phone] (Wo rk) documented as of this encounter Visit Diagnoses Diagnosis Stenosis Spinal Cervical Fusion Cervical Spine Status Post documented in this encounter
--- OUTSIDE RECORDS SUMMARY | 2022-04-22 15:25 | XMS_ITS | Encounter Summary ---
:1965 Author Organization [facility] Address [address] [place] [address] Care Team Providers Name Role Phone Unavailable Primary Care Provider Unavailable Encounter Details Date Type Department Care Team Description 07/15/2019 Clinical Communication Department of Bi Alamo Neurological Surgery [place] in [facility] a [address] [facility] [address] [place] [address] [place] [address] [phone] Social History Tobacco Use Types Packs/Day Years [...] do you attend yazidi or Never 2021 jew services? Do you belong to any clubs [...] the highest level of school Associate degree: [employer] program 06/26/2019 you have completed or the highest degree you have received? Sex Assigned at Date Recorded Female 07/14/2019 9:59 AM MANAGER GRANT documented as of this encounter Miscellaneous Notes Telephone Encounter - Bi Alamo M.D. - 07/15/2019 11:18 AM MANAGER GRANT Telephone call to Mrs. Ramesh. Unfortunately Dr. Gamble will be unable to perform surgery tomorrow. I discussed with the patient that we will try and reschedule within the next 1-2 weeks based on her availability as well as Dr. Gamble's recovery. All questions were answered GER GRANT documented in this encounter Plan of Treatment Upcoming Encounters Date Type Specialty Care Team Description 05/12/2022 Appointment Radiology Jammie Roca P.A.-Katarina., M.S. [address] [place], [place] [address] (Karlie yepez) 05/12/2022 Appointment Radiology Jammie Roca P.A.-C., M.S. [address] [place], [place] [address] (Karlie yepez) 05/12/2022 Office Visit Neurological Surgery Sheila Gamble M.D. [address] [place], [place] [phone] (Karlie yepez) documented as of this encounter Visit Diagnoses Not on filedocumented in this encounter
--- OUTSIDE RECORDS SUMMARY | 2022-04-22 15:25 | XMS_ITS | Encounter Summary ---
:1965 Author Organization [facility] Address [address] [place] [address] Care Team Providers Name Role Phone Unavailable Primary Care Provider Unavailable Reason for Referral Outpatient (Routine) - Closed Specialty Diagnoses / Procedures Referred By Contact Refer red To Contact Neurological Surgery Shi Mijares [facility] ZURDO C.N.P., D.N.P., M.S.N. [address] [place] [address] Referral ID Status Reason Start Date Expiration Date Visits Requ ested Visits Authorized [id number] Closed 08/11/2019 08/10/2020 1 1 ELIGIBILITY Outpatient (Routine) - Closed Specialty Diagnoses / Procedures Referred By Contact Refer red To Contact Neurological Surgery Shi Mijares [facility] ZURDO, C.N.P., D.N.P., M.S.N. 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 Fusion Cervical Spine Status Post; Hospital, Second [address] [facility] Cyst Pituitary (HCC) Floor [place], [place] [address] [facility] [address] [place], [place] [phone] [address] (Work) [phone] Social History Tobacco Use Types Packs/Day Years [...] or relatives? How often do you attend baptism or Never 2021 evangelical services? Do you belong to any clubs or Yes 10/25/2021 organizations such as baptism groups, unions, fraternal or athletic groups, or [...] the highest level of school Associate degree: [employer] program 06/26/2019 you have completed or the highest degree you have received? Sex Assigned at Date Recorded Female 07/14/2019 9:59 AM RN ELIGIBILITY documented as of this encounter Last Filed Vital Signs Vital Sign Reading Time Taken Comments Blood Pressure 148/89 08/11/2019 6:15 AM RN ELIGIBILITY Pulse 86 08/11/2019 6:15 AM RN ELIGIBILITY Temperature 36.9 ??C (98.4 ??F) 08/11/2019 6:15 AM RN ELIGIBILITY Respiratory Rate 15 08/11/2019 6:15 AM RN ELIGIBILITY Oxygen Saturation 97% 08/11/2019 6:15 AM RN ELIGIBILITY Inhaled Oxygen Concentration - - Weight 68.9 kg (151 lb 14.4 oz) 08/10/2019 9:20 AM RN ELIGIBILITY Height 157.5 cm (5' 2) 08/10/2019 9:20 AM RN ELIGIBILITY Body Mass Index 27.78 08/10/2019 9:20 AM RN ELIGIBILITY documented in this encounter Medications at Time [...] AT DISCHARGE stable TREATMENTS Wound care DEVICES/EQUIPMENT [facility] PROFESSIONAL SKILLED SERVICES None MODE OF DISCHARGE Wheelchair TRANSPORTATION Private Vehicle ACCOMPANIED BY SALES TRAINEE, daughter All belongings sent home with patient. [...] clean, dry and intact. No new complaints. ELIGIBILITY Oumou Bedolla R.N. - 08/10/2019 6:57 PM [...] unsteadiness. She has voided since coats removal. ELIGIBILITY documented in this encounter OR Notes Op [...] * Denise Bates APRN, C.N.P., D.N.P. - Stepdown Nurse Anesthesia Type General Pre-operative Diagnosis Stenosis Spinal [...] and she was positioned supine on the [facility] table with care to padall pressure [...] x-ray confirmed the 5-6 disc space and [place] pins were placed in C5 and C6. [...] mm graft and inserted this. The C5 [place] pin was then removed and placed in [...] by a Prineo dressing with dermabond. A Calaveras J hard cervical collar was put in [...] 10 Fr. Size (mm): Size (In): Drain [place] Size (mL): 400 mL Number of Sutures [...] Implant Name Type Inv. Item Serial No. Patent Lawyer Lot No. LRB No. Used Action WAX BN NBLBL 2.5GR - [facility] - [id number] Hardware e.g. pins/screws/rods WAX BN NBLBL 2.5GR NA Surgical Specialties [id number] Anterior 1 Implanted GRFT ANCELMO CANC CRN [id number] - [id number] - [id number] Bone or Tissue GRFT ANCELMO CANC CRN [id number] [employer] NA Anterior 1 Implanted GRFT ANCELMO CANC CRN [id number] - [id number] - [id number] Bone or Tissue [facility] [id number] Medtronic [id number] Anterior 1 Implanted 39MM 2 LEVEL PLATE, [...] 0.9 % injection 10 mL Given Chantel Gmable 08/10/2019 1353 bacitracin 50,000 Units in NaCl 0.9 % 1,000 mL irrigation 1,000 mL irrigation GivenMuChantel patino M.D. ELIGIBILITY Brief Op Note - Loulou Gamble M.D. - 08/10/2019 1:45 PM CST BRIEF OP NOTE Procedure(s): FUSION SPINE ANTERIOR CERVICAL AND DISCECTOMY - C5-7 Surgeon(s) and Role: * Loulou Gamble M.D. - Primary * Denise Bates APRN, C.N.P., D.N.P. - Stepdown Nurse An advanced practice provider assisted me during [...] 10 Fr. Size (mm): Size (In): Drain [place] Size (mL): 400 mL Number of Sutures [...] Implant Name Type Inv. Item Serial No. Patent Lawyer Lot No. LRB No. Used Action WAX BN NBLBL 2.5GR - SNA - [id number] Hardware e.g. pins/screws/rods WAX BN NBLBL 2.5GR NA Surgical Specialties [id number] Anterior 1 Implanted GRFT ANCELMO CANC CRN [id number] - [id number] - [id number] Bone or Tissue GRFT ANCELMO CANC CRN [id number] Medtronic NA Anterior 1 Implanted GRFT ANCELMO CANC CRN [id number] - [id number] - [id number] Bone or Tissue GRFT ANCELMO CANC CRN [id number] Medtronic [id number] Anterior 1 Implanted 39MM 2 LEVEL PLATE, [employer] ZEVO Hardware e.g. pins/screws/rods N/A Medtronic N/A N/A 1 Implanted MEDTR[employer]IC ZEVO 3.5MM VARIABLE SELF-TAPPING SCREW BLUE Hardware e.g. pins/screws/rods N/A Medtronic N/A N/A 6 Implanted Loulou Gamble M.D. ELIGIBILITY documented in this encounter Miscellaneous Notes Hospital Course - Shi Mijares APRN, C.N.P. - 08/11/2019 8:56 AM RN ELIGIBILITY The patient underwent Fusion Cervical Spine Status [...] and been given opportunity to ask questions. ELIGIBILITY documented in this encounter Plan of Treatment Upcoming Encounters Date Type Specialty Care Team Description 05/12/2022 Appointment Jammie Richey P.A.-C., M.S. [address] [place] [address] (Wo rk) 05/12/2022 Appointment Radiology Jammie Roca P.A.-C., M.S. [address] [place], [place] [address] (Wo rk) 05/12/2022 Office Visit Neurological Surgery Sheila Gamble M.D. [address] [place], [place] [phone] (Wo rk) Scheduled Referrals [...] for this 2-3 VIEWS (most inpatients AM RN ELIGIBILITY procedure a re in and all the results outpatients) section. ADULT OXYGEN Routine 08/10/2019 5:29 THERAPY PM RN ELIGIBILITY ADULT OXYGEN Routine 08/10/2019 5:29 THERAPY PM RN ELIGIBILITY FL FLUORO LESS RAD - Routine 08/10/2019 3:32 Results f or this THAN 1 HOUR (most inpatients PM RN ELIGIBILITY procedure a re in and all the results outpatients) section. FUSION SPINE 08/10/2019 1:03 Stenosis Spinal ANTERIOR CERVICAL PM RN ELIGIBILITY Cervical AND DISCECTOMY Case Notes HUMBERTO (11'S) / DONIS (#4 CA LL) Special Needs R/S update sent 07/03/2019 VINH Raman updated on time change 07/13/2001 CJKR/s 1.27.20 [employer] notified OCTAVIO documented in this encounter Results [...] Cervical Spine 2-3 Views (08/11/2019 6:37 AM RN ELIGIBILITY) Anatomical Region Laterality Modality Cervical Spine, Musculoskeletal RST LOS, N/A Digital Radiography Neuroradiology ARZ LOS, Muskuloskeletal FLA LOS Specimen (Source) Anatomical Collection Method Collection Time Re ceived Time Location / / Volume Laterality 08/11/2019 7:41 AM RN ELIGIBILITY Impressions 08/11/2019 7:42 AM RN ELIGIBILITY Status post anterior fixation/discectomy/intervertebral fusion, C5-C7 vertebra. Narrative 08/11/2019 7:42 AM RN ELIGIBILITY EXAM: DX CERVICAL SPINE 2-3 VIEWS COMPARISON: [...] fixation/discectomy /intervertebral fusion, C5-C7 vertebra. Denise Bates APRN C.N.P., D.N.P. IMG DIAGNOSTIC I MAGING PROCEDURES FL Fluoro Less Than 1 Hour (08/10/2019 3:32 PM RN ELIGIBILITY) Specimen (Source) Anatomical Location Collection Method / Collectio n Time Received Time / Laterality Volume Narrative [facility] - 08/10/2019 3:33 PM RN ELIGIBILITY This exam does not require a radiologist review or interpretation. Please refer to the patient's medical record on this date for clinical details. Loulou OJEDA FLUOROSCOPY PROCEDURES Performing Organization Address City/State/ZIP Code Phon e Number [phone] [facility] documented in this encounter Visit Diagnoses [...] tablet 1,000 mg Given 08/10/2019 10:44 AM RN ELIGIBILITY 1,00 0 mg (TYLENOL) 1,000 mg, oral, Once, On Tue08/10/19 at 1030, For 1 dose, Pre-Op acetaminophen tablet 1,000 mg (TYLENOL) Given 08/11/2019 5:50 AM RN ELIGIBILITY 1,000 mg 1,000 mg, oral, Every 8 hours scheduled, First dose on Tue08/10/19 at 1900 Given 08/10/2019 7:09 PM RN ELIGIBILITY 1,000 mg benzocaine-menthoL 15-3.6 mg per lozenge 1 Given 08/11 5:51 AM RN ELIGIBILITY 1 lozenge lozenge (CEPACOL) 1 lozenge, oral, As needed, sore throat, throat irritation, Starting on Tue08/10/19 at 1728 Given 08/11/2019 12:24 AM RN ELIGIBILITY 1 lozenge ceFAZolin in dextrose (iso-os) IVPB 2 New Bag 08/11/2019 5:51 AM RN ELIGIBILITY 2 g 200 mL/hr g (ANCEF) 2 [...] Prophylaxis, surgical New Bag 08/10/2019 8:34 PM RN ELIGIBILITY 2 g 200 mL/hr celecoxib capsule 400 mg (CeleBREX) Given 08/10/2019 10:44 AM RN ELIGIBILITY 400 mg 400 mg, oral, Once, On Tue08/10/19 at 1030, For 1 dose, Pre-Op lactated ringers Rate/Dose Change 08/10/2019 3:44 PM RN ELIGIBILITY 700 mL/hr 100 mL/hr, intravenous, Continuous, Starting on Tue08/10/19 at 1030, Pre-Op Rate/Dose Verify 08/10/2019 1:03 PM RN ELIGIBILITY 100 mL/hr New Bag 08/10/2019 10:44 AM RN ELIGIBILITY 100 mL/hr 100 mL/hr NaCl 0.9% infusion Rate/Dose Verify 08/10/2019 9:57 PM RN ELIGIBILITY 80 mL/hr 80 mL/hr 80 mL/hr, intravenous, Continuous, Starting on Tue08/10/19 at 1730, Discontinue IV fluids once patient is tolerating oral intake of greater than 500 mL New Bag 08/10/2019 6:33 PM RN ELIGIBILITY 80 mL/hr 80 mL/hr oxyCODONE IR tablet 10 mg (ROXICODONE) Given 08/11/2019 9:03 AM RN ELIGIBILITY 10 mg 10 mg, oral, Every 4 hours PRN, moderate pain or score 4-6 of 10, severe pain or score 7-10 of 10, or for pain greater than comfort goal, Starting on Tue08/10/19 at 1728 Given 08/11/2019 4:30 AM RN ELIGIBILITY 10 mg Given 08/11/2019 12:23 AM RN ELIGIBILITY [address] tablet 40 mg (PROTONIX) Given 08/11/2019 5:51 AM RN ELIGIBILITY 40 mg 40 mg, oral, Daily before breakfast, First dose on 08/11/19 at 0700, Swallow whole. Do NOT crush, chew, or split tablet. sennosides-docusate sodium 8.6-50 mg per Given 08/10/2019 8:34 P M RN ELIGIBILITY 1 tablet tablet 1 tablet (SENOKOT-S) 1 tablet, oral, Daily at bedtime, First dose on Tue08/10/19 at 2100, For constipation. Hold for diarrhea. topiramate tablet 100 mg (TOPAMAX) Given 08/11/2019 9:02 AM RN ELIGIBILITY 100 mg 100 mg, oral, 2 times daily, First dose on Tue08/10/19 at 2100 Given 08/10/2019 8:34 PM RN ELIGIBILITY 100 mg venlafaxine XR 24 hr capsule 150 mg Given 08/11/2019 9:02 AM RN ELIGIBILITY 150 mg (EFFEXOR-XR) 150 mg, oral, Daily, First dose on 08/11/19 at 0900, Swallow whole. Do NOT crush, chew or open capsule. documented in this encounter Active and Recently Administered Medications Times are shown in RN ELIGIBILITY. Scheduled Medication Order 08/09/2019 08/10/2019 08/11/2019 acetaminophen [...] 1331 (Given - Provider: Frankie Caballero APRN, EVENT STAFF) 2 g (rounded from 1.7375 g = [...] RLoganN.)1303 (Rate/Dose Verify - Provider: Frankie Caballero, HEAD KNITTING MACHINE FIXER, EVENT STAFF)1544 (Rate/Dose Change - Provider: Belia Browning HEAD KNITTING MACHINE FIXER, EVENT STAFF) 100 mL/hr, intravenous, Continuous, Starting on Tue08/10/19 [...]
--- OUTSIDE RECORDS SUMMARY | 2022-04-22 15:25 | XMS_ITS | Encounter Summary ---
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 [address] [facility] Krystian Esposito, D.OLogan [address] [place] [address] [place] [phone] Anesthesia Record Procedure Summary Procedure Name [...] h andoff to the receiving staff during [facility] ch we 1. Identified the patient 2. [...] A Caballero Cari procedure documentation); Mask M, CONSERVATION POLICY ANALYST, CHIEF LEGAL OFFICER J , CONSERVATION POLICY ANALYST, CHIEF LEGAL OFFICER Ventilation: Easy mask; Type: Standard ETT; Single [...] 1551 by 03/10/21 1418 by PRESLEY Everett [facility] CERVICAL COLLAR; 03/10/21 Dmitry Lyons, Scheduling [...] or relatives? How often do you attend cheondoism or Never 2021 confucianism services? Do you belong to any clubs or Yes 10/25/2021 organizations such as cheondoism groups, unions, fraternal or athletic groups, or [...] the highest level of school Associate degree: [employer] program 06/26/2019 you have completed or the highest degree you have received? Sex Assigned at Date Recorded Female 07/14/2019 9:59 AM LINER INSERTER documented as of this encounter OR Notes Anesthesia Postprocedure Evaluation - Eddie Christine M.D. - 08/10/2019 4:24 PM CST Patient: Minerva Ramesh Procedure Summary Date: 08/10/19 Room / Location: [address] Anesthesia Start: 1303 Anesthesia Stop: 1608 [...] Post Op nausea/vomiting: none Hydration status: euvolemic R INSERTER Anesthesia Procedure Notes - Frankie Caballero APRN, CRNA - 08/10/2019 1:38 PM CSTAssociated Order(s): Airway Airway Date/Time: 08/10/2019 1:11 PM Performed by: Frankie Caballero APRN, CRNA Authorized by: Eddie Christine M.D. Patient location [...] anesthesia POST PROCEDURE DETAILS: Procedure outcome: successful R INSERTER Anesthesia Preprocedure Evaluation - Eddie Christine M.D. 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 Pertinent components [...] with patient /legal guardian or through an conference interpreter. The use of blood products not discussed Approval to Proceed: approved for anesthesia R INSERTER documented in this encounter Plan of Treatment Upcoming Encounters Date Type Specialty Care Team Description 05/12/2022 Appointment Radiology Jammie Roca P.A.-C., M.S. [address] [place] [address] (Karlie yepez) 05/12/2022 Appointment Radiology Jammie Roca P.A.-C., M.S. [address] [place], [place] [address] (Karlie yepez) 05/12/2022 Office Visit Neurological Surgery Sheila Gamble M.D. [facility] [place], [place] [phone] (Karlie yepez) documented as of this encounter Procedures Procedure Name Priority Date/Time Associated Comments Diagnosis LDA ANE ENDOTRACHEAL Routine 08/10/2019 1:38 PM R esults for this AIRWAY LINER INSERTER procedure are i n the results section. documented in this encounter Results LDA ANE ENDOTRACHEAL AIRWAY (08/10/2019 1:38 PM LINER INSERTER) Narrative Frankie Caballero APRN, CRNA - 08/10/19 20 1:38 PM LINER INSERTER Frankie Caballero APRN, CRNA ? 08/10/2019 ??1:39 [...] dextrose (iso-os) IVPB Given 08/10/2019 1:31 PM LINER INSERTER 2 g 2 g (ANCEF) 2 g [...] dexamethasone injection (DECADRON) Given 08/10/2019 1:38 PM LINER INSERTER 10 mg As needed, Starting on Tue08/10/19 at 1338, Anesthesia Intra-op ePHEDrine (PF) injection Given 08/10/2019 2:40 PM LINER INSERTER 10 mg intravenous, As needed, Starting on Tue08/10/19 at 1440, Anesthesia Intra-op fentaNYL injection (SUBLIMAZE) Given 08/10/2019 1:49 PM LINER INSERTER 100 mcg intravenous, As needed, Starting on Tue08/10/19 at 1308, Anesthesia Intra-op Given 08/10/2019 1:42 PM LINER INSERTER 50 mcg Given 08/10/2019 1:08 PM LINER INSERTER 100 mcg HYDROmorphone injection (DILAUDID) Given 08/10/2019 2:58 PM LINER INSERTER 0.2 mg As needed, Starting on Tue08/10/19 at 1429, Anesthesia Intra-op Given 08/10/2019 2:29 PM LINER INSERTER 0.2 mg ketamine injection (KETALAR) Given 08/10/2019 2:51 PM LINER INSERTER 10 mg As needed, Starting on Tue08/10/19 at 1349, Anesthesia Intra-op Given 08/10/2019 1:49 PM LINER INSERTER 10 mg Given 08/10/2019 1:08 PM LINER INSERTER 20 mg lactated ringers Rate/Dose Change 08/10/2019 3:44 PM LINER INSERTER 700 mL/hr 100 mL/hr, intravenous, Continuous, Starting on Tue08/10/19 at 1030, Pre-Op Rate/Dose Verify 08/10/2019 1:03 PM LINER INSERTER 100 mL/hr New Bag 08/10/2019 10:44 AM LINER INSERTER 100 mL/hr 100 mL/hr lactated ringers New Bag 08/10/2019 1:17 PM LINER INSERTER intravenous, Continuous Infusion: Per Instructions PRN, Starting on Tue08/10/19 at 1317, Anesthesia Intra-op lidocaine (PF) (cardiac) injection Given 08/10/2019 1:08 PM LINER INSERTER 30 mg intravenous, As needed, Starting on Tue08/10/19 at 1308, Anesthesia Intra-op midazolam (PF) injection (VERSED) Given 08/10/2019 1:02 PM LINER INSERTER 2 mg intravenous, As needed, Starting on Tue08/10/19 at 1302, Anesthesia Intra-op ondansetron (PF) injection (ZOFRAN) Given 08/10/2019 3:50 PM LINER INSERTER 4 mg intravenous, As needed, Starting on Tue08/10/19 at 1550, Anesthesia Intra-op propofol 10 mg/mL infusion Rate/Dose 08/10/2019 3:25 25 mcg/kg/min 1 0.3 mL/hr (DIPRIVAN) Change PM LINER INSERTER Continuous Infusion: Per Instructions PRN, Starting on Tue08/10/19 at 1320, Anesthesia Intra-op New Bag 08/10/2019 1:20 PM LINER INSERTER 50 mcg/kg/min 20.7 mL/hr propofoL injection (DIPRIVAN) Given 08/10/2019 1:49 PM LINER INSERTER 50 mg intravenous, As needed, Starting on Tue08/10/19 at 1308, Anesthesia Intra-op Given 08/10/2019 1:08 PM LINER INSERTER 80 mg rocuronium injection (ZEMURON) Given 08/10/2019 1:08 PM LINER INSERTER 50 mg intravenous, As needed, Starting on Tue08/10/19 at 1308, Anesthesia Intra-op documented in this encounter
--- OUTSIDE RECORDS SUMMARY | 2022-04-22 15:25 | XMS_ITS | Encounter Summary ---
:1965 Author Organization 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 [place] [phone] 10[address] [facility] - [address] [place] [address] (Wo rk) Social History Tobacco [...] or relatives? How often do you attend buddhism or Never 2021 zoroastrian services? Do you belong to any clubs or Yes 10/25/2021 organizations such as buddhism groups, unions, fraternal or athletic groups, or [...] place to sleep or slept in a fpc (including now)? Education Answer Date Recorded What is the highest level of school Associate degree: [employer] program 06/26/2019 you have completed or the highest degree you have received? Sex Assigned at Date Recorded Female 07/14/2019 9:59 AM BORDER MACHINE OPERATOR documented as of this encounter Last Filed Vital Signs Vital Sign Reading Time Taken Comments Blood Pressure 123/80 08/10/2019 9:20 AM BORDER MACHINE OPERATOR Pulse 81 08/10/2019 9:20 AM BORDER MACHINE OPERATOR Temperature 36.7 ??C (98.1 ??F) 08/10/2019 9:20 AM BORDER MACHINE OPERATOR Respiratory Rate 16 08/10/2019 9:20 AM BORDER MACHINE OPERATOR Oxygen Saturation 99% 08/10/2019 9:20 AM BORDER MACHINE OPERATOR Inhaled Oxygen Concentration - - Weight 68.9 kg (151 lb 14.4 oz) 08/10/2019 9:20 AM BORDER MACHINE OPERATOR Height 157.5 cm (5' 2) 08/10/2019 9:20 AM BORDER MACHINE OPERATOR Body Mass Index 27.78 08/10/2019 9:20 AM BORDER MACHINE OPERATOR documented in this encounter Medications at Time [...] AT DISCHARGE stable TREATMENTS Wound care DEVICES/EQUIPMENT [place] J collar PROFESSIONAL SKILLED SERVICES None MODE OF DISCHARGE Wheelchair TRANSPORTATION Private Vehicle ACCOMPANIED BY AIRFIELD DEFENCE GUARD, daughter All belongings sent home with patient. ER MACHINE OPERATOR Tabatha Sorensen R.N. - 08/11/2019 6:51 AM CST Shift Goals: Clinical Goals for the Shift: Pain control, rest, neuros Identify possible barriers to meeting goals/advancing plan of care: pain End of Shift Summary: Patient rested well throughout night. Reported pain that's being tolerated with scheduled and PRN medications. Neuros remain intact. Continuous IVFs. X-rays obtained this am. Daughter remains at bedside. ER MACHINE OPERATOR Heather Graham R.N. - 08/10/2019 9:31 PM [...] clean, dry and intact. No new complaints. ER MACHINE OPERATOR Oumou Bedolla R.N. - 08/10/2019 6:57 PM [...] unsteadiness. She has voided since coats removal. ER MACHINE OPERATOR documented in this encounter OR Notes Op [...] * Denise Bates APRN, C.N.P., D.N.P. - Hoisting Pile Driving Engineer Anesthesia Type General Pre-operative Diagnosis Stenosis Spinal [...] and she was positioned supine on the [facility] table with care to padall pressure [...] x-ray confirmed the 5-6 disc space and Fairview pins were placed in C5 and C6. [...] mm graft and inserted this. The C5 Fairview pin was then removed and placed in [...] by a Prineo dressing with dermabond. A [place] J hard cervical collar was put in [...] 10 Fr. Size (mm): Size (In): Drain [place] Size (mL): 400 mL Number of Sutures [...] Implant Name Type Inv. Item Serial No. Credit Adjuster Lot No. LRB No. Used Action WAX BN NBLBL 2.5GR - SNA - [id number] Hardware e.g. pins/screws/rods WAX BN NBLBL 2.5GR NA Surgical Specialties [id number] Anterior 1 Implanted GRFT ANCELMO CANC CRN [id number] - [id number] - [id number] Bone or Tissue GRFT ANCELMO CANC CRN [id number] Medtronic NA Anterior 1 Implanted GRFT ANCELMO CANC CRN [id number] - [id number] - [id number] Bone or Tissue GRFT ANCELMO CANC CRN [id number] Medtronic [id number] Anterior 1 Implanted 39MM 2 LEVEL PLATE, [...] mL irrigation GivenMurphy, M Loulou Gamble, M.D. ER MACHINE OPERATOR Brief Op Note - Loulou Gamble M.D. - 08/10/2019 1:45 PM CST BRIEF OP NOTE Procedure(s): FUSION SPINE ANTERIOR CERVICAL AND DISCECTOMY - C5-7 Surgeon(s) and Role: * Loulou Gamble M.D. - Primary * Denise Bates APRN, C.N.P., D.N.P. - Hoisting Pile Driving Engineer An advanced practice provider assisted me during [...] 10 Fr. Size (mm): Size (In): Drain [place] Size (mL): 400 mL Number of Sutures [...] Implant Name Type Inv. Item Serial No. Credit Adjuster Lot No. LRB No. Used Action WAX BN NBLBL 2.5GR - [facility] - [id number] Hardware e.g. pins/screws/rods WAX BN NBLBL 2.5GR NA Surgical Specialties [id number] Anterior 1 Implanted GRFT ANCELMO CANC CRN [id number] - [id number] - [id number] Bone or Tissue GRFT ANCELMO CANC CRN [id number] Medtronic NA Anterior 1 Implanted GRFT ANCELMO CANC CRN [id number] - [id number] - [id number] Bone or Tissue GRFT ANCELMO [facility] CRN [id number] Medtronic [id number] Anterior 1 Implanted 39MM 2 LEVEL PLATE, MEDTRON[employer] ZEVO Hardware e.g. pins/screws/rods N/A Medtronic N/A N/A 1 Implanted MEDTRONIC ZEVO 3.5MM VARIABLE SELF-TAPPING SCREW BLUE Hardware e.g. pins/screws/rods N/A Medtronic N/A N/A 6 Implanted Loulou Gamble M.D. ER MACHINE OPERATOR documented in this encounter Miscellaneous Notes Hospital Course - Dyllan Shi C, ZURDO, C.N.P. - 08/11/2019 8:56 AM BORDER MACHINE OPERATOR The patient underwent Fusion Cervical Spine Status [...] and been given opportunity to ask questions. ER MACHINE OPERATOR documented in this encounter Plan of Treatment Upcoming Encounters Date Type Specialty Care Team Description 05/12/2022 Appointment Radiology Jammie Roca P.A.-C., M.S. [address] [place] [address] (Wo rk) 05/12/2022 Appointment Radiology Jammie Roca P.A.-Katarina., M.S. [address] [place] [address] (Wo rk) 05/12/2022 Office Visit Neurological Surgery Sheila Gamble M.D. [address] [place], [place] [phone] (Wo rk) Scheduled Referrals [...] for this 2-3 VIEWS (most inpatients AM BORDER MACHINE OPERATOR procedure a re in and all the results outpatients) section. ADULT OXYGEN Routine 08/10/2019 5:29 THERAPY PM BORDER MACHINE OPERATOR ADULT OXYGEN Routine 08/10/2019 5:29 THERAPY PM BORDER MACHINE OPERATOR FL FLUORO LESS RAD - Routine 08/10/2019 3:32 Results f or this THAN 1 HOUR (most inpatients PM BORDER MACHINE OPERATOR procedure a re in and all the results outpatients) section. FUSION SPINE 08/10/2019 1:03 Stenosis Spinal ANTERIOR CERVICAL PM BORDER MACHINE OPERATOR Cervical AND DISCECTOMY Case Notes HUMBERTO (11'S) [...] Cervical Spine 2-3 Views (08/11/2019 6:37 AM BORDER MACHINE OPERATOR) Anatomical Region Laterality Modality Cervical Spine, Musculoskeletal RST LOS, N/A Digital Radiography Neuroradiology ARZ LOS, Muskuloskeletal FLA LOS Specimen (Source) Anatomical Collection Method Collection Time Re ceived Time Location / / Volume Laterality 08/11/2019 7:41 AM BORDER MACHINE OPERATOR Impressions 08/11/2019 7:42 AM BORDER MACHINE OPERATOR Status post anterior fixation/discectomy/intervertebral fusion, C5-C7 vertebra. Narrative 08/11/2019 7:42 AM BORDER MACHINE OPERATOR EXAM: DX CERVICAL SPINE 2-3 VIEWS COMPARISON: [...] Less Than 1 Hour (08/10/2019 3:32 PM BORDER MACHINE OPERATOR) Specimen (Source) Anatomical Location Collection Method / Collectio n Time Received Time / Laterality Volume Narrative 9000 LOS SWMN - 08/10/2019 3:33 PM BORDER MACHINE OPERATOR This exam does not require a radiologist [...] tablet 1,000 mg Given 08/10/2019 10:44 AM BORDER MACHINE OPERATOR 1,00 0 mg (TYLENOL) 1,000 mg, oral, Once, On Tue08/10/19 at 1030, For 1 dose, Pre-Op acetaminophen tablet 1,000 mg (TYLENOL) Given 08/11/2019 5:50 AM BORDER MACHINE OPERATOR 1,000 mg 1,000 mg, oral, Every 8 hours scheduled, First dose on Tue08/10/19 at 1900 Given 08/10/2019 7:09 PM BORDER MACHINE OPERATOR 1,000 mg bacitracin 50,000 Units in NaCl 0.9 % 1,000 Given 07/22 1:53 PM BORDER MACHINE OPERATOR 1,000 mL mL irrigation As needed, Starting on Tue08/10/19 at 1353, Intra-Op bacitracin zinc 500 unit/gram ointment Given 08/10/2019 1:51 PM BORDER MACHINE OPERATOR 2 packets Scalp packet As needed, Starting on Tue08/10/19 at 1351, Intra-Op benzocaine-menthoL 15-3.6 mg per lozenge 1 Given 08/11 5:51 AM BORDER MACHINE OPERATOR 1 lozenge lozenge (CEPACOL) 1 lozenge, oral, As needed, sore throat, throat irritation, Starting on Tue08/10/19 at 1728 Given 08/11/2019 12:24 AM BORDER MACHINE OPERATOR 1 lozenge ceFAZolin in dextrose (iso-os) IVPB 2 New Bag 08/11/2019 5:51 AM BORDER MACHINE OPERATOR 2 g 200 mL/hr g (ANCEF) 2 [...] Prophylaxis, surgical New Bag 08/10/2019 8:34 PM BORDER MACHINE OPERATOR 2 g 200 mL/hr celecoxib capsule 400 mg (CeleBREX) Given 08/10/2019 10:44 AM BORDER MACHINE OPERATOR 400 mg 400 mg, oral, Once, On Tue08/10/19 at 1030, For 1 dose, Pre-Op lactated ringers Rate/Dose Change 08/10/2019 3:44 PM BORDER MACHINE OPERATOR 700 mL/hr 100 mL/hr, intravenous, Continuous, Starting on Tue08/10/19 at 1030, Pre-Op Rate/Dose Verify 08/10/2019 1:03 PM BORDER MACHINE OPERATOR 100 mL/hr New Bag 08/10/2019 10:44 AM BORDER MACHINE OPERATOR 100 mL/hr 100 mL/hr lidocaine-EPINEPHrine 1 %-1:100,000 injection Given 1:34 PM BORDER MACHINE OPERATOR 10 mL (XYLOCAINE W/EPI) As needed, Starting on Tue08/10/19 at 1334, Intra-Op NaCl 0.9% bacteriostatic 0.9 % injection Given 08/10/2019 1:52 PM BORDER MACHINE OPERATOR 10 mL As needed, Starting on Tue08/10/19 at 1352, Intra-Op NaCl 0.9% infusion Rate/Dose Verify 08/10/2019 9:57 PM BORDER MACHINE OPERATOR 80 mL/hr 80 mL/hr 80 mL/hr, intravenous, Continuous, Starting on Tue08/10/19 at 1730, Discontinue IV fluids once patient is tolerating oral intake of greater than 500 mL New Bag 08/10/2019 6:33 PM BORDER MACHINE OPERATOR 80 mL/hr 80 mL/hr oxyCODONE IR tablet 10 mg (ROXICODONE) Given 08/11/2019 9:03 AM BORDER MACHINE OPERATOR 10 mg 10 mg, oral, Every 4 hours PRN, moderate pain or score 4-6 of 10, severe pain or score 7-10 of 10, or for pain greater than comfort goal, Starting on Tue08/10/19 at 1728 Given 08/11/2019 4:30 AM BORDER MACHINE OPERATOR 10 mg Given 08/11/2019 12:23 AM BORDER MACHINE OPERATOR [address] tablet 40 mg (PROTONIX) Given 08/11/2019 5:51 AM BORDER MACHINE OPERATOR 40 mg 40 mg, oral, Daily before breakfast, First dose on Tue08/11/19 at 0700, Swallow whole. Do NOT crush, chew, or split tablet. sennosides-docusate sodium 8.6-50 mg per Given 08/10/2019 8:34 P M BORDER MACHINE OPERATOR 1 tablet tablet 1 tablet (SENOKOT-S) 1 tablet, oral, Daily at bedtime, First dose on Tue08/10/19 at 2100, For constipation. Hold for diarrhea. thrombin (bovine) topical solution Given 08/10/2019 1:51 PM BORDER MACHINE OPERATOR 1 vial (THROMBIN-JMI) As needed, Starting on Tue08/10/19 at 1351, Intra-Op topiramate tablet 100 mg (TOPAMAX) Given 08/11/2019 9:02 AM BORDER MACHINE OPERATOR 100 mg 100 mg, oral, 2 times daily, First dose on Tue08/10/19 at 2100 Given 08/10/2019 8:34 PM BORDER MACHINE OPERATOR 100 mg venlafaxine XR 24 hr capsule 150 mg Given 08/11/2019 9:02 AM BORDER MACHINE OPERATOR 150 mg (EFFEXOR-XR) 150 mg, oral, Daily, First dose on 08/11/19 at 0900, Swallow whole. Do NOT crush, chew or open capsule. documented in this encounter Active and Recently Administered Medications Times are shown in BORDER MACHINE OPERATOR. Scheduled Medication Order 08/09/2019 08/10/2019 08/11/2019 acetaminophen [...] 1331 (Given - Provider: Frankie Caballero APRN, AUTOMOTIVE LEASING SALES REPRESENTATIVE) 2 g (rounded from 1.7375 g = [...] (Rate/Dose Verify - Provider: Frankie Caballero APRN, AUTOMOTIVE LEASING SALES REPRESENTATIVE)1544 (Rate/Dose Change - Provider: Belia Browning APRN, AUTOMOTIVE LEASING SALES REPRESENTATIVE) 100 mL/hr, intravenous, Continuous, Starting on Tue08/10/19 [...] Gamble M.D. - Comment: [facility]) As needed, Starting on [...]
--- OUTSIDE RECORDS SUMMARY | 2022-04-22 15:25 | XMS_ITS | Encounter Summary ---
:1965 Author Organization [facility] Address [address] [place] [address] Care Team Providers Name Role Phone Unavailable [...] or relatives? How often do you attend protestant or Never 2021 faith services? Do you belong to any clubs or Yes 10/25/2021 organizations such as protestant groups, unions, fraternal or athletic groups, or [...] highest level of school Associate degree: [employer] program 06/26/2019 you have completed or the highest degree you have received? Sex Assigned at Date Recorded Female 07/14/2019 9:59 AM ICING COATER documented as of this encounter Plan of Treatment Upcoming Encounters Date Type Specialty Care Team Description 05/12/2022 Appointment Radiology Jammie Roca P.A.-C., M.S. [address] [place], [place] [address] (Wo rk) 05/12/2022 Appointment Radiology Jammie Roca P.A.-C., M.S. [address] [place], [place] [address] (Wo rk) 05/12/2022 Office Visit Neurological Surgery Sheila Gamble M.D. [address] [place], [place] [phone] (Wo rk) documented as of this encounter Procedures Procedure Name Priority Date/Time Associated Comments Diagnosis OTORHINOLARYNGOLOGY IMAGE Routine 07/10/2019 10:25 Results for this EXAM AM ICING COATER procedure are i n the results section. documented in this encounter Results Non-Radiology Image-Otorhinolaryngology Image Exam (07/10/2019 10:25 AM ICING COATER) Specimen (Source) Anatomical Collection Method Collection Time Re ceived Time Location / / Volume Laterality 07/10/2019 10:21 AM ICING COATER Narrative [facility]S - 07/10/2019 10:54 AM ICING COATER This order has been created and auto-finalized [...]
--- OUTSIDE RECORDS SUMMARY | 2022-04-22 15:25 | XMS_ITS | Encounter Summary ---
:1965 Author Organization [facility] Address [address] [place] [address] Care Team Providers Name Role Phone Unavailable Primary Care Provider Unavailable Reason for Referral Physical Therapy (Routine) - Closed Specialty Diagnoses / Procedures Referred By Contact Refer red To Contact Diagnoses Stenosis Spinal Cervical Fusion Cervical Spine Status Post Loulou Gamble M.D. [facility] Procedures PT Evaluate and treat [address] [place] [address] Referral ID Status Reason Start Date Expiration Date Visits Requ ested Visits Authorized [id number] Closed 09/12/2019 09/11/2020 1 1 Encounter Details Date Type Department Care Team Description 09/12/2019 Clinical Communication Department of Loulou Gamble Neurological Surgery in [place] [id number] [facility] [address] [place] [phone] Social History Tobacco Use Types Packs/Day Years [...] do you attend lutheran or Never 2021 caodaism services? Do you belong to any clubs or Yes 10/25/2021 organizations such as lutheran groups, unions, fraRealtyAPX or athletic groups, or school groups? How [...] the highest level of school Associate degree: [employer] program 06/26/2019 you have completed or the highest degree you have received? Sex Assigned at Date Recorded Female 07/14/2019 9:59 AM DESIGN EDITOR documented as of this encounter Miscellaneous Notes Telephone Encounter - Loulou Gamble M.D. - 09/12/2019 10:01 AM CDT In the setting of the COVID-19 pandemic and the recent decision by the [facility] to defer all elective outpatient visits for [...] 05/12/2022 Appointment Radiology Jammie Roca P.A.-C., M.S. [address] [place] [address] (Wo rk) 05/12/2022 Appointment Radiology Jammie Roca P.A.-C., M.S. [address] [place] [address] (Wo rk) 05/12/2022 Office Visit Neurological Surgery Sheila Gamble M.D. [address] [place] [phone] (Wo rk) documented as of this encounter Visit Diagnoses Diagnosis Stenosis Spinal Cervical - Primary Fusion Cervical Spine Status Post documented in this encounter
--- OUTSIDE RECORDS SUMMARY | 2022-04-22 15:25 | XMS_ITS | Encounter Summary ---
:1965 Author Organization [facility] Address [address] [place] [address] Care Team Providers Name Role Phone Unavailable Primary Care Provider Unavailable Encounter Details Date Type Department Care Team Description 07/16/2019 Clinical Communication Department of Loulou Gamble Neurological Surgery in [place] [address] [phone] Social History Tobacco Use Types Packs/Day Years [...] do you attend adventism or Never 2021 roman catholic services? Do [...] the highest level of school Associate degree: [employer] program 06/26/2019 you have completed or the highest degree you have received? Sex Assigned at Date Recorded Female 07/14/2019 9:59 AM MAGNETO ELECTRICIAN documented as of this encounter Miscellaneous Notes Telephone Encounter - Leela Harden - 07/16/2019 1:26 PM CST Spoke with Jennifer Martini, and gave her all the information. ETO ELECTRICIAN Telephone Encounter - Leela Harden - 07/16/2019 9:49 AM CST ----- Message from Jennifer Martini sent at 07/13/2019 4:59 PM MAGNETO ELECTRICIAN ----- Regarding: surgery scheduled on 07/16/19 Contact: [...] with this information to the noted phone# [phone] and provide this needed information. I have called the patient and she is aware of the current situation. ETO ELECTRICIAN documented in this encounter Plan of Treatment Upcoming Encounters Date Type Specialty Care Team Description 05/12/2022 Appointment Radiology Jammie Roca P.A.-C., M.S. [address] [place] [address] (Karlie yepez) 05/12/2022 Appointment Radiology Jammie Roca P.A.-C., M.S. [address] [place] [address] (Karlie yepez) 05/12/2022 Office Visit Neurological Surgery Sheila Gamble M.D. [address] [place] [phone] (Karlie yepez) documented as of this encounter Visit Diagnoses Not on filedocumented in this encounter
--- OUTSIDE RECORDS SUMMARY | 2022-04-22 15:25 | XMS_ITS | Encounter Summary ---
:1965 Author Organization [facility] Address [address] [place] [address] Care Team Providers Name Role Phone Unavailable Primary Care Provider Unavailable Reason for Visit Reason Comments Post-op incision check Outpatient (Routine) - Closed Specialty Diagnoses / Procedures Referred By Contact Refer red To Contact [facility]rological [facility] ZURDO, C.N.P., D.N.P., M.S.N. [address] [address] Referral ID Status Reason Start Date Expiration Date Visits Requ ested Visits Authorized [id number] Closed 08/11/2019 08/10/2020 1 1 Encounter Details Date Type Department Care Team Description 08/23/2019 Nurse Only Department of Shi Mijares APRN C.N.P., D.N.P., M.S.N. [address] [phone] Post-op (incision Neurological Surgery in [place] R[place] [address] [place] [phone] check) [address] [phone] Social History Tobacco Use Types Packs/Day [...] do you attend latter-day or Never 2021 synagogue services? Do you belong to any clubs [...] the highest level of school Associate degree: [employer] program 06/26/2019 you have completed or the highest degree you have received? Sex Assigned at Date Recorded Female 07/14/2019 9:59 AM STRAW BOSS documented as of this encounter Progress Notes [...] Department with any further questions or concerns. W BOSS documented in this encounter Plan of Treatment Upcoming Encounters Date Type Specialty Care Team Description 05/12/2022 Appointment Radiology Jammie Roca, Debra.-Katarina., M.S. [address] [place], [place] [address] (Wo rk) 05/12/2022 Appointment Radiology Jammie Roca P.A.-C., M.S. [address] [place] [address] (Wo rk) 05/12/2022 Office Visit Neurological Surgery Sheila Gamble M.D. [address] [place] [phone] (Wo rk) documented as of this encounter Visit Diagnoses Not on filedocumented in this encounter
--- OUTSIDE RECORDS SUMMARY | 2022-04-22 15:25 | XMS_ITS | Encounter Summary ---
:1965 Author Organization [facility] Address [address] [place] [address] Care Team Providers Name Role Phone Unavailable Primary Care Provider Unavailable Reason for Visit Reason Onset Date Comments Communication 2019 Encounter Details Date Type Department Care Team Description 2019 Clinical Communication Department of Loulou Gamble mmunication Neurological Surgery [place] in [address] [phone] Social History Tobacco Use Types Packs/Day Years [...] do you attend episcopalian or Never 2021 quaker services? Do you [...] the highest level of school Associate degree: [employer] program 06/26/2019 you have completed or the highest degree you have received? Sex Assigned at Date Recorded Female 07/14/2019 9:59 AM THIRD MATE documented as of this encounter Miscellaneous Notes [...] you with today? Thank you for calling [facility]. documented in this encounter Plan of Treatment Upcoming Encounters Date Type Specialty Care Team Description 05/12/2022 Appointment Radiology Jammie Roca P.A.-C., M.S. [address] [place] [address] (Wo rk) 05/12/2022 Appointment Radiology Jammie Roca P.A.-C., M.S. [address] [place] [address] (Wo rk) 05/12/2022 Office Visit Neurological Surgery Sheila Gamble M.D. [address] [place] [phone] (Wo rk) documented as of this encounter Visit Diagnoses Not on filedocumented in this encounter
--- OUTSIDE RECORDS SUMMARY | 2022-04-22 15:25 | XMS_ITS | Encounter Summary ---
:1965 Author Organization [facility] Address [address] [place] [address] Care Team Providers Name Role Phone Unavailable Primary Care Provider Unavailable Reason for Referral Outpatient (Routine) - Closed Specialty Diagnoses / Procedures Referred By Contact Refer red To Contact Diagnoses [facility] 12 Lead ELECTRIC FRYING PAN REPAIRER, C.N.P. [address] [place] [address] Referral ID Status Reason Start Date Expiration Date Visits Requ ested Visits Authorized [id number] Closed 07/10/2019 07/09/2020 1 1 RS Reason for Visit Outpatient (Routine) - Closed Specialty Diagnoses / Procedures Referred By Contact Refer red To Contact Diagnoses Preanesthetic Medical Exam Francine [facility] Procedures ECG 12 Lead ELECTRIC FRYING PAN REPAIRER, C.N.P. [address] [place] [address] Referral ID Status Reason Start Date Expiration Date Visits Requ ested Visits Authorized [id number] Closed 07/10/2019 07/09/2020 1 1 Encounter Details Date Type Department Care Team Description 07/10/2019 Hospital Encounter Department of Loulou Gamble is Spinal Cervical; Laboratory Alejandra Jeff. Preanesthetic Medical Exam Medicine, Specialty [address] [facility], in [facility] [phone] [place] [address] [place], [place] (Work) [phone] Social History Tobacco Use [...] do you attend bahai or Never 2021 episcopalian services? Do you belong to any clubs [...] the highest level of school Associate degree: [employer] program 06/26/2019 you have completed or the highest degree you have received? Sex Assigned at Date Recorded Female 07/14/2019 9:59 AM MOVERS documented as of this encounter Medications at [...] Appointment Radiology Jammie Roca P.A.-C., M.S. [address] [place], [place] [address] (Karlie yepez) 05/12/2022 Appointment Radiology Jammie Roca P.A.-C., M.S. [address] [place], [place] [address] (Wo rk) 05/12/2022 Office Visit Neurological Surgery Sheila Gamble M.D. [facility] [place] [phone] (Wo rk) documented as of this encounter Procedures Procedure Name Priority Date/Time Associated Diagnosis Comme nts ECG Routine 07/10/2019 10:00 Preanesthetic Medical Re sults for this AM MOVERS Exam procedure are i n the results section. TESTING LOCATION Routine 07/10/2019 9:51 AM Resul ts for this MOVERS procedure are i n the results section. HEMOGLOBIN, B Routine 07/10/2019 9:51 AM Preanesthetic Medical Results for this MOVERS Exam procedure are i n the results section. TYPE AND SCREEN Routine 07/10/2019 9:51 AM Stenosis Spinal Res ults for this MOVERS Cervical procedure are i n the results section. BASIC METABOLIC Routine 07/10/2019 9:51 AM Preanesthetic Medic al Results for this PANEL, S/P MOVERS Exam procedure are i n the results section. documented in this encounter Results ECG 12 Lead (07/10/2019 10:00 AM MOVERS) P athologist Signature Ventricular Rate 74 BPM MUSE ECG/Min DC Interval 158 ms MUSE QRSD Interval 82 ms MUSE QT Interval 384 ms MUSE QTC Interval 426 ms MUSE P [place] -8 degrees MUSE R [place] 39 degrees MUSE T Wave [place] 36 degrees MUSE Specimen Anatomical Collection Method Collection Time Receive d Time (Source) Location / / Volume Laterality 07/10/2019 10:00 07/10/2019 AM MOVERS 10:02 AM MOVERS Impressions MUSE - 07/10/2019 10:02 AM MOVERS Normal sinus rhythm Normal ECG No previous [...] MUSE NA Testing Location (07/10/2019 9:51 AM MOVERS) athologist Signature Testing [facility] DEFAULT 07/10/2019 [facility] Location 10:06 AM MOVERS Specimen Anatomical Collection Method Collection Time Receive d Time (Source) Location / / Volume Laterality Blood 07/10/2019 9:51 AM 0 MOVERS 10:06 AM MOVERS Loulou Gamble M.D. LAB BLOOD BANK TEST ORDERABL ES Performing Organization Address City/State/ZIP Code Phon e Number [facility]- [address] [place] [address] [facility] [place] [address] System in [place] [address] [place] [address] Hemoglobin (07/10/2019 9:51 AM MOVERS) athologist Signature Hemoglobin 13.2 11.6 - 15.0 07/10/2019 MK[facility] g/dL 10:10 AM MOVERS Specimen Anatomical Collection Method Collection Time Receive d Time (Source) Location / / Volume Laterality Blood (Blood, 07/10/2019 9:51 AM 07/10/19 20 Venous) MOVERS 10:06 AM MOVERS Katarina Momin APRN.[facility]LoganPL[facility] LAB BLOOD ADD-ON Performing Organization Address City/State/ZIP Code Phon e Number [facility]- [address] [place] [address] [place] [address] System [address] Basic Metabolic Panel (07/10/2019 9:51 AM MOVERS) athologist Signature Potassium, S 4.1 3.6 - 5.2 07/10/2019 [facility] mmol/L 10:43 AM MOVERS Sodium, S 140 135 - 145 07/10/2019 [facility] mmol/L 10:43 AM MOVERS Chloride, S 105 98 - 107 07/10/2019 [facility] mmol/L 10:43 AM MOVERS Bicarbonate, S 25 22 - 29 07/10/2019 [facility] mmol/L 10:43 AM MOVERS Anion Gap 10 7 - 15 07/10/2019 MK[facility] 10:43 AM MOVERS BUN (Blood Urea 12 6 - 21 07/10/2019 [facility] Nitrogen), S mg/dL 10:43 AM MOVERS Creatinine 0.71 0.59 - 07/10/2019 [facility] 1.04 mg/dL 10:43 AM MOVERS eGFR-Non >90 >=60 07/10/2019 [facility] Black/ mL/min/BSA 10:43 AM MOVERS Moroccan Comment: ----ADDITIONAL INFORMATION---- Estimated GFR calculated using the 2009 CKD_EPI creatinine equation. eGFR-Black/ >90 >=60 mL/min/BSA 2019 10:43 AM MOVERS MKTO Comment: ----ADDITIONAL INFORMATION---- Estimated GFR calculated using the 2009 CKD_EPI creatinine equation. Calcium, Total, S 9.7 8.6 - 10.0 mg/dL 07/10/2019 10:4 3 AM MOVERS MKTO Glucose, S 93 70 - 140 mg/dL 07/10/2019 10:43 AM MOVERS MKTO Specimen Anatomical Collection Method Collection Time Receive d Time (Source) Location / / Volume Laterality Blood (Blood, 07/10/2019 9:51 AM 07/10/19 Venous) MOVERS 10:06 AM MOVERS Joe Momin APRNNPantera LAB BLOOD ADD-ON Performing Organization Address City/State/ZIP Code Phon e Number [address] [address] [address] Type and Screen (with reflex Antibody ID) (07/10/2019 9:51 AM MOVERS) [facility] gist Method Time Signature ABO Group O 07/10/2019 MK[facility] 11:25 AM MOVERS Rh Type POS 07/10/2019 [facility] 11:25 AM MOVERS Antibody Screen NEG 07/10/2019 [facility] 11:25 AM MOVERS Type & Screen 09/07/2019 07/10/2019 [facility] Expiration 23:59 11:25 AM MOVERS ELXM Eligible Y 07/10/2019 MKTO 11:25 AM MOVERS Specimen Anatomical Collection Method Collection Time Receive d Time (Source) Location / / Volume Laterality Blood (Blood, 07/10/2019 9:51 AM 07/10/19 Venous) MOVERS 10:06 AM MOVERS Narrative [facility] - 07/10/2019 11:25 AM MOVERS Specimen Information: Specimen ID: [id number] Specimen Type: Blood Specimen Collection Start Date: 07/10/19 ??9:51 AM Specimen Received Date: 07/10/2019 10:06 AM Specimen ID: [id number] Specimen Type: Blood Specimen Collection Start Date: 07/10/19 ??9:46 AM Specimen Received Date: 07/10/2019 ??9:4 6 AM Loulou Gamble M.D. LAB BLOOD BANK TEST ORDERABL ES Performing Organization Address City/State/ZIP Code Phon e Number [facility]- [address] [place] [address] [place] [address] System [address] documented in this encounter Visit Diagnoses Diagnosis Stenosis Spinal Cervical Preanesthetic Medical Exam documented in this encounter
--- OUTSIDE RECORDS SUMMARY | 2022-04-22 15:25 | XMS_ITS | Encounter Summary ---
:1965 Author Organization [facility] Address [address] [place] [address] Care Team Providers Name Role Phone Unavailable Primary Care Provider Unavailable Reason for Referral Outpatient (Routine) - Closed Specialty Diagnoses / Procedures Referred By Contact Refer red To Contact Diagnoses Stenosis Spinal Cervical Dysphonia Anand Mcfadden M.D. [facility] Procedures Laryngoscopy [address] [place] [address] Referral ID Status Reason Start Date Expiration Date Visits Requ ested Visits Authorized [id number] Closed 07/12/2019 07/11/2020 1 1 TAIN BRUSH ASSEMBLER Reason for Visit Reason Comments New Patient vocal cord check, prior to s urgery. she has noticed when she is talking she loss or her voice cuts o ut a little bit. it happens often she thinks, she states they will move he r vocal cords over. 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 no issues swallowing or choking. Outpatient (Routine) - Closed Specialty Diagnoses / Procedures Referred By Contact Refer red To Contact Otorhinolaryngology Diagnoses Stenosis Spinal Cervical Loulou Gamble [facility] Lacy Grossman [address] [place] [address] Referral ID Status Reason Start Date Expiration Date Visits V isits Requested Authorized [id number] Closed Specialty 06/26/2019 06/25/2020 1 1 Services Required Encounter Details Date Type Department Care Team Description 07/10/2019 Comprehensive Visit Department of Aidan Mcfadden (Primary Dx); Otorhinolaryngology in [place] Michel Stenosis Spinal Cervical [place], [place] [address] [place] [address] [facility] [phone] [place] [address] Social History Tobacco Use Types Packs/Day Years [...] do you attend buddhist or Never 2021 confucianism services? Do you [...] highest level of school Associate degree: [employer] program 06/26/2019 you have completed or the highest degree you have received? Sex Assigned at Date Recorded Female 07/14/2019 9:59 AM FOUNTAIN BRUSH ASSEMBLER documented as of this encounter Last Filed Vital Signs Vital Sign Reading Time Taken Comments Blood Pressure 128/78 07/10/2019 10:30 AM FOUNTAIN BRUSH ASSEMBLER Pulse 84 07/10/2019 10:30 AM FOUNTAIN BRUSH ASSEMBLER Temperature 36.9 ??C (98.4 ??F) 07/10/2019 10:30 AM FOUNTAIN BRUSH ASSEMBLER Respiratory Rate - - Oxygen Saturation - - Inhaled Oxygen Concentration - - Weight 69.1 kg (152 lb 5.4 oz) 07/10/2019 10:30 AM FOUNTAIN BRUSH ASSEMBLER Height - - Body Mass Index 27.33 07/10/2019 9:06 AM FOUNTAIN BRUSH ASSEMBLER documented in this encounter Consult Notes Anand [...] 2008 she was seen by ENT in [place]. At that time she had multiple episodes [...] She will follow-up with ENT as needed. TAIN BRUSH ASSEMBLER documented in this encounter Plan of Treatment Upcoming Encounters Date Type Specialty Care Team Description 05/12/2022 Appointment Radiology Jammie Roca P.A.-C., M.S. [address] [place], [place] [address] (Karlie yepez) 05/12/2022 Appointment Radiology Jammie Roca P.A.-C., M.S. [address] [place], [place] [address] (Karlie yepez) 05/12/2022 Office Visit Neurological Surgery Sheila Gamble M.D. [address] [place], [place] [phone] (Wo rk) documented as of this encounter Procedures Procedure Name Priority Date/Time Associated Diagnosis Comme nts LARYNGOSCOPY Routine 07/10/2019 11:00 AM Stenosis Spinal Resul ts for this FOUNTAIN BRUSH ASSEMBLER Cervical procedure are in the Dysphonia results section . documented in this encounter Results Laryngoscopy (07/10/2019 11:00 AM FOUNTAIN BRUSH ASSEMBLER) Narrative Anand Mcfadden M.D. - 07/10/2019 11: 00 AM FOUNTAIN BRUSH ASSEMBLER Anand Mcfadden M.D. ? 07/12/2019 10:25 AM [...]
--- OUTSIDE RECORDS SUMMARY | 2022-04-22 15:26 | XMS_ITS | Encounter Summary ---
:1965 Author Organization [facility] Address [address] [place] [address] Care Team Providers Name Role Phone Unavailable [...] do you attend sabianism or Never 2021 zoroastrian services? Do you [...] slept in a group home (including now)? Sex Assigned at Date Recorded Female 07/14/2019 9:59 AM AUTOMOBILE ASSEMBLY SUPERVISOR documented as of this encounter Plan of Treatment Upcoming Encounters Date Type Specialty Care Team Description 05/12/2022 Appointment Radiology Jammie Roca P.A.-C., M.S. [address] [place], [place] [address] (Wo rk) 05/12/2022 Appointment Radiology Jammie Roca P.A.-C., M.S. [address] [place], [place] [address] (Wo rk) 05/12/2022 Office Visit Neurological Surgery Sheila Gamble M.D. [address] [place], [place] [phone] (Wo rk) documented as of this encounter Procedures Procedure Name Priority Date/Time Associated Comments Diagnosis DERMATOLOGY IMAGE Routine 07/05/2008 12:00 Result s for this EXAM AM AUTOMOBILE ASSEMBLY SUPERVISOR procedure are i n the results section. documented in this encounter Results 513 Mouth-Dermatology Image Exam (07/05/2008 12:00 AM AUTOMOBILE ASSEMBLY SUPERVISOR) Specimen (Source) Anatomical Location Collection Method / Collectio n Time Received Time / Laterality Volume Narrative [facility] - 08/23/2019 10:30 PM AUTOMOBILE ASSEMBLY SUPERVISOR This order has been created and auto-finalized [...]
--- OUTSIDE RECORDS SUMMARY | 2022-04-22 15:26 | XMS_ITS | Clinical Summary ---
:1965 Author Organization [facility] [place] [address] Care Team Providers Name Role Phone Alysia [...] Added automatically from request for ephraim gonzalez [phone] Primary snoring 03/05/2019 Primary narcolepsy without cataplexy [...] CDT Respiratory Rate 16 06/28/2015 2:15 PM REHEATER HELPER Oxygen Saturation 97% 10/12/2021 9:59 AM CDT [...] Organization Address City/State/ZIP Code Phon e Number [facility] [address] [place] [address] LAB[facility]ATORY[facility] 2000 LABORATORY HPV HIGH RISK (04/13/2022 3:30 PM CDT) Analysis Performed At Patho logist Time Signature TYPE 16 Negative Negative 04/16/2022 [facility] 1:56 PM CDT [facility] TYPE 18 Negative Negative 04/16/2022 [facility] 1:56 PM CDT [facility] OTHER HIGH Negative Negative 04/16/2022 [facility] RISK TYPES 1:56 PM CDT [facility] Specimen Anatomical Collection Method Collection Time Receive d Time (Source) Location / / Volume Laterality Other (Cervical) 04/13/2022 3:30 PM 04/15 9:33 CDT AM CDT [facility]ative [facility]Y - 04/16/2022 1:56 PM CDT HPV types 16, 18, 31, 33, 35, 39, 45, 51, 52, 56, 58, 59, 66 and 68 DNA were undetectable or below the pre-set threshold. Methodology: Nina Riley 4800 HPV Test September Janis [facility] Performing Organization Address City/State/ZIP Code Phon e Number [facility] [address] [place] [address] [facility]ORY[facility] 2000 LABORATORY from Last 3 Months Insurance Payer Benefit Plan / Subscriber ID Effective Dates Phone Addre ss Type Group MEDICA MEDICA CHOICE [id number] 2021-Present [address] [address] [place] [address] (Work) [address] Care Teams Raw Shellfish Preparer Relationship Specialty Start Date End Date Alysia Oneill DO PCP - General Family Practice 10/12/21 [address] [place] [address]
--- OUTSIDE RECORDS SUMMARY | 2022-04-22 15:26 | XMS_ITS | Encounter Summary ---
:1965 Author Organization [facility] Address [address] [place] [address] Care Team Providers Name Role Phone Unavailable Primary Care Provider Unavailable Encounter Details Date Type Department Care Team Description 05/08/2019 Clinical Communication Department of Loulou Gamble Neurological Surgery in [place] [address] [phone] Social History Tobacco Use Types Packs/Day Years [...] do you attend zoroastrian or Never 2021 holiness services? Do you belong to any clubs [...] slept in a nursing home (including now)? Sex Assigned at Date Recorded Female 07/14/2019 9:59 AM CARDROOM WORKER documented as of this encounter Miscellaneous Notes Addendum Note - Loulou Gamble M.D. - 05/26/2019 2:37 PM CARDROOM WORKER Addended by: LOULOU GAMBLE on: 05/26/2019 02:37 PM Modules accepted: Orders ROOM WORKER Telephone Encounter - Loulou Gamble M.D. - 05/26/2019 2:35 PM CST Cat 2- with me as requested- cervical myelopathy, xrays ordered- 0800 or noon okay or call day ok ROOM WORKER Telephone Encounter - Heather Armenta L.P.N. - 05/18/2019 9:[address] Gamble, patient is self referral for neck pain. MRI cervical online from 05/05/19 available for viewing. Please review and advise. Thank you. ROOM WORKER Telephone Encounter - Heather Armenta L.P.N. - 05/08/2019 9:55 AM CST Patient called office requesting appointment with Dr Gamble. Asked her to have MRI and records sent to us. Will watch for. ROOM WORKER documented in this encounter Plan of Treatment Upcoming Encounters Date Type Specialty Care Team Description 05/12/2022 Appointment Radiology Jammie Roca P.A.-C., M.S. [address] [place] [address] (Wo rk) 05/12/2022 Appointment Radiology Jammie Roca P.A.-C., M.S. [facility] [place], [place] [address] (Wo rk) 05/12/2022 Office Visit Neurological Surgery Sheila Gamble M.D. [address] [place] [phone] (Wo rk) documented as of this encounter Visit Diagnoses Diagnosis Stenosis Spinal Cervical - Primary documented in this encounter
--- OUTSIDE RECORDS SUMMARY | 2022-04-22 15:26 | XMS_ITS | Encounter Summary ---
:1965 Author Organization [facility] Address [address] [place] [address] Care Team Providers Name Role Phone Unavailable Primary Care Provider Unavailable Encounter Details Date Type Department Care Team Description 06/26/2019 Hospital Encounter Department of Loulou Gamble is Spinal Radiology, [place] [facility], in [address] [place], [place] [address] [place], [place] [phone] [address] (Work) [phone] Social History Tobacco Use Types Packs/Day Years [...] do you attend yarsanism or Never 2021 voodoo services? Do you [...] the highest level of school Associate degree: [employer] program 06/26/2019 you have completed or the highest degree you have received? Sex Assigned at Date Recorded Female 07/14/2019 9:59 AM INDUSTRIAL MANUFACTURING TECHNICIAN documented as of this encounter Medications at [...] Appointment Radiology Jammie Roca P.A.-C., M.S. [address] [place], [place] [address] (Wo rk) 05/12/2022 Appointment Radiology Jammie Roca P.A.-C., M.S. [address] [place], [place] [address] (Karlie rk) 05/12/2022 Office Visit Neurological Surgery Sheila Gamble M.D. [address] [place], [place] [phone] (Karlie rk) documented as of this encounter Procedures Procedure Name Priority Date/Time Associated Comments Diagnosis DX CERVICAL SPINE RAD - Routine 06/26/2019 8:08 Stenosis Spinal Res ults for this 4-5 VIEWS (most inpatients AM INDUSTRIAL MANUFACTURING TECHNICIAN Cervical procedure a re in and all the results outpatients) section. documented in this encounter Results DX Cervical Spine 4-5 Views (06/26/2019 8:08 AM INDUSTRIAL MANUFACTURING TECHNICIAN) Anatomical Region Laterality Modality Cervical Spine, Musculoskeletal RST LOS, N/A Digital Radiography Neuroradiology ARZ LOS, Muskuloskeletal FLA LOS Specimen (Source) Anatomical Collection Method Collection Time Re ceived Time Location / / Volume Laterality 06/26/2019 8:54 AM INDUSTRIAL MANUFACTURING TECHNICIAN Impressions 06/26/2019 8:55 AM INDUSTRIAL MANUFACTURING TECHNICIAN Moderate degenerative disc disease, C6-7 level, with no acute findings. Narrative 06/26/2019 8:55 AM INDUSTRIAL MANUFACTURING TECHNICIAN EXAM: DX CERVICAL SPINE 4-5 VIEWS COMPARISON: [...]
--- OUTSIDE RECORDS SUMMARY | 2022-04-22 15:26 | XMS_ITS | Encounter Summary ---
:1965 Author Organization [facility] Address [address] [place] [address] Care Team Providers Name Role Phone Unavailable Primary Care Provider Unavailable Reason for Referral Outpatient (Routine) - Closed Specialty Diagnoses / Procedures Referred By Contact Refer red To Contact Otorhinolaryngology Diagnoses Stenosis Spinal Cervical Loulou Gamble [facility] BHUPENDRA House M.D. [address] [place] [phone] Referral ID Status Reason Start Date Expiration Date Visits V isits Requested Authorized [id number] Closed Specialty 06/26/2019 06/25/2020 1 1 Services Required Scheduling Instructions Prior to surgery on Aug 09 2019 CH THERAPIST TECHNICIAN Reason for Visit Reason Comments Consult Ref self, cervical myelopath y, right arm numbness and tingling and pain. Appointment Request (Routine) - Closed Specialty Diagnoses / Procedures Referred By Contact Refer red To Contact Neurological Surgery Referral ID Status Reason Start Date Expiration Date Visits Requ ested Visits Authorized [id number] Closed 05/28/2019 05/27/2020 1 1 Encounter Details Date Type Department Care Team Description 06/26/2019 Comprehensive Visit Department of Loulou Gamble Spinal Neurological Surgery [place] Cervical ([place] [address] [place] [address]) [address] [place] [phone] Social History Tobacco Use Types Packs/Day [...] do you attend methodist or Never 2021 buddhist services? Do you belong to any clubs [...] the highest level of school Associate degree: [employer] program 06/26/2019 you have completed or the highest degree you have received? Sex Assigned at Date Recorded Female 07/14/2019 9:59 AM SPEECH THERAPIST TECHNICIAN documented as of this encounter Last Filed Vital Signs Vital Sign Reading Time Taken Comments Blood Pressure 108/64 06/26/2019 9:02 AM SPEECH THERAPIST TECHNICIAN Pulse 72 06/26/2019 9:02 AM SPEECH THERAPIST TECHNICIAN Temperature - - Respiratory Rate - - Oxygen Saturation - - Inhaled Oxygen Concentration - - Weight 69.5 kg (153 lb 3.5 oz) 06/26/2019 9:02 AM SPEECH THERAPIST TECHNICIAN Height 161 cm (5' 3.39) 06/26/2019 9:02 AM SPEECH THERAPIST TECHNICIAN Body Mass Index 26.81 06/26/2019 9:02 AM SPEECH THERAPIST TECHNICIAN documented in this encounter Consult Notes Loulou [...] spent in counseling and coordinating of cares. CH THERAPIST TECHNICIAN documented in this encounter Miscellaneous Notes Addendum Note - Dipti Dunlap - 06/26/2019 9:00 AM SPEECH THERAPIST TECHNICIAN Addended by: DIPTI DUNLAP on: 06/26/2019 10:38 AM Modules accepted: Orders CH THERAPIST TECHNICIAN Addendum Note - Dipti Dunlap - 06/26/2019 9:00 AM SPEECH THERAPIST TECHNICIAN Addended by: DIPTI DUNLAP on: 06/26/2019 10:51 AM Modules accepted: Orders CH THERAPIST TECHNICIAN documented in this encounter Plan of Treatment Upcoming Encounters Date Type Specialty Care Team Description 05/12/2022 Appointment Radiology Jammie Roca P.A.-C., M.S. [address] [place] [address] (Karlie yepez) 05/12/2022 Appointment Radiology Jammie Roca P.A.-C., M.S. [address] [place] [address] (Karlie yepez) 05/12/2022 Office Visit Neurological Surgery Sheila Gamble M.D. [address] [place] [phone] (Karlie yepez) Scheduled Referrals Name Type Priority Associated Order Schedule Diagnoses [facility] Otorhinolaryngology - Outpatient Routine Stenosis Spina l Expected: General consult (clinic) Referral Cervical 12/2019 (Approximate), Expires: 06/26/2022 documented as of this encounter Procedures Procedure Name Priority Date/Time Associated Diagnosis Comme nts MRSA/STAPHYLOCOCCUS Routine 06/26/2019 10:41 AM Stenosis Spina l Results for this AUREUS, NASAL, BY SPEECH THERAPIST TECHNICIAN Cervical procedure are in PCR the results section. documented in this encounter Results MRSA/Staphylococcus aureus, Nasal, by PCR (06/26/2019 10:41 AM SPEECH THERAPIST TECHNICIAN) [facility] Method Time Signature MRSA, PCR Negative Negative 06/26/2019 [facility] 12:11 PM SPEECH THERAPIST TECHNICIAN Staphylococcus Negative Negative 06/26/2019 [facility] aureus, PCR 12:11 PM SPEECH THERAPIST TECHNICIAN Specimen Anatomical Collection Method Collection Time Receive d Time (Source) Location / / Volume Laterality Swab (Nares) 06/26/2019 10:41 06/26/2019 AM SPEECH THERAPIST TECHNICIAN 10:57 AM SPEECH THERAPIST TECHNICIAN Loulou Gamble M.D. LAB MICROBIOLOGY - GENERAL O RDERABLES Performing Organization Address City/State/ZIP Code Phon e Number [facility]- [address] [place] [address] [place] [address] System in [address] documented in this encounter Visit Diagnoses Diagnosis Stenosis Spinal Cervical - Primary documented in this encounter
--- OUTSIDE RECORDS SUMMARY | 2022-04-22 15:26 | XMS_ITS | Encounter Summary ---
:1965 Author Organization [facility] Address [address] [place] [address] Care Team Providers Name Role Phone Unavailable Primary Care Provider Unavailable Encounter Details Date Type Department Care Team Description 07/03/2019 Clinical Communication Department of Loulou Gamble Neurological Surgery in [place] [address] [phone] Social History Tobacco Use Types Packs/Day Years [...] do you attend zoroastrianism or Never 2021 mormonism services? Do you belong to any clubs [...] the highest level of school Associate degree: [email or web address] program 06/26/2019 you have completed or the highest degree you have received? Sex Assigned at Date Recorded Female 07/14/2019 9:59 AM CROP PRODUCTION ADVISOR documented as of this encounter Miscellaneous Notes Telephone Encounter - Heather Armenta L.P.N. - 07/03/2019 9:06 AM CST Patient left message wondering if she could possibly move her surgery up to sooner than, 08/09/19? PRODUCTION ADVISOR documented in this encounter Plan of Treatment Upcoming Encounters Date Type Specialty Care Team Description 05/12/2022 Appointment Radiology Jammie Roca, Ria.A.-C., M.S. [address] [place] [address] (Karlie yepez) 05/12/2022 Appointment Radiology Jammie Roca P.A.-C., M.S. [address] [place], [place] [address] (Karlie yepez) 05/12/2022 Office Visit Neurological Surgery Sheila Gamble M.D. [address] [place], [place] [phone] (Wo marleni) documented as of this encounter Visit Diagnoses Not on filedocumented in this encounter
--- OUTSIDE RECORDS SUMMARY | 2022-04-22 15:26 | XMS_ITS | Encounter Summary ---
:1965 Author Organization [facility] Address [address] [place] [address] Care Team Providers Name Role Phone Unavailable Primary Care Provider Unavailable Reason for Referral Outpatient (Routine) - Closed Specialty Diagnoses / Procedures Referred By Contact Refer red To Contact Diagnoses [facility]est[facility] ECG 12 Lead ZURDO, C.N.P. [address] [place] [phone] Referral ID Status Reason Start Date Expiration Date Visits Requ ested Visits Authorized [id number] Closed 07/10/2019 07/09/2020 1 1 CH SERVICE LEADER Reason for Visit Outpatient (Routine) - Closed Specialty Diagnoses / Procedures Referred By Contact Refer red To Contact General Surgery Diagnoses Stenosis Spinal Cervical Loulou Gamble M.D. [address] [phone] Referral ID Status Reason Start Date Expiration Date Visits Requ ested Visits Authorized [id number] Closed 06/26/2019 06/25/2020 1 1 Encounter Details Date Type Department Care Team Description 07/10/2019 Comprehensive Visit Department of [place], Preanes thetic Medical Exam (Primary Dx); Anesthesiology in [place] Cervical [place], [place] ZURDO, C.N.P. [address] [place] [address] [place] [phone] Social History Tobacco Use Types Packs/Day Years [...] do you attend buddhism or Never 2021 anabaptist services? Do you [...] highest level of school Associate degree: [employer] program 06/26/2019 you have completed or the highest degree you have received? Sex Assigned at Date Recorded Female 07/14/2019 9:59 AM BRANCH SERVICE LEADER documented as of this encounter Last Filed Vital Signs Vital Sign Reading Time Taken Comments Blood Pressure 128/78 07/10/2019 9:06 AM BRANCH SERVICE LEADER Pulse 84 07/10/2019 9:06 AM BRANCH SERVICE LEADER regular Temperature 36.9 ??C (98.4 ??F) 07/10/2019 9:06 AM BRANCH SERVICE LEADER Respiratory Rate 14 07/10/2019 9:06 AM BRANCH SERVICE LEADER Oxygen Saturation - - Inhaled Oxygen Concentration - - Weight 69.1 kg (152 lb 5.4 oz) 07/10/2019 9:06 AM BRANCH SERVICE LEADER Height 159 cm (5' 2.6) 07/10/2019 9:06 AM BRANCH SERVICE LEADER Body Mass Index 27.33 07/10/2019 9:06 AM BRANCH SERVICE LEADER documented in this encounter H&P Notes Francine [...] 04/30/2016 Detected on screening test performed by [employer], stress test performed 2015 negative ??? Cyst [...] 07/10/19 9:51 AM Result Value Testing Location [facility] Ecg 12 Lead Result Date: 07/10/2019 [...] as directed outside of this time frame. CH SERVICE LEADER documented in this encounter Plan of Treatment Upcoming Encounters Date Type Specialty Care Team Description 05/12/2022 Appointment Radiology Jammie Roca P.A.-C., M.S. [address] [place], [place] [address] (Wo rk) 05/12/2022 Appointment Radiology Jammie Roca P.A.-C., M.S. [address] [place], [place] [address] (Wo rk) 05/12/2022 Office Visit Neurological Surgery Sheila Gamble M.D. [address] [place], [place] [phone] (Wo rk) documented as of this encounter Results ECG 12 Lead (07/10/2019 10:00 AM BRANCH SERVICE LEADER) P athologist Signature Ventricular Rate 74 BPM MUSE ECG/Min MA Interval 158 ms MUSE QRSD Interval 82 ms MUSE QT Interval 384 ms MUSE QTC Interval 426 ms MUSE P Dorothy -8 degrees MUSE R Dorothy 39 degrees MUSE T Wave Dorothy 36 degrees MUSE Specimen Anatomical Collection Method Collection Time Receive d Time (Source) Location / / Volume Laterality 07/10/2019 10:00 07/10/2019 AM BRANCH SERVICE LEADER 10:02 AM BRANCH SERVICE LEADER Impressions MUSE - 07/10/2019 10:02 AM BRANCH SERVICE LEADER Normal sinus rhythm Normal ECG No previous [...] MUSE MUSE NA Hemoglobin (07/10/2019 9:51 AM BRANCH SERVICE LEADER) athologist Signature Hemoglobin 13.2 11.6 - 15.0 07/10/2019 [place] g/dL 10:10 AM BRANCH SERVICE LEADER Specimen Anatomical Collection Method Collection Time Receive d Time (Source) Location / / Volume Laterality Blood (Blood, 07/10/2019 9:51 AM 07/10/19 20 Venous) BRANCH SERVICE LEADER 10:06 AM BRANCH SERVICE LEADER Francine Hughes APRN, C.N.P. LAB BLOOD ADD-ON Performing Organization Address City/State/ZIP Code Phon e Number [facility]- [facility] [place] [address] [place] [address] System in [place] [address] [facility] Basic Metabolic Panel (07/10/2019 9:51 AM BRANCH SERVICE LEADER) P athologist Signature Potassium, S 4.1 3.6 - 5.2 07/10/2019 [place] mmol/L 10:43 AM BRANCH SERVICE LEADER Sodium, S 140 135 - 145 07/10/2019 [place] mmol/L 10:43 AM BRANCH SERVICE LEADER Chloride, S 105 98 - 107 07/10/2019 [place] mmol/L 10:43 AM BRANCH SERVICE LEADER Bicarbonate, S 25 22 - 29 07/10/2019 [place] mmol/L 10:43 AM BRANCH SERVICE LEADER Anion Gap 10 7 - 15 07/10/2019 [place] 10:43 AM BRANCH SERVICE LEADER BUN (Blood Urea 12 6 - 21 07/10/2019 [place] Nitrogen), S mg/dL 10:43 AM BRANCH SERVICE LEADER Creatinine 0.71 0.59 - 07/10/2019 [place] 1.04 mg/dL 10:43 AM BRANCH SERVICE LEADER eGFR-Non >90 >=60 07/10/2019 [place] Black/ mL/min/BSA 10:43 AM BRANCH SERVICE LEADER [place] Comment: ----ADDITIONAL INFORMATION---- Estimated GFR calculated using the 2009 CKD_EPI creatinine equation. eGFR-Black/ >90 >=60 mL/min/BSA 2019 10:43 AM BRANCH SERVICE LEADER [place] Comment: ----ADDITIONAL INFORMATION---- Estimated GFR calculated using the 2009 CKD_EPI creatinine equation. Calcium, Total, S 9.7 8.6 - 10.0 mg/dL 07/10/2019 10:4 3 AM BRANCH SERVICE LEADER [place] Glucose, S 93 70 - 140 mg/dL 07/10/2019 10:43 AM BRANCH SERVICE LEADER [place] Specimen Anatomical Collection Method Collection Time Receive d Time (Source) Location / / Volume Laterality Blood (Blood, 07/10/2019 9:51 AM 07/10/19 20 Venous) BRANCH SERVICE LEADER 10:06 AM BRANCH SERVICE LEADER Joe Momin APRNNPantera LAB BLOOD ADD-ON Performing Organization Address City/State/ZIP Code Phon e Number [facility]- [address] [place] [address] [place] [address] System in [place] [address] [facility] documented in this encounter Visit Diagnoses Diagnosis Preanesthetic Medical Exam - Primary Stenosis Spinal Cervical Stenosis Spinal Cervical Preanesthetic Medical Exam documented in this encounter
--- NOTE | 2022-04-22 15:30 | CRLHL7_ITS ---
For Patients: As a result of the Century Cures Act, medical imaging exams and procedure reports are released immediately into your electronic medical record. You may view this report before your referring provider. If you have questions, please contact your health care provider. DXA BONE MINERAL DENSITY STUDY Reason for exam: Osteoporosis. Current height (in): 62.5. Weight (lb): 160. Menopause age: 40. Ethnicity: White. 1. Have you had a previous hip or vertebral fracture? No. 2. Have you had any fractures during your adult life which did not result from significant trauma (e.g., auto accident)? No. 3. Did either of your parents have a hip fracture? No. 4. Do you smoke? No. 5. Have you ever taken Glucocorticoids? No. 6. Do you have rheumatoid arthritis? No. 7. Do you have secondary osteoporosis? No. 8. Do you drink 3 or more alcoholic drinks per day? No. 9. Are you being treated for osteoporosis? Yes. 10. Have you ever taken any of the following medications: Actonel, Evista, Fosamax, Miacalcin, Reclast, Boniva, Forteo, HRT (i.e., estrogen/hormone therapy), Protelos, Prolia, Vitamin D, Calcium, other ??? please specify. ANSWER: Yes, Fosamax, vitamin D, and calcium. 11. Do you have any of the following medical conditions: Anorexia or bulimia, asthma or emphysema, end stage renal disease, hyperparathyroidism, any seizure disorders, cancer, inflammatory bowel diseases, hysterectomy, other ??? please specify. ANSWER: Yes, hysterectomy. 12. What was your maximum height (inches)? 62. 13. Do you perform weight bearing exercise regularly? No. 14. Do you regularly consume dairy products? Yes. 15. Do you drink caffeinated beverages? Yes. If female: 16. At what age did your period start? 13. 17. Are you premenopausal? No. 18. How many full-term pregnancies have you had? 2. 19. Have you ever missed your period for more than 6 months in a row (not including or menopause)? No. TECHNIQUE: Bone mineral density study was performed using the [employer]. FINDINGS: The results of the study expressed as bone mineral density (BMD) are as follows: Lumbar spine L1 to L4: BMD: 0.750 g/cm2. T-score: -2.7. Z-score: -1.5 Neck Left: BMD: 0.670 g/cm2. T-score: -1.6. Z-score: -0.5 Right: BMD: 0.604 g/cm2. T-score: -2.2. Z-score: -1.1 Total Left: BMD: 0.757 g/cm2. T-score: -1.5. Z-score: -0.8 Right: BMD: 0.804 g/cm2. T-score: -1.1. Z-score: -0.4 IMPRESSION: Osteoporosis. *Comparison exams done prior to 11/2019 were performed on different unit, [employer]. COMPARISON: Compared with scan of 04/30/2020, the bone mineral density has increased by 3.0 percent at the spine and no change by 0.0 percent at the hip. Compared with scan of 12/28/2018, the bone mineral density has decreased by 2.9 percent at the spine and increased by 2.0 percent at the hip. Kelvin Gomez M.D. Diagnostic Radiologist [email or web address] JENNIFER/[email or web address] islas/Dictated by: Kelvin Gomez MD @ 04/23/2022 8:19:00 AM (Electronically Signed)
== END 2022-04-22 15:15 | disposition home or self-care (01) ==
LOC: RAD 15:15
PROVIDERS: Visit Provider Physician Assistant
DX: M81.0 Age-related osteoporosis without current pathological fracture (principal)
CPT/HCPCS: 77080

== ENCOUNTER 2022-09-06 07:40 | Outpatient (CLI) | payer OTHER, SELFPAY | END 2022-09-06 07:41 | disposition home or self-care (01) | PROVIDERS: Visit Provider Family Medicine | DX: Z00.00 Encounter for general adult medical examination without abnormal findings (principal); R41.3 Other amnesia; Z13.6 Encounter for screening for cardiovascular disorders; Z87.820 Personal history of traumatic brain injury; F41.9 Anxiety disorder, unspecified | CPT/HCPCS: 80053; 80061; 82607; 84443 ==

== ENCOUNTER 2022-09-06 11:17 | Outpatient (CLI) | payer OTHER, SELFPAY ==
--- NOTE | 2022-09-06 11:30 | CRLHL7_ITS ---
For Patients: As a result of the Cures Act, medical imaging exams and procedure reports are released immediately into your electronic medical record. You may view this report before your referring provider. If you have questions, please contact your health care provider. BILATERAL SCREENING MAMMOGRAM WITH COMPUTER-AIDED DETECTION AND TOMOSYNTHESIS TECHNIQUE: CC and MLO views were obtained. These mammographic images have been obtained using full-field digital technique. These mammographic images were interpreted with the benefit of computer-aided detection. Breast Tomosynthesis was used in this interpretation. COMPARISON FILM: 08/12/21, 04/25/20, 08/30/18. FINDINGS: There are scattered areas of fibroglandular density IMPRESSION: There is no radiographic evidence for malignancy. ASSESSMENT: BI-RADS Category 1: Negative RECOMMENDATION: Routine screening mammogram in 1 year. A lay language report of this examination will be provided to the patient. Kelvin Gomez M.D. Diagnostic Radiologist [email or web address] JENNIFER/[email or web address] Transcribed: 1:28 p.mLogan islas/Dictated by: Kelvin Gomez MD @ 09/06/2022 11:58:00 AM (Electronically Signed)
== END 2022-09-06 11:18 | disposition home or self-care (01) ==
LOC: MAMMO 11:18
PROVIDERS: Visit Provider Family Medicine
DX: Z12.31 Encounter for screening mammogram for malignant neoplasm of breast (principal); Z00.00 Encounter for general adult medical examination without abnormal findings; E78.5 Hyperlipidemia, unspecified; R41.3 Other amnesia; F41.9 Anxiety disorder, unspecified
CPT/HCPCS: 77063; 77067; 80053; 80061; 82607; 84443

== ENCOUNTER 2023-06-02 13:45 | Outpatient (CLI) | payer OTHER, SELFPAY ==
[2023-06-02 19:41] LABS: Chlamydia DNA Amplified* NOT DETECTED (No Detected); GC DNA Amplified* NOT DETECTED (No Detected)
== END 2023-06-02 13:46 | disposition home or self-care (01) ==
PROVIDERS: PCP Family Medicine; Visit Provider Obstetrics & Gynecology
DX: Z01.419 Encounter for gynecological examination (general) (routine) without abnormal findings (principal); E78.5 Hyperlipidemia, unspecified; R73.03 Prediabetes; Z11.3 Encounter for screening for infections with a predominantly sexual mode of transmission; Z11.59 Encounter for screening for other viral diseases
CPT/HCPCS: 80061; 86592; 86703; 86706; 86803; 87252; 87340; 87491; 87591

== ENCOUNTER 2023-09-13 09:05 | Outpatient (CLI) | payer OTHER, SELFPAY ==
--- NOTE | 2023-09-13 09:15 | MM_ITS ---
Patient: DARCI LIZ Facility:?[facility] Patient ID:?[id number] Site Patient ID:?[id number]. Site :?1965 Study:?XRay-Breast Bilateral 3D W/CAD-09/13/2023 9:26:21 AM Ordering Physician:?Denise Quinn Final Report: BILATERAL SCREENING MAMMOGRAM WITH COMPUTER-AIDED DETECTION AND TOMOSYNTHESIS TECHNIQUE: CC and MLO views were obtained. These mammographic images have been obtained using full-field digital technique. These mammographic images were interpreted with the benefit of computer-aided detection. Breast Tomosynthesis was used in this interpretation. COMPARISON FILM: 09/06/22, 08/12/21, 08/10/21. FINDINGS: There are scattered areas of fibroglandular density. IMPRESSION: There is no radiographic evidence for malignancy. ASSESSMENT: BI-RADS Category 1: Negative RECOMMENDATION: Routine screening mammogram in 1 year. A lay language report of this examination will be provided to the patient. Kelvin Gomez M.D. Diagnostic Radiologist [email or web address] DSM/sp R& Transcribed: 5:09 p.m. SP/Dictated by: Kelvin Gomez MD @ 09/22/2023 11:36:00 AM Signed by:?Kelvin Gomez MD @09/22/2023 8:24:27 PM (Electronic Signature)
== END 2023-09-13 09:06 | disposition home or self-care (01) ==
LOC: MAMMO 09:05
PROVIDERS: PCP Family Medicine; Visit Provider Family Medicine
DX: Z12.31 Encounter for screening mammogram for malignant neoplasm of breast (principal)
CPT/HCPCS: 77063; 77067

== ENCOUNTER 2024-01-05 14:58 | Outpatient (CLI) | payer OTHER, SELFPAY ==
--- OUTSIDE RECORDS SUMMARY | 2024-01-05 15:14 | XMS_ITS | Clinical Summary ---
Author Organization [facility] Address [place] [address] Phone Care Team Providers Care Hydraulic Engineer Name Role Phone Pcp, No Primary Care Provider Unavailabl e Carolina De La Vega A OTR/L Unavailable Unavail able YoletteCarolina A OTR/L Unavailable Unavail able Danielle Frye OD Unavailable Unavailable Megan Naranjo PT Unavailable Beto leos Source Comments [employer] is fully rolled out on [employer]. Last update 11/22/08.[employer] Allergies No known active allergies Medications * Be aware that medications may not be up to date as of this document. Always verify current medications with patient. Medication Sig Dispensed Refills Start Date End Date Status Acetaminophen (TYLENOL EXTRA STRENGTH ORAL) Take by mouth. Active venlafaxine (EFFEXOR XR) 37.5 mg oral capsule 24 H Take 37.5 mg by mouth daily. 09/06/2017 Active nortriptyline (PAMELOR) 10 mg oral capsule Take 1-5 per night. 450 capsule 3 02/28/2019 Active armodafinil (NUVIGIL) 250 mg oral tabletIndications:N arcolepsy TAKE 1 TABLET (250 MG) BY MOUTH EVERY MORNING. 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 03/31/2022 Primary snoring 03/05/2019 JED (obstructive sleep apnea) 11/09/2017 Primary narcolepsy without cataplexy ([facility]) 11/09 METZGER (headache) 09/08/2017 TBI (traumatic brain injury) ([facility]) 09/28/2016 Encounters Date Type Department Care Team Description 10/29/2023 Refill [facility] [address] [place] [address] Riana Betancur MD Other; Refill Request (ARMODAFINIL 250 MG TABLET) from Last 3 Months Social History Tobacco Use Types Packs/Day Years Used Date Smoking Tobacco: Never Smokeless Tobacco: Never Tobacco Cessation:Counseling Given: Not Answered Alcohol Use Standard Drinks/Week Comments No 0 (1 standard drink = 0.6 oz pur e alcohol) Seldom Sex and Gender Information Value Date Recorded Sex Assigned at Not on file Gender Identity Not on file Sexual Orientation Not on file Last Filed Vital Signs Vital Sign Reading Time Taken Comments Blood Pressure 135/83 06/01/2023 9:00 AM COMPOSITION FLOOR LAYER Pulse 83 06/01/2023 9:00 AM COMPOSITION FLOOR LAYER Temperature 35.9 ??C (96.6 ??F) 08/24/2022 10:[address] Respiratory Rate - - Oxygen Saturation - - Inhaled Oxygen Concentration - - Weight 64.2 kg (141 lb 9.6 oz) 06/01/2023 9:00 A M COMPOSITION FLOOR LAYER Height 157.5 cm (5' 2) 06/01/2023 9:00 AM COMPOSITION FLOOR LAYER Body Mass Index 25.9 06/01/2023 9:00 AM COMPOSITION FLOOR LAYER Plan of Treatment Health Maintenance Due Date Last Done Comments Breast Cancer Screening 1965 CT Colonography 1965 Colonoscopy 1965 Colorectal Cancer Screening 1965 Dental Oral Exam 1965 Dental Prophylaxis 1965 Dental X-Ray: Bitewings 1965 FIT/Cologuard 1965 Sigmoidoscopy 1965 iFOB/FIT 1965 Lipid Screening 1966 Periodontal Maintenance 08/28/1979 HIV Screening 1980 PREVENTATIVE VISIT 08/28/1983 HEALTH MAINTENANCE PROTOCOL 1984 Imm: HepB (1 of 3 - 19+ 3-dose series) 1984 TD/TDAP ADULTS 12/25/2020 12/25/2010 COVID-19 Vaccine ( season) 2023 INFLUENZA VACCINE 01/19/2024 03/27/2013, , 05/19/2007, Additional history exists Cervical Cancer Screening Age 30-65 04/13/2027 04/13/2022, 08/25/2017 HIB Aged Out No longer eligi ble based on patient's age to complete this topic Imm: Pneumonia Peds or At-Risk less than 65 years Aged Out No longer jodi gible based on patient's age to complete this topic RSV Immunoglobulin Aged Out No longer eligible based on patient's age to complete this topic Procedures Procedure Name Priority Date/Time Associated Diagnosis Comments PAP TEST Routine 04/13/2022 3:30 PM CDT from Last 3 Months or Most Recently Relevant to Health Maintenance Care Teams Hydraulic Engineer Relationship Specialty Start Date End Date Pcp, [place] [address] PCP - General 09/10/16 Carolina De La Vega, OTR/L [address] [place] [address] Occupational Therapist 11/03/16 Carolina De La Vega, OTR/L [address] [place] [address] Occupational Therapist 11/25/16 Danielle Frye OD [address] [place] [address] Referring Provider Optometry 12/01/16 Megan Naranjo PT [address] [place] [address] Physical Therapy 03/08/18
--- OUTSIDE RECORDS SUMMARY | 2024-01-05 15:14 | XMS_ITS | Encounter Summary ---
Author Organization [facility] Address [address] [place] [address] Phone Care Team Providers Care Clinical Rehabilitation Aide Name Role Phone Pcp, No Primary Care Provider Unavailabl e Carolina De La Vega A OTR/L Unavailable Unavail able YoletteCarolina A OTR/L Unavailable Unavail able Danielle Frye OD Unavailable Unavailable Megan Naranjo PT Unavailable Beto leos Reason for Visit * Reason Onset Date Comments Other Refill Request 10/29/2023 ARMODAFINIL 250 MG TABLET Encounter Details Date Type Department Care Team (Late st Contact Info) Description 10/29/[address] [facility] [address] [facility] [address] [place], [place] [id number] Riana Betancur MD [address] [facility] [address] [place], [place] [phone] Other; Refill Request (ARMODAFINIL 250 MG TABLET) Social History Tobacco Use Types Packs/Day Years Used Date Smoking Tobacco: Never Smokeless Tobacco: Never Alcohol Use Standard Drinks/Week Comments No 0 (1 standard drink = 0.6 oz pur e alcohol) Seldom Sex and Gender Information Value Date Recorded Sex Assigned at Not on file Gender Identity Not on file Sexual Orientation Not on file documented as of this encounter Miscellaneous Notes * Telephone Encounter - Jv Snyder RN - 10/31/2023 8:25 AM CDT D: Medication Refill Request: Medication: Requested Prescriptions Pending Prescriptions Disp Refills armodafinil (NUVIGIL) 250 mg oral tablet [Pharmacy Med Name: ARMODAFINIL 250 MG TABLET] 90 tablet 0 Sig: TAKE 1 TABLET (250 MG) BY MOUTH EVERY MORNING. INDICATIONS: RECURRING SLEEP EPISODES DURING THE DAY Last Refilled: 09.26.23 Refill Protocol: No Previous Order Last Clinic Office Visit: 06.01.23 Next Scheduled Office Visit: not scheduled A: Required Monitoring: Not Applicable R/P: Refill Prescription: Routed: Medication is controlled or not on refill protocol Jv Snyder RN, 10/31/2023 8:25 AM documented in this encounter Plan of Treatment Not on file documented as of this encounter Visit Diagnoses Not on filedocumented in this encounter Additional Health Concerns Assessment Noted Time PHQ-9 Depression Total Score: 8 12/24/19 10:50 AM CDT documented as of this encounter Care Teams Clinical Rehabilitation Aide Relationship Specialty Start Date End Date Pcp, No [facility] [place] [address] PCP - General 09/10/16 Carolina De La Vega, OTR/L [address] [place] [address] Occupational Therapist 11/03/16 Carolina De La Vega, OTR/L [address] [place] [address] Occupational Therapist 11/25/16 Danielle Frye OD [address] [place] [address] Referring Provider Optometry 12/01/16 Megan Naranjo PT [address] [place] [phone] Physical Therapy 03/08/18 documented as of this encounter
--- OUTSIDE RECORDS SUMMARY | 2024-01-05 15:14 | XMS_ITS | Referral Summary ---
Author Organization [facility] Address [address] [place] [address] Phone Care Team Providers Care Associate Brand Manager Name Role Phone Pcp, No Primary Care Provider Unavailabl e Carolina De La Vega A OTR/L Unavailable Unavail able YoletteCarolina A OTR/L Unavailable Unavail able Danielle Frye OD Unavailable Unavailable Megan Naranjo PT Unavailable Beto leos Source Comments [employer] is fully rolled out on [employer]. Last update 11/22/08.[employer] Encounters Date Type Department Care Team Description 10/29/2023 Refill [facility] [address] [facility] [address] [place], [place] [id number] Riana Betancur MD Other; Refill Request (ARMODAFINIL 250 MG TABLET) from Last 3 Months Allergies No known active allergies Medications * [...] sleep apnea) 11/09/2017 Primary narcolepsy without cataplexy ([facility]) 11/09 METZGER (headache) 09/08/2017 TBI (traumatic brain injury) ([facility]) 09/28/2016 Social History Tobacco Use Types Packs/Day Years [...] Comments Blood Pressure 135/83 06/01/2023 9:00 AM SALVAGE GRINDER Pulse 83 06/01/2023 9:00 AM SALVAGE GRINDER Temperature 35.9 ??C (96.6 ??F) 08/24/2022 10:[address] Respiratory Rate - - Oxygen Saturation - - Inhaled Oxygen Concentration - - Weight 64.2 kg (141 lb 9.6 oz) 06/01/2023 9:00 A M SALVAGE GRINDER Height 157.5 cm (5' 2) 06/01/2023 9:00 AM SALVAGE GRINDER Body Mass Index 25.9 06/01/2023 9:00 AM SALVAGE GRINDER Plan of Treatment Not on file Procedures Procedure Name Priority Date/Time Associated Diagnosis Comments PAP TEST Routine 04/13/2022 3:30 PM CDT from Last 3 Months or Most Recently Relevant to Health Maintenance Care Teams Associate Brand Manager Relationship Specialty Start Date End Date Pcp, [place] [address] PCP - General 09/10/16 Carolina De La Vega, OTR/L [address] [place] [address] Occupational Therapist 11/03/16 Carolina De La Vega, OTR/L [address] [place] [address] Occupational Therapist 11/25/16 Danielle Frye OD [address] [place] [address] Referring Provider Optometry 12/01/16 Megan Naranjo, PT [address] [place] [address] Physical Therapy 03/08/18
--- OUTSIDE RECORDS SUMMARY | 2024-01-05 15:14 | XMS_ITS | Clinical Summary ---
Author Organization [facility] Address [place], [place] [address] Care Team Providers Care Valve Tester Name Role Phone Alysia Oneill Primary Care Provider Allergies Active Allergy Reactions Criticality Noted Date Comments Dust Mites Hives 09/06/2003 Triamterene-Hydrochlorothiazid Hives 04/27 Medications Medication Sig Dispensed Refills Start Date End Date Status Armodafinil (NUVIGIL) 250 mg Tab Take by mouth. 0 12/25/2010 Active venlafaxine (EFFEXOR XR) 150 mg Extended-Release capsule Take 150 mg by mouth once daily with a meal. 06/12/2021 Active gabapentin (NEURONTIN) 300 mg capsule Take 300 mg by mouth 3 times daily. 01/30/2021 Active cholecalciferol (Vitamin D) 1,000 unit capsule Take 1 Capsule (1,000 units) by mouth once daily. 0 08/13/2021 Active multivitamin (MVI) tablet Take 1 Tablet by mouth once daily. 0 08/13/2021 Active benzonatate (TESSALON) 200 mg capsuleIndications: Cough Take 1 Capsule (200 mg) by mouth 3 times daily if needed for Cough. 21 Capsule 09/14/2021 Active rx codeine-guaFENesin, 10-100 mg/5 ml, (ROBITUSSIN AC) liquid (ED DC MED)Indications:Cou gh Take 5 mL by mouth every 4 hours if needed (cough). 120 mL 10/12/2021 Active albuterol HFA (PRO-AIR; VENTOLIN; PROVENTIL) 90 mcg/actuation inhalerIndications: Cough INHALE 1-2 PUFFS BY MOUTH EVERY 4 HOURS IF NEEDED FOR SHORTNESS OF BREATH OR WHEEZING 1ST CHOICE 18 g 1 10/13/2021 Active loteprednol (Lotemax) 0.5 % ophthalmic suspensionIndicatio ns:Dry eye syndrome of both eyes Place 1 Drop into both eyes four times daily. Use only for flare-ups of the dry eyes. 5 mL 10/26/2022 Active cycloSPORINE 0.09 % dpetIndications:Dry eye syndrome of both eyes Place 1 Drop into the eye(s) two times daily. 60 Each 2 10/26/2022 Active Active Problems Problem Noted Date Diagnosed Date Hyperopia of right eye with astigmatism and pres byopia 07/22/2022 Dry eye syndrome of both eyes 07/22/2022 Myopia of left eye with astigmatism and presbyop ia 07/22/2022 Arthrodesis status 08/11/2019 Spinal stenosis of cervical region 06/26/2019 Overview: Added automatically from request for surgery [id number] Primary snoring 03/05/2019 Primary narcolepsy without cataplexy 11/09/2017 TBI (traumatic brain injury) 09/28/2016 Arteriosclerosis of coronary artery 04/30/2016 Acute bronchitis 06/28/2015 Menopause present 05/24/2013 Fluid retention 05/24/2013 Cyst of pituitary gland 03/26/2008 Depressive disorder, not elsewhere classified Excessive or frequent menstruation 05/31/2007 Other and unspecified ovarian cyst 05/31/2007 Dysmenorrhea 05/31/2007 Allergic rhinitis 11/07/2003 Overview: Problem list name updated by automated process. Provider to review Immunizations Name Administration Dates Next Due Influenza, IIV3 (Age >=3 years) 03/27/2013,05/19 Tdap 12/25/2010 Family History Medical History Relation [...] Never Smokeless Tobacco: Never Tobacco Cessation:Counseling Given: Yes Alcohol Use Standard Drinks/Week Comments Yes 0 (1 standard drink = 0.6 oz pur e alcohol) rare-- 5 drinks per year Social Connections Answer Date Recorded Frequency of Communication with Friends and Fami ly Not on file 08/13/2021 Financial Resource Strain Answer Date R ecorded Difficulty of Paying Living Expenses Not on file 08/13/2021 Difficulty of Paying Living Expenses Not on file 08/13/2021 Sex and Gender Information Value Date Recorded Sex Assigned at Not on file Gender Identity Not on file Sexual Orientation Not on file Obstetrics History Para Term AB IAB SAB Ectopic Multiple Livin g Live Births 5 2 2 0 1 0 1 0 0 2 2 Date Outcome GA Total Labor Labor//3rd Weight Sex Type Anes PTL Veronika A1 A5 Name Clin SAB Term Term 1983 40w 0d F Vag Living 1987 40w 0d M C-Sec tion Living Last Filed Vital Signs Vital Sign Reading Time Taken Comments Blood Pressure 120/84 10/12/2021 9:59 AM CDT Pulse 81 10/12/2021 9:59 AM CDT Temperature 36.7 ??C (98.1 ??F) 10/12/2021 9:59 AM CD T Respiratory Rate 16 06/28/2015 2:15 PM WASTE REDUCTION COORDINATOR Oxygen Saturation 97% 10/12/2021 9:59 AM CDT Inhaled Oxygen Concentration - - Weight 73.8 kg (162 lb 11.2 oz) 10/12/2021 9:59 AM CDT Height 160 cm (5' 2.99) 09/14/2021 3:39 PM CDT Body Mass Index 28.83 09/14/2021 3:39 PM CDT Plan of Treatment Health Maintenance Due Date Last Done Comments HIV for age 15-65 1980 Hepatitis C screening for age 18-79 08/28/1983 Colonoscopy through age 75 2010 Zoster (shingles) series for age 50+ (1 of 2) 08/28/2015 Mammogram for age 45-75 06/10/2017 06/10/20 16 (Completed outside of [facility]), 06/10/2015, 06/04/2014, Additional history exists Depression screening for age 12+ 01/06/2018 01/06/2017 Tetanus booster 12/25/2020 12/25/2010, 12/25/2010 Lipids for age 45-75 01/06/2022 01/06/2017 (Completed outside of [facility]), 01/01/2011, 12/25/2010 BMI (ht and wt on same day) for age 18+ 09/14/2022 09/14/2021, 08/13/2021, 01/06/2017, Additional history exists COVID-19 vaccine series (2022- season) 2023 Influenza for age 50-64 02/19/2024 03/27/2013, 05/19 Tdap Completed 12/25/2010 Pneumococcal series for age 6-64 Aged Out No longer eligible based on patient's age to complete this topic Procedures Procedure Name Priority Date/Time Associated Diagnosis Comments XR MAMMO BILAT SCREEN FFDM (IA) Routine 06/10/2015 3:50 PM WASTE REDUCTION COORDINATOR Visit for screening mammogram LIPID PANEL Routine 01/01/2011 8:28 AM CDT Screening for lipoid disorders from Last 3 Months or Most Recently Relevant to Health Maintenance Results * XR MAMMO BILAT SCREEN FFDM (06/10/2015 3:50 PM WASTE REDUCTION COORDINATOR) Anatomical Region Laterality Modality BREASTS, Breast Left, Breast Right Bilateral Mammography Impressions 06/10/2015 4:44 PM WASTE REDUCTION COORDINATOR ??There is no radiographic evidence for malignancy. ??Recommend annual mammograms. A lay language report of this examination will be provided to the patient. MAMMOGRAM ASSESSMENT: ??ACR 1 Negative Narrative 06/10/2015 4:44 PM WASTE REDUCTION COORDINATOR XR MAMMO BILAT SCREEN FFDM [G0202.0] CLINICAL HISTORY: ??This is an asymptomatic 49 y.o. patient. INDICATION FOR EXAM: Mammogram Screening. TECHNIQUE: CC & MLO views were obtained. ??This digital study was evaluated with the assistance of Computer-Aided Detection. COMPARISON FILM: Yes 06/04/14 [facility] 10/20/12 [facility] FINDINGS: ??Mammographically, the breast tissue has scattered fibroglandular densities. ??There are no dominant masses, suspicious micro calcifications or areas of architectural distortion. Tameka Rodgers NP MAMMO * LIPID PANEL (01/01/2011 8:28 AM CDT) CHOLESTEROL,TOTAL 193 110 - 199 mg/dL [facility] TRIGLYCERIDES 58 40 - 149 mg/dL [facility] HDL CHOLESTEROL 54 >40 mg/dL [facility] CHOL/HDL RATIO 3.57 <4.51 [facility] LDL CHOLESTEROL 127 <131 mg/dL [facility] PATIENT STATUS Fasting [facility] Blood specimen (specimen) BLOOD SPECIMEN / Unknown 01/01/2011 8:28 AM CDT 01/01/2011 8:14 AM CDT Tameka Rodgers NP CHEMISTRY [facility] INTERNAL ZIP [address] [place] [id number] from Last 3 Months or Most Recently Relevant to Health Maintenance Care Teams Valve Tester Relationship Specialty [place] [address] [place] [address] PCP - General Family Practice 4/25/22
== END 2024-01-05 14:59 | disposition home or self-care (01) ==
PROVIDERS: PCP Family Medicine; Visit Provider Family Medicine
DX: E78.5 Hyperlipidemia, unspecified (principal); R03.0 Elevated blood-pressure reading, without diagnosis of hypertension; Z11.59 Encounter for screening for other viral diseases
CPT/HCPCS: 80053; 80061; 86803

== ENCOUNTER 2024-01-10 11:53 | Emergency (ER) | payer OTHER, SELFPAY ==
[2024-01-10 11:55] VITALS: BP 141/87; PULSE 86; RESP 18; O2SAT 97
[2024-01-10 11:56] VITALS: BP 154/87; PULSE 85; RESP 16; TEMP 36.7; O2SAT 98; BMI 26.0
--- NOTE | 2024-01-10 12:01 | ED_ITS ---
HPI - Chest Pain General Date Seen: 01/10/24 Chief Complaint: Chest Pain Stated Complaint: Chest pain Time Seen by Provider: 01/10/24 11:54 Source: patient Mode of arrival: ambulatory Limitations: no limitations History of Present Illness HPI narrative: Patient is a very nice 58-year-old female who I did a stress test on, regular exercise stress test. With the primary indication of chest pain shortness of breath. She developed pressure sensation post exercise, she exercised to a very high level of 12 minutes. With a diagnostic heart rate. She developed retrosternal chest pressure after this. Which was prolonged in the recovery. She does tell me that she gets chest pressure, sometimes with the exercise sometimes without, she has no previous history of coronary artery disease. Does have a history of hyperlipidemia, and which she describes as prediabetes. There is some question whether she is hypertensive, and they are contemplating starting medication for this. No history of smoking, family history is positive in a grandfather for heart disease and stroke but advanced age. Denies any current shortness of breath, chest pain, leg swelling, history of stigmata of pulmonary embolism. Related Data Previous Rx's ?Medication ?Instructions ?Recorded bupropion HCl 300 mg 24 hr tablet, 300 mg PO QAM #30 tabs 12/26/23 extended release (Wellbutrin XL) armodafinil 250 mg tablet 250 mg PO DAILY #90 tabs 01/05/24 bupropion HCl 150 mg 24 hr tablet, 150 mg PO QAM #30 tabs 01/05/24 extended release (Wellbutrin XL) aspirin 81 mg chewable tablet 81 mg PO DAILY #90 tabs 01/10/24 Allergies Allergy/AdvReac Type Severity Reaction Status Date / Time atorvastatin Allergy Unknown Unknown Verified 01/10/24 12:00 [id number]-COL-OjE Reductase Allergy Unknown Verified 01/10/24 12:00 Inhibitor Review of Systems Status of ROS Reports: 10 or more systems reviewed and unremarkable except as noted in History and below [facility] Medical History Vesicular palmoplantar eczema ?L30.1 - Dyshidrosis [pompholyx] (ICD-10) Concussion ?S06.0XAA - Concussion with loss of consciousness status unknown, initial encounter (ICD-10) Abnormal screening CT of heart ?R93.1 - Abnormal findings on diagnostic imaging of heart and coronary circulation (ICD-10) Ventricular dysphonia ?R49.0 - Dysphonia (ICD-10) Sleep apnea ?G47.30 - Sleep apnea, unspecified (ICD-10) Pituitary adenoma ?D35.2 - Benign neoplasm of pituitary gland (ICD-10) Surgical History H/O wrist surgery ?Z98.890 - Other specified postprocedural states (ICD-10) H/O arthroscopy ?Z98.890 - Other specified postprocedural states (ICD-10) History of section ?Z98.891 - History of uterine scar from previous surgery (ICD-10) History of cervical spinal surgery (08/10/19) ?Z98.890 - Other specified postprocedural states (ICD-10) Status post nasal septoplasty ?Z98.890 - Other specified postprocedural states (ICD-10) Status post laparoscopic supracervical hysterectomy ?Z90.711 - Acquired absence of uterus with remaining cervical stump (ICD-10) History of tonsillectomy and adenoidectomy ?Z90.89 - Acquired absence of other organs (ICD-10) History of foot surgery ?Z98.890 - Other specified postprocedural states (ICD-10) Family History Paternal Grandfather Heart disease Stroke Aunt Breast cancer, Onset Age: 61 Family/Other Cervical cancer Sister High blood pressure High cholesterol Family/Other Diabetes Sister Alcohol dependence Daughter Bleeding disorder Father High blood pressure Social History Narrative: Retired. . Nonsmoker. No alcohol use. No recreational drug use. No concerns with safety or abuse. What is your current living situation?: I presently have a place to live Problems where you live: no known problems In the past 12 months, utilities in danger of being shut off: no In the past 12 mos, have been you worried that your food would run out before you had money to buy more?: never true In the past 12 mos, the food you bought just didn't last and you didn't have money to buy more?: never true Smoking Status: Never smoker How often do you have a drink containing alcohol: never AUDIT-C Alcohol total score: 0 Non-prescribed substance use: denies use How often does anyone, including family, friends and others, physically hurt you : never How often does anyone, including family, friends and others, insult or talk down to you: sometimes How often does anyone, including family, friends and others, threaten you with harm: never How often does anyone, including family, friends and others, scream or curse at you: sometimes Little interest or pleasure in doing things: several days Feeling down, depressed, or hopeless: several days service: No Exam Narrative Exam Narrative: Patient appears in no apparent distress, pupils equal round reactive to light there is no scleral icterus redness or TMs are normal oropharynx is normal there is no adenopathy anterior posterior chains her chest is good air entry bilaterally with absence of wheezing in easy respiratory rate. Heart sounds no clicks murmurs or gallops, her abdomen is soft there is no guarding no organomegaly, well-muscled lower extremities, with absence of edema, normal pulses. Const Vital Signs, click to edit/add: Vital Signs - 24 hr 01/10/24 11:55 01/10/24 11:56 01/10/24 12:27 Temperature 98.1 F Pulse Rate 88 Pulse Rate [Pulse Oximeter] 86 85 Respiratory Rate 18 16 Blood Pressure [Right Upper Arm] 141/87 H 154/87 H Pulse Oximetry 97 98 96 Oxygen Delivery Method Room Air Room Air 01/10/24 12:30 Temperature Pulse Rate 93 Pulse Rate [Pulse Oximeter] Respiratory Rate Blood Pressure [Right Upper Arm] Pulse Oximetry 95 Oxygen Delivery Method Documenting provider has reviewed patient's vital signs: yes Course Reevaluation(s) Time of Reevaluation #1: 13:08 Reevaluation #1: Patient remains pain-free, her initial troponin 0 her EKG is normal. We will repeat her troponin at 3:00 p.m.. If this is negative along with an EKG I think she can be safely discharged on 81 mg of aspirin. I did attempt to call her primary care physician who ordered the test, unfortunately she was not available. We will leave a message. She will need follow-up with primary care, and either another imaging modality such as stress echo or more appropriately Lexiscan with or without a Cardiology consult. Time of Reevaluation #2: 15:34 Reevaluation #2: Patient's troponins are negative x2, her EKG repeat after the initial EKG is negative also. She does have some discomfort which she says she has all the time. Her anterior chest, I doubt this is related to angina with a negative EKG negative troponins, there was however worsening associated with the stress test, and her indeterminate i.e. changes noted on the stress test, which likely given the situation would be a false positive. However, in the setting of worsening chest discomfort, I would suggest either cardiology consult or repeat with a stress echo or Lexiscan. Appointments already been made with her with her primary and she will continue on with the ASA 81 mg, she was comfortable this plan we went over warning signs when she should re-presented. Vital Signs Vital signs: Initial Vital Signs Pulse Rate 86 01/10/24 11:55 Respiratory Rate 18 01/10/24 11:55 Respiratory Effort Normal 01/10/24 11:55 Respiratory Depth Normal 01/10/24 11:55 Respiratory Pattern Normal 01/10/24 11:55 Blood Pressure 141/87 H 01/10/24 11:55 Blood Pressure Mean 105 01/10/24 11:55 Blood Pressure Position Semi-Fowlers 01/10/24 11:55 Pulse Oximetry 97 01/10/24 11:55 Oxygen Delivery Method Room Air 01/10/24 11:55 Vital Signs Pulse Rate 86 01/10/24 11:55 Respiratory Rate 18 01/10/24 11:55 Blood Pressure 141/87 H 01/10/24 11:55 Pulse Oximetry 97 01/10/24 11:55 Oxygen Delivery Method Room Air 01/10/24 11:55 Temperature 98.1 F 01/10/24 11:56 Pulse Rate 93 01/10/24 12:30 Respiratory Rate 16 01/10/24 11:56 Blood Pressure 154/87 H 01/10/24 11:56 Pulse Oximetry 95 01/10/24 12:30 Oxygen Delivery Method Room Air 01/10/24 11:56 Medications Administered Medications: Discontinued Medications Generic Name Dose Route Start Last Admin Trade Name Freq PRN Reason Stop Dose Admin Aspirin 324 mg 01/10/24 11:55 01/10/24 12:10 Aspirin 81 Mg Tab.Chew PO 01/10/24 11:56 324 mg ONCE ONE Administration MDM - Chest Pain MDM Narrative Medical decision making narrative: During the evaluation of this patient I considered multiple differential diagnosis is. The life-threatening differential diagnosis include coronary disease/SC, pulmonary embolism, pneumothorax, pneumonia, and aortic dissection. Other differential diagnosis included but were not limited to pericarditis, myocarditis, chest wall pain, GERD, esophageal rupture, rib fracture contusion, pleurisy, as well as other etiologies. EKG showed normal sinus rhythm, with a ventricular rate of 68 and her blood pressure is 132/84 initially. During the stress test, she did have a hypertensive response to exercise with the systolic pressure of 234. During peak exercise there was 1.5 mm of depression noted in the inferior leads, with 1 mm of depression noted in the in lateral leads. This resolved during the time course of recovery. I discussed with her the, doing serial troponin, likely getting her to follow up with her pre are physician. Starting aspirin and either cardiology consult or repeating stress test within imaging modality. Clearly she exercised to a high level, but there may be some low level ischemia notable. Medical Records Data Attestation: I reviewed the patient's medical records. Lab Data Attestation: I reviewed the patient's lab results. Labs: Lab Results 01/10/24 01/10/24 01/10/24 Range/Units 11:56 12:18 14:55 WBC 6.50 (4.50-11.00) K/uL RBC 4.24 (4.00-5.20) m/uL Hgb 12.7 (12.0-16.0) gm/dL Hct 38.8 (33.0-51.0) % MCV 92 (80-100) fL MCH 30 (26-34) pg MCHC 33 (32-36) gm/dL RDW Coeff of Jerome 12.6 (11.5-15.5) % Plt Count 210 (140-440) K/uL Neut % (Auto) 55.4 (42.0-72.0) % Lymph % (Auto) 33.5 (20-44) % [place] % (Auto) 8.3 (0.0-11.0) % Eos % (Auto) 2.3 (0.0-7.0) % Baso % (Auto) 0.2 (0.0-3.0) % Neut # (Auto) 3.60 (1.7-7.0) K/uL Lymph # (Auto) 2.18 (0.90-2.90) K/uL [place] # (Auto) 0.50 (0.00-0.90) K/UL Eos # (Auto) 0.15 (0.00-0.50) K/uL Baso # (Auto) 0.01 (0.00-0.30) K/uL Abs Immat Gran (auto) 0.02 (0.00-0.30) K/uL Imm/Tot Granulo (auto) 0.3 % Sodium 139 (135-149) mmol/L Potassium 3.8 (3.6-5.1) mmol/L Chloride 107 (96-114) mmol/L Carbon Dioxide 23 (20-32) mmol/L Anion Gap 9 (7-15) mEq/L BUN 10 (7-30) mg/dL Creatinine 0.6 (0.5-1.5) mg/dL Estimated Creat Clear 80.83 Estimated GFR 104 ml/min Glucose 99 (60-115) mg/dL Calcium 9.4 (8.4-10.6) mg/dL POC Troponin I 0.00 L 0.01 (0.01-0.04) ng/ml ECG Data Attestation: I personally reviewed and interpreted this ECG as follows: ECG interpretation date: 01/10/24 Prior ECG tracings: available for review Interpretation: EKG shows normal sinus rhythm with no acute changes, ventricular rates 88, normal QRS interval at 90 milliseconds, QT was normal at 364, there is no acute ST wave changes. Discharge Plan Discharge Clinical Impression: Chest pain, Positive cardiac stress test Patient Disposition: Home, Self-Care Condition: Improved Additional Instructions: Take daily Aspirn 81 mg( baby) once a day, this is OTC at the pharmacy. I called and left a message with your Doc, she left for the day and is not in til Thurs. I suggested either another type of stress test with Cardiac imaging or +/- a consult with the Mechanical Design Engineer Facilities. I think you are ok to go home, no heavy exertional activities til discussion with your Doc. That means unfortunately no exercising. If you develop chest pain shortness of breath that does not go way. Then I recommend that you come back in and get recheck. Activity Level: Light activity Prescriptions: New aspirin 81 mg tablet,chewable 81 mg PO DAILY Qty: 90 2RF No Action bupropion HCl [Wellbutrin XL] 150 mg tablet extended release 24 hr 150 mg PO QAM Qty: 30 3RF armodafinil 250 mg tablet 250 mg PO DAILY Qty: 90 0RF bupropion HCl [Wellbutrin XL] 300 mg tablet extended release 24 hr 300 mg PO QAM Qty: 30 0RF Follow Up/Referrals: Denise Quinn MD [Primary Care Provider] - Stand Alone Forms: [employer] Info Instructions
[2024-01-10] MEDS: ASPIRIN 81 MG TAB.CHEW 324 MG PO (12:10)
[2024-01-10 12:27] VITALS: PULSE 88; O2SAT 96
[2024-01-10 12:29] LABS: Basophils Absolute Auto 0.01 K/uL (0.00-0.30); Basophils Percent Auto 0.2 % (0.0-3.0); Eosinophils Absolute Auto 0.15 K/uL (0.00-0.50); Eosinophils Percent Auto 2.3 % (0.0-7.0); Hematocrit 38.8 % (33.0-51.0); Hemoglobin* 12.7 gm/dL (12.0-16.0); Immature Granulocytes Abs Auto 0.02 K/uL (0.00-0.30); Immature Granulocytes Pct Auto 0.3 %; Lymphocytes Absolute Auto 2.18 K/uL (0.90-2.90); Lymphocytes Percent Auto 33.5 % (20-44); Mean Corpuscular HGB Conc 33 gm/dL (32-36); Mean Corpuscular Hemoglobin 30 pg (26-34); Mean Corpuscular Volume 92 fL (80-100); Monocytes Percent Auto 8.3 % (0.0-11.0); Neutrophils Percent Auto 55.4 % (42.0-72.0); Platelet Count* 210 K/uL (140-440); RDW Coefficient of Variation % 12.6 % (11.5-15.5); Red Blood Count 4.24 m/uL (4.00-5.20)
[2024-01-10 12:30] VITALS: PULSE 93; O2SAT 95
[2024-01-10 12:31] LABS: Slide Review Reflex No
[2024-01-10 12:41] LABS: Chloride* 107 mmol/L (96-114); Potassium* 3.8 mmol/L (3.6-5.1); Sodium* 139 mmol/L (135-149)
--- OUTSIDE RECORDS SUMMARY | 2024-01-10 12:42 | XMS_ITS | Clinical Summary ---
Author Organization [facility] Address [place] [address] Phone Care Team Providers Care Slasher Runner Name Role Phone Pcp, No Primary Care Provider Unavailabl e Carolina De La Vega A OTR/L Unavailable Unavail able YolteteCarolina A OTR/L Unavailable Unavail able Danielle Frye OD Unavailable Unavailable Megan Naranjo PT Unavailable Beto leos Source Comments [employer] is fully rolled out on [employer]. Last update 11/22/08.[employer] Allergies No known active allergies Medications * [...] sleep apnea) 11/09/2017 Primary narcolepsy without cataplexy ([facility]) 11/09 METZGER (headache) 09/08/2017 TBI (traumatic brain injury) ([facility]) 09/28/2016 Encounters Date Type Department Care Team Description 10/29/2023 Refill [facility] [address] [place] [address] Riana Betancur MD Other; Refill Request (ARMODAFINIL [...] Comments Blood Pressure 135/83 06/01/2023 9:00 AM SPICE MIXER Pulse 83 06/01/2023 9:00 AM SPICE MIXER Temperature 35.9 ??C (96.6 ??F) 08/24/2022 10:[address] Respiratory Rate - - Oxygen Saturation - - Inhaled Oxygen Concentration - - Weight 64.2 kg (141 lb 9.6 oz) 06/01/2023 9:00 A M SPICE MIXER Height 157.5 cm (5' 2) 06/01/2023 9:00 AM SPICE MIXER Body Mass Index 25.9 06/01/2023 9:00 AM SPICE MIXER Plan of Treatment Health Maintenance Due Date [...] Recently Relevant to Health Maintenance Care Teams Slasher Runner Relationship Specialty Start Date End Date Pcp, [place] [address] PCP - General 09/10/16 Carolina De La Vega, OTR/L [address] [place] [address] Occupational Therapist 11/03/16 Carolina De La Vega, OTR/L [address] [place] [address] Occupational Therapist 11/25/16 Danielle Frye OD [address] [place] [id number] Referring Provider Optometry 12/01/16 Megan Naranjo PT [address] [place] [id number] Physical Therapy 03/08/18
--- OUTSIDE RECORDS SUMMARY | 2024-01-10 12:42 | XMS_ITS | Referral Summary ---
Author Organization [facility] Address [address] [place] [address] Phone Care Team Providers Care Estate Attorney Name Role Phone Pcp, No Primary Care Provider Unavailabl e Carolina De La Vega A OTR/L Unavailable Unavail able YoletteCarolina A OTR/L Unavailable Unavail able Danielle Frye OD Unavailable Unavailable Megan Naranjo PT Unavailable Beto leos Source Comments [email or web address] is fully rolled out on [employer] Last update 11/22/08.[facility] [employer] Encounters Date Type Department Care Team Description 10/29/2023 Refill [facility] [address] [place], [place] [id number] Riana Betancur MD Other; Refill Request (ARMODAFINIL [...] Comments Blood Pressure 135/83 06/01/2023 9:00 AM TRAIN CONTROLLER Pulse 83 06/01/2023 9:00 AM TRAIN CONTROLLER Temperature 35.9 ??C (96.6 ??F) 08/24/2022 10:[address] Respiratory Rate - - Oxygen Saturation - - Inhaled Oxygen Concentration - - Weight 64.2 kg (141 lb 9.6 oz) 06/01/2023 9:00 A M TRAIN CONTROLLER Height 157.5 cm (5' 2) 06/01/2023 9:00 AM TRAIN CONTROLLER Body Mass Index 25.9 06/01/2023 9:00 AM TRAIN CONTROLLER Plan of Treatment Not on file Procedures Procedure Name Priority Date/Time Associated Diagnosis Comments PAP TEST Routine 04/13/2022 3:30 PM CDT from Last 3 Months or Most Recently Relevant to Health Maintenance Care Teams Estate Attorney Relationship Specialty Start Date End Date Pcp, [place] [address] PCP - General 09/10/16 Carolina De La Vega, OTR/L [address] [place] [address] Occupational Therapist 11/03/16 Carolina De La Vega, OTR/L [address] [place] [address] Occupational Therapist 11/25/16 Danielle Frye OD [address] [place] [address] Referring Provider Optometry 12/01/16 Megan Naranjo, PT [address] [place] [address] Physical Therapy 03/08/18
--- OUTSIDE RECORDS SUMMARY | 2024-01-10 12:42 | XMS_ITS | Clinical Summary ---
Author Organization [employer] [facility] Address [place], [place] [address] Care Team Providers Care Truck Bracer Name Role Phone Alysia Oneill Primary Care [...] Overview: Added automatically from request for surgery [id number] Primary snoring 03/05/2019 Primary narcolepsy without cataplexy [...] T Respiratory Rate 16 06/28/2015 2:15 PM COTTON GIN YARD SUPERVISOR Oxygen Saturation 97% 10/12/2021 9:59 AM CDT [...] 45-75 06/10/2017 06/10/20 16 (Completed outside of [facility]), 06/10/2015, 06/04/2014, Additional history exists Depression screening for age 12+ 01/06/2018 01/06/2017 Tetanus booster 12/25/2020 12/25/2010, 12/25/2010 Lipids for age 45-75 01/06/2022 01/06/2017 (Completed outside of [facility]), 01/01/2011, 12/25/2010 BMI (ht and wt on [...] SCREEN FFDM (IA) Routine 06/10/2015 3:50 PM COTTON GIN YARD SUPERVISOR Visit for screening mammogram LIPID PANEL Routine 01/01/2011 8:28 AM CDT Screening for lipoid disorders from Last 3 Months or Most Recently Relevant to Health Maintenance Results * XR MAMMO BILAT SCREEN FFDM (06/10/2015 3:50 PM COTTON GIN YARD SUPERVISOR) Anatomical Region Laterality Modality BREASTS, Breast Left, Breast Right Bilateral Mammography Impressions 06/10/2015 4:44 PM COTTON GIN YARD SUPERVISOR ??There is no radiographic evidence for malignancy. ??Recommend annual mammograms. A lay language report of this examination will be provided to the patient. MAMMOGRAM ASSESSMENT: ??ACR 1 Negative Narrative 06/10/2015 4:44 PM COTTON GIN YARD SUPERVISOR XR MAMMO BILAT SCREEN FFDM [G0202.0] CLINICAL HISTORY: ??This is an asymptomatic 49 y.o. patient. INDICATION FOR EXAM: Mammogram Screening. TECHNIQUE: CC & MLO views were obtained. ??This digital study was evaluated with the assistance of Computer-Aided Detection. COMPARISON FILM: Yes 06/04/14 [facility] 10/20/12 [facility] FINDINGS: ??Mammographically, the breast tissue has scattered fibroglandular densities. ??There are no dominant masses, suspicious micro calcifications or areas of architectural distortion. Tameka Rodgers NP MAMMO * LIPID PANEL (01/01/2011 8:28 AM CDT) CHOLESTEROL,TOTAL 193 110 - 199 mg/dL [facility] TRIGLYCERIDES 58 40 - 149 mg/dL [facility] HDL CHOLESTEROL 54 >40 mg/dL [facility] CHOL/HDL RATIO 3.57 <4.51 [facility] LDL CHOLESTEROL 127 <131 mg/dL [facility] PATIENT STATUS Fasting [facility] Blood specimen (specimen) BLOOD SPECIMEN / Unknown 01/01/2011 8:28 AM CDT 01/01/2011 8:14 AM CDT Tameka Rodgers NP CHEMISTRY [facility] INTERNAL ZIP [address] [place] [address] from Last 3 Months or Most Recently Relevant to Health Maintenance Care Teams Truck Bracer Relationship Specialty [place] [address] [place] [address] PCP - General Family Practice 4/25/22
--- OUTSIDE RECORDS SUMMARY | 2024-01-10 12:43 | XMS_ITS | Encounter Summary ---
Author Organization [facility] Address [address] [facility] [place] [address] Phone Care Team Providers Care Barrel Assembly Inspector Name Role Phone Pcp, No Primary Care [...] (Late st Contact Info) Description 10/29/2023 Refill [facility] [address] [facility] [address] [place], [place] [phone] Riana Betancur MD [address] [facility] [address] [place], [place] [phone] Other; Refill Request (ARMODAFINIL 250 MG TABLET) [...] documented as of this encounter Care Teams Barrel Assembly Inspector Relationship Specialty Start Date End Date Pcp, No [facility] [place] [address] PCP - General 09/10/16 Carolina De La Vega, OTR/L [address] [place] [address] Occupational Therapist 11/03/16 Carolina De La Vega, OTR/L [address] [place] [address] Occupational Therapist 11/25/16 Danielle Frye OD [address] [place] [address] Referring Provider Optometry 12/01/16 Megan Naranjo PT [address] [place] [address] Physical Therapy 03/08/18 documented as of this encounter
[2024-01-10 12:44] LABS: Anion Gap 9 mEq/L (7-15); Blood Urea Nitrogen* 10 mg/dL (7-30); Carbon Dioxide* 23 mmol/L (20-32); Creatinine* 0.6 mg/dL (0.5-1.5); Est. Creatinine Clearance* 80.83; Estimated Glomerular Filt Rate 104 ml/min
[2024-01-10 12:45] LABS: Calcium* 9.4 mg/dL (8.4-10.6); Glucose* 99 mg/dL (60-115)
[2024-01-10 15:20] LABS: Troponin, Point-of-Care* 0.01 ng/ml (0.01-0.04)
== END 2024-01-10 15:40 | disposition home or self-care (01) ==
PROVIDERS: Emergency Provider Family Medicine; PCP Family Medicine
DX: R07.9 Chest pain, unspecified (principal); R94.39 Abnormal result of other cardiovascular function study
CPT/HCPCS: 36415; 80048; 84484; 85025; 93005; 93016; 93017; 99284; A9270

== ENCOUNTER 2024-02-07 14:36 | Outpatient (CLI) | payer OTHER, SELFPAY ==
[2024-02-07 15:45] VITALS: BP 160/72; PULSE 99; RESP 18
--- NOTE | 2024-02-07 16:03 | W.PM.STED ---
Stress Test Note Date Date Seen: 02/07/24 Date of test: 02/07/24 Providers Primary care provider: Denise Quinn Stress test physician: Mert Sommers Stress Test Note Stress test ordered: Stress Echo Indication for test: Failed treatmill test Results discussion: Patient is a 50-year-old female who presents for a stress echo, she failed a treadmill test with inducement of chest pain, she did not have any changes associated with that. After discussion the risks benefits side effects she would like to proceed. Pretest EKG shows normal sinus rhythm, there is no acute ST wave changes. Ventricular rate 73 blood pressure 158/80. Following Eddie protocol she exercised for 11 minutes, she had a metabolic equivalent of 12.1 Mets. Test is terminated because of fulfillment of protocol, during this test. She had no chest pain no shortness of breath and no asymptomatic or subjective changes. Review of her tracing showed no ST wave changes suggestive of ischemia. She recovered normally Impression: Negative electrographic portion of stress echo, both objective and subjective Follow up suggested: Await echo images clinical correlation with these will be needed, she left this testing facility in good condition.
== END 2024-02-07 15:46 | disposition home or self-care (01) ==
LOC: STRESS 14:37
PROVIDERS: PCP Family Medicine; Visit Provider Family Medicine
DX: R94.39 Abnormal result of other cardiovascular function study (principal); R03.0 Elevated blood-pressure reading, without diagnosis of hypertension; R07.89 Other chest pain; Z13.6 Encounter for screening for cardiovascular disorders
CPT/HCPCS: 76706; 93016; 93325; 93351

== ENCOUNTER 2024-02-16 11:14 | Outpatient (CLI) | payer OTHER, SELFPAY ==
--- OUTSIDE RECORDS SUMMARY | 2024-02-16 11:21 | XMS_ITS | Clinical Summary ---
Author Organization [facility] Address [place], [place] [address] Care Team Providers Care Hand Spinner Name Role Phone Alysia Oneill Primary Care [...] Overview: Added automatically from request for surgery [id number] Primary snoring 03/05/2019 Primary narcolepsy without cataplexy [...] updated by automated process. Provider to review Encounters Date Type Department Care Team Description 02/16/2024 10:30 AM CDT Office Visit [facility] [address] [place] [address] Hugo Ballard MD Arrived 02/07/2024 3:00 PM CDT Ancillary Procedure [facility] [address] [place] [address] from Last 3 Months Immunizations Name Administration [...] 2 2 Date Outcome GA Total Labor Labor/2nd/3rd Weight Sex Type Anes PTL Veronika A1 [...] T Respiratory Rate 16 06/28/2015 2:15 PM MANAGER ER Oxygen Saturation 97% 10/12/2021 9:59 AM CDT [...] 45-75 06/10/2017 06/10/20 16 (Completed outside of [facility]), 06/10/2015, 06/04/2014, Additional history exists Depression screening for age 12+ 01/06/2018 01/06/2017 Tetanus booster 12/25/2020 12/25/2010, 12/25/2010 Lipids for age 45-75 01/06/2022 01/06/2017 (Completed outside of [facility]), 01/01/2011, 12/25/2010 BMI (ht and wt on same day) for age 18+ 09/14/2022 09/14/2021, 08/13/2021, 01/06/2017, Additional history exists COVID-19 vaccine series (2022- season) 2023 Influenza for age 50-64 02/19/2024 03/27/2013, 05/19 Tdap Completed 12/25/2010 Pneumococcal series for age 6-64 Aged Out No longer eligible based on patient's age to complete this topic Procedures Procedure Name Priority Date/Time Associated Diagnosis Comments ECHO STRESS EXERCISE WO CONTRAST W COLOR W LTD DOPPLER Routine 02/07/2024 3:43 PM CDT Abnormal result of other cardiovascular function study Elevated blood pressure reading without diagnosis of hypertension Other chest pain XR MAMMO BILAT SCREEN FFDM (IA) Routine 06/10/2015 3:50 PM MANAGER ER Visit for screening mammogram LIPID PANEL Routine 01/01/2011 8:28 AM CDT Screening for lipoid disorders from Last 3 Months or Most Recently Relevant to Health Maintenance Results * ECHO STRESS EXERCISE WO CONTRAST W COLOR W LTD DOPPLER (02/07/2024 3:43 PM CDT) LVEDD 4.3 cm EJECTION FRACTION 60 - 65% Anatomical Region Laterality Modality Ultrasound 02/07/2024 2:55 PM CDT Narrative 02/07/2024 4:45 PM CDT STRESS ECHOCARDIOGRAM DARCI RAMESH ? Accession#: ?? [id number] : ?1965 58 years Study Date: ?? 02/07/2024 2:55:34 PM Gender: F ?BP: ? 158/80 mmHg Height: 157.00 cm ?BSA: ?1.64 m? ? ? Weight: 64.00 kg ? Tech: ? MBF ? Referring MD: TONY GOEL Site: ? [facility] Reading Location: Mobile OP Patient Location: Outpatient. Procedure: Stress Echo, Limited 2D , Color Doppler and Limited Spectral Doppler. Eddie stress echo. Indication for study: Abnormal result of other cardiovascular function study; Elevated blood pressure reading without diagnosis of hypertension; Other chest pain Cardiac Rhythm: Regular.Study quality: Good. Final Impressions: 1. Maximum stress test with 102.8% of age predicted maximum heart rate achieved. 2. During stress exam the patient developed no significant symptoms. 3. See separate report for EKG interpretation. 4. Post stress, normal left ventricular size, normal global systolic function with an estimated EF of 60 to 65%. 5. Negative stress echo for ischemia. Stress Data: ? HR ?Systolic Diastolic Time Duration Minutes Seconds Baseline 74 bpm ?158 ?80 mmHg ? 11 :0 ?Peak ? 166 bpm ?? 174 ?78 mmHg Max Pred HR ?162 % of Max ? 103% Double Product [id number] Echo Findings:This is a negative stress echo test for ischemia. Post stress, normal left ventricular size, normal global systolic function with an estimated EF of 60 to 65%. LV regional wall motion abnormalities are not present post exercise. EKG:See separate report for EKG interpretation. Exam Protocol:The patient presents with chest pressure at baseline. The patient exercised 11 min 0 sec to stage IV according to the Eddie stress echo protocol. Test terminated due to fatigue. 13.5 METS were achieved. The patient achieved a heart rate of 166 bpm which is 102.8% of maximum predicted heart rate. Maximum systolic blood pressure was 174 [place] [id number]. Maximum stress test with 102.8% of age predicted maximum heart rate achieved. The blood pressure response was normal. The patient developed no significant symptoms during the stress exam. Low (less than 1% annual mortality rate) non invasive risk stratification. Chamber Sizes and Function Normal left ventricular size, normal global systolic function with an estimated EF of 60 - 65%. LV regional wall motion abnormalities are not present. Left atrial size is normal. Right ventricular cavity size is normal, global systolic RV function is normal. The right atrium is normal. Valves, RV Pressures and Diastolic Function The aortic valve is trileaflet, no stenosis and no regurgitation. The mitral valve is normal in structure, trace mitral regurgitation. The tricuspid valve is normal in structure. Tricuspid regurgitation is trace. The pulmonic valve is normal. Trace pulmonic regurgitation is present on color flow. Masses, Effusion, Shunts There is no pericardial effusion. MEASUREMENTS AND CALCULATIONS 2-D Measurements and LV Function: LVID (d) 4.3 cm LV FS% (2D) ?? 45 % LVID (s) 2.3 cm LVOT diameter 2.0 cm IVS (d) ??1.2 cm HR ?74 bpm LVPW (d) 0.9 cm Ao Sinus 3.2 cm . This study was interpreted by an [facility] accredited facility. CC: HIM (med records) [facility]. ??Final ?? Procedure Note Ishan Raymond MD - 02/07/2024 STRESS ECHOCARDIOGRAM DARCI RAMESH : 1965 58 years Study Date: 02/07/2024 2:55:34 PM Gender: F BP: 158/80 mmHg Height: 157.00 cm BSA: 1.64 m? ? ? Weight: 64.00 kg Tech: [facility] Referring MD: TONY GOEL Site: [facility] Reading Location: Mobile OP Patient Location: Outpatient. Procedure: Stress Echo, Limited 2D , Color Doppler and Limited SpectralDoppler. Eddie stress echo. Indication for study: Abnormal result of other cardiovascular functionstudy; Elevated blood pressure reading without diagnosis of hypertension;Other chest pain Cardiac Rhythm: Regular.Study quality: Good. Final Impressions: 1. Maximum stress test with 102.8% of age predicted maximum heart rateachieved. 2. During stress exam the patient developed no significant symptoms. 3. See separate report for EKG interpretation. 4. Post stress, normal left ventricular size, normal global systolicfunction with an estimated EF of 60 to 65%. 5. Negative stress echo for ischemia. Stress Data: HR Systolic Diastolic Time Duration Minutes Seconds Baseline 74 bpm 158 80 mmHg 11 :0 Peak 166 bpm 174 78 mmHg Max Pred HR 162 % of Max 103% Double Product [id number] Echo Findings:This is a negative stress echo test for ischemia. Poststress, normal left ventricular size, normal global systolic function withan estimated EF of 60 to 65%. LV regional wall motion abnormalities arenot present post exercise. EKG:See separate report for EKG interpretation. Exam Protocol:The patient presents with chest pressure at baseline. Thepatient exercised 11 min 0 sec to stage IV according to the Eddie stressecho protocol. Test terminated due to fatigue. 13.5 METS were achieved.The patient achieved a heart rate of 166 bpm which is 102.8% of maximumpredicted heart rate. Maximum systolic blood pressure was 174 [place] [address]. Maximum stress test with 102.8% of agepredicted maximum heart rate achieved. The blood pressure response wasnormal. The patient developed no significant symptoms during the stressexam. Low (less than 1% annual mortality rate) non invasive riskstratification. Chamber Sizes and Function Normal left ventricular size, normal global systolic function with anestimated EF of 60 - 65%. LV regional wall motion abnormalities are notpresent. Left atrial size is normal. Right ventricular cavity size isnormal, global systolic RV function is normal. The right atrium isnormal. Valves, RV Pressures and Diastolic Function The aortic valve is trileaflet, no stenosis and no regurgitation. Themitral valve is normal in structure, trace mitral regurgitation. Thetricuspid valve is normal in structure. Tricuspid regurgitation is trace.The pulmonic valve is normal. Trace pulmonic regurgitation is present oncolor flow. Masses, Effusion, Shunts There is no pericardial effusion. MEASUREMENTS AND CALCULATIONS 2-D Measurements and LV Function: LVID (d) 4.3 cm LV FS% (2D) 45 % LVID (s) 2.3 cm LVOT diameter 2.0 cm IVS (d) 1.2 cm HR 74 bpm LVPW (d) 0.9 cm Ao Sinus 3.2 cm . This study was interpreted by an [facility] accredited facility. CC: [facility]. Final Tony Goel MD ECHO ORD * XR MAMMO BILAT SCREEN FFDM (06/10/2015 3:50 PM MANAGER ER) Anatomical Region Laterality Modality BREASTS, Breast Left, Breast Right Bilateral Mammography Impressions 06/10/2015 4:44 PM MANAGER ER ??There is no radiographic evidence for malignancy. ??Recommend annual mammograms. A lay language report of this examination will be provided to the patient. MAMMOGRAM ASSESSMENT: ??ACR 1 Negative Narrative 06/10/2015 4:44 PM MANAGER ER XR MAMMO BILAT SCREEN FFDM [G0202.0] CLINICAL HISTORY: ??This is an asymptomatic 49 y.o. patient. INDICATION FOR EXAM: Mammogram Screening. TECHNIQUE: CC & MLO views were obtained. ??This digital study was evaluated with the assistance of Computer-Aided Detection. COMPARISON FILM: Yes 06/04/14 [facility] 10/20/12 [facility] FINDINGS: ??Mammographically, the breast tissue has scattered fibroglandular densities. ??There are no dominant masses, suspicious micro calcifications or areas of architectural distortion. Tameka Rodgers NP MAMMO * LIPID PANEL (01/01/2011 8:28 AM CDT) CHOLESTEROL,TOTAL 193 110 - 199 mg/dL [facility] TRIGLYCERIDES 58 40 - 149 mg/dL [facility] HDL CHOLESTEROL 54 >40 mg/dL [facility] CHOL/HDL RATIO 3.57 <4.51 [facility] LDL CHOLESTEROL 127 <131 mg/dL [facility] PATIENT STATUS Fasting [facility] Blood specimen (specimen) BLOOD SPECIMEN / Unknown 01/01/2011 8:28 AM CDT 01/01/2011 8:14 AM CDT Tameka Rodgers NP CHEMISTRY [facility] INTERNAL ZIP [address] [place] [address] from Last 3 Months or Most Recently Relevant to Health Maintenance Care Teams Hand Spinner Relationship Specialty [place] [address] [address] [place], [place] [phone] PCP - General Family Practice 10/12/21
--- OUTSIDE RECORDS SUMMARY | 2024-02-16 11:21 | XMS_ITS | Referral Summary ---
Author Organization [employer] Address [address] [place] [phone] Phone Care Team Providers Care Gas Worker Name Role Phone Pcp, No Primary Care Provider Unavailabl e Carolina De La Vega A OTR/L Unavailable Unavail able Carolina De La Vega A OTR/L Unavailable Unavail able Danielle Frye OD Unavailable Unavailable Megan Naranjo PT Unavailable Unavai lableighann Source Comments [employer] is fully rolled out on [employer]. Last update 11/22/08.[facility] Allergies No known active allergies Medications * [...] Comments Blood Pressure 135/83 06/01/2023 9:00 AM TELEGRAPHIC TYPEWRITER OPERATOR CHIEF Pulse 83 06/01/2023 9:00 AM TELEGRAPHIC TYPEWRITER OPERATOR CHIEF Temperature 35.9 ??C (96.6 ??F) 08/24/2022 10:[address] Respiratory Rate - - Oxygen Saturation - - Inhaled Oxygen Concentration - - Weight 64.2 kg (141 lb 9.6 oz) 06/01/2023 9:00 A M TELEGRAPHIC TYPEWRITER OPERATOR CHIEF Height 157.5 cm (5' 2) 06/01/2023 9:00 AM TELEGRAPHIC TYPEWRITER OPERATOR CHIEF Body Mass Index 25.9 06/01/2023 9:00 AM TELEGRAPHIC TYPEWRITER OPERATOR CHIEF Plan of Treatment Not on file Care Teams Gas Worker Relationship Specialty Start Date End Date Pcp, [place] [address] PCP - General 09/10/16 Carolina De La Vega, OTR/L [address] [place] [address] Occupational Therapist 11/03/16 Carolina De La Vega, OTR/L [address] [place] [address] Occupational Therapist 11/25/16 Danielle Frye OD [address] [place] [address] Referring Provider Optometry 12/01/16 Megan Naranjo PT [address] [place] [address] [place] [address] Physical Therapy 03/08/18
--- OUTSIDE RECORDS SUMMARY | 2024-02-16 11:21 | XMS_ITS | Clinical Summary ---
Author Organization [facility] Address [address] [place] [phone] Phone Care Team Providers Care Eviction Specialist Name Role Phone Pcp, No Primary Care Provider Unavailabl e Carolina De La Vega A OTR/L Unavailable Unavail able Carolina De La Vega A OTR/L Unavailable Unavail able Danielle Frye OD Unavailable Unavailable Megan Naranjo PT Unavailable Unavai lableighann Source Comments [employer] is fully rolled out on [employer]. Last update 11/22/08.[facility] Allergies No known active allergies Medications * [...] Comments Blood Pressure 135/83 06/01/2023 9:00 AM TRIM CREW SUPERVISOR Pulse 83 06/01/2023 9:00 AM TRIM CREW SUPERVISOR Temperature 35.9 ??C (96.6 ??F) 08/24/2022 10:[address] Respiratory Rate - - Oxygen Saturation - - Inhaled Oxygen Concentration - - Weight 64.2 kg (141 lb 9.6 oz) 06/01/2023 9:00 A M TRIM CREW SUPERVISOR Height 157.5 cm (5' 2) 06/01/2023 9:00 AM TRIM CREW SUPERVISOR Body Mass Index 25.9 06/01/2023 9:00 AM TRIM CREW SUPERVISOR Plan of Treatment Health Maintenance Due Date [...] of 3 - 19+ 3-dose series) 1984 Imm: DTaP/Tdap (2 - Td or Tdap) 01/22/2011 12/25/2010 Imm: Zoster (1 of 2) 08/28/2015 Imm: COVID-19 ( season) 2023 Imm: Flu (#1) 02/19/2024 03/27/2013, 02/18, 05/19/2007, Additional history exists Cervical Cancer Screening Age 30-65 04/13/2027 04/13/2022, 08/25/2017 Imm: HPV Aged Out No longer eligi ble based on patient's age to complete this topic Imm: HepA Aged Out No longer eligi ble based on patient's age to complete this topic Imm: Hib Aged Out No longer eligi ble based on patient's age to complete this topic Imm: Meningitis Aged Out No longer el igible based on patient's age to complete this topic Imm: Pneumonia Peds or At-Risk less than 65 years Aged Out No longer jodi gible based on patient's age to complete this topic Care Teams Eviction Specialist Relationship Specialty Start Date End Date Pcp, [place] [address] PCP - General 09/10/16 Carolina De La Vega, OTR/L [address] [place] [address] Occupational Therapist 11/03/16 Carolina De La Vega, OTR/L [address] [place] [address] Occupational Therapist 11/25/16 Danielle Frye OD [address] [place] [address] Referring Provider Optometry 12/01/16 Megan Naranjo PT [address] [place] [address] Physical Therapy 03/08/18
== END 2024-02-16 11:15 | disposition home or self-care (01) ==
PROVIDERS: PCP Family Medicine; Visit Provider Internal Medicine Cardiovascular Disease
DX: E78.5 Hyperlipidemia, unspecified (principal); R03.0 Elevated blood-pressure reading, without diagnosis of hypertension
CPT/HCPCS: 80061; 83695

== ENCOUNTER 2024-04-25 14:37 | Outpatient (CLI) | payer OTHER, SELFPAY ==
--- OUTSIDE RECORDS SUMMARY | 2024-04-25 14:40 | XMS_ITS | Clinical Summary ---
Author Organization [employer] Address [address] [place] [phone] Phone Care Team Providers Care Food And Beverage Checker Name Role Phone Pcp, No Primary Care Provider Unavailabl e Carolina De La Vega A OTR/L Unavailable Unavail able Carolina De La Vega A OTR/L Unavailable Unavail able Danielle Frye OD Unavailable Unavailable Megan Naranjo PT Unavailable Unavai lable Source Comments [employer] is fully rolled out on [employer]. Last update 11/22/08.[facility] Allergies No known active allergies Medications * Be aware that medications may not be up to date as of this document. Always verify current medications with patient. Acetaminophen (TYLENOL EXTRA STRENGTH ORAL) Take by mouth. Active venlafaxine (EFFEXOR XR) 37.5 mg oral capsule 24 H Take 37.5 mg by mouth daily. 8 Active nortriptyline (PAMELOR) 10 mg oral capsule Take 1-5 per night. 450 capsule 3 9 Active armodafinil (NUVIGIL) 250 mg oral tabletIndicatio ns:Narcolepsy TAKE 1 TABLET (250 MG) BY MOUTH EVERY MORNING. 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 03/31/2022 Primary snoring 03/05/2019 JED (obstructive sleep apnea) 11/09/2017 Primary narcolepsy without cataplexy ([facility]) 11/09 METZGER (headache) 09/08/2017 TBI (traumatic brain injury) ([facility]) 09/28/2016 Social History Tobacco Use Types Packs/Day Years Used Date Smoking Tobacco: Never Smokeless Tobacco: Never Tobacco Cessation:Counseling Given: Not Answered Alcohol Use Standard Drinks/Week Comments No 0 (1 standard drink = 0.6 oz pur e alcohol) Seldom Comments No Sex and Gender Information Value Date Recorded Sex Assigned at Not on file Legal Sex Female 9:55 AM CDT Gender Identity Not on file Sexual Orientation Not on file Last Filed Vital Signs Vital Sign Reading Time Taken Comments Blood Pressure 135/83 06/01/2023 9:00 AM PRESCHOOL ASSOCIATE TEACHER Pulse 83 06/01/2023 9:00 AM PRESCHOOL ASSOCIATE TEACHER Temperature 35.9 ??C (96.6 ??F) 08/24/2022 10:[address] Respiratory Rate - - Oxygen Saturation - - Inhaled Oxygen Concentration - - Weight 64.2 kg (141 lb 9.6 oz) 06/01/2023 9:00 A M PRESCHOOL ASSOCIATE TEACHER Height 157.5 cm (5' 2) 06/01/2023 9:00 AM PRESCHOOL ASSOCIATE TEACHER Body Mass Index 25.9 06/01/2023 9:00 AM PRESCHOOL ASSOCIATE TEACHER Plan of Treatment Health Maintenance Due Date [...] 3 - 19+ 3-dose series) 1984 Imm: Zoster (1 of 2) 08/28/2015 Imm: DTaP/Tdap (2 - Td or Tdap) 12/25/2020 12/25/2010 Imm: COVID-19 ( season) 2024 Imm: Flu (#1) 02/19/2024 03/27/2013, 02/18, 05/19/2007, [...] on patient's age to complete this topic Insurance [employer] Care Teams Food And Beverage Checker Relationship Specialty Start Date End Date Pcp, [place] [address] PCP - General 09/10/16 Carolina De La Vega, OTR/L [address] [place] [address] Occupational Therapist 11/03/16 Carolina De La Vega, OTR/L [address] [place] [address] Occupational Therapist 11/25/16 Danielle Frye OD [address] [place] [address] Referring Provider Optometry 12/01/16 Megan Naranjo PT [address] [place] [address] Physical Therapy 03/08/18
--- OUTSIDE RECORDS SUMMARY | 2024-04-25 14:40 | XMS_ITS | Referral Summary ---
Author Organization [employer] Address [address] [place] [phone] Phone Care Team Providers Care Resident Care Provider Name Role Phone Pcp, No Primary Care Provider Unavailabl e Carolina De La Vega A OTR/L Unavailable Unavail able Carolina De La Vega A OTR/L Unavailable Unavail able Danielle Frye OD Unavailable Unavailable Megan Naranjo PT Unavailable Unavai lableighann Source Comments [employer] is fully rolled out on [employer]. Last update 11/22/08.[facility] Allergies No known active allergies Medications * [...] METZGER (headache) 09/08/2017 TBI (traumatic brain injury) ([facility]) 09/28/2016 Social History Tobacco Use Types Packs/Day [...] Comments Blood Pressure 135/83 06/01/2023 9:00 AM SHOE CLEANER Pulse 83 06/01/2023 9:00 AM SHOE CLEANER Temperature 35.9 ??C (96.6 ??F) 08/24/2022 10:[address] Respiratory Rate - - Oxygen Saturation - - Inhaled Oxygen Concentration - - Weight 64.2 kg (141 lb 9.6 oz) 06/01/2023 9:00 A M SHOE CLEANER Height 157.5 cm (5' 2) 06/01/2023 9:00 AM SHOE CLEANER Body Mass Index 25.9 06/01/2023 9:00 AM SHOE CLEANER Plan of Treatment Not on file Insurance [employer]ICA Care Teams Resident Care Provider Relationship Specialty Start Date End Date Pcp, [place] [address] PCP - General 09/10/16 Carolina De La Vega OTR/L [address] [place] [address] Occupational Therapist 11/03/16 Carolina De La Vega, OTR/L [address] [place] [address] Occupational Therapist 11/25/16 Danielle Frye OD [address] [place] [address] Referring Provider Optometry 12/01/16 Megan Naranjo, PT [address] [place] [address] Physical Therapy 03/08/18
--- OUTSIDE RECORDS SUMMARY | 2024-04-25 14:40 | XMS_ITS | Clinical Summary ---
Author Organization [employer] [facility] [employer] Address [place], [place] [address] Care Team Providers Care Plating Inspector Name Role Phone Alysia Oneill DO Primary Care Provider Allergies Active Allergy Reactions [...] 08/11/2019 Spinal stenosis of cervical region 06/26/2019 Overview (10/12/2021): Added automatically from request for surgery [id number] Primary snoring 03/05/2019 Primary narcolepsy without cataplexy 11/09/2017 TBI (traumatic brain injury) 09/28/2016 Arteriosclerosis of coronary artery 04/30/2016 Acute bronchitis 06/28/2015 Menopause present 05/24/2013 Fluid retention 05/24/2013 Cyst of pituitary gland 03/26/2008 Depressive disorder, not elsewhere classified Excessive or frequent menstruation 05/31/2007 Other and unspecified ovarian cyst 05/31/2007 Dysmenorrhea 05/31/2007 Allergic rhinitis 11/07/2003 Overview (10/12/2021): Problem list name updated by automated process. Provider to review Encounters Date Type Department Care Team Description 02/21/2024 3:00 PM CDT Ancillary Procedure [facility] [address] [facility] [address] [place] [address] 02/21/2024 Travel 02/17/2024 Orders Only [id number] [place] [address] Self, Referral <No scans attached> 02/16/2024 10:30 AM CDT Office Visit [facility] [address] [place] [address] Hugo Ballard MD 02/07/2024 3:00 PM CDT Ancillary Procedure [facility] [address] [place] [address] from Last 3 Months Immunizations Name Administration [...] Friends and Fami ly Not on file 02/16/2024 Financial Resource Strain Answer Date R ecorded [...] T Respiratory Rate 16 06/28/2015 2:15 PM MOLECULAR BIOLOGIST Oxygen Saturation 97% 10/12/2021 9:59 AM CDT [...] 45-75 06/10/2017 06/10/20 16 (Completed outside of [employer]), 06/10/2015, 06/04/2014, Additional history exists Depression screening for age 12+ 01/06/2018 01/06/2017 Tetanus booster 12/25/2020 12/25/2010, 12/25/2010 Lipids for age 45-75 01/06/2022 01/06/2017 (Completed outside of [employer]), 01/01/2011, 12/25/2010 BMI (ht and wt on same day) for age 18+ 09/14/2022 09/14/2021, 08/13/2021, 01/06/2017, Additional history exists COVID-19 vaccine series (2023- season) 2024 Influenza for age 50-64 02/19/2024 03/27/2013, 05/19 Tdap Completed 12/25/2010 Pneumococcal series for age 6-64 Aged Out No longer eligible based on patient's age to complete this topic Procedures Procedure Name Priority Date/Time Associated Diagnosis Comments CT CARDIAC CALCIUM SCORE ONLY WO SINGLE READ Routine 02/21/2024 10:42 AM CDT Screening for heart disease ECHO STRESS EXERCISE WO CONTRAST W COLOR W LTD DOPPLER Routine 02/07/2024 3:43 PM CDT Abnormal result of other cardiovascular function study Elevated blood pressure reading without diagnosis of hypertension Other chest pain XR MAMMO BILAT SCREEN FFDM (IA) Routine 06/10/2015 3:50 PM MOLECULAR BIOLOGIST Visit for screening mammogram LIPID PANEL Routine 01/01/2011 8:28 AM CDT Screening for lipoid disorders from Last 3 Months or Most Recently Relevant to Health Maintenance Results * CT CARDIAC CALCIUM SCORE ONLY WO SINGLE READ (02/21/2024 10:42 AM CDT) Anatomical Region Laterality Modality Computed Tomogra phy 02/21/2024 12:1 1 PM CDT Narrative 02/21/2024 12:11 PM CDT For Patients: ??As a result of the Century Cures Act, medical imaging exams and procedure reports are released immediately into your electronic medical record. ??You may view this report before your referring provider. ??If you have questions, please contact your health care provider. CT CARDIAC CALCIUM SCORING PATIENT HISTORY: ??Screening for heart disease/cardiovascular condition. REPORT: ??High-resolution, ECG-synchronized noncontrast computed tomography of the heart with attention to the coronary arteries was performed. ?? Coronary calcification analyzed using Siemens calcium scoring software. These are the results of the evaluation: CT Calcium Scoring: ??This cardiac CT examination will provide you with a coronary artery calcium score. A coronary artery calcium score is a measurement of the amount of calcified plaque in the coronary arteries, the arteries that supply blood to the heart muscle. The coronary artery calcium score is calculated based on the number, size, and density of the calcified plaques in the coronary arteries. The amount of calcified coronary plaque has been shown to directly correlate with future risk for heart disease. The coronary artery calcium is a marker of how much plaque has accumulated in the jeong of the coronary arteries. It is not a test for blockages. This test is intended to assess cardiovascular risk in patients without symptoms. It is not intended to be a test for individuals with chest pain or other possible symptoms suggestive of heart disease. If you are having chest pain or other potential cardiovascular symptoms, see your physician. Calcium Score: Left main = 0 Left anterior descending = 0 Left circumflex = 68 Right coronary artery = 0 Total calcium score = 68 [address] the patient at the 89th percentile for matched age and gender. Calcified Plaque Seen Assessment: - Your cardiac CT examination demonstrates plaque in the coronary arteries. - The amount of plaque in the coronary arteries directly correlates with the risk for heart attack and other coronary events (such as bypass or stenting). - As discussed above, the coronary artery calcium score is intended for risk assessment in patients without cardiovascular symptoms. If you are having chest pain or other potential cardiovascular symptoms, see your physician. Recommendations: - To lower your cardiovascular risk, we strongly recommend adherence to healthy lifestyle behaviors including: - Following a heart healthy diet focused on modest ??portion sizes, a high intake of fresh fruits and vegetables, whole grains, healthy fats (olive oil, nuts and seeds, avocados), and healthy proteins (unprocessed meats, fish, legumes). - Following an active lifestyle including 30-45 minutes of moderate intensity exercise 5-6 times per week. - Avoidance of tobacco products. - Cardiovascular preventive medication, including a daily aspirin and cholesterol-lowering statin medications have been shown to reduce the risk of a future heart attack and stroke, especially in individuals at higher risk for heart disease. - We recommend that individuals with calcified plaque discuss the risks and benefits of cholesterol-lowering medications, blood pressure medications, and aspirin with their primary care physician. Cholesterol-lowering medications have been shown to reduce the risk of heart attack in individuals at elevated risk, including in patients with normal cholesterol levels at baseline. - A coronary artery calcium score is not a test for blockages, it is a test for underlying plaque. An elevated calcium score is not an indication for additional testing for coronary heart disease though one may be considered based on your clinical history. The results of your coronary artery calcium score should be reviewed by your primary care provider or bucket wash operator. - These recommendations are generalized and may not specifically apply to you as an individual. Your primary care physician is in the best position to provide advice on your care and clinical decisions should ultimately be made by you and your physician. EXTRA-CARDIAC FINDINGS: None of significance. Please note that all CT scans at this facility use dose modulation, iterative reconstruction, and/or weight-based dosing when appropriate to reduce radiation dose to as low as reasonably achievable. Dictated by Christopher Parsons MD @ 02/21/2024 12:11:40 PM (Electronically Signed) Procedure Note Christopher Parsons MD - 02/21/2024 For Patients: As a result of the Century Cures Act, medical imagingexams and procedure reports are released immediately into your electronicmedical record. You may view this report before your referring provider.If you have questions, please contact your health care provider. CT CARDIAC CALCIUM SCORING PATIENT HISTORY: Screening for heart disease/cardiovascular condition. REPORT: High-resolution, ECG-synchronized noncontrast computed tomographyof the heart with attention to the coronary arteries was performed. Coronary calcification analyzed using Siemens calcium scoring software.These are the results of the evaluation: CT Calcium Scoring: This cardiac CT examination will provide you with acoronary artery calcium score. A coronary artery calcium score is ameasurement of the amount of calcified plaque in the coronary arteries,the arteries that supply blood to the heart muscle. The coronary arterycalcium score is calculated based on the number, size, and density of thecalcified plaques in the coronary arteries. The amount of calcifiedcoronary plaque has been shown to directly correlate with future risk forheart disease. The coronary artery calcium is a marker of how much plaque has accumulatedin the jeong of the coronary arteries. It is not a test for blockages.This test is intended to assess cardiovascular risk in patients withoutsymptoms. It is not intended to be a test for individuals with chest painor other possible symptoms suggestive of heart disease. If you are havingchest pain or other potential cardiovascular symptoms, see yourphysician. Calcium Score: Left main = 0 Left anterior descending = 0 Left circumflex = 68 Right coronary artery = 0 Total calcium score = 68 This places the patient at the 89th percentile for matched age andgender. Calcified Plaque Seen Assessment: - Your cardiac CT examination demonstrates plaque in the coronaryarteries. - The amount of plaque in the coronary arteries directly correlates withthe risk for heart attack and other coronary events (such as bypass orstenting). - As discussed above, the coronary artery calcium score is intended forrisk assessment in patients without cardiovascular symptoms. If you arehaving chest pain or other potential cardiovascular symptoms, see yourphysician. Recommendations: - To lower your cardiovascular risk, we strongly recommend adherence tohealthy lifestyle behaviors including: - Following a heart healthy diet focused on modest portion sizes, a highintake of fresh fruits and vegetables, whole grains, healthy fats (oliveoil, nuts and seeds, avocados), and healthy proteins (unprocessed meats,fish, legumes). - Following an active lifestyle including 30-45 minutes of moderateintensity exercise 5-6 times per week. - Avoidance of tobacco products. - Cardiovascular preventive medication, including a daily aspirin andcholesterol-lowering statin medications have been shown to reduce the riskof a future heart attack and stroke, especially in individuals at higherrisk for heart disease. - We recommend that individuals with calcified plaque discuss the risksand benefits of cholesterol-lowering medications, blood pressuremedications, and aspirin with their primary care physician.Cholesterol-lowering medications have been shown to reduce the risk ofheart attack in individuals at elevated risk, including in patients withnormal cholesterol levels at baseline. - A coronary artery calcium score is not a test for blockages, it is atest for underlying plaque. An elevated calcium score is not an indicationfor additional testing for coronary heart disease though one may beconsidered based on your clinical history. The results of your coronaryartery calcium score should be reviewed by your primary care provider orcardiologist. - These recommendations are generalized and may not specifically apply toyou as an individual. Your primary care physician is in the best positionto provide advice on your care and clinical decisions should ultimately bemade by you and your physician. EXTRA-CARDIAC FINDINGS: None of significance. Please note that all CT scans at this facility use dose modulation,iterative reconstruction, and/or weight-based dosing when appropriate toreduce radiation dose to as low as reasonably achievable. Dictated by Christopher Parsons MD @ 02/21/2024 12:11:40 PM (Electronically Signed) Referral Self CT * ECHO STRESS EXERCISE WO CONTRAST W COLOR W LTD DOPPLER (02/07/2024 3:43 PM CDT) LVEDD 4.3 cm EJECTION FRACTION 60 - 65% Anatomical Region Laterality Modality Ultrasound 02/07/2024 2:55 PM CDT Narrative 02/07/2024 4:45 PM CDT STRESS ECHOCARDIOGRAM MINERVA RAMESH ? Accession#: ?? [id number] : ?1965 58 years Study Date: ?? 02/07/2024 2:55:34 PM Gender: F ?BP: ? 158/80 mmHg Height: 157.00 cm ?BSA: ?1.64 m? ? ? Weight: 64.00 kg ? Tech: ? MBF ? Referring MD: DENISE GOEL Site: ? [facility] Reading Location: Mobile OP Patient [...] % of Max ? 103% Double Product [id number] Echo Findings:This is a negative stress echo [...] [place] [address]. Maximum stress test with 102.8% of age [...] . This study was interpreted by an [facility] accredited facility. CC: HIM ([facility]) [facility]. ??Final ?? Procedure Note Ishan Raymond MD - 02/07/2024 STRESS ECHOCARDIOGRAM MINERVA RAMESH : 1965 58 years Study Date: 02/07/2024 2:55:34 PM Gender: F BP: 158/80 mmHg Height: 157.00 cm BSA: 1.64 m? ? ? Weight: 64.00 kg Tech: [facility] Referring MD: DENISE GOEL Site: [facility] Reading Location: Mobile OP Patient [...] 162 % of Max 103% Double Product [id number] Echo Findings:This is a negative stress echo [...] 174 [place] [address]. Maximum stress test with 102.8% of agepredicted [...] . This study was interpreted by an [facility] accredited facility. CC: [facility] (med records) [facility]. Final Denise Goel MD ECHO ORD * XR MAMMO BILAT SCREEN FFDM (06/10/2015 3:50 PM MOLECULAR BIOLOGIST) Anatomical Region Laterality Modality BREASTS, Breast Left, Breast Right Bilateral Mammography Impressions 06/10/2015 4:44 PM MOLECULAR BIOLOGIST ??There is no radiographic evidence for malignancy. ??Recommend annual mammograms. A lay language report of this examination will be provided to the patient. MAMMOGRAM ASSESSMENT: ??ACR 1 Negative Narrative 06/10/2015 4:44 PM MOLECULAR BIOLOGIST XR MAMMO BILAT SCREEN FFDM [G0202.0] CLINICAL HISTORY: ??This is an asymptomatic 49 y.o. patient. INDICATION FOR EXAM: Mammogram Screening. TECHNIQUE: CC & MLO views were obtained. ??This digital study was evaluated with the assistance of Computer-Aided Detection. COMPARISON FILM: Yes 06/04/14 [facility] 10/20/12 [facility] FINDINGS: ??Mammographically, the breast tissue has scattered fibroglandular densities. ??There are no dominant masses, suspicious micro calcifications or areas of architectural distortion. Tameka Rodgers EXPERIMENTAL FLIGHT TEST MECHANIC MAMMO * LIPID PANEL (01/01/2011 8:28 AM CDT) CHOLESTEROL,TOTAL 193 110 - 199 mg/dL [facility] TRIGLYCERIDES 58 40 - 149 mg/dL [facility] HDL CHOLESTEROL 54 >40 mg/dL [facility] CHOL/HDL RATIO 3.57 <4.51 [facility] LDL CHOLESTEROL 127 <131 mg/dL [facility] PATIENT STATUS Fasting [facility] Blood specimen (specimen) BLOOD SPECIMEN / Unknown 01/01/2011 8:28 AM CDT 01/01/2011 8:14 AM CDT Tameka Rodgers NP CHEMISTRY [facility] INTERNAL ZIP [address] [place] [phone] from Last 3 Months or Most Recently Relevant to Health Maintenance Care Teams Plating Inspector Relationship Specialty [place] [address] [place] [address] PCP - General Family Practice 10/12/21
--- NOTE | 2024-04-25 15:00 | CRLHL7_ITS ---
For Patients: As a result of the Century Cures Act, medical imaging exams and procedure reports are released immediately into your electronic medical record. You may view this report before your referring provider. If you have questions, please contact your health care provider. DXA BONE MINERAL DENSITY STUDY Reason for exam: Age-related osteoporosis. Current height (in): 62.5. Weight (lb): 143. Menopause age: 40. Ethnicity: White. 1. Have you had a previous hip or vertebral fracture? No. 2. Have you had any fractures during your adult life which did not result from significant trauma (e.g., auto accident)? No. 3. Did either of your parents have a hip fracture? No. 4. Do you smoke? No. 5. Have you ever taken Glucocorticoids? No. 6. Do you have rheumatoid arthritis? No. 7. Do you have secondary osteoporosis? No. 8. Do you drink 3 or more alcoholic drinks per day? No. 9. Are you being treated for osteoporosis? No. 10. Have you ever taken any of the following medications: Actonel, Evista, Fosamax, Miacalcin, Reclast, Boniva, Forteo, HRT (i.e., estrogen/hormone therapy), Protelos, Prolia, Vitamin D, Calcium, other ??? please specify. ANSWER: Yes, Fosamax (i.e., alendronate), Vitamin D, and calcium. 11. Do you have any of the following medical conditions: Anorexia or bulimia, asthma or emphysema, end stage renal disease, hyperparathyroidism, any seizure disorders, cancer, inflammatory bowel diseases, hysterectomy, other ??? please specify. ANSWER: Yes, hysterectomy. 12. What was your maximum height (inches)? 62. 13. Do you perform weight bearing exercise regularly? No. 14. Do you regularly consume dairy products? Yes. 15. Do you drink caffeinated beverages? Yes. 16. At what age did your period start? 13. 17. Are you premenopausal? No. 18. How many full-term pregnancies have you had? 2. 19. Have you ever missed your period for more than 6 months in a row (not including or menopause)? No. TECHNIQUE: Bone mineral density study was performed using the bookjam. FINDINGS: The results of the study expressed as bone mineral density (BMD) are as follows: Lumbar spine L1 to L4: BMD: 0.749 g/cm2. T-score: -2.7. Z-score: -1.4 Neck Left: BMD: 0.613 g/cm2. T-score: -2.1. Z-score: -0.9 Right: BMD: 0.538 g/cm2. T-score: -2.8. Z-score: -1.6 Total Left: BMD: 0.723 g/cm2. T-score: -1.8. Z-score: -0.9 Right: BMD: 0.742 g/cm2. T-score: -1.6. Z-score: -0.8 IMPRESSION: Osteoporosis. *Comparison exams done prior to 11/2019 were performed on different unit, [employer]. COMPARISON: Compared with scan of 04/22/2022, the bone mineral density has decreased by 0.1 percent at the spine and decreased by 6.2 percent at the hip. Compared with scan of 04/30/2020, the bone mineral density has increased by 3.0 percent at the spine and no change at the hip. Ngoc KRAUSE:janel Transcribed: 5:15 p.m. [email or web address] janel/Dictated by: Wilbur Linda MD @ 04/29/2024 10:33:00 PM (Electronically Signed)
== END 2024-04-25 14:38 | disposition home or self-care (01) ==
LOC: RAD 14:38
PROVIDERS: PCP Family Medicine; Visit Provider Family Medicine
DX: M81.0 Age-related osteoporosis without current pathological fracture (principal)
CPT/HCPCS: 77080

== ENCOUNTER 2024-06-06 13:25 | Outpatient (CLI) | payer OTHER, SELFPAY | END 2024-06-06 13:26 | disposition home or self-care (01) | PROVIDERS: PCP Family Medicine; Visit Provider Family Medicine | DX: R03.0 Elevated blood-pressure reading, without diagnosis of hypertension (principal); E78.5 Hyperlipidemia, unspecified | CPT/HCPCS: 80061; 83695 ==

== ENCOUNTER 2025-01-11 13:16 | Outpatient (CLI) | payer OTHER, SELFPAY | END 2025-01-11 13:17 | disposition home or self-care (01) | PROVIDERS: PCP Family Medicine; Visit Provider Family Medicine | DX: Z00.00 Encounter for general adult medical examination without abnormal findings (principal); E78.5 Hyperlipidemia, unspecified; R73.03 Prediabetes | CPT/HCPCS: 80053; 80061 ==

== ENCOUNTER 2025-04-01 09:37 | Outpatient (CLI) | payer OTHER, SELFPAY ==
--- NOTE | 2025-04-01 09:45 | CRLHL7_ITS ---
For Patients: As a result of the Century Cures Act, medical imaging exams and procedure reports are released immediately into your electronic medical record. You may view this report before your referring provider. If you have questions, please contact your health care provider. INDICATION: BILATERAL SCREENING MAMMOGRAM, ASYMPTOMATIC 59 Y/O FEMALE COMPARISON: 09/13/2023, 09/06/2022, 08/12/2021 TECHNIQUE: Digital mammogram in CC and MLO projections including computer-aided detection (CAD) and tomosynthesis. BREAST COMPOSITION: There are scattered areas of fibroglandular density. FINDINGS: No suspicious findings. ASSESSMENT: BI-RADS 1 Negative RECOMMENDATION: Annual screening mammogram. A lay language report of this examination will be provided to the patient. Dictated by: Emilia Sapp MD @ 04/02/2025 17:57:27 (Electronically Signed)
== END 2025-04-01 09:38 | disposition home or self-care (01) ==
LOC: MAMMO 09:37
PROVIDERS: PCP Family Medicine; Visit Provider Family Medicine
DX: Z12.31 Encounter for screening mammogram for malignant neoplasm of breast (principal)
CPT/HCPCS: 77063; 77067

== ENCOUNTER 2025-04-12 07:17 | Outpatient (CLI) | payer OTHER, SELFPAY ==
--- NOTE | 2025-04-12 08:49 | P.ANES_ITS ---
Anesthesia Charges Start Date/Time Anesthesia Start Date: 04/12/25 Anesthesia Start Time: 08:20 Stop Date/Time Anesthesia Stop Date: 04/12/25 Anesthesia Stop Time: 08:45 Coding CPT Codes CPT Codes: ANES LWR INTST SCR COLSC - 07409 ([id number]) P2 - PATIENT W/MILD SYST DISEASE, QZ - CASH ON DELIVERY CLERK SVC W/O AUTO BODY MECHANIC BY
--- NOTE | 2025-04-12 08:49 | W.ANESCHARGE ---
Anesthesia Charges Start Date/Time Anesthesia Start Date: 04/12/25 Anesthesia Start Time: 08:20 Stop Date/Time Anesthesia Stop Date: 04/12/25 Anesthesia Stop Time: 08:45 Coding CPT Codes CPT Codes: ANES LWR INTST SCR COLSC - 64438 ([id number]) P2 - PATIENT W/MILD SYST DISEASE, QZ - ASSISTANT GOLF COACH SVC W/O CHEMIST ORGANIC BY
== END 2025-04-12 07:18 | disposition home or self-care (01) ==
LOC: OP CLINIC 07:17
PROVIDERS: PCP Family Medicine; Visit Provider Surgery
DX: Z12.11 Encounter for screening for malignant neoplasm of colon (principal); Z86.0100 Personal history of colon polyps, unspecified
CPT/HCPCS: 00812; 45378; J2704